=== PATIENT | female | born 1965 | race Caucasian/White ===

== ENCOUNTER 2017-09-08 19:06 | Emergency (ER) | payer MEDICARE, MEDICAID ==
[~2017-09-08] VITALS: Ht 160 cm; Wt 5.5 kg
[~2017-09-08 19:06] MED LIST: ASPI81TA46 PO; ATOR20TA66 PO; IBUP-1985 PO; METF500T4 PO; METH4TAB3 PO; METO25TA6 PO; POTA10TA36 PO
[2017-09-08] MEDS ORDERED: normal saline 1000ml 1,000 ML IV ONE (19:36)
[2017-09-08 19:37] LABS: BASOPHILS % (AUTO) 0.5 % (0-1); EOSINOPHILS # (AUTO) 0.5 X10'3 (0-0.9); EOSINOPHILS % (AUTO) 6.5 % (0-6); HEMATOCRIT 37.3 % (35.0-45.0); HEMOGLOBIN 12.4 g/dl (12.0-16.0); LYMPHOCYTES # (AUTO) 1.7 X10'3 (1.1-4.8); LYMPHOCYTES % (AUTO) 23.4 % (21-51); MEAN CORPUSCULAR HEMOGLOBIN 30.1 PG (27.0-31.0); MEAN CORPUSCULAR HGB CONC 33.3 % (33.0-36.5); MEAN CORPUSCULAR VOLUME 90.5 FL (78-98); MEAN PLATELET VOLUME 7.2 FL (7.4-10.4); MONOCYTES # (AUTO) 0.4 X10'3 (0-0.9); NEUTROPHILS # (AUTO) 4.6 X10'3 (1.8-7.7); NEUTROPHILS % (AUTO) 63.6 % (42-75); PLATELET COUNT 194 X10'3 (140-440); RED BLOOD COUNT 4.12 X10'6 (4.20-5.60); WHITE BLOOD COUNT 7.2 X10'3 (4.5-11.0)
[2017-09-08] MEDS ORDERED: methylPREDNISolone sod succ 125mg/2ml vial IV ONE (19:40)
[2017-09-08] MEDS ORDERED: ipratropium/albuterol 3ml nebule NEB ONE (19:40)
[2017-09-08 19:46] LABS: PARTIAL THROMBOPLASTIN TIME 25 SECONDS (22-32)
[2017-09-08] MEDS: morphine 2 MG/ML inj. syringe IV PRN ×2 (19:57→22:25)
[2017-09-08 20:15] LABS: ALANINE AMINOTRANSFERASE 28 U/L (12-78); ALBUMIN 3.4 G/DL (3.4-5.0); ALBUMIN/GLOBULIN RATIO 1.3 (1.1-1.5); ALKALINE PHOSPHATASE 154 IU/L (46-116); ANION GAP 7 (8-16); ASPARTATE AMINO TRANSFERASE 20 U/L (10-37); BILIRUBIN,TOTAL 0.2 MG/DL (0.1-1.0); BLOOD UREA NITROGEN 19 MG/DL (7-18); BUN/CREATININE RATIO 27.1 (6.6-38.0); CALCIUM 8.9 MG/DL (8.5-10.1); CHLORIDE 109 MMOL/L (99-107); ETHANOL < 0.010 GM/DL (0.0-0.010); GLUCOSE 101 MG/DL (70-104); LIPASE 122 U/L (73-393); MAGNESIUM 1.9 MG/DL (1.5-2.4); POTASSIUM 3.4 MMOL/L (3.5-5.1); SODIUM 145 MMOL/L (135-145); TOTAL CARBON DIOXIDE 29.5 MMOL/L (24-32); TOTAL PROTEIN 6.1 G/DL (6.4-8.2); eGFR 87 ML/MIN
[2017-09-08] MEDS ORDERED: dexamethasone sod phosphate 10mg/ml inj IV STA (21:31)
[2017-09-08] MEDS ORDERED: PRED20TA PO (21:33)
[2017-09-08] MEDS ORDERED: ALBU6.7H INH (21:33)
[2017-09-08] MEDS ORDERED: albuterol 2.5 MG/3 ML nebule NEB ONE (21:35)
[2017-09-08 22:23] LABS: URINE AMPHETAMINE SCREEN POSITIVE (Neg); URINE BARBITUATE SCREEN NEGATIVE (Neg); URINE BENZODIAZEPINES SCREEN NEGATIVE (Neg); URINE CANNABINOID SCREEN NEGATIVE (Neg); URINE COCAINE SCREEN NEGATIVE (Neg); URINE METHADONE SCREEN NEGATIVE (Neg); URINE OPIATE SCREEN POSITIVE (Neg); URINE PHENCYCLIDINE SCREEN NEGATIVE (Neg)
[2017-09-08 23:36] VITALS: BP 116/63
[2017-09-08 23:58] LABS: OCCULT BLOOD STOOL NEGATIVE (Neg)
== END 2017-09-08 23:38 | disposition home or self-care (01) ==
LOC: ER 19:07
DX: B34.9 Viral infection, unspecified (principal); E86.0 Dehydration; F15.10 Other stimulant abuse, uncomplicated; F17.200 Nicotine dependence, unspecified, uncomplicated; I11.0 Hypertensive heart disease with heart failure; I50.9 Heart failure, unspecified; J44.9 Chronic obstructive pulmonary disease, unspecified; E11.9 Type 2 diabetes mellitus without complications; Z90.49 Acquired absence of other specified parts of digestive tract; Z79.82 Long term (current) use of aspirin; Z79.84 Long term (current) use of oral hypoglycemic drugs; Z88.1 Allergy status to other antibiotic agents; Z79.899 Other long term (current) drug therapy
CPT/HCPCS: 36415; 71045; 80053; 80305; 80320; 82272; 83690; 83735; 83880; 84484; 85025; 85610; 85730; 86885; 86900; 86901; 87040; 87502; 87503; 93005; 94640; 94760; 96361; 96374; 96375; 96376; 99285; A4353; J1100; J2270; J2930; J7030

== ENCOUNTER 2018-08-01 16:24 | Emergency (ER) | payer MEDICARE, MEDICAID ==
[~2018-08-01] VITALS: Ht 160 cm; Wt 50.0 kg
[~2018-08-01 16:24] MED LIST changes: +ALBU6.7H INH; +METF-436 PO; -METF500T4 PO
[2018-08-01 16:57] VITALS: BP 110/70
== END 2018-08-01 17:52 | disposition left against medical advice (07) ==
LOC: ER 16:24
DX: N76.0 Acute vaginitis (principal); Z53.21 Procedure and treatment not carried out due to patient leaving prior to being seen by health care provider

== ENCOUNTER 2018-08-25 11:16 | Inpatient (IN) | payer MEDICARE, MEDICAID | END 2018-08-31 17:02 | disposition home or self-care (01) | LOC: ER 11:16 → ED HOLD 13:35 → SUR 3N 16:29 | DX: J96.01 Acute respiratory failure with hypoxia (principal); J18.1 Lobar pneumonia, unspecified organism; J44.1 Chronic obstructive pulmonary disease with (acute) exacerbation; N39.0 Urinary tract infection, site not specified; J44.0 Chronic obstructive pulmonary disease with (acute) lower respiratory infection; E11.9 Type 2 diabetes mellitus without complications ==

== ENCOUNTER 2018-11-04 13:45 | Emergency (ER) | payer MEDICARE, MEDICAID ==
[~2018-11-04] VITALS: Ht 160 cm; Wt 60.9 kg
[~2018-11-04 13:45] MED LIST changes: +ALBU18HF2 INH; -ALBU6.7H INH; +BENZ-16 PO; +BUDE10.2 INH; +CHOL100044 PO; +FERR325T32 PO; -IBUP-1985 PO; +LACT1CAP26 PO; +LISI2.5T2 PO; -METH4TAB3 PO; +MILK175C5 PO; +OXYB5TAB29 PO; +SERT25TA5 PO; +VARE0.5T PO
[2018-11-04 14:10] LABS: BASOPHILS % (AUTO) 0.6 % (0-1); EOSINOPHILS # (AUTO) 0.3 X10'3 (0-0.9); EOSINOPHILS % (AUTO) 5.9 % (0-6); HEMATOCRIT 37.1 % (35.0-45.0); HEMOGLOBIN 12.4 g/dl (12.0-16.0); LYMPHOCYTES # (AUTO) 1.4 X10'3 (1.1-4.8); LYMPHOCYTES % (AUTO) 23.3 % (21-51); MEAN CORPUSCULAR HEMOGLOBIN 29.7 PG (27.0-31.0); MEAN CORPUSCULAR HGB CONC 33.3 g/dL (33.0-36.5); MEAN PLATELET VOLUME 7.5 FL (7.4-10.4); MONOCYTES # (AUTO) 0.4 X10'3 (0-0.9); MONOCYTES % (AUTO) 6.7 % (2-12); NEUTROPHILS # (AUTO) 3.7 X10'3 (1.8-7.7); NEUTROPHILS % (AUTO) 63.5 % (42-75); PLATELET COUNT 146 X10'3 (140-440); RED BLOOD COUNT 4.17 X10'6 (4.20-5.60); RED CELL DISTRIBUTION WIDTH 13.7 % (11.5-14.5); WHITE BLOOD COUNT 5.9 X10'3 (4.5-11.0)
[2018-11-04] MEDS ORDERED: ketorolac trometh. 30mg/ml inj. IV ONE (14:10)
[2018-11-04] MEDS ORDERED: normal saline 1000ML IV soln IVB ONE ×3 (14:10→16:10)
[2018-11-04 14:19] LABS: ALANINE AMINOTRANSFERASE 21 U/L (12-78); ALBUMIN 2.9 G/DL (3.4-5.0); ALKALINE PHOSPHATASE 106 IU/L (46-116); ANION GAP 4 (8-16); ASPARTATE AMINO TRANSFERASE 17 U/L (10-37); BILIRUBIN,TOTAL 0.2 MG/DL (0.1-1.0); BLOOD UREA NITROGEN 26 MG/DL (7-18); BUN/CREATININE RATIO 55.3 (6.6-38.0); CALCIUM 8.4 MG/DL (8.5-10.1); CHLORIDE 111 MMOL/L (99-107); CREATININE 0.47 MG/DL (0.40-0.90); GLUCOSE 93 MG/DL (70-104); POTASSIUM 3.6 MMOL/L (3.5-5.1); SODIUM 144 MMOL/L (135-145); TOTAL CARBON DIOXIDE 28.9 MMOL/L (24-32); TOTAL PROTEIN 5.9 G/DL (6.4-8.2); eGFR > 90 ML/MIN
[2018-11-04 14:29] LABS: MAGNESIUM 1.5 MG/DL (1.5-2.4)
[2018-11-04] MEDS ORDERED: CYCL-1 PO (14:56)
[2018-11-04 15:54] LABS: CLARITY,URINE SLIGHTLY CLOUDY (Clear); COLOR,URINE YELLOW (Yellow); GLUCOSE, URINE NEGATIVE (Neg); KETONES,URINE NEGATIVE (Neg); LEUKOCYTE ESTERASE ,URINE NEGATIVE (Neg); NITRITES, URINE POSITIVE (Neg); OCCULT BLOOD,URINE NEGATIVE (Neg); PH,URINE 6.5 (4.8-8.0); PROTEIN,URINE NEGATIVE (Neg); UROBILINOGEN,URINE 0.2 E.U/dL (0.2-1.0)
[2018-11-04 15:57] LABS: UA COLLECTION TYPE CLN CATCH MIDSTREAM
[2018-11-04 16:03] LABS: BACTERIA,URINE 4+ /HPF (Neg); SQUAMOUS EPITHELIAL CELL,UR MANY /LPF (FEW)
[2018-11-04 16:04] LABS: WBC,URINE 0-4 /HPF (0-4)
[2018-11-04] MEDS ORDERED: CEPH500C5 PO (16:04)
[2018-11-04 16:05] LABS: RBC,URINE 0-2 /HPF (0-2)
[2018-11-04] MEDS ORDERED: cephalexin 250mg capsule PO ONE (16:05)
[2018-11-04] MEDS ORDERED: morphine 4 MG/ML inj SYRINge IV PRN (16:10)
[2018-11-04] MEDS ORDERED: ondansetron/PF 4mg/2ml inj IV ONE (16:10)
[2018-11-04] MEDS ORDERED: cephalexin 500mg capsule PO ONE (16:35)
[2018-11-04 16:54] VITALS: BP 125/69
== END 2018-11-04 16:56 | disposition home or self-care (01) ==
LOC: ER 13:46
DX: N39.0 Urinary tract infection, site not specified (principal); J44.9 Chronic obstructive pulmonary disease, unspecified; G43.909 Migraine, unspecified, not intractable, without status migrainosus; G35 Multiple sclerosis; I11.0 Hypertensive heart disease with heart failure; I50.9 Heart failure, unspecified; F15.90 Other stimulant use, unspecified, uncomplicated; F17.210 Nicotine dependence, cigarettes, uncomplicated; Z90.49 Acquired absence of other specified parts of digestive tract; Z98.890 Other specified postprocedural states; Z88.1 Allergy status to other antibiotic agents; Z79.82 Long term (current) use of aspirin; Z79.899 Other long term (current) drug therapy
CPT/HCPCS: 36415; 71045; 80053; 81001; 83735; 83880; 84145; 84484; 85025; 93005; 96374; 96375; 99284; J1885; J2270; J2405; J7030

== ENCOUNTER 2018-11-10 12:36 | Emergency (ER) | payer MEDICARE, MEDICAID ==
[~2018-11-10] VITALS: Ht 160 cm; Wt 52.3 kg
[~2018-11-10 12:36] MED LIST changes: -ATOR20TA66 PO; -BENZ-16 PO; +CEPH500C5 PO; -CHOL100044 PO; +CYCL-1 PO; -LACT1CAP26 PO; -MILK175C5 PO
[2018-11-10] MEDS ORDERED: CefTRIAXone 2gm/D5W 50ml 50 ML IV ONE (12:40)
[2018-11-10] MEDS ORDERED: normal saline 1000ML IV soln IVB ONE ×4 (12:40→16:25)
[2018-11-10] MEDS ORDERED: ketorolac tromethamine 15mg/ml inj. IV ONE (12:50)
--- NOTE | 2018-11-10 13:09 | NUR ---
LAB CALLED, HAD TO REJECT URINE SAMPLE DUE TO INSUFFICIANT AMOUNT SENT. PT'S RN AND PROVIDER NOTIFIED
[2018-11-10 13:32] LABS: BASOPHILS # (AUTO) 0.1 X10'3 (0-0.2); BASOPHILS % (AUTO) 1.5 % (0-1); EOSINOPHILS # (AUTO) 0.3 X10'3 (0-0.9); EOSINOPHILS % (AUTO) 4.8 % (0-6); HEMATOCRIT 39.5 % (35.0-45.0); HEMOGLOBIN 12.9 g/dl (12.0-16.0); LYMPHOCYTES # (AUTO) 2.1 X10'3 (1.1-4.8); LYMPHOCYTES % (AUTO) 34.9 % (21-51); MEAN CORPUSCULAR HEMOGLOBIN 29.3 PG (27.0-31.0); MEAN CORPUSCULAR HGB CONC 32.6 g/dL (33.0-36.5); MEAN CORPUSCULAR VOLUME 89.9 FL (78-98); MONOCYTES # (AUTO) 0.4 X10'3 (0-0.9); MONOCYTES % (AUTO) 7.6 % (2-12); NEUTROPHILS % (AUTO) 51.2 % (42-75); PLATELET COUNT 175 X10'3 (140-440); RED BLOOD COUNT 4.39 X10'6 (4.20-5.60); RED CELL DISTRIBUTION WIDTH 14.1 % (11.5-14.5); WHITE BLOOD COUNT 5.9 X10'3 (4.5-11.0)
--- NOTE | 2018-11-10 13:33 | NUR ---
MEDICATED PT WITH TORADOL PER ORDERS, 1 L NS BOLUS, AND IV ROCEPHEN PER ORDERS, VERIFIED WITH DR LLOYDFS NO NEED FOR BLOOD CULTURES.
[2018-11-10 13:57] LABS: ALANINE AMINOTRANSFERASE 57 U/L (12-78); ALBUMIN 3.3 G/DL (3.4-5.0); ALBUMIN/GLOBULIN RATIO 1.1 (1.1-1.5); ALKALINE PHOSPHATASE 122 IU/L (46-116); ANION GAP 6 (8-16); ASPARTATE AMINO TRANSFERASE 37 U/L (10-37); BILIRUBIN,TOTAL 0.2 MG/DL (0.1-1.0); BLOOD UREA NITROGEN 32 MG/DL (7-18); BUN/CREATININE RATIO 43.8 (6.6-38.0); CALCIUM 9.2 MG/DL (8.5-10.1); CHLORIDE 107 MMOL/L (99-107); CREATININE 0.73 MG/DL (0.40-0.90); GLUCOSE 156 MG/DL (70-104); POTASSIUM 3.1 MMOL/L (3.5-5.1); SODIUM 146 MMOL/L (135-145); TOTAL CARBON DIOXIDE 32.6 MMOL/L (24-32); TOTAL PROTEIN 6.2 G/DL (6.4-8.2); eGFR 83 ML/MIN
[2018-11-10] MEDS ORDERED: ondansetron/PF 4mg/2ml inj IV ONE (14:15)
[2018-11-10] MEDS: morphine 4 MG/ML inj SYRINge IV PRN ×3 (14:34→18:51)
--- NOTE | 2018-11-10 15:49 | NUR ---
Pt given warm blanket.
[2018-11-10] MEDS ORDERED: ketorolac trometh. 30mg/ml inj. IV ONE (16:25)
[2018-11-10] MEDS ORDERED: glycopyrrolate 0.2mg/ml inj IV ONE (16:25)
[2018-11-10] MEDS ORDERED: metoclopramide 5 mg/ml inj IV ONE (16:25)
[2018-11-10] MEDS ORDERED: diphenhydrAMINE 50 mg/ml inj IV ONE (16:25)
[2018-11-10 16:40] LABS: CLARITY,URINE CLEAR (Clear); COLOR,URINE YELLOW (Yellow); GLUCOSE, URINE NEGATIVE (Neg); KETONES,URINE NEGATIVE (Neg); LEUKOCYTE ESTERASE ,URINE NEGATIVE (Neg); NITRITES, URINE NEGATIVE (Neg); OCCULT BLOOD,URINE NEGATIVE (Neg); PROTEIN,URINE NEGATIVE (Neg); UROBILINOGEN,URINE 0.2 E.U/dL (0.2-1.0)
[2018-11-10 16:42] LABS: UA COLLECTION TYPE VOIDED
[2018-11-10 18:43] VITALS: BP 125/76
[2018-11-11] MEDS ORDERED: DICL50TA8 PO (02:35)
== END 2018-11-10 19:05 | disposition home or self-care (01) ==
LOC: ER 12:36
DX: R10.12 Left upper quadrant pain (principal); M54.9 Dorsalgia, unspecified; G43.909 Migraine, unspecified, not intractable, without status migrainosus; J44.9 Chronic obstructive pulmonary disease, unspecified; E11.9 Type 2 diabetes mellitus without complications; I11.0 Hypertensive heart disease with heart failure; I50.9 Heart failure, unspecified; F15.90 Other stimulant use, unspecified, uncomplicated; F17.210 Nicotine dependence, cigarettes, uncomplicated; Z88.1 Allergy status to other antibiotic agents; Z79.2 Long term (current) use of antibiotics; Z79.82 Long term (current) use of aspirin; Z79.899 Other long term (current) drug therapy; Z90.49 Acquired absence of other specified parts of digestive tract; Z98.890 Other specified postprocedural states
CPT/HCPCS: 36415; 74176; 80053; 81003; 85025; 96365; 96375; 96376; 99284; J0696; J1885; J2270; J2405; J7030; 70450

== ENCOUNTER 2018-11-11 02:23 | Emergency (ER) | payer MEDICARE, MEDICAID ==
[~2018-11-11] VITALS: Ht 160 cm; Wt 50.0 kg
[2018-11-11 02:31] VITALS: BP 148/79
[2018-11-11] MEDS ORDERED: ketorolac trometh inj. 60 MG/2 ML VIAL IM ONE (02:35)
[2018-11-11] MEDS ORDERED: DICL50TA8 PO (02:35)
== END 2018-11-11 03:22 | disposition home or self-care (01) ==
LOC: ER 02:24
DX: R10.9 Unspecified abdominal pain (principal); R11.2 Nausea with vomiting, unspecified; I11.0 Hypertensive heart disease with heart failure; I50.9 Heart failure, unspecified; G43.909 Migraine, unspecified, not intractable, without status migrainosus; J44.9 Chronic obstructive pulmonary disease, unspecified; E11.9 Type 2 diabetes mellitus without complications; F15.90 Other stimulant use, unspecified, uncomplicated; Z90.49 Acquired absence of other specified parts of digestive tract; Z79.82 Long term (current) use of aspirin; Z88.1 Allergy status to other antibiotic agents
CPT/HCPCS: 99284

== ENCOUNTER 2019-01-08 07:52 | Observation (INO) | payer MEDICARE, MEDICAID ==
[~2019-01-08] VITALS: Ht 160 cm; Wt 54.0 kg
[~2019-01-08 07:52] MED LIST changes: +ASPI81TA44 PO; -ASPI81TA46 PO; +DICL50TA8 PO
--- NOTE | 2019-01-08 08:07 | NUR ---
dr. brewster at bedside.
[2019-01-08 08:20] LABS: BASOPHILS # (AUTO) 0.1 X10'3 (0-0.2); BASOPHILS % (AUTO) 0.9 % (0-1); EOSINOPHILS # (AUTO) 0.3 X10'3 (0-0.9); EOSINOPHILS % (AUTO) 2.9 % (0-6); HEMATOCRIT 37.4 % (35.0-45.0); HEMOGLOBIN 12.6 g/dl (12.0-16.0); LYMPHOCYTES # (AUTO) 2.1 X10'3 (1.1-4.8); LYMPHOCYTES % (AUTO) 20.9 % (21-51); MEAN CORPUSCULAR HEMOGLOBIN 30.1 PG (27.0-31.0); MEAN CORPUSCULAR HGB CONC 33.6 g/dL (33.0-36.5); MEAN CORPUSCULAR VOLUME 89.6 FL (78-98); MEAN PLATELET VOLUME 7.4 FL (7.4-10.4); MONOCYTES # (AUTO) 0.6 X10'3 (0-0.9); MONOCYTES % (AUTO) 5.6 % (2-12); NEUTROPHILS % (AUTO) 69.7 % (42-75); PLATELET COUNT 169 X10'3 (140-440); RED BLOOD COUNT 4.17 X10'6 (4.20-5.60); RED CELL DISTRIBUTION WIDTH 14.4 % (11.5-14.5)
[2019-01-08] MEDS ORDERED: morphine 4 MG/ML inj SYRINge IV ONE (08:20)
[2019-01-08 08:40] LABS: PARTIAL THROMBOPLASTIN TIME 27 SECONDS (22-32)
[2019-01-08 08:42] LABS: ALANINE AMINOTRANSFERASE 25 U/L (12-78); ALBUMIN 3.2 G/DL (3.4-5.0); ALKALINE PHOSPHATASE 115 IU/L (46-116); ANION GAP 5 (8-16); ASPARTATE AMINO TRANSFERASE 18 U/L (10-37); BILIRUBIN,TOTAL 0.3 MG/DL (0.1-1.0); BLOOD UREA NITROGEN 30 MG/DL (7-18); BUN/CREATININE RATIO 48.4 (6.6-38.0); CALCIUM 8.7 MG/DL (8.5-10.1); CHLORIDE 108 MMOL/L (99-107); CREATININE 0.62 MG/DL (0.40-0.90); GLUCOSE 97 MG/DL (70-104); POTASSIUM 3.4 MMOL/L (3.5-5.1); SODIUM 142 MMOL/L (135-145); TOTAL CARBON DIOXIDE 29.2 MMOL/L (24-32); TOTAL PROTEIN 6.3 G/DL (6.4-8.2); eGFR > 90 ML/MIN
[2019-01-08] MEDS ORDERED: VITC500T PO (08:44)
[2019-01-08] MEDS ORDERED: IBUP100T53 PO (08:44)
[2019-01-08] MEDS ORDERED: LORA0.5T PO (08:44)
[2019-01-08] MEDS ORDERED: mag hydrox/Alum hydrox/simeth 30ml oral suspension PO ONE (09:30)
[2019-01-08] MEDS ORDERED: acetaminophen 325mg tablet PO PRN (10:55)
[2019-01-08] MEDS ORDERED: ondansetron/PF 4mg/2ml inj IV PRN (10:55)
[2019-01-08] MEDS ORDERED: magnesium hydroxide 30ml (MOM) UD suspension PO PRN (10:55)
[2019-01-08] MEDS ORDERED: mag hydrox/Alum hydrox/simeth 30ml oral suspension PO PRN (10:55)
[2019-01-08] MEDS: normal saline 1000ml 1,000 ML IV SCH ×2 (11:08→20:54)
--- NOTE | 2019-01-08 11:16 | NUR ---
PAGED DR. EDITH Chambers 3.4 REQUESTING K REPLACEMENT.
--- NOTE | 2019-01-08 13:13 | NUR ---
meds taken to the pharmacy.
[2019-01-08 13:15] VITALS: BP 114/60
[2019-01-08] MEDS ORDERED: albuterol 2.5 MG/3 ML nebule NEB PRN (14:05)
[2019-01-08] MEDS: pantoprazole 40mg Tablet.DR PO SCH (14:05)
[2019-01-08] MEDS ORDERED: nicotine 14mg patch - 24hr TD ONE (14:05)
[2019-01-08 15:00] VITALS: BP 110/71
[2019-01-08] MEDS ORDERED: LORazepam 0.5 MG tablet PO PRN (16:40)
[2019-01-08] MEDS ORDERED: ibuprofen 200mg tablet PO SCH (16:40)
--- NOTE | 2019-01-08 18:16 | NUR ---
pt report givent to Alessandra LAMBERT; all questions answered.
[2019-01-08 19:00] VITALS: BP 150/73
[2019-01-08] MEDS: albuterol 2.5 MG/3 ML nebule NEB SCH (20:07)
[2019-01-08] MEDS: budesonide 0.5mg/2ml UD nebule IH SCH (20:07)
[2019-01-08] MEDS: heparin, porcine 5000 units/ml vial SQ SCH (21:06)
[2019-01-08] MEDS: metoprolol tartrate 25mg tablet PO SCH (21:06)
[2019-01-08] MEDS: varenicline tartrate 0.5mg tablet PO SCH (21:07)
[2019-01-08] MEDS: oxybutynin 5mg tablet PO SCH (21:07)
[2019-01-08 23:00] VITALS: BP 118/54
[2019-01-09] MEDS: albuterol 2.5 MG/3 ML nebule NEB SCH ×2 (02:16→08:17)
[2019-01-09 03:00] VITALS: BP 127/74
[2019-01-09] MEDS: morphine 2 MG/ML inj. syringe IV PRN ×2 (05:43→11:00)
[2019-01-09 06:02] LABS: BASOPHILS % (AUTO) 0.5 % (0-1); EOSINOPHILS # (AUTO) 0.2 X10'3 (0-0.9); EOSINOPHILS % (AUTO) 2.8 % (0-6); HEMATOCRIT 35.5 % (35.0-45.0); HEMOGLOBIN 12.4 g/dl (12.0-16.0); LYMPHOCYTES # (AUTO) 1.8 X10'3 (1.1-4.8); LYMPHOCYTES % (AUTO) 22.8 % (21-51); MEAN CORPUSCULAR HEMOGLOBIN 30.9 PG (27.0-31.0); MEAN CORPUSCULAR HGB CONC 34.9 g/dL (33.0-36.5); MEAN CORPUSCULAR VOLUME 88.4 FL (78-98); MEAN PLATELET VOLUME 7.7 FL (7.4-10.4); MONOCYTES # (AUTO) 0.5 X10'3 (0-0.9); MONOCYTES % (AUTO) 5.9 % (2-12); NEUTROPHILS # (AUTO) 5.4 X10'3 (1.8-7.7); PLATELET COUNT 156 X10'3 (140-440); RED BLOOD COUNT 4.02 X10'6 (4.20-5.60); WHITE BLOOD COUNT 7.9 X10'3 (4.5-11.0)
[2019-01-09 06:15] LABS: ALBUMIN 2.9 G/DL (3.4-5.0); ANION GAP 6 (8-16); BLOOD UREA NITROGEN 18 MG/DL (7-18); BUN/CREATININE RATIO 36.7 (6.6-38.0); CALCIUM 8.5 MG/DL (8.5-10.1); CHLORIDE 106 MMOL/L (99-107); CREATININE 0.49 MG/DL (0.40-0.90); GLUCOSE 82 MG/DL (70-104); POTASSIUM 3.5 MMOL/L (3.5-5.1); SODIUM 140 MMOL/L (135-145); TOTAL CARBON DIOXIDE 28.1 MMOL/L (24-32); eGFR > 90 ML/MIN
--- NOTE | 2019-01-09 06:20 | NUR ---
Problems reprioritized. Patient report given, questions answered & plan of care reviewed with PETRA Aparicio.
--- NOTE | 2019-01-09 06:46 | NUR ---
Patient in room PCU 3020. I have received report from PETRA Aparicio and had the opportunity to ask questions and assume patient care.
[2019-01-09 07:00] VITALS: BP 134/73
[2019-01-09] MEDS: normal saline 1000ml 1,000 ML IV SCH (07:35)
[2019-01-09] MEDS: heparin, porcine 5000 units/ml vial SQ SCH ×2 (07:37→08:00)
[2019-01-09] MEDS: varenicline tartrate 0.5mg tablet PO SCH (07:38)
[2019-01-09] MEDS: metoprolol tartrate 25mg tablet PO SCH (07:38)
[2019-01-09] MEDS: pantoprazole 40mg Tablet.DR PO SCH (07:38)
--- NOTE | 2019-01-09 07:50 | NUR ---
Messaged pharmacy re inappropriate forms of oxybutinin & K-Cl.
[2019-01-09] MEDS ORDERED: ferrous sulfate 325mg tablet PO SCH (08:00)
[2019-01-09] MEDS ORDERED: nicotine 14mg patch - 24hr TD SCH (08:00)
[2019-01-09] MEDS ORDERED: ascorbic acid 500mg tablet PO SCH (08:00)
[2019-01-09] MEDS ORDERED: sertraline 25mg tablet PO SCH (08:00)
[2019-01-09] MEDS ORDERED: lisinopril 2.5mg tablet PO SCH (08:00)
[2019-01-09] MEDS: oxybutynin 5mg tablet PO SCH (08:00)
[2019-01-09] MEDS ORDERED: potassium chloride 10mEq ER tablet PO SCH (08:00)
[2019-01-09] MEDS: budesonide 0.5mg/2ml UD nebule IH SCH (08:17)
[2019-01-09 11:00] VITALS: BP 108/61
[2019-01-09] MEDS ORDERED: IBUP-1985 PO (11:21)
[2019-01-09] MEDS ORDERED: PANT40TA4 PO (11:21)
[2019-01-09] MEDS ORDERED: ASPI81TA52 PO (11:21)
[2019-01-09] MEDS ORDERED: CLE150C PO (11:21)
[2019-01-09] MEDS ORDERED: clindamycin 150mg capsule PO SCH (11:23)
--- NOTE | 2019-01-09 13:00 | NUR ---
Discharge information, including medications, diabetes education, smoking cessation, S&S worsening condition reviewed with pt. Pt had opportunity to ask questions. IV removed, cannula intact. Tele box removed & returned to telephone switchboard operator. ID band removed. F/U appt scheduled with [facility] for January 13, 2019 at 1325. New prescriptions called in to [facility] & tape given to pt per pt's request. All pt belongings, including home medications stored in pharmacy, cell phone & phone computer aide gathered up and sent with pt. Pt wheeled down to lob. Pt ambulated independently & without difficulty to private vehicle.
== END 2019-01-09 13:00 | disposition home or self-care (01) ==
LOC: ER 07:52 → PCU 3S 12:55
PROVIDERS: ADMIT Family Medicine; ATTEND Family Medicine
DX: R07.89 Other chest pain (principal); J44.9 Chronic obstructive pulmonary disease, unspecified; I11.0 Hypertensive heart disease with heart failure; I50.9 Heart failure, unspecified; E11.9 Type 2 diabetes mellitus without complications; K21.9 Gastro-esophageal reflux disease without esophagitis; L03.90 Cellulitis, unspecified; G35 Multiple sclerosis; G43.909 Migraine, unspecified, not intractable, without status migrainosus; F41.9 Anxiety disorder, unspecified; Z88.1 Allergy status to other antibiotic agents; Z79.82 Long term (current) use of aspirin; Z90.49 Acquired absence of other specified parts of digestive tract
CPT/HCPCS: 36415; 71045; 80048; 80053; 82948; 84484; 85025; 85610; 85730; 87070; 93005; 93306; 94640; 94760; 96372; 96374; 96375; 96376; 99284; G0378; J1644; J2270; J2405; J7030; J7626

== ENCOUNTER 2019-01-10 14:17 | Emergency (ER) | payer MEDICARE, MEDICAID ==
[~2019-01-10] VITALS: Ht 160 cm; Wt 56.8 kg
[~2019-01-10 14:17] MED LIST changes: -ASPI81TA44 PO; +ASPI81TA52 PO; -CEPH500C5 PO; +CLE150C PO; -CYCL-1 PO; -DICL50TA8 PO; +IBUP-1985 PO; +LORA0.5T PO; +PANT40TA4 PO; +VITC500T PO
--- NOTE | 2019-01-10 14:47 | NUR ---
PATIENT STATES THAT SHE SQUEEZED PUS OUT OF IT EARLIER TODAY: 6 CM AREA NEAR RIGHT ELBOW REDDENED WITH FOCAL AREA OF SMALL REDDENDED BUMP
[2019-01-10] MEDS ORDERED: CefTRIAXone 1000mg IM Kit (w/lidocaine diluent) IM ONE (14:50)
[2019-01-10 15:19] VITALS: BP 140/106
== END 2019-01-10 15:20 | disposition home or self-care (01) ==
LOC: ER 14:18
DX: L03.113 Cellulitis of right upper limb (principal); L02.413 Cutaneous abscess of right upper limb; G43.909 Migraine, unspecified, not intractable, without status migrainosus; G35 Multiple sclerosis; I11.0 Hypertensive heart disease with heart failure; I50.9 Heart failure, unspecified; J44.9 Chronic obstructive pulmonary disease, unspecified; E11.9 Type 2 diabetes mellitus without complications; F15.90 Other stimulant use, unspecified, uncomplicated; Z90.49 Acquired absence of other specified parts of digestive tract; Z98.890 Other specified postprocedural states; Z88.1 Allergy status to other antibiotic agents; Z79.82 Long term (current) use of aspirin; Z79.899 Other long term (current) drug therapy
CPT/HCPCS: 96372; 99283; J0696

== ENCOUNTER 2019-04-06 16:46 | Inpatient (IN) | payer MEDICARE, MEDICAID ==
[~2019-04-06] VITALS: Ht 160 cm; Wt 51.4 kg
[~2019-04-06 16:46] MED LIST changes: -ASPI81TA52 PO
[2019-04-06 17:11] LABS: BASOPHILS # (AUTO) 0.1 X10'3 (0-0.2); BASOPHILS % (AUTO) 0.6 % (0-1); EOSINOPHILS # (AUTO) 0.2 X10'3 (0-0.9); EOSINOPHILS % (AUTO) 2.5 % (0-6); HEMATOCRIT 41.3 % (35.0-45.0); HEMOGLOBIN 13.7 g/dl (12.0-16.0); LYMPHOCYTES # (AUTO) 2.7 X10'3 (1.1-4.8); LYMPHOCYTES % (AUTO) 27.8 % (21-51); MEAN CORPUSCULAR HEMOGLOBIN 30.4 PG (27.0-31.0); MEAN CORPUSCULAR HGB CONC 33.2 g/dL (33.0-36.5); MEAN CORPUSCULAR VOLUME 91.6 FL (78-98); MEAN PLATELET VOLUME 7.6 FL (7.4-10.4); MONOCYTES # (AUTO) 0.5 X10'3 (0-0.9); MONOCYTES % (AUTO) 5.3 % (2-12); NEUTROPHILS # (AUTO) 6.2 X10'3 (1.8-7.7); NEUTROPHILS % (AUTO) 63.8 % (42-75); PLATELET COUNT 166 X10'3 (140-440); RED BLOOD COUNT 4.51 X10'6 (4.20-5.60); RED CELL DISTRIBUTION WIDTH 13.3 % (11.5-14.5); WHITE BLOOD COUNT 9.7 X10'3 (4.5-11.0)
[2019-04-06 17:24] LABS: PARTIAL THROMBOPLASTIN TIME 27 SECONDS (22-32)
[2019-04-06 17:26] LABS: ALANINE AMINOTRANSFERASE 29 U/L (12-78); ALBUMIN 3.6 G/DL (3.4-5.0); ALBUMIN/GLOBULIN RATIO 1.1 (1.1-1.5); ALKALINE PHOSPHATASE 99 IU/L (46-116); ANION GAP 5 (8-16); ASPARTATE AMINO TRANSFERASE 20 U/L (10-37); BILIRUBIN,TOTAL 0.2 MG/DL (0.1-1.0); BLOOD UREA NITROGEN 24 MG/DL (7-18); BUN/CREATININE RATIO 33.8 (6.6-38.0); CALCIUM 8.7 MG/DL (8.5-10.1); CHLORIDE 108 MMOL/L (99-107); CREATININE 0.71 MG/DL (0.40-0.90); GLUCOSE 99 MG/DL (70-104); POTASSIUM 3.7 MMOL/L (3.5-5.1); SODIUM 147 MMOL/L (135-145); TOTAL CARBON DIOXIDE 33.6 MMOL/L (24-32); TOTAL PROTEIN 6.9 G/DL (6.4-8.2); eGFR 85 ML/MIN
[2019-04-06] MEDS ORDERED: normal saline 1000ML IV soln IVB ONE (17:45)
[2019-04-06] MEDS ORDERED: methylPREDNISolone sod succ 125mg/2ml vial IV ONE (17:45)
[2019-04-06] MEDS ORDERED: ipratropium/albuterol 3ml nebule NEB ONE (17:45)
[2019-04-06] MEDS ORDERED: CefTRIAXone 2gm/D5W 50ml 50 ML IV ONE (17:50)
[2019-04-06] MEDS ORDERED: azithromycin/NS 500mg/250ml 250 ML IV ONE (17:50)
--- NOTE | 2019-04-06 18:40 | NUR ---
Dr Townsend made aware patient SPO2 70's when getting up to bedside commode, O2 increased to 4L.
[2019-04-06] MEDS ORDERED: CYCL-1 PO (18:57)
[2019-04-06] MEDS ORDERED: ketorolac tromethamine 15mg/ml inj. IV ONE (19:20)
[2019-04-06] MEDS ORDERED: normal saline 1000ml 1,000 ML IV SCH (19:58)
[2019-04-06] MEDS ORDERED: magnesium hydroxide 30ml (MOM) UD suspension PO PRN (20:00)
[2019-04-06] MEDS ORDERED: ondansetron/PF 4mg/2ml inj IV PRN (20:00)
[2019-04-06] MEDS ORDERED: acetaminophen 325mg tablet PO PRN (20:00)
[2019-04-06] MEDS ORDERED: mag hydrox/Alum hydrox/simeth 30ml oral suspension PO PRN (20:00)
[2019-04-06] MEDS ORDERED: glucagon, human recombinant 1mg kit SUBCUT PRN (20:05)
[2019-04-06] MEDS ORDERED: insulin Lispro (HumaLOG) vial - multi-dose SQ SCH (20:05)
[2019-04-06] MEDS ORDERED: MESSAGE TO PHARMACY PO ONE (20:05)
[2019-04-06] MEDS ORDERED: dextrose ORAL solution 15 GM/59 ML bottle PO PRN ×2 (20:05)
[2019-04-06] MEDS ORDERED: dextrose 50%-water 50ml dispensing syringe IV PRN ×2 (20:05)
[2019-04-06] MEDS ORDERED: cyclobenzaprine 10mg tablet PO PRN (20:05)
[2019-04-06] MEDS: heparin, porcine 5000 units/ml vial SQ SCH (20:12)
[2019-04-06] MEDS ORDERED: ipratropium/albuterol 3ml nebule NEB PRN (20:15)
[2019-04-06 20:23] LABS: HEMOGLOBIN A1C 5.4 % (4.5-6.2)
[2019-04-06] MEDS: insulin glargine (Lantus) pen - multi-dose SQ SCH (21:00)
--- NOTE | 2019-04-06 21:57 | NUR ---
Received report from PETRA Shrestha. Awaiting patient arrival to the unit
[2019-04-06] MEDS: albuterol 2.5 MG/3 ML nebule NEB SCH (22:24)
[2019-04-06] MEDS: budesonide 0.5mg/2ml UD nebule IH SCH (22:24)
--- NOTE | 2019-04-06 22:45 | NUR ---
RT at bedside, patient c/o sob. 2L NC satting at 85%. Increased O2 to 4L, O2 sats increaased to 92%.
[2019-04-06] MEDS: LORazepam 0.5 MG tablet PO PRN (22:56)
[2019-04-06] MEDS ORDERED: nicotine 21mg patch - 24 hr TD ONE (23:05)
[2019-04-06] MEDS ORDERED: LORazepam 2 mg/ml vial IV ONE (23:05)
[2019-04-06] MEDS: methylPREDNISolone sod succ/PF 40mg inj. IV SCH (23:08)
[2019-04-06] MEDS: HYDROcodone/acetaminophen 5mg/325mg tablet PO PRN (23:24)
[2019-04-07 00:04] VITALS: BP 128/60
[2019-04-07] MEDS: albuterol 2.5 MG/3 ML nebule NEB SCH ×2 (03:26→09:10)
[2019-04-07 05:59] LABS: BASOPHILS % (AUTO) 0.1 % (0-1); EOSINOPHILS % (AUTO) 0.1 % (0-6); HEMATOCRIT 39.8 % (35.0-45.0); HEMOGLOBIN 13.1 g/dl (12.0-16.0); LYMPHOCYTES # (AUTO) 0.8 X10'3 (1.1-4.8); LYMPHOCYTES % (AUTO) 8.9 % (21-51); MEAN CORPUSCULAR HEMOGLOBIN 30.6 PG (27.0-31.0); MEAN CORPUSCULAR HGB CONC 33.1 g/dL (33.0-36.5); MEAN CORPUSCULAR VOLUME 92.5 FL (78-98); MONOCYTES # (AUTO) 0.1 X10'3 (0-0.9); MONOCYTES % (AUTO) 0.7 % (2-12); NEUTROPHILS # (AUTO) 8.5 X10'3 (1.8-7.7); NEUTROPHILS % (AUTO) 90.2 % (42-75); PLATELET COUNT 148 X10'3 (140-440); RED CELL DISTRIBUTION WIDTH 13.2 % (11.5-14.5); WHITE BLOOD COUNT 9.4 X10'3 (4.5-11.0)
[2019-04-07 06:15] LABS: ALANINE AMINOTRANSFERASE 23 U/L (12-78); ALBUMIN 3.3 G/DL (3.4-5.0); ALKALINE PHOSPHATASE 93 IU/L (46-116); ANION GAP 8 (8-16); ASPARTATE AMINO TRANSFERASE 15 U/L (10-37); BILIRUBIN,TOTAL 0.2 MG/DL (0.1-1.0); BLOOD UREA NITROGEN 19 MG/DL (7-18); BUN/CREATININE RATIO 34.5 (6.6-38.0); CALCIUM 8.4 MG/DL (8.5-10.1); CHLORIDE 108 MMOL/L (99-107); CREATININE 0.55 MG/DL (0.40-0.90); GLUCOSE 146 MG/DL (70-104); POTASSIUM 3.7 MMOL/L (3.5-5.1); SODIUM 144 MMOL/L (135-145); TOTAL CARBON DIOXIDE 28.5 MMOL/L (24-32); TOTAL PROTEIN 6.5 G/DL (6.4-8.2); eGFR > 90 ML/MIN
--- NOTE | 2019-04-07 06:49 | NUR ---
Problems reprioritized. Patient report given, questions answered & plan of care reviewed with PETRA De Leon.
[2019-04-07 07:00] VITALS: BP 161/92
[2019-04-07] MEDS: pantoprazole 40mg Tablet.DR PO SCH (07:27)
[2019-04-07] MEDS: methylPREDNISolone sod succ/PF 40mg inj. IV SCH ×2 (07:27→15:50)
[2019-04-07] MEDS: metoprolol tartrate 25mg tablet PO SCH ×2 (07:27→21:32)
[2019-04-07] MEDS: sertraline 25mg tablet PO SCH (07:27)
[2019-04-07] MEDS: heparin, porcine 5000 units/ml vial SQ SCH ×2 (07:28→21:33)
[2019-04-07] MEDS: lisinopril 2.5mg tablet PO SCH (07:28)
[2019-04-07] MEDS: HYDROcodone/acetaminophen 5mg/325mg tablet PO PRN ×4 (07:36→19:32)
[2019-04-07] MEDS ORDERED: non-formulary drug (Budesonide/Formoterol Fumarate (Symbicort 160-4.5 Mcg Inhaler) 2 PUFFS INH SCH (08:00)
[2019-04-07] MEDS ORDERED: CefTRIAXone/D5W-Rocephin 1gm 50 ML IV SCH (08:00)
[2019-04-07] MEDS ORDERED: azithromycin 250mg tablet PO SCH (08:00)
--- NOTE | 2019-04-07 08:27 | NUR ---
PT VERY SOB. RT TX AND 0.[address] CORTES. GOT ORDER TO GIVE 40 MG LASIX.
[2019-04-07] MEDS ORDERED: furosemide 40mg/4ml inj IV ONE (08:30)
[2019-04-07] MEDS: budesonide 0.5mg/2ml UD nebule IH SCH (09:10)
[2019-04-07 11:00] VITALS: BP 111/67
[2019-04-07 11:35] LABS: ABG BASE EXCESS 5.3 mmol/L (-2.0-3.0); ABG HCO3 32.4 mmol/L (22.0-26.0); ABG OXYGEN SATURATION 92.2 % (95-98); ABG PCO2 (T) 58.5 mmHg (35.0-45.0); ABG PH (T) 7.361 (7.350-7.450); ABG PO2 (T) 62.8 mmHg (83-108); FCOHb 0.8 % (0.5-1.5); FLOW 2 L/min; FMetHb 0.2 % (0.3-1.12); FO2Hb 91.3 % (94-100); RESPIRATORY RATE (OBSERVED) 24 b/min; TOTAL HEMOGLOBIN 13.8 G/dl (12.0-16.0)
[2019-04-07] MEDS ORDERED: CefTRIAXone/D5W-Rocephin 1gm 50 ML IV ONE (12:00)
[2019-04-07 13:05] VITALS: BP 115/72
[2019-04-07] MEDS: ipratropium/albuterol 3ml nebule NEB SCH ×3 (14:30→23:18)
--- NOTE | 2019-04-07 14:33 | NUR ---
Patient in room SAMM 352. I have received report from PETRA Gil and had the opportunity to ask questions. Awaiting pt's arrival to PCU room 3022.
[2019-04-07 14:45] LABS: ABG BASE EXCESS 5.1 mmol/L (-2.0-3.0); ABG HCO3 32.7 mmol/L (22.0-26.0); ABG OXYGEN SATURATION 97.6 % (95-98); ABG PCO2 (T) 61.8 mmHg (35.0-45.0); ABG PH (T) 7.341 (7.350-7.450); ALLEN'S TEST Positive; FCOHb 0.3 % (0.5-1.5); FMetHb 0.3 % (0.3-1.12); RESPIRATORY RATE 18 b/min; RESPIRATORY RATE (OBSERVED) 20 b/min; TIDAL VOLUME 970 mL; TOTAL HEMOGLOBIN 13.7 G/dl (12.0-16.0)
--- NOTE | 2019-04-07 15:00 | NUR ---
Problems reprioritized. Patient report given, questions answered & plan of care reviewed with SYLVESTER LAMBERT.
--- NOTE | 2019-04-07 15:10 | NUR ---
Pt arrived via bed to room 3022. Pt transferred in to bed without difficulty. Pt placed on mobile quality assurance monitor, vital signs obtained. Pt oriented to room, including TV and call light use. Will continue to closely monitor.
--- NOTE | 2019-04-07 15:46 | NUR ---
Dr. Jules telephoned re pt. Tox screen, repeat ABG at 1630 & no visitors ordered. Security notified of visitor policy. Will continue to closely monitor.
[2019-04-07] MEDS: metroNIDAZOLE-Flagyl 500mg/NS 100 ML IV SCH (15:49)
--- NOTE | 2019-04-07 16:11 | NUR ---
Pt requested Frederick, but pt asleep at this time.
[2019-04-07 16:40] LABS: ABG BASE EXCESS 3.4 mmol/L (-2.0-3.0); ABG HCO3 28.1 mmol/L (22.0-26.0); ABG OXYGEN SATURATION 88.7 % (95-98); ABG PCO2 (T) 42.8 mmHg (35.0-45.0); ABG PH (T) 7.435 (7.350-7.450); ABG PO2 (T) 47.6 mmHg (83-108); FCOHb 0.3 % (0.5-1.5); FMetHb 0.3 % (0.3-1.12); FO2Hb 88.2 % (94-100); MINUTE VOLUME 17 L/min; RESPIRATORY RATE 20 b/min; TIDAL VOLUME 535 mL; TOTAL HEMOGLOBIN 13.4 G/dl (12.0-16.0)
--- NOTE | 2019-04-07 16:44 | NUR ---
Paged Dr. Dhara suresh critical O2. PAGER ID: [phone] MESSAGE: Pt Cierra Fonseca in 3192 AB resulted. O2 @ 66.6. Thanks! Alessandra LAMBERT [phone] Addendum: 04/07/19 at 1726 by Zulema Negrete RN Dr. Jules telephoned back. Orders received to keep no visitation policy in place through 04/08/19 and to keep bipap on unless pt is eating. Will continue to monitor.
[2019-04-07 16:58] LABS: URINE AMPHETAMINE SCREEN POSITIVE (Neg); URINE BARBITUATE SCREEN NEGATIVE (Neg); URINE BENZODIAZEPINES SCREEN NEGATIVE (Neg); URINE CANNABINOID SCREEN NEGATIVE (Neg); URINE COCAINE SCREEN NEGATIVE (Neg); URINE METHADONE SCREEN NEGATIVE (Neg); URINE OPIATE SCREEN POSITIVE (Neg); URINE PHENCYCLIDINE SCREEN NEGATIVE (Neg)
--- NOTE | 2019-04-07 17:17 | NUR ---
Paged Dr. Jules re tox screen results. PAGER ID: [phone] MESSAGE: Pt Cierra Fonseca tox screen resulted, + opiates/amphetamines. Thanks! Alessandra LAMBERT [phone]
--- NOTE | 2019-04-07 17:55 | NUR ---
Orientee documentation: I have reviewed and agree with all interventions, assessments performed and documented by PETRA Valerio.
[2019-04-07 18:00] VITALS: BP 119/70
--- NOTE | 2019-04-07 18:44 | NUR ---
Problems reprioritized. Patient report given, questions answered & plan of care reviewed with PETRA Ravi.
[2019-04-07] MEDS: LORazepam 0.5 MG tablet PO PRN (19:32)
[2019-04-07] MEDS: insulin glargine (Lantus) pen - multi-dose SQ SCH (21:00)
[2019-04-07] MEDS: furosemide 20 MG/2 ML vial IV SCH (21:31)
[2019-04-07] MEDS: lactobacillus rhamnosus 10,000 MMU CELLS/CAPSULE PO SCH (21:31)
[2019-04-07 22:00] VITALS: BP 106/66
[2019-04-08] MEDS: metroNIDAZOLE-Flagyl 500mg/NS 100 ML IV SCH ×3 (00:52→16:25)
[2019-04-08] MEDS: methylPREDNISolone sod succ/PF 40mg inj. IV SCH ×2 (00:52→07:24)
[2019-04-08 03:00] VITALS: BP 117/69
[2019-04-08] MEDS: ipratropium/albuterol 3ml nebule NEB SCH ×6 (03:28→22:56)
[2019-04-08 05:31] LABS: BASOPHILS % (AUTO) 0.1 % (0-1); EOSINOPHILS % (AUTO) 0 % (0-6); HEMATOCRIT 38.8 % (35.0-45.0); HEMOGLOBIN 12.9 g/dl (12.0-16.0); LYMPHOCYTES # (AUTO) 0.9 X10'3 (1.1-4.8); LYMPHOCYTES % (AUTO) 6.8 % (21-51); MEAN CORPUSCULAR HEMOGLOBIN 30.4 PG (27.0-31.0); MEAN CORPUSCULAR HGB CONC 33.3 g/dL (33.0-36.5); MEAN CORPUSCULAR VOLUME 91.3 FL (78-98); MEAN PLATELET VOLUME 7.6 FL (7.4-10.4); MONOCYTES # (AUTO) 0.2 X10'3 (0-0.9); MONOCYTES % (AUTO) 1.2 % (2-12); NEUTROPHILS # (AUTO) 12.1 X10'3 (1.8-7.7); NEUTROPHILS % (AUTO) 91.9 % (42-75); PLATELET COUNT 173 X10'3 (140-440); RED BLOOD COUNT 4.24 X10'6 (4.20-5.60); RED CELL DISTRIBUTION WIDTH 13.5 % (11.5-14.5); WHITE BLOOD COUNT 13.2 X10'3 (4.5-11.0)
[2019-04-08 05:34] LABS: ALANINE AMINOTRANSFERASE 26 U/L (12-78); ALBUMIN 3.4 G/DL (3.4-5.0); ALBUMIN/GLOBULIN RATIO 1.1 (1.1-1.5); ALKALINE PHOSPHATASE 95 IU/L (46-116); ANION GAP 6 (8-16); ASPARTATE AMINO TRANSFERASE 14 U/L (10-37); BILIRUBIN,TOTAL 0.1 MG/DL (0.1-1.0); BLOOD UREA NITROGEN 32 MG/DL (7-18); BUN/CREATININE RATIO 57.1 (6.6-38.0); CALCIUM 9.6 MG/DL (8.5-10.1); CHLORIDE 106 MMOL/L (99-107); CREATININE 0.56 MG/DL (0.40-0.90); GLUCOSE 134 MG/DL (70-104); POTASSIUM 3.7 MMOL/L (3.5-5.1); SODIUM 144 MMOL/L (135-145); TOTAL CARBON DIOXIDE 32.4 MMOL/L (24-32); TOTAL PROTEIN 6.6 G/DL (6.4-8.2); eGFR > 90 ML/MIN
[2019-04-08 06:00] VITALS: BP 135/76
[2019-04-08] MEDS: pantoprazole 40mg Tablet.DR PO SCH (06:37)
[2019-04-08] MEDS: lactobacillus rhamnosus 10,000 MMU CELLS/CAPSULE PO SCH ×2 (07:24→19:44)
[2019-04-08] MEDS: heparin, porcine 5000 units/ml vial SQ SCH ×2 (07:24→19:43)
[2019-04-08] MEDS: furosemide 20 MG/2 ML vial IV SCH ×2 (07:24→19:41)
[2019-04-08] MEDS: sertraline 25mg tablet PO SCH (07:25)
[2019-04-08] MEDS: lisinopril 2.5mg tablet PO SCH (07:25)
[2019-04-08] MEDS: HYDROcodone/acetaminophen 5mg/325mg tablet PO PRN ×2 (07:26→16:27)
[2019-04-08] MEDS: LORazepam 0.5 MG tablet PO PRN ×2 (07:26→19:44)
[2019-04-08] MEDS: metoprolol tartrate 25mg tablet PO SCH ×2 (07:26→19:45)
[2019-04-08] MEDS: CefTRIAXone 2gm/D5W 50ml 50 ML IV SCH (08:39)
[2019-04-08 11:00] VITALS: BP 129/67
--- NOTE | 2019-04-08 14:20 | NUR ---
Sent page to Dr. Jules promotional table spacer PAGER ID: [phone] MESSAGE: [phone] Fonseca: The patient is requesting that her spouse be allowed to visit her room to help pay her bills. What do you think? Thanks, Olivia [phone]
[2019-04-08 15:00] VITALS: BP 101/51
--- NOTE | 2019-04-08 15:43 | NUR ---
PAGER ID: [phone] MESSAGE: [phone] Cierra Fonseca: Can we get order for nicotine patch 21mg, original order was dc'ed and pt is requesting for it. Thanks Natasha [phone]
[2019-04-08] MEDS: nicotine 21mg patch - 24 hr TD SCH (16:26)
--- NOTE | 2019-04-08 17:49 | NUR ---
Orientee documentation: I have reviewed and agree with all interventions, assessments performed and documented by PETRA Kaur. Orientee Medication Administration: For this medication-pass time frame, all medication were reviewed, dispensed, administered and documented per hospital policy by PETRA Kaur.
--- NOTE | 2019-04-08 18:15 | NUR ---
Patient in room PCU 3022. I have received report from PETRA Kaur and had the opportunity to ask questions and assume patient care.
--- NOTE | 2019-04-08 18:19 | NUR ---
Problems reprioritized. Patient report given, questions answered & plan of care reviewed with Arti LAMBERT.
[2019-04-08 19:00] VITALS: BP 138/78
[2019-04-08] MEDS: insulin glargine (Lantus) pen - multi-dose SQ SCH (21:00)
[2019-04-08 23:00] VITALS: BP 112/74
[2019-04-09] MEDS: metroNIDAZOLE-Flagyl 500mg/NS 100 ML IV SCH ×3 (00:09→16:56)
[2019-04-09] MEDS: ipratropium/albuterol 3ml nebule NEB SCH ×6 (02:51→22:31)
[2019-04-09 03:00] VITALS: BP 110/62
--- NOTE | 2019-04-09 04:40 | NUR ---
Trying to wean patient down on O2. Got her down to 3.5 L from 4, 3.5L to 2.5. Every time that I tried weaning the patient down, she would wake up and say she could not breath. Her O2 sats were low 90's where she should be, however, due to her anxiety and feeling of SOB she requested to have O2 increased again. We are sitting at 4 L NC once again. I have educated the patient on being CO2 retainer, she understands but when she feels she cannot breath she panics. Re-educated her multiple times. Has requested more ativan before scheduled time, will pass this info to dayshift nurse.
--- NOTE | 2019-04-09 06:08 | NUR ---
Problems reprioritized. Patient report given, questions answered & plan of care reviewed with PETRA Baker.
[2019-04-09 06:10] LABS: BASOPHILS % (AUTO) 0.2 % (0-1); EOSINOPHILS % (AUTO) 0.4 % (0-6); HEMATOCRIT 40.5 % (35.0-45.0); HEMOGLOBIN 13.4 g/dl (12.0-16.0); LYMPHOCYTES # (AUTO) 2.3 X10'3 (1.1-4.8); LYMPHOCYTES % (AUTO) 20.2 % (21-51); MEAN CORPUSCULAR HEMOGLOBIN 30.4 PG (27.0-31.0); MEAN CORPUSCULAR HGB CONC 33.1 g/dL (33.0-36.5); MEAN CORPUSCULAR VOLUME 91.7 FL (78-98); MONOCYTES # (AUTO) 0.7 X10'3 (0-0.9); MONOCYTES % (AUTO) 6.3 % (2-12); NEUTROPHILS # (AUTO) 8.4 X10'3 (1.8-7.7); NEUTROPHILS % (AUTO) 72.9 % (42-75); PLATELET COUNT 185 X10'3 (140-440); RED BLOOD COUNT 4.42 X10'6 (4.20-5.60); RED CELL DISTRIBUTION WIDTH 13.6 % (11.5-14.5); WHITE BLOOD COUNT 11.5 X10'3 (4.5-11.0)
--- NOTE | 2019-04-09 06:10 | NUR ---
Patient in room PCU 3022. I have received report from PETRA Chi and had the opportunity to ask questions and assume patient care. Will continue to monitor.
[2019-04-09 06:46] LABS: ALANINE AMINOTRANSFERASE 29 U/L (12-78); ALBUMIN 3.2 G/DL (3.4-5.0); ALKALINE PHOSPHATASE 91 IU/L (46-116); ANION GAP 6 (8-16); ASPARTATE AMINO TRANSFERASE 16 U/L (10-37); BILIRUBIN,TOTAL 0.1 MG/DL (0.1-1.0); BLOOD UREA NITROGEN 34 MG/DL (7-18); BUN/CREATININE RATIO 45.3 (6.6-38.0); CALCIUM 8.5 MG/DL (8.5-10.1); CHLORIDE 106 MMOL/L (99-107); CREATININE 0.75 MG/DL (0.40-0.90); GLUCOSE 128 MG/DL (70-104); SODIUM 147 MMOL/L (135-145); TOTAL CARBON DIOXIDE 35.1 MMOL/L (24-32); TOTAL PROTEIN 6.4 G/DL (6.4-8.2); eGFR 80 ML/MIN
[2019-04-09 07:00] VITALS: BP 122/93
[2019-04-09 07:06] LABS: POTASSIUM 2.8 MMOL/L (3.5-5.1)
--- NOTE | 2019-04-09 07:12 | NUR ---
Page sent to Dr. Jules: PAGER ID: [phone] MESSAGE: [phone] Fonseca: K is 2.8 today, do you want to order the replacement protocol? Thanks, Olivia [phone]
[2019-04-09] MEDS ORDERED: magnesium 2GM in 50ml NS 50 ML IV PRN (07:20)
[2019-04-09] MEDS ORDERED: potassium CL 10mEq/100ml bag 100 ML IV PRN (07:20)
[2019-04-09] MEDS ORDERED: magnesium 4gm in 100ml NS 100 ML IV PRN (07:20)
[2019-04-09] MEDS ORDERED: potassium Cl 20 mEq SR tablet PO PRN ×2 (07:20)
[2019-04-09] MEDS ORDERED: magnesium Cl slow-release 64mg tablet PO PRN (07:20)
[2019-04-09] MEDS: heparin, porcine 5000 units/ml vial SQ SCH ×2 (08:08→20:50)
[2019-04-09] MEDS: nicotine 21mg patch - 24 hr TD SCH (08:08)
[2019-04-09] MEDS: furosemide 20 MG/2 ML vial IV SCH ×2 (08:08→20:50)
[2019-04-09] MEDS: HYDROcodone/acetaminophen 5mg/325mg tablet PO PRN ×3 (08:09→20:50)
[2019-04-09] MEDS: CefTRIAXone 2gm/D5W 50ml 50 ML IV SCH (08:09)
[2019-04-09] MEDS: LORazepam 0.5 MG tablet PO PRN ×3 (08:09→20:50)
[2019-04-09] MEDS: predniSONE 20 mg tablet PO SCH (08:10)
[2019-04-09] MEDS: pantoprazole 40mg Tablet.DR PO SCH (08:10)
[2019-04-09] MEDS: sertraline 25mg tablet PO SCH (08:10)
[2019-04-09] MEDS: lactobacillus rhamnosus 10,000 MMU CELLS/CAPSULE PO SCH ×2 (08:10→20:50)
[2019-04-09] MEDS: metoprolol tartrate 25mg tablet PO SCH ×2 (08:10→20:51)
[2019-04-09] MEDS: lisinopril 2.5mg tablet PO SCH (08:10)
--- NOTE | 2019-04-09 09:51 | NUR ---
Problems reprioritized. Patient report given, questions answered & plan of care reviewed with PETRA Stern.
--- NOTE | 2019-04-09 10:00 | NUR ---
Patient in room PCU 3022. I have received report from PETRA Welch and had the opportunity to ask questions and assume patient care.
[2019-04-09 11:00] VITALS: BP 102/52
[2019-04-09] MEDS: Potassium Cl 40 MEQ in NS 500 ML IV SCH ×2 (13:43→16:00)
[2019-04-09 15:00] VITALS: BP 111/75
--- NOTE | 2019-04-09 15:51 | NUR ---
NOTIFIED PAGER ID: [phone] MESSAGE: [phone], Cierra Fonseca- pt is having what appears to be a panic attack, only order is for Ativan Q12, could we increase the frequency? Leena LAMBERT
[2019-04-09 18:00] VITALS: BP 122/68
--- NOTE | 2019-04-09 18:32 | NUR ---
Problems reprioritized. Patient report given, questions answered & plan of care reviewed with PETRA Ravi.
--- NOTE | 2019-04-09 18:51 | NUR ---
Problems reprioritized. Patient report given, questions answered & plan of care reviewed with PETRA Ravi.
[2019-04-09] MEDS: magnesium oxide 400mg tablet PO SCH (20:51)
[2019-04-09] MEDS: insulin glargine (Lantus) pen - multi-dose SQ SCH (21:00)
[2019-04-09 22:00] VITALS: BP 97/55
[2019-04-10] MEDS: metroNIDAZOLE-Flagyl 500mg/NS 100 ML IV SCH ×2 (00:42→07:55)
[2019-04-10 02:00] VITALS: BP 108/54
[2019-04-10] MEDS: ipratropium/albuterol 3ml nebule NEB SCH ×3 (02:35→11:49)
[2019-04-10] MEDS: HYDROcodone/acetaminophen 5mg/325mg tablet PO PRN ×2 (04:11→11:23)
[2019-04-10 05:15] LABS: BASOPHILS % (AUTO) 0.4 % (0-1); EOSINOPHILS # (AUTO) 0.3 X10'3 (0-0.9); EOSINOPHILS % (AUTO) 2.9 % (0-6); HEMOGLOBIN 14.1 g/dl (12.0-16.0); LYMPHOCYTES # (AUTO) 1.6 X10'3 (1.1-4.8); LYMPHOCYTES % (AUTO) 17.4 % (21-51); MEAN CORPUSCULAR HEMOGLOBIN 31.1 PG (27.0-31.0); MEAN CORPUSCULAR HGB CONC 33.6 g/dL (33.0-36.5); MEAN CORPUSCULAR VOLUME 92.8 FL (78-98); MEAN PLATELET VOLUME 7.6 FL (7.4-10.4); MONOCYTES # (AUTO) 0.7 X10'3 (0-0.9); MONOCYTES % (AUTO) 7.6 % (2-12); NEUTROPHILS # (AUTO) 6.8 X10'3 (1.8-7.7); NEUTROPHILS % (AUTO) 71.7 % (42-75); PLATELET COUNT 193 X10'3 (140-440); RED BLOOD COUNT 4.53 X10'6 (4.20-5.60); RED CELL DISTRIBUTION WIDTH 13.9 % (11.5-14.5); WHITE BLOOD COUNT 9.5 X10'3 (4.5-11.0)
[2019-04-10 06:00] VITALS: BP 120/68
[2019-04-10 06:20] LABS: ALBUMIN 3.1 G/DL (3.4-5.0); ANION GAP 5 (8-16); BLOOD UREA NITROGEN 29 MG/DL (7-18); BUN/CREATININE RATIO 42.6 (6.6-38.0); CALCIUM 8.7 MG/DL (8.5-10.1); CHLORIDE 105 MMOL/L (99-107); CREATININE 0.68 MG/DL (0.40-0.90); GLUCOSE 126 MG/DL (70-104); SODIUM 143 MMOL/L (135-145); TOTAL CARBON DIOXIDE 33.4 MMOL/L (24-32); eGFR 90 ML/MIN
--- NOTE | 2019-04-10 06:36 | NUR ---
Patient in room PCU 3022. I have received report from PETRA Ravi and had the opportunity to ask questions and assume patient care. Patient currently sleeping in bed, bed locked and low, call light in reach, no acute distress, will continue to monitor.
[2019-04-10] MEDS: magnesium oxide 400mg tablet PO SCH (07:51)
[2019-04-10] MEDS: pantoprazole 40mg Tablet.DR PO SCH (07:51)
[2019-04-10] MEDS: lactobacillus rhamnosus 10,000 MMU CELLS/CAPSULE PO SCH (07:51)
[2019-04-10] MEDS: sertraline 25mg tablet PO SCH (07:51)
[2019-04-10] MEDS: lisinopril 2.5mg tablet PO SCH (07:52)
[2019-04-10] MEDS: nicotine 21mg patch - 24 hr TD SCH (07:52)
[2019-04-10] MEDS: predniSONE 20 mg tablet PO SCH (07:53)
[2019-04-10] MEDS: metoprolol tartrate 25mg tablet PO SCH (07:53)
[2019-04-10] MEDS: furosemide 20 MG/2 ML vial IV SCH (07:55)
[2019-04-10] MEDS: CefTRIAXone 2gm/D5W 50ml 50 ML IV SCH (07:55)
[2019-04-10] MEDS: heparin, porcine 5000 units/ml vial SQ SCH (07:55)
[2019-04-10] MEDS: LORazepam 0.5 MG tablet PO PRN (08:26)
[2019-04-10 11:00] VITALS: BP 114/84
[2019-04-10] MEDS ORDERED: SERT50TA PO (12:07)
[2019-04-10] MEDS ORDERED: LEVO500T2 PO (12:07)
[2019-04-10] MEDS ORDERED: PRED20TA PO (12:07)
--- NOTE | 2019-04-10 14:00 | NUR ---
Received orders for patient discharge to home. Patient belongings gathered, patient educated on discharge instructions and new medications, prescriptions called to [facility] [address], IV removed, catheter tip intact, hemostasis achieved, telemetry removed, wrist band removed. Patient taken to lobby by to meet family member for roller picker. Nurse Aid reports patient was escorted to private vehicle with family member. Patient stable at time of discharge.
== END 2019-04-10 14:00 | disposition home or self-care (01) | DRG 193 ==
LOC: ER 16:46 → SUR 3N 22:07 → CMPBEDREQ 22:47 → PCU 3S 04-07 15:36
PROVIDERS: ADMIT Internal Medicine; ATTEND Family Medicine
PROC: 5A09357 Assistance with Respiratory Ventilation, Less than 24 Consecutive Hours, Continuous Positive Airway Pressure (ICD-10-PCS; principal; 2019-04-07)
PROC: 5A09357 Assistance with Respiratory Ventilation, Less than 24 Consecutive Hours, Continuous Positive Airway Pressure (ICD-10-PCS; 2019-04-08)
DX: J18.1 Lobar pneumonia, unspecified organism (principal); J96.01 Acute respiratory failure with hypoxia; J96.02 Acute respiratory failure with hypercapnia; J44.1 Chronic obstructive pulmonary disease with (acute) exacerbation; E87.0 Hyperosmolality and hypernatremia; J44.0 Chronic obstructive pulmonary disease with (acute) lower respiratory infection; I50.22 Chronic systolic (congestive) heart failure; E11.9 Type 2 diabetes mellitus without complications; G43.909 Migraine, unspecified, not intractable, without status migrainosus; E87.6 Hypokalemia; F41.0 Panic disorder [episodic paroxysmal anxiety]; I11.0 Hypertensive heart disease with heart failure; K29.70 Gastritis, unspecified, without bleeding; F15.90 Other stimulant use, unspecified, uncomplicated; N32.81 Overactive bladder; F17.200 Nicotine dependence, unspecified, uncomplicated; Z99.81 Dependence on supplemental oxygen; Z91.19 Patient's noncompliance with other medical treatment and regimen; Z88.8 Allergy status to other drugs, medicaments and biological substances; Z90.49 Acquired absence of other specified parts of digestive tract; Z98.891 History of uterine scar from previous surgery; Z82.49 Family history of ischemic heart disease and other diseases of the circulatory system; Z83.3 Family history of diabetes mellitus; Z82.5 Family history of asthma and other chronic lower respiratory diseases; Z71.51 Drug abuse counseling and surveillance of drug abuser
CPT/HCPCS: 36415; 36600; 71045; 80048; 80053; 80305; 82803; 82948; 83036; 84484; 85018; 85025; 85610; 85730; 87081; 93005; 94640; 94660; 94760; 96365; 96366; 96368; 96375; 97116; 97161; 97530; 99285; G0378; J0456; J0696; J1644; J1815; J1885; J1940; J2060; J2920; J2930; J3480; J3490; J7030; J7040; J7512; J7626

== ENCOUNTER 2019-07-21 02:45 | Emergency (ER) | payer MEDICARE, MEDICAID ==
[~2019-07-21] VITALS: Ht 162.6 cm; Wt 54.5 kg
[~2019-07-21 02:45] MED LIST changes: -CLE150C PO; +CYCL-1 PO; +PRED20TA PO; -SERT25TA5 PO
[2019-07-21] MEDS ORDERED: aspirin 81mg tab.chew PO ONE (03:10)
[2019-07-21 03:16] LABS: BASOPHILS # (AUTO) 0.1 X10'3 (0-0.2); BASOPHILS % (AUTO) 1.1 % (0-1); EOSINOPHILS # (AUTO) 0.1 X10'3 (0-0.9); HEMATOCRIT 38.2 % (35.0-45.0); HEMOGLOBIN 12.6 g/dl (12.0-16.0); LYMPHOCYTES # (AUTO) 2.6 X10'3 (1.1-4.8); LYMPHOCYTES % (AUTO) 44.2 % (21-51); MEAN CORPUSCULAR HEMOGLOBIN 29.7 PG (27.0-31.0); MEAN CORPUSCULAR VOLUME 89.9 FL (78-98); MONOCYTES # (AUTO) 0.5 X10'3 (0-0.9); MONOCYTES % (AUTO) 7.9 % (2-12); NEUTROPHILS # (AUTO) 2.6 X10'3 (1.8-7.7); NEUTROPHILS % (AUTO) 44.8 % (42-75); PLATELET COUNT 407 X10'3 (140-440); RED BLOOD COUNT 4.25 X10'6 (4.20-5.60); RED CELL DISTRIBUTION WIDTH 13.7 % (11.5-14.5); WHITE BLOOD COUNT 5.9 X10'3 (4.5-11.0)
[2019-07-21 03:28] LABS: ALANINE AMINOTRANSFERASE 28 U/L (12-78); ALBUMIN 3.5 G/DL (3.4-5.0); ALBUMIN/GLOBULIN RATIO 0.9 (1.1-1.5); ALKALINE PHOSPHATASE 141 IU/L (46-116); ANION GAP 3 (8-16); ASPARTATE AMINO TRANSFERASE 22 U/L (10-37); BILIRUBIN,TOTAL 0.2 MG/DL (0.1-1.0); BLOOD UREA NITROGEN 19 MG/DL (7-18); BUN/CREATININE RATIO 13.8 (6.6-38.0); CALCIUM 8.7 MG/DL (8.5-10.1); CHLORIDE 102 MMOL/L (99-107); CREATININE 1.38 MG/DL (0.40-0.90); GLUCOSE 64 MG/DL (70-104); POTASSIUM 4.3 MMOL/L (3.5-5.1); SODIUM 139 MMOL/L (135-145); TOTAL CARBON DIOXIDE 34.4 MMOL/L (24-32); TOTAL PROTEIN 7.2 G/DL (6.4-8.2); eGFR 40 ML/MIN
[2019-07-21] MEDS ORDERED: CHOL400T14 PO (03:35)
[2019-07-21] MEDS ORDERED: potassium Cl 20 mEq SR tablet PO PRN ×2 (04:15)
[2019-07-21] MEDS ORDERED: magnesium 4gm in 100ml NS 100 ML IV PRN (04:15)
[2019-07-21] MEDS ORDERED: magnesium 2GM in 50ml NS 50 ML IV PRN (04:15)
[2019-07-21] MEDS ORDERED: dextrose ORAL solution 15 GM/59 ML bottle PO PRN ×2 (04:15)
[2019-07-21] MEDS ORDERED: potassium CL 10mEq/100ml bag 100 ML IV PRN ×2 (04:15)
[2019-07-21] MEDS ORDERED: glucagon, human recombinant 1mg kit SUBCUT PRN (04:15)
[2019-07-21] MEDS ORDERED: insulin Lispro (HumaLOG) vial - multi-dose SQ SCH (04:15)
[2019-07-21] MEDS ORDERED: dextrose 50%-water 50ml dispensing syringe IV PRN ×2 (04:15)
[2019-07-21] MEDS ORDERED: magnesium Cl slow-release 64mg tablet PO PRN (04:15)
[2019-07-21] MEDS ORDERED: morphine 2 MG/ML inj. syringe IV PRN (04:15)
[2019-07-21] MEDS ORDERED: ondansetron/PF 4mg/2ml inj IV PRN (04:15)
[2019-07-21] MEDS ORDERED: MESSAGE TO PHARMACY PO ONE (04:15)
[2019-07-21] MEDS ORDERED: acetaminophen 325mg tablet PO PRN (04:15)
[2019-07-21 04:20] VITALS: BP 135/67
[2019-07-21 05:01] LABS: HEMOGLOBIN A1C 5.5 % (4.5-6.2)
[2019-07-21] MEDS ORDERED: K and/or MAG REPLACEMENT MC SCH (08:00)
[2019-07-21] MEDS ORDERED: heparin, porcine 5000 units/ml vial SQ SCH (08:00)
[2019-07-21] MEDS ORDERED: IBUP-1985 PO (15:50)
[2019-07-21] MEDS ORDERED: CHOL10002 PO (15:50)
[2019-07-21] MEDS ORDERED: PANT-47 PO (15:50)
[2019-07-21] MEDS ORDERED: insulin glargine (Lantus) pen - multi-dose SQ SCH (21:00)
[2019-07-22] MEDS ORDERED: ASPI-1265 PO (10:29)
== END 2019-07-21 04:56 | disposition left against medical advice (07) ==
LOC: ER 02:45
DX: R07.89 Other chest pain (principal); G43.909 Migraine, unspecified, not intractable, without status migrainosus; G35 Multiple sclerosis; I11.0 Hypertensive heart disease with heart failure; I50.9 Heart failure, unspecified; J44.9 Chronic obstructive pulmonary disease, unspecified; F15.90 Other stimulant use, unspecified, uncomplicated; Z90.49 Acquired absence of other specified parts of digestive tract; Z98.890 Other specified postprocedural states; Z88.1 Allergy status to other antibiotic agents; Z79.899 Other long term (current) drug therapy; Z99.81 Dependence on supplemental oxygen
CPT/HCPCS: 36415; 71045; 80053; 82948; 83036; 83735; 83880; 84484; 85025; 93005; 99284; J1815

== ENCOUNTER 2019-07-21 12:48 | Inpatient (IN) | payer MEDICARE, MEDICAID ==
[~2019-07-21] VITALS: Ht 162.6 cm; Wt 54.5 kg
[~2019-07-21 12:48] MED LIST changes: +CHOL400T14 PO
[2019-07-21 14:02] LABS: BASOPHILS # (AUTO) 0.1 X10'3 (0-0.2); EOSINOPHILS # (AUTO) 0.1 X10'3 (0-0.9); EOSINOPHILS % (AUTO) 2.1 % (0-6); HEMATOCRIT 40.2 % (35.0-45.0); HEMOGLOBIN 13.1 g/dl (12.0-16.0); LYMPHOCYTES # (AUTO) 2.4 X10'3 (1.1-4.8); LYMPHOCYTES % (AUTO) 35.3 % (21-51); MEAN CORPUSCULAR HEMOGLOBIN 29.5 PG (27.0-31.0); MEAN CORPUSCULAR HGB CONC 32.7 g/dL (33.0-36.5); MEAN PLATELET VOLUME 7.1 FL (7.4-10.4); MONOCYTES # (AUTO) 0.5 X10'3 (0-0.9); NEUTROPHILS # (AUTO) 3.7 X10'3 (1.8-7.7); NEUTROPHILS % (AUTO) 54.6 % (42-75); PLATELET COUNT 374 X10'3 (140-440); RED BLOOD COUNT 4.46 X10'6 (4.20-5.60); RED CELL DISTRIBUTION WIDTH 13.9 % (11.5-14.5); WHITE BLOOD COUNT 6.8 X10'3 (4.5-11.0)
[2019-07-21 14:10] LABS: ALANINE AMINOTRANSFERASE 30 U/L (12-78); ALBUMIN 3.9 G/DL (3.4-5.0); ALBUMIN/GLOBULIN RATIO 1.1 (1.1-1.5); ALKALINE PHOSPHATASE 148 IU/L (46-116); ANION GAP 2 (8-16); ASPARTATE AMINO TRANSFERASE 23 U/L (10-37); BILIRUBIN,TOTAL 0.2 MG/DL (0.1-1.0); BLOOD UREA NITROGEN 33 MG/DL (7-18); BUN/CREATININE RATIO 15.6 (6.6-38.0); CALCIUM 10.7 MG/DL (8.5-10.1); CHLORIDE 99 MMOL/L (99-107); CREATININE 2.12 MG/DL (0.40-0.90); GLUCOSE 87 MG/DL (70-104); POTASSIUM 4.7 MMOL/L (3.5-5.1); SODIUM 135 MMOL/L (135-145); TOTAL CARBON DIOXIDE 33.7 MMOL/L (24-32); TOTAL PROTEIN 7.5 G/DL (6.4-8.2); eGFR 24 ML/MIN
[2019-07-21] MEDS ORDERED: aspirin 81mg tab.chew PO ONE (14:30)
[2019-07-21] MEDS ORDERED: nitroGLYCERIN 0.4mg/hour patch TD ONE (14:30)
[2019-07-21] MEDS ORDERED: metoprolol tartrate 1mg/ml inj IV PRN (15:05)
[2019-07-21] MEDS ORDERED: potassium CL 10mEq/100ml bag 100 ML IV PRN ×2 (15:05)
[2019-07-21] MEDS ORDERED: aminophylline 250mg/10ml inj. IV PRN (15:05)
[2019-07-21] MEDS ORDERED: acetaminophen 650mg rectal suppository RC PRN (15:05)
[2019-07-21] MEDS ORDERED: magnesium 2GM in 50ml NS 50 ML IV PRN (15:05)
[2019-07-21] MEDS ORDERED: ondansetron/PF 4mg/2ml inj IV PRN (15:05)
[2019-07-21] MEDS ORDERED: acetaminophen 325mg tablet PO PRN ×2 (15:05)
[2019-07-21] MEDS ORDERED: diphenhydrAMINE 25mg capsule PO PRN (15:05)
[2019-07-21] MEDS ORDERED: bisacodyl 10mg suppository rectal RC PRN (15:05)
[2019-07-21] MEDS ORDERED: magnesium Cl slow-release 64mg tablet PO PRN (15:05)
[2019-07-21] MEDS ORDERED: regadenoson 0.4mg/5ml syringe IV PRN (15:05)
[2019-07-21] MEDS ORDERED: potassium Cl 20 mEq SR tablet PO PRN ×2 (15:05)
[2019-07-21] MEDS ORDERED: magnesium 4gm in 100ml NS 100 ML IV PRN (15:05)
[2019-07-21] MEDS ORDERED: nitroGLYCERIN 0.4mg SUBLingual tab SL PRN (15:05)
[2019-07-21] MEDS ORDERED: mag hydrox/Alum hydrox/simeth 30ml oral suspension PO PRN (15:05)
[2019-07-21] MEDS ORDERED: magnesium hydroxide 30ml (MOM) UD suspension PO PRN (15:05)
[2019-07-21] MEDS ORDERED: dextrose 50%-water 50ml dispensing syringe IV PRN ×2 (15:25)
[2019-07-21] MEDS ORDERED: dextrose ORAL solution 15 GM/59 ML bottle PO PRN ×2 (15:25)
[2019-07-21] MEDS ORDERED: insulin Lispro (HumaLOG) vial - multi-dose SQ SCH (15:25)
[2019-07-21] MEDS ORDERED: MESSAGE TO PHARMACY PO ONE (15:25)
[2019-07-21] MEDS ORDERED: glucagon, human recombinant 1mg kit SUBCUT PRN (15:25)
[2019-07-21] MEDS: atorvastatin 10mg tablet PO SCH (15:35)
[2019-07-21] MEDS: normal saline 1000ml 1,000 ML IV SCH (15:37)
[2019-07-21] MEDS ORDERED: CHOL10002 PO (15:50)
[2019-07-21] MEDS ORDERED: PANT-47 PO (15:50)
[2019-07-21] MEDS ORDERED: IBUP-1985 PO (15:50)
[2019-07-21 16:00] LABS: CHOL/HDL RATIO 4.1 (0.00-4.99); CHOLESTEROL 196 MG/DL (0-200); HDL CHOLESTEROL 48 MG/DL (35-60); LDL CHOLESTEROL 116 MG/DL (50-100); TRIGLYCERIDES 129 MG/DL (20-135)
[2019-07-21] MEDS ORDERED: LORazepam 0.5 MG tablet PO PRN (16:00)
[2019-07-21] MEDS ORDERED: non-formulary drug (Albuterol Sulfate (Ventolin Hfa) 2 PUFFS) INH PRN (16:00)
[2019-07-21 16:20] LABS: CLARITY,URINE CLOUDY (Clear); COLOR,URINE YELLOW (Yellow); GLUCOSE, URINE NEGATIVE (Neg); KETONES,URINE NEGATIVE (Neg); LEUKOCYTE ESTERASE ,URINE TRACE (Neg); NITRITES, URINE POSITIVE (Neg); OCCULT BLOOD,URINE NEGATIVE (Neg); PROTEIN,URINE NEGATIVE (Neg); UROBILINOGEN,URINE 0.2 E.U/dL (0.2-1.0)
[2019-07-21 16:23] LABS: UA COLLECTION TYPE NON-SPECIFIED
--- NOTE | 2019-07-21 16:27 | NUR ---
DR. PURCELL IN TO SEE PT FOR ADMIT.
[2019-07-21 16:29] LABS: BACTERIA,URINE 4+ /HPF (Neg); RBC,URINE NONE SEEN /HPF (0-2); SQUAMOUS EPITHELIAL CELL,UR MANY /LPF (FEW); WBC,URINE 30-50 /HPF (0-4)
[2019-07-21 16:30] LABS: MUCUS STRANDS FEW /LPF (Neg)
[2019-07-21] MEDS ORDERED: methylPREDNISolone sod succ 125mg/2ml vial IV ONE (16:30)
[2019-07-21] MEDS ORDERED: HYDROcodone/acetaminophen 5mg/325mg tablet PO PRN ×2 (16:30)
[2019-07-21] MEDS: azithromycin 250mg tablet PO SCH (18:28)
--- NOTE | 2019-07-21 18:34 | NUR ---
Nitro patch removed due to BP 97/53. BP up to 103/61 after patch removed
[2019-07-21] MEDS: CefTRIAXone/D5W-Rocephin 1gm 50 ML IV SCH (18:35)
[2019-07-21] MEDS: K and/or MAG REPLACEMENT MC SCH (20:00)
[2019-07-21 20:10] VITALS: BP 105/57
[2019-07-21] MEDS: ipratropium/albuterol 3ml nebule NEB SCH ×2 (20:22→23:00)
[2019-07-21] MEDS ORDERED: insulin glargine (Lantus) pen - multi-dose SQ SCH (21:00)
[2019-07-21] MEDS: metoprolol tartrate 25mg tablet PO SCH (22:51)
[2019-07-21] MEDS: heparin, porcine 5000 units/ml vial SQ SCH (22:53)
[2019-07-21 23:00] VITALS: BP 95/47
[2019-07-22] MEDS: methylPREDNISolone sod succ 125mg/2ml vial IV SCH ×2 (01:04→07:34)
[2019-07-22] MEDS: normal saline 1000ml 1,000 ML IV SCH (01:04)
[2019-07-22 02:33] LABS: BASOPHILS % (AUTO) 0.4 % (0-1); EOSINOPHILS % (AUTO) 0.1 % (0-6); HEMATOCRIT 38.3 % (35.0-45.0); HEMOGLOBIN 12.8 g/dl (12.0-16.0); LYMPHOCYTES # (AUTO) 0.7 X10'3 (1.1-4.8); LYMPHOCYTES % (AUTO) 17.1 % (21-51); MEAN CORPUSCULAR HGB CONC 33.4 g/dL (33.0-36.5); MEAN CORPUSCULAR VOLUME 89.9 FL (78-98); MEAN PLATELET VOLUME 7.4 FL (7.4-10.4); MONOCYTES # (AUTO) 0.1 X10'3 (0-0.9); MONOCYTES % (AUTO) 1.3 % (2-12); NEUTROPHILS # (AUTO) 3.2 X10'3 (1.8-7.7); NEUTROPHILS % (AUTO) 81.1 % (42-75); PLATELET COUNT 342 X10'3 (140-440); RED BLOOD COUNT 4.26 X10'6 (4.20-5.60); RED CELL DISTRIBUTION WIDTH 13.9 % (11.5-14.5)
[2019-07-22 02:42] LABS: ALANINE AMINOTRANSFERASE 30 U/L (12-78); ALBUMIN 3.6 G/DL (3.4-5.0); ALBUMIN/GLOBULIN RATIO 0.9 (1.1-1.5); ALKALINE PHOSPHATASE 149 IU/L (46-116); ANION GAP 4 (8-16); ASPARTATE AMINO TRANSFERASE 22 U/L (10-37); BILIRUBIN,TOTAL 0.2 MG/DL (0.1-1.0); BLOOD UREA NITROGEN 27 MG/DL (7-18); BUN/CREATININE RATIO 20.8 (6.6-38.0); CALCIUM 9.1 MG/DL (8.5-10.1); CHLORIDE 100 MMOL/L (99-107); GLUCOSE 215 MG/DL (70-104); POTASSIUM 5.2 MMOL/L (3.5-5.1); SODIUM 136 MMOL/L (135-145); TOTAL CARBON DIOXIDE 31.9 MMOL/L (24-32); TOTAL PROTEIN 7.5 G/DL (6.4-8.2); eGFR 43 ML/MIN
[2019-07-22 02:47] LABS: MAGNESIUM 1.9 MG/DL (1.5-2.4); PHOSPHORUS 3.5 MG/DL (2.3-4.5)
[2019-07-22] MEDS: ipratropium/albuterol 3ml nebule NEB SCH ×3 (02:55→10:39)
[2019-07-22 03:00] VITALS: BP 115/99
[2019-07-22 06:00] VITALS: BP 94/47
--- NOTE | 2019-07-22 06:38 | NUR ---
Patient in room PCU 3022. I have received report from Jeannie LAMBERT and had the opportunity to ask questions and assume patient care.
[2019-07-22] MEDS: atorvastatin 10mg tablet PO SCH (07:33)
[2019-07-22] MEDS: azithromycin 250mg tablet PO SCH (07:33)
[2019-07-22] MEDS: heparin, porcine 5000 units/ml vial SQ SCH (07:33)
[2019-07-22 07:37] VITALS: BP_SYST 87
[2019-07-22] MEDS: metoprolol tartrate 25mg tablet PO SCH (07:37)
[2019-07-22] MEDS: CefTRIAXone/D5W-Rocephin 1gm 50 ML IV SCH (07:40)
[2019-07-22] MEDS ORDERED: pantoprazole 40mg Tablet.DR PO SCH (08:00)
[2019-07-22] MEDS ORDERED: ferrous sulfate 325mg tablet PO SCH (08:00)
[2019-07-22] MEDS ORDERED: non-formulary drug (Budesonide/Formoterol Fumarate (Symbicort 160-4.5 Mcg Inhaler) 2 PUFFS INH SCH (08:00)
[2019-07-22] MEDS ORDERED: ascorbic acid 500mg tablet PO SCH (08:00)
[2019-07-22] MEDS ORDERED: vitamin D (cholecalciferol) 1,000 unit tablet PO SCH (08:00)
[2019-07-22] MEDS ORDERED: lisinopril 2.5mg tablet PO SCH (08:00)
[2019-07-22] MEDS ORDERED: OXYBUTYNIN CHLORIDE 5 MG PO SCH (08:00)
[2019-07-22] MEDS: K and/or MAG REPLACEMENT MC SCH (08:00)
[2019-07-22] MEDS ORDERED: aspirin 81mg tab.chew PO SCH (08:30)
--- NOTE | 2019-07-22 10:00 | NUR ---
Patient stated left phone front desk supervisor in ER. I called down to ER, and there is no phone front desk supervisor in lost and found or room patient was staying in. I informed patient ans she stated she thinks she may have taken it home and will check when she arrives home after discharge.
[2019-07-22] MEDS ORDERED: ASPI-1265 PO (10:29)
--- NOTE | 2019-07-22 11:45 | NUR ---
Patient stable for discharge per MD orders. All discharge instructions reviewed with patient and all questions answered. Prescriptions called into patients preferred pharmacy. PIV and quality assurance tester discontinued. Belongings collected and sent with patient. Patient left in private vehicle with friend. Patient wheeled down to lobby by PCT aide.
== END 2019-07-22 12:21 | disposition home or self-care (01) | DRG 191 ==
LOC: ER 12:49 → ED HOLD 15:04 → OBSVTOIN 16:38 → PCU 3S 20:14
PROVIDERS: ADMIT Family Medicine; ATTEND Internal Medicine
DX: J44.1 Chronic obstructive pulmonary disease with (acute) exacerbation (principal); N17.9 Acute kidney failure, unspecified; I24.9 Acute ischemic heart disease, unspecified; G35 Multiple sclerosis; E11.9 Type 2 diabetes mellitus without complications; I11.0 Hypertensive heart disease with heart failure; I50.9 Heart failure, unspecified; F15.10 Other stimulant abuse, uncomplicated; F17.210 Nicotine dependence, cigarettes, uncomplicated; Z60.2 Problems related to living alone; F41.9 Anxiety disorder, unspecified; K21.9 Gastro-esophageal reflux disease without esophagitis; G43.909 Migraine, unspecified, not intractable, without status migrainosus; Z82.49 Family history of ischemic heart disease and other diseases of the circulatory system; Z82.5 Family history of asthma and other chronic lower respiratory diseases; Z83.3 Family history of diabetes mellitus; Z91.19 Patient's noncompliance with other medical treatment and regimen; Z99.81 Dependence on supplemental oxygen; Z88.1 Allergy status to other antibiotic agents; Z79.899 Other long term (current) drug therapy; Z90.49 Acquired absence of other specified parts of digestive tract; Z71.6 Tobacco abuse counseling; Z71.51 Drug abuse counseling and surveillance of drug abuser
CPT/HCPCS: 36415; 71045; 80053; 80061; 81001; 82948; 83036; 83735; 83880; 84100; 84443; 84484; 85025; 87081; 93005; 93306; 94640; 94760; 99285; G0378; J0696; J1644; J1815; J2930; J7030

== ENCOUNTER 2019-10-02 12:14 | Emergency (ER) | payer MEDICARE, MEDICAID ==
[~2019-10-02] VITALS: Ht 160 cm; Wt 50.0 kg
[~2019-10-02 12:14] MED LIST changes: +ASPI-1265 PO; -CYCL-1 PO; -IBUP-1985 PO; +PANT-47 PO; -PANT40TA4 PO; -PRED20TA PO; -VARE0.5T PO
[2019-10-02 12:57] LABS: BASOPHILS % (AUTO) 0.8 % (0-1); EOSINOPHILS # (AUTO) 0.2 X10'3 (0-0.9); EOSINOPHILS % (AUTO) 3.7 % (0-6); HEMATOCRIT 39.5 % (35.0-45.0); HEMOGLOBIN 13.1 g/dl (12.0-16.0); LYMPHOCYTES # (AUTO) 1.4 X10'3 (1.1-4.8); LYMPHOCYTES % (AUTO) 30.9 % (21-51); MEAN CORPUSCULAR HEMOGLOBIN 30.1 PG (27.0-31.0); MEAN CORPUSCULAR HGB CONC 33.2 g/dL (33.0-36.5); MEAN CORPUSCULAR VOLUME 90.5 FL (78-98); MEAN PLATELET VOLUME 6.8 FL (7.4-10.4); MONOCYTES # (AUTO) 0.6 X10'3 (0-0.9); MONOCYTES % (AUTO) 12.5 % (2-12); NEUTROPHILS # (AUTO) 2.4 X10'3 (1.8-7.7); NEUTROPHILS % (AUTO) 52.1 % (42-75); PLATELET COUNT 151 X10'3 (140-440); RED BLOOD COUNT 4.37 X10'6 (4.20-5.60); RED CELL DISTRIBUTION WIDTH 15.3 % (11.5-14.5); WHITE BLOOD COUNT 4.5 X10'3 (4.5-11.0)
[2019-10-02 13:07] LABS: ALANINE AMINOTRANSFERASE 24 U/L (12-78); ALBUMIN 3.4 G/DL (3.4-5.0); ALKALINE PHOSPHATASE 105 IU/L (46-116); ANION GAP 4 (8-16); ASPARTATE AMINO TRANSFERASE 20 U/L (10-37); BILIRUBIN,TOTAL 0.1 MG/DL (0.1-1.0); BLOOD UREA NITROGEN 17 MG/DL (7-18); BUN/CREATININE RATIO 22.1 (6.6-38.0); CALCIUM 8.6 MG/DL (8.5-10.1); CHLORIDE 107 MMOL/L (99-107); CREATININE 0.77 MG/DL (0.40-0.90); GLUCOSE 90 MG/DL (70-104); POTASSIUM 3.5 MMOL/L (3.5-5.1); SODIUM 146 MMOL/L (135-145); TOTAL CARBON DIOXIDE 34.6 MMOL/L (24-32); TOTAL PROTEIN 6.8 G/DL (6.4-8.2); eGFR 78 ML/MIN
[2019-10-02] MEDS ORDERED: dexamethasone sod phosphate 10mg/ml inj IV STA (13:12)
[2019-10-02] MEDS ORDERED: magnesium 2GM in 50ml NS 50 ML IV ONE (13:15)
[2019-10-02] MEDS ORDERED: CefTRIAXone/D5W-Rocephin 1gm 50 ML IV SCH (13:15)
[2019-10-02] MEDS ORDERED: albuterol 2.5 MG/3 ML nebule CONTNEB PRN (13:15)
[2019-10-02] MEDS ORDERED: CefTRIAXone/D5W-Rocephin 1gm 50 ML IV ONE (13:45)
[2019-10-02] MEDS ORDERED: AZIT250T83 PO (13:59)
[2019-10-02] MEDS ORDERED: PRED20TA PO (13:59)
[2019-10-02] MEDS ORDERED: ketorolac trometh. 30mg/ml inj. IV ONE (14:05)
[2019-10-02 14:29] VITALS: BP 129/75
[2019-10-05] MEDS ORDERED: ASPI-1265 PO (13:43)
[2019-10-05] MEDS ORDERED: SERT25TA5 PO (13:43)
[2019-10-05] MEDS ORDERED: AZIT250T13 PO (13:43)
[2019-10-05] MEDS ORDERED: PRED20TA PO (13:43)
[2019-10-05] MEDS ORDERED: CYCL-1 PO (13:50)
[2019-10-07] MEDS ORDERED: AMOX1TAB15 PO (10:30)
[2019-10-07] MEDS ORDERED: LEVA1.2544 IH (10:30)
[2019-10-07] MEDS ORDERED: PRED10TA23 PO (10:31)
== END 2019-10-02 14:32 | disposition home or self-care (01) ==
LOC: ER 12:14
DX: J44.1 Chronic obstructive pulmonary disease with (acute) exacerbation (principal); G43.909 Migraine, unspecified, not intractable, without status migrainosus; I11.0 Hypertensive heart disease with heart failure; I50.9 Heart failure, unspecified; E11.9 Type 2 diabetes mellitus without complications; F41.9 Anxiety disorder, unspecified; F15.90 Other stimulant use, unspecified, uncomplicated; Z90.49 Acquired absence of other specified parts of digestive tract; Z98.890 Other specified postprocedural states; Z88.1 Allergy status to other antibiotic agents; Z79.82 Long term (current) use of aspirin; Z79.84 Long term (current) use of oral hypoglycemic drugs; Z79.899 Other long term (current) drug therapy
CPT/HCPCS: 36415; 71045; 80053; 83605; 84484; 85025; 87040; 93005; 94640; 96365; 96375; 99285; J0696; J1100; J1885; 94760

== ENCOUNTER 2019-12-23 22:40 | Observation (INO) | payer MEDICARE, MEDICAID ==
[~2019-12-23] VITALS: Ht 160 cm; Wt 54.5 kg
[~2019-12-23 22:40] MED LIST changes: +AMOX1TAB15 PO; +AZIT250T13 PO; +CYCL-1 PO; +FLUC200T PO; +LEVA1.2544 IH; +ONDA4TAB6 PO; +SERT25TA5 PO
[2019-12-23 23:29] LABS: BASOPHILS % (AUTO) 0.4 % (0-1); EOSINOPHILS # (AUTO) 0.1 X10'3 (0-0.9); EOSINOPHILS % (AUTO) 1.6 % (0-6); HEMATOCRIT 38.5 % (35.0-45.0); HEMOGLOBIN 12.6 g/dl (12.0-16.0); LYMPHOCYTES # (AUTO) 2.6 X10'3 (1.1-4.8); LYMPHOCYTES % (AUTO) 33.6 % (21-51); MEAN CORPUSCULAR HEMOGLOBIN 30.5 PG (27.0-31.0); MEAN CORPUSCULAR HGB CONC 32.8 g/dL (33.0-36.5); MEAN CORPUSCULAR VOLUME 93.1 FL (78-98); MEAN PLATELET VOLUME 7.2 FL (7.4-10.4); MONOCYTES # (AUTO) 0.5 X10'3 (0-0.9); MONOCYTES % (AUTO) 6.8 % (2-12); NEUTROPHILS # (AUTO) 4.5 X10'3 (1.8-7.7); NEUTROPHILS % (AUTO) 57.6 % (42-75); PLATELET COUNT 217 X10'3 (140-440); RED BLOOD COUNT 4.14 X10'6 (4.20-5.60); RED CELL DISTRIBUTION WIDTH 13.3 % (11.5-14.5); WHITE BLOOD COUNT 7.8 X10'3 (4.5-11.0)
[2019-12-23 23:36] LABS: ALANINE AMINOTRANSFERASE 18 U/L (12-78); ALBUMIN 3.7 G/DL (3.4-5.0); ALBUMIN/GLOBULIN RATIO 1.2 (1.1-1.5); ALKALINE PHOSPHATASE 81 IU/L (46-116); ANION GAP 6 (8-16); ASPARTATE AMINO TRANSFERASE 30 U/L (10-37); BILIRUBIN,TOTAL 0.4 MG/DL (0.1-1.0); BLOOD UREA NITROGEN 32 MG/DL (7-18); BUN/CREATININE RATIO 36.4 (6.6-38.0); CALCIUM 9.1 MG/DL (8.5-10.1); CHLORIDE 105 MMOL/L (99-107); CREATININE 0.88 MG/DL (0.40-0.90); GLUCOSE 96 MG/DL (70-104); POTASSIUM 3.9 MMOL/L (3.5-5.1); SODIUM 144 MMOL/L (135-145); TOTAL PROTEIN 6.8 G/DL (6.4-8.2); eGFR 66 ML/MIN
[2019-12-23 23:44] LABS: MAGNESIUM 1.6 MG/DL (1.5-2.4)
[2019-12-24] MEDS ORDERED: FERR325T7 PO (01:06)
[2019-12-24] MEDS ORDERED: nitroGLYCERIN 0.4mg SUBLingual tab SL PRN ×2 (01:15→01:30)
[2019-12-24] MEDS ORDERED: morphine 2 MG/ML inj. syringe IV PRN (01:30)
[2019-12-24] MEDS ORDERED: regadenoson 0.4mg/5ml syringe IV ONE (01:30)
[2019-12-24] MEDS ORDERED: aminophylline 250mg/10ml inj. IV PRN (01:30)
[2019-12-24] MEDS ORDERED: metoprolol tartrate 1mg/ml inj IV PRN (01:30)
[2019-12-24] MEDS ORDERED: ondansetron/PF 4mg/2ml inj IV PRN (01:30)
--- NOTE | 2019-12-24 01:32 | NUR ---
dr. ascencio at bedside for admission. pt requested to provide a urine sample. Pt up to kalie with minimal assist. Reports she is in severe cp. Dr. Ascencio aware and will order pain meds.
[2019-12-24 01:38] LABS: ETHANOL < 0.010 GM/DL (0.0-0.010)
[2019-12-24] MEDS: normal saline 1000ml 1,000 ML IV SCH ×2 (01:38→10:46)
[2019-12-24] MEDS ORDERED: albuterol 2.5 MG/3 ML nebule NEB PRN (01:40)
--- NOTE | 2019-12-24 01:43 | NUR ---
pt given morphine 2 mg iv and zofran for pain of 8 out of 10 to chest.
[2019-12-24 01:59] LABS: URINE AMPHETAMINE SCREEN POSITIVE (Neg); URINE BARBITUATE SCREEN NEGATIVE (Neg); URINE BENZODIAZEPINES SCREEN NEGATIVE (Neg); URINE CANNABINOID SCREEN NEGATIVE (Neg); URINE COCAINE SCREEN NEGATIVE (Neg); URINE METHADONE SCREEN NEGATIVE (Neg); URINE OPIATE SCREEN NEGATIVE (Neg); URINE PHENCYCLIDINE SCREEN NEGATIVE (Neg)
--- NOTE | 2019-12-24 02:30 | NUR ---
Patient in room PCU 3021. I have received report from Cap RN and had the opportunity to ask questions and assume patient care.
[2019-12-24 02:40] VITALS: BP 103/64
--- NOTE | 2019-12-24 02:40 | NUR ---
Pt arrived on unit in stable condition, complains of 8 out of 10 chest pain, saying it has gotten worse since ER, received STAT EKG. ER MD states no stemi, no changes, sinus rhythm. Pt also complaining of feeling she has low BS, gave her a snack and juice, checked her BS and it was 115. Pt was falling asleep as I left room
--- NOTE | 2019-12-24 04:29 | NUR ---
Paged RT Pt Fonseca room 3021 is a new pt with RT orders.
[2019-12-24] MEDS: albuterol 2.5 MG/3 ML nebule NEB SCH ×3 (04:52→14:14)
[2019-12-24 06:00] VITALS: BP 99/57
--- NOTE | 2019-12-24 06:10 | NUR ---
Patient in room PCU 3021. I have received report from Timmy LAMBERT and had the opportunity to ask questions and assume patient care.
--- NOTE | 2019-12-24 06:25 | NUR ---
Patient in room PCU 3021. I have received report from PETRA Linn and had the opportunity to ask questions and assume patient care.
--- NOTE | 2019-12-24 06:42 | NUR ---
Problems reprioritized. Patient report given, questions answered & plan of care reviewed with Julio LAMBERT.
[2019-12-24] MEDS ORDERED: budesonide 0.5mg/2ml UD nebule IH SCH (08:00)
[2019-12-24] MEDS ORDERED: aspirin 81mg tab.chew PO SCH (08:00)
[2019-12-24] MEDS ORDERED: heparin, porcine 5000 units/ml vial SQ SCH (08:00)
[2019-12-24] MEDS ORDERED: metoprolol tartrate 25mg tablet PO SCH (08:00)
[2019-12-24] MEDS ORDERED: pantoprazole 40mg Tablet.DR PO SCH (08:00)
[2019-12-24] MEDS ORDERED: lisinopril 2.5mg tablet PO SCH (08:00)
[2019-12-24] MEDS ORDERED: non-formulary drug (Budesonide/Formoterol Fumarate (Symbicort 160-4.5 Mcg Inhaler) 2 PUFFS INH SCH (08:00)
[2019-12-24] MEDS ORDERED: sertraline 25mg tablet PO SCH (08:00)
--- NOTE | 2019-12-24 09:40 | NUR ---
Pt taken down to [facility] for seth scan
--- NOTE | 2019-12-24 09:59 | NUR ---
PATIENT IMAGED PER TESTING POLICY, BROUGHT TO STRESS LAB AND UPON ASKING PT TO TRANSFER TO THE RECLINER SHE REFUSED, STATING SHE HAD A HEADACHES AND WANTED TO BE TAKEN TO HER ROOM. EXPLAINED RISKS AND BENEFITS OF HER DECISIONS TO NO AVAIL. OFFERED PT PRN MEDICATION, ENVIRONMENTAL MODIFICATIONS AND EXPLAINED THE TEST WAS ALMOST ALREADY COMPLETE. SHE CONTINUES TO ROCK BACK AND FORTH IN HER WHEELCHAIR WITH HER HEAD CRADLED IN HER HANDS. FURTHERMORE I ASKED IF THERE WAS ANYTHING I COULD DO FOR HER TO CONTINUE TEST TO WHICH SHE STATED I'VE HAD THIS TEST. I DON'T NEED ANOTHER ONE TAKE ME TO MY ROOM. PT WHEELED TO HER ROOM PER REQUEST. WE WILL ATTEMPT TO REASSESS AND COMPLETE TEST IN NEAR FUTURE.
--- NOTE | 2019-12-24 10:18 | NUR ---
PAGER ID: [phone] MESSAGE: Re: Cierra Fonseca. [id number]. Pt. refused 2nd half of Lexiscan c/o headache. Can we order a nicotine patch, Tylenol, then try again in a few hours? -PETRA Melissa. [facility]. #[phone]
--- NOTE | 2019-12-24 10:21 | NUR ---
Spoke to Dr. Leach on telephone, ordered 650 acetaminophen prn for mild pain and nicotine patch 21mg (pt. reportedly smokes one pack per day).
[2019-12-24] MEDS ORDERED: nicotine 21mg patch - 24 hr TD ONE (10:25)
[2019-12-24] MEDS ORDERED: acetaminophen 325mg tablet PO PRN (10:25)
[2019-12-24 12:02] VITALS: BP 91/40
--- NOTE | 2019-12-24 14:38 | NUR ---
Awaiting MD orders. PAGER ID: [phone] MESSAGE: Re: Cierra Fonseca. 3021. Discharge orders are lacking medications. Do you want her to continue home medications? -PETRA Melissa. [facility]. #[phone]
[2019-12-24 15:00] VITALS: BP 131/67
--- NOTE | 2019-12-24 16:30 | NUR ---
Orientee documentation: I have reviewed and agree with all interventions, assessments performed and documented by Belén LAMBERT.
--- NOTE | 2019-12-24 16:35 | NUR ---
Stable for discharge per MD orders. Called [facility] to schedule a follow up appointment; Emperatriz, the brothel keeper, notified RN that will schedule an appointment with the patient following the holiday weekend on FridayDecember 27. All discharge instructions reviewed with patient and all questions answered. Home medications were continued. Belongings were collected and sent with patient. classroom monitor discontinued. Patient wheeled down in wheelchair with oxygen to lobby. Patient assisted to truck, driven by patient's brother. O2 switched to patient's home oxygen tank. Wristbands were cut off. Private vehicle was driven out of the parking lot. Addendum: 12/24/19 at 1731 by Belén Garcia RN PIV discontinued.
== END 2019-12-24 16:35 | disposition home or self-care (01) ==
LOC: ER 22:41 → ED HOLD 12-24 01:26 → UNDOADMOB 12-24 01:38 → ED HOLD 12-24 02:40 → PCU 3S 12-24 02:40 → UNDODISOB 12-24 16:35
PROVIDERS: ADMIT Internal Medicine; ATTEND Family Medicine
DX: I24.9 Acute ischemic heart disease, unspecified (principal); E11.65 Type 2 diabetes mellitus with hyperglycemia; I11.0 Hypertensive heart disease with heart failure; I50.9 Heart failure, unspecified; E78.00 Pure hypercholesterolemia, unspecified; J44.9 Chronic obstructive pulmonary disease, unspecified; I42.9 Cardiomyopathy, unspecified; F41.9 Anxiety disorder, unspecified; G35 Multiple sclerosis; G43.909 Migraine, unspecified, not intractable, without status migrainosus; F17.200 Nicotine dependence, unspecified, uncomplicated; Z79.51 Long term (current) use of inhaled steroids; Z79.84 Long term (current) use of oral hypoglycemic drugs; Z79.899 Other long term (current) drug therapy; Z88.1 Allergy status to other antibiotic agents; Z91.048 Other nonmedicinal substance allergy status
CPT/HCPCS: 36415; 71045; 78451; 80053; 80305; 80320; 82948; 83735; 83880; 84484; 85025; 87081; 93005; 93306; 94640; 94760; 96361; 96372; 96374; 96375; 99285; A9500; G0378; J1644; J2270; J2405; J7030; J7626

== ENCOUNTER 2020-06-09 20:29 | Emergency (ER) | payer BC, MEDICAID ==
[~2020-06-09] VITALS: Ht 160 cm; Wt 52.3 kg
[~2020-06-09 20:29] MED LIST changes: -AMOX1TAB15 PO; -AZIT250T13 PO; -FERR325T32 PO; +FERR325T7 PO; -FLUC200T PO; -LORA0.5T PO; +predniSONE 20 mg tablet PO ONE
[2020-06-09 21:05] LABS: BASOPHILS % (AUTO) 0.5 % (0-1); EOSINOPHILS # (AUTO) 0.3 X10'3 (0-0.9); EOSINOPHILS % (AUTO) 4.1 % (0-6); HEMATOCRIT 39.5 % (35.0-45.0); HEMOGLOBIN 13.1 g/dl (12.0-16.0); LYMPHOCYTES # (AUTO) 2.7 X10'3 (1.1-4.8); LYMPHOCYTES % (AUTO) 32.9 % (21-51); MEAN CORPUSCULAR HEMOGLOBIN 31.2 PG (27.0-31.0); MEAN CORPUSCULAR HGB CONC 33.3 g/dL (33.0-36.5); MEAN CORPUSCULAR VOLUME 93.8 FL (78-98); MEAN PLATELET VOLUME 7.2 FL (7.4-10.4); MONOCYTES # (AUTO) 0.6 X10'3 (0-0.9); MONOCYTES % (AUTO) 6.8 % (2-12); NEUTROPHILS # (AUTO) 4.6 X10'3 (1.8-7.7); NEUTROPHILS % (AUTO) 55.7 % (42-75); PLATELET COUNT 169 X10'3 (140-440); RED BLOOD COUNT 4.21 X10'6 (4.20-5.60); RED CELL DISTRIBUTION WIDTH 13.6 % (11.5-14.5); WHITE BLOOD COUNT 8.3 X10'3 (4.5-11.0)
[2020-06-09 21:16] LABS: ALANINE AMINOTRANSFERASE 25 U/L (12-78); ALBUMIN 3.4 G/DL (3.4-5.0); ALKALINE PHOSPHATASE 125 IU/L (46-116); ANION GAP 3 (8-16); ASPARTATE AMINO TRANSFERASE 20 U/L (10-37); BILIRUBIN,TOTAL 0.2 MG/DL (0.1-1.0); BLOOD UREA NITROGEN 17 MG/DL (7-18); BUN/CREATININE RATIO 29.8 (6.6-38.0); CALCIUM 8.3 MG/DL (8.5-10.1); CHLORIDE 109 MMOL/L (99-107); CREATININE 0.57 MG/DL (0.40-0.90); GLUCOSE 100 MG/DL (70-104); POTASSIUM 3.4 MMOL/L (3.5-5.1); SODIUM 146 MMOL/L (135-145); TOTAL CARBON DIOXIDE 33.8 MMOL/L (24-32); TOTAL PROTEIN 6.8 G/DL (6.4-8.2); eGFR > 90 ML/MIN
--- NOTE | 2020-06-09 22:14 | NUR ---
o2 brought down to 2l/m nc, and pt tolerating well at 97%
[2020-06-09] MEDS ORDERED: ipratropium/albuterol 3ml nebule NEB ONE (22:30)
[2020-06-09] MEDS ORDERED: ibuprofen tablet 400 MG TABLET PO ONE (22:30)
[2020-06-09] MEDS ORDERED: acetaminophen 325mg tablet PO ONE (22:30)
[2020-06-09] MEDS ORDERED: prednisone 10mg tablet PO SCH (22:30)
[2020-06-09 23:00] LABS: D-DIMER 0.51 MG/L FEU (0-0.50)
[2020-06-09] MEDS ORDERED: predniSONE 20 mg tablet PO ONE (23:00)
[2020-06-09] MEDS ORDERED: ALBU8HFA PO (23:52)
[2020-06-09] MEDS ORDERED: PRED20TA PO (23:52)
[2020-06-10 00:39] VITALS: BP 139/73
== END 2020-06-10 00:57 | disposition home or self-care (01) ==
LOC: ER 20:30
DX: J44.1 Chronic obstructive pulmonary disease with (acute) exacerbation (principal); R06.02 Shortness of breath; R05 Cough; R07.89 Other chest pain; G43.909 Migraine, unspecified, not intractable, without status migrainosus; I11.0 Hypertensive heart disease with heart failure; I50.9 Heart failure, unspecified; E11.9 Type 2 diabetes mellitus without complications; F41.9 Anxiety disorder, unspecified; F15.90 Other stimulant use, unspecified, uncomplicated; Z90.49 Acquired absence of other specified parts of digestive tract; Z98.890 Other specified postprocedural states; Z88.1 Allergy status to other antibiotic agents; Z79.82 Long term (current) use of aspirin; Z79.899 Other long term (current) drug therapy
CPT/HCPCS: 36415; 71045; 80053; 83880; 84484; 85025; 85379; 93005; 94640; 99285; J7512; 94760

== ENCOUNTER 2020-07-14 14:50 | Inpatient (IN) | payer BC, MEDICAID ==
[~2020-07-14] VITALS: Ht 160 cm; Wt 56.8 kg
[~2020-07-14 14:50] MED LIST changes: -predniSONE 20 mg tablet PO ONE
[2020-07-14] MEDS ORDERED: levoFLOXACIN-Levaquin 750MG/D5 150 ML IV ONE (16:25)
[2020-07-14 16:31] LABS: BASOPHILS # (AUTO) 0.1 X10'3 (0-0.2); BASOPHILS % (AUTO) 0.4 % (0-1); EOSINOPHILS # (AUTO) 0.1 X10'3 (0-0.9); EOSINOPHILS % (AUTO) 0.7 % (0-6); HEMATOCRIT 42.5 % (35.0-45.0); HEMOGLOBIN 13.9 g/dl (12.0-16.0); LYMPHOCYTES % (AUTO) 6.5 % (21-51); MEAN CORPUSCULAR HEMOGLOBIN 30.9 PG (27.0-31.0); MEAN CORPUSCULAR HGB CONC 32.8 g/dL (33.0-36.5); MEAN CORPUSCULAR VOLUME 94.3 FL (78-98); MEAN PLATELET VOLUME 7.1 FL (7.4-10.4); MONOCYTES # (AUTO) 0.6 X10'3 (0-0.9); MONOCYTES % (AUTO) 3.9 % (2-12); NEUTROPHILS # (AUTO) 14.1 X10'3 (1.8-7.7); NEUTROPHILS % (AUTO) 88.5 % (42-75); PLATELET COUNT 194 X10'3 (140-440); RED CELL DISTRIBUTION WIDTH 14.1 % (11.5-14.5); WHITE BLOOD COUNT 15.9 X10'3 (4.5-11.0)
[2020-07-14 16:48] LABS: ALANINE AMINOTRANSFERASE 22 U/L (12-78); ALBUMIN 3.5 G/DL (3.4-5.0); ALBUMIN/GLOBULIN RATIO 0.9 (1.1-1.5); ALKALINE PHOSPHATASE 132 IU/L (46-116); ANION GAP 5 (8-16); ASPARTATE AMINO TRANSFERASE 18 U/L (10-37); BILIRUBIN,TOTAL 0.5 MG/DL (0.1-1.0); BLOOD UREA NITROGEN 16 MG/DL (7-18); BUN/CREATININE RATIO 29.1 (6.6-38.0); CALCIUM 9.3 MG/DL (8.5-10.1); CHLORIDE 102 MMOL/L (99-107); CREATININE 0.55 MG/DL (0.40-0.90); GLUCOSE 112 MG/DL (70-104); POTASSIUM 3.6 MMOL/L (3.5-5.1); SODIUM 143 MMOL/L (135-145); TOTAL CARBON DIOXIDE 36.2 MMOL/L (24-32); TOTAL PROTEIN 7.5 G/DL (6.4-8.2); eGFR > 90 ML/MIN
[2020-07-14] MEDS ORDERED: diphenhydrAMINE 50 mg/ml inj IV ONE (17:20)
[2020-07-14] MEDS ORDERED: morphine 4 MG/ML inj SYRINge IV ONE (17:20)
[2020-07-14] MEDS ORDERED: CefTRIAXone/D5W-Rocephin 1gm 50 ML IV ONE (18:10)
[2020-07-14] MEDS ORDERED: azithromycin/NS 500mg/250ml 250 ML IV ONE (18:10)
[2020-07-14 18:12] LABS: CLARITY,URINE CLOUDY (Clear); COLOR,URINE YELLOW (Yellow); GLUCOSE, URINE NEGATIVE (Neg); KETONES,URINE NEGATIVE (Neg); LEUKOCYTE ESTERASE ,URINE NEGATIVE (Neg); NITRITES, URINE POSITIVE (Neg); OCCULT BLOOD,URINE TRACE-INTACT (Neg); PROTEIN,URINE NEGATIVE (Neg); UROBILINOGEN,URINE 0.2 E.U/dL (0.2-1.0)
[2020-07-14 18:13] LABS: UA COLLECTION TYPE NON-SPECIFIED
[2020-07-14 18:16] LABS: RBC,URINE 0-2 /HPF (0-2)
[2020-07-14 18:17] LABS: BACTERIA,URINE 4+ /HPF (Neg); MUCUS STRANDS FEW /LPF (Neg); SQUAMOUS EPITHELIAL CELL,UR MODERATE /LPF (FEW)
[2020-07-14] MEDS ORDERED: mag hydrox/Alum hydrox/simeth 30ml oral suspension PO PRN (19:50)
[2020-07-14] MEDS ORDERED: magnesium hydroxide 30ml (MOM) UD suspension PO PRN (19:50)
[2020-07-14] MEDS ORDERED: normal saline 1000ml 1,000 ML IV SCH (19:50)
[2020-07-14] MEDS ORDERED: ondansetron/PF 4mg/2ml inj IV PRN (19:50)
[2020-07-14] MEDS ORDERED: acetaminophen 325mg tablet PO PRN (19:50)
[2020-07-14] MEDS ORDERED: potassium Cl 20 mEq SR tablet PO PRN ×2 (19:50)
[2020-07-14] MEDS ORDERED: potassium CL 10mEq/100ml bag 100 ML IV PRN ×2 (19:50)
[2020-07-14] MEDS ORDERED: albuterol 2.5 MG/3 ML nebule NEB PRN (19:55)
[2020-07-14] MEDS ORDERED: dextrose 50%-water 50ml dispensing syringe IV PRN ×2 (20:00)
[2020-07-14] MEDS ORDERED: dextrose ORAL solution 15 GM/59 ML bottle PO PRN ×2 (20:00)
[2020-07-14] MEDS ORDERED: glucagon, human recombinant 1mg kit SUBCUT PRN (20:00)
[2020-07-14] MEDS ORDERED: MESSAGE TO PHARMACY PO ONE (20:00)
[2020-07-14] MEDS ORDERED: insulin Lispro (HumaLOG) vial - multi-dose SQ SCH (20:00)
[2020-07-14] MEDS ORDERED: guaiFENesin/codeine phos 10ml UD oral syrup PO PRN (20:00)
[2020-07-14] MEDS: K and/or MAG REPLACEMENT MC SCH (20:15)
[2020-07-14] MEDS: metoprolol tartrate 25mg tablet PO SCH (20:18)
[2020-07-14] MEDS: heparin, porcine 5000 units/ml vial SQ SCH (20:18)
--- NOTE | 2020-07-15 02:21 | NUR ---
pt remains asleep.
[2020-07-15] MEDS: albuterol 2.5 MG/3 ML nebule NEB SCH ×4 (03:28→20:35)
--- NOTE | 2020-07-15 03:32 | NUR ---
RT here to do her neb, she informed me that she turned her oxygen down to 2 l nc.
--- NOTE | 2020-07-15 04:45 | NUR ---
She had her call light on and SOB. Increased oxygen to 4 l nc.
[2020-07-15] MEDS: HYDROcodone/acetaminophen 5mg/325mg tablet PO PRN ×3 (04:51→17:23)
--- NOTE | 2020-07-15 05:07 | NUR ---
gave her a yogurt cup and a warmed blanket around her shoulders.
--- NOTE | 2020-07-15 05:33 | NUR ---
Patient in room SAMM 344. I have received report from PETRA Jarquin and had the opportunity to ask questions and assume patient care.
--- NOTE | 2020-07-15 05:58 | NUR ---
Patient arrived to unit with purse containing phone, and a bag of clothes. Milka LAMBERT transported her via gurney.
--- NOTE | 2020-07-15 06:00 | NUR ---
Patient in room SAMM 344. I have received report from PETRA Griffith and had the opportunity to ask questions and assume patient care.
[2020-07-15 06:01] VITALS: BP_SYST 155; BP_DIAS 135; BP_DIAS 35
[2020-07-15 06:06] VITALS: BP 123/65
--- NOTE | 2020-07-15 06:18 | NUR ---
Problems reprioritized. Patient report given, questions answered & plan of care reviewed with PETRA Dawson.
[2020-07-15 06:53] LABS: ALANINE AMINOTRANSFERASE 20 U/L (12-78); ALBUMIN/GLOBULIN RATIO 0.8 (1.1-1.5); ALKALINE PHOSPHATASE 112 IU/L (46-116); ANION GAP 0 (8-16); ASPARTATE AMINO TRANSFERASE 15 U/L (10-37); BILIRUBIN,TOTAL 0.6 MG/DL (0.1-1.0); BLOOD UREA NITROGEN 22 MG/DL (7-18); BUN/CREATININE RATIO 36.1 (6.6-38.0); CALCIUM 9.3 MG/DL (8.5-10.1); CHLORIDE 103 MMOL/L (99-107); CREATININE 0.61 MG/DL (0.40-0.90); GLUCOSE 112 MG/DL (70-104); SODIUM 142 MMOL/L (135-145); TOTAL CARBON DIOXIDE 38.9 MMOL/L (24-32); TOTAL PROTEIN 6.7 G/DL (6.4-8.2); eGFR > 90 ML/MIN
[2020-07-15 06:55] LABS: BASOPHILS % (AUTO) 0.1 % (0-1); EOSINOPHILS # (AUTO) 0.1 X10'3 (0-0.9); EOSINOPHILS % (AUTO) 0.8 % (0-6); HEMATOCRIT 38.2 % (35.0-45.0); HEMOGLOBIN 12.4 g/dl (12.0-16.0); LYMPHOCYTES # (AUTO) 1.6 X10'3 (1.1-4.8); LYMPHOCYTES % (AUTO) 10.9 % (21-51); MEAN CORPUSCULAR HEMOGLOBIN 30.6 PG (27.0-31.0); MEAN CORPUSCULAR HGB CONC 32.4 g/dL (33.0-36.5); MEAN CORPUSCULAR VOLUME 94.6 FL (78-98); MEAN PLATELET VOLUME 7.7 FL (7.4-10.4); MONOCYTES # (AUTO) 0.8 X10'3 (0-0.9); MONOCYTES % (AUTO) 5.3 % (2-12); NEUTROPHILS # (AUTO) 11.9 X10'3 (1.8-7.7); NEUTROPHILS % (AUTO) 82.9 % (42-75); PLATELET COUNT 185 X10'3 (140-440); RED BLOOD COUNT 4.03 X10'6 (4.20-5.60); RED CELL DISTRIBUTION WIDTH 14.5 % (11.5-14.5); WHITE BLOOD COUNT 14.3 X10'3 (4.5-11.0)
[2020-07-15] MEDS: CefTRIAXone/D5W-Rocephin 1gm 50 ML IV SCH (07:55)
[2020-07-15] MEDS: pantoprazole 40mg Tablet.DR PO SCH (07:56)
[2020-07-15] MEDS: aspirin 81mg tab.chew PO SCH (07:56)
[2020-07-15] MEDS: sertraline 25mg tablet PO SCH (07:57)
[2020-07-15] MEDS: metoprolol tartrate 25mg tablet PO SCH ×2 (07:57→20:29)
[2020-07-15] MEDS: azithromycin 250mg tablet PO SCH (07:57)
[2020-07-15] MEDS: oxybutynin 5mg tablet PO SCH ×3 (07:57→20:25)
[2020-07-15] MEDS: heparin, porcine 5000 units/ml vial SQ SCH ×2 (07:58→20:00)
[2020-07-15 08:00] VITALS: BP 108/60
[2020-07-15] MEDS ORDERED: sertraline 50mg tablet PO SCH (08:00)
[2020-07-15] MEDS: K and/or MAG REPLACEMENT MC SCH ×2 (08:00→20:00)
[2020-07-15] MEDS ORDERED: metoprolol tartrate 50mg tablet PO SCH (08:00)
[2020-07-15] MEDS: budesonide 0.5mg/2ml UD nebule IH SCH ×2 (08:13→20:35)
[2020-07-15] MEDS: nicotine 21mg patch - 24 hr TD SCH (09:44)
[2020-07-15] MEDS: furosemide 20 MG/2 ML vial IV SCH (09:44)
[2020-07-15 12:00] VITALS: BP 90/53
[2020-07-15 18:00] VITALS: BP 98/65
--- NOTE | 2020-07-15 18:46 | NUR ---
Problems reprioritized. Patient report given, questions answered & plan of care reviewed with PETRA Griffith.
[2020-07-15] MEDS ORDERED: enoxaparin 40mg/0.4ml syringe SUBCUT SCH (20:00)
[2020-07-15] MEDS: lactobacillus rhamnosus 10,000 MMU CELLS/CAPSULE PO SCH (20:24)
[2020-07-15] MEDS ORDERED: LORazepam 0.5 MG tablet PO PRN (20:45)
[2020-07-16] VITALS: BP 96/55
[2020-07-16] MEDS: albuterol 2.5 MG/3 ML nebule NEB SCH ×2 (02:21→08:02)
--- NOTE | 2020-07-16 06:18 | NUR ---
Problems reprioritized. Patient report given, questions answered & plan of care reviewed with PETRA Patrick.
[2020-07-16 06:32] LABS: BASOPHILS % (AUTO) 0.2 % (0-1); EOSINOPHILS # (AUTO) 0.2 X10'3 (0-0.9); EOSINOPHILS % (AUTO) 2.4 % (0-6); HEMATOCRIT 34.6 % (35.0-45.0); HEMOGLOBIN 11.4 g/dl (12.0-16.0); LYMPHOCYTES # (AUTO) 1.1 X10'3 (1.1-4.8); LYMPHOCYTES % (AUTO) 15.7 % (21-51); MEAN CORPUSCULAR HEMOGLOBIN 31.7 PG (27.0-31.0); MEAN CORPUSCULAR HGB CONC 33.1 g/dL (33.0-36.5); MEAN CORPUSCULAR VOLUME 95.7 FL (78-98); MEAN PLATELET VOLUME 7.6 FL (7.4-10.4); MONOCYTES # (AUTO) 0.4 X10'3 (0-0.9); NEUTROPHILS # (AUTO) 5.5 X10'3 (1.8-7.7); NEUTROPHILS % (AUTO) 75.7 % (42-75); PLATELET COUNT 168 X10'3 (140-440); RED BLOOD COUNT 3.62 X10'6 (4.20-5.60); RED CELL DISTRIBUTION WIDTH 14.4 % (11.5-14.5); WHITE BLOOD COUNT 7.3 X10'3 (4.5-11.0)
[2020-07-16 06:56] LABS: ALANINE AMINOTRANSFERASE 20 U/L (12-78); ALBUMIN 2.6 G/DL (3.4-5.0); ALBUMIN/GLOBULIN RATIO 0.8 (1.1-1.5); ALKALINE PHOSPHATASE 94 IU/L (46-116); ANION GAP 1 (8-16); ASPARTATE AMINO TRANSFERASE 13 U/L (10-37); BILIRUBIN,TOTAL 0.2 MG/DL (0.1-1.0); BLOOD UREA NITROGEN 20 MG/DL (7-18); BUN/CREATININE RATIO 34.5 (6.6-38.0); CALCIUM 8.9 MG/DL (8.5-10.1); CHLORIDE 104 MMOL/L (99-107); CREATININE 0.58 MG/DL (0.40-0.90); GLUCOSE 138 MG/DL (70-104); POTASSIUM 3.6 MMOL/L (3.5-5.1); SODIUM 143 MMOL/L (135-145); TOTAL CARBON DIOXIDE 37.8 MMOL/L (24-32); eGFR > 90 ML/MIN
[2020-07-16 07:00] VITALS: BP 139/64
--- NOTE | 2020-07-16 07:35 | NUR ---
Patient in room SAMM 344. I have received report from GALLO LAMBERT and had the opportunity to ask questions and assume patient care.
[2020-07-16] MEDS: K and/or MAG REPLACEMENT MC SCH (08:00)
[2020-07-16] MEDS: budesonide 0.5mg/2ml UD nebule IH SCH (08:02)
[2020-07-16] MEDS: pantoprazole 40mg Tablet.DR PO SCH (08:15)
[2020-07-16] MEDS: lactobacillus rhamnosus 10,000 MMU CELLS/CAPSULE PO SCH (08:15)
[2020-07-16] MEDS: sertraline 25mg tablet PO SCH (08:15)
[2020-07-16] MEDS: metoprolol tartrate 25mg tablet PO SCH (08:15)
[2020-07-16] MEDS: azithromycin 250mg tablet PO SCH (08:16)
[2020-07-16] MEDS: furosemide 20 MG/2 ML vial IV SCH (08:16)
[2020-07-16] MEDS: nicotine 21mg patch - 24 hr TD SCH (08:16)
[2020-07-16] MEDS: aspirin 81mg tab.chew PO SCH (08:16)
[2020-07-16] MEDS: CefTRIAXone/D5W-Rocephin 1gm 50 ML IV SCH (08:16)
[2020-07-16] MEDS: oxybutynin 5mg tablet PO SCH ×2 (08:16→13:00)
[2020-07-16] MEDS: heparin, porcine 5000 units/ml vial SQ SCH (08:17)
[2020-07-16 11:00] VITALS: BP 116/63
[2020-07-16] MEDS ORDERED: AMOX-580 PO (12:51)
[2020-07-16] MEDS ORDERED: FURO-150 PO (12:51)
[2020-07-16] MEDS ORDERED: PRED10TA23 PO (12:51)
[2020-07-16] MEDS ORDERED: HYDR-4383 PO (12:51)
[2020-07-16] MEDS ORDERED: GUAI600T45 PO (12:51)
== END 2020-07-16 16:07 | disposition home or self-care (01) | DRG 190 ==
LOC: ER 14:51 → ED HOLD 19:47 → SUR 3N 07-15 05:31
PROVIDERS: ADMIT Internal Medicine; ATTEND Internal Medicine
DX: J44.1 Chronic obstructive pulmonary disease with (acute) exacerbation (principal); J18.9 Pneumonia, unspecified organism; E87.2 Acidosis; R64 Cachexia; J44.0 Chronic obstructive pulmonary disease with (acute) lower respiratory infection; E11.9 Type 2 diabetes mellitus without complications; F17.200 Nicotine dependence, unspecified, uncomplicated; G35 Multiple sclerosis; I11.0 Hypertensive heart disease with heart failure; I27.81 Cor pulmonale (chronic); I50.9 Heart failure, unspecified; F32.9 Major depressive disorder, single episode, unspecified; F41.9 Anxiety disorder, unspecified; G43.909 Migraine, unspecified, not intractable, without status migrainosus; S80.812A Abrasion, left lower leg, initial encounter; X58.XXXA Exposure to other specified factors, initial encounter; Z20.828 Contact with and (suspected) exposure to other viral communicable diseases; Z79.899 Other long term (current) drug therapy; Z82.49 Family history of ischemic heart disease and other diseases of the circulatory system; Z82.5 Family history of asthma and other chronic lower respiratory diseases; Z83.3 Family history of diabetes mellitus; Z79.84 Long term (current) use of oral hypoglycemic drugs; Z88.8 Allergy status to other drugs, medicaments and biological substances; Z90.49 Acquired absence of other specified parts of digestive tract; Z98.891 History of uterine scar from previous surgery; Z71.6 Tobacco abuse counseling; Z68.22 Body mass index [BMI] 22.0-22.9, adult; Y93.89 Activity, other specified; Y92.89 Other specified places as the place of occurrence of the external cause; Y99.8 Other external cause status
CPT/HCPCS: 36415; 71045; 80053; 81001; 82948; 83036; 83605; 83880; 84145; 84484; 85025; 87040; 87077; 87088; 87186; 87635; 93005; 94640; 94760; 96365; 99285; C9803; G0378; J0456; J0696; J1200; J1644; J1815; J1940; J1956; J2270; J7030; J7626

== ENCOUNTER 2020-09-23 11:05 | Emergency (ER) | payer BC, MEDICAID ==
[~2020-09-23] VITALS: Ht 160 cm; Wt 68.2 kg
[~2020-09-23 11:05] MED LIST changes: +FURO-150 PO; +GUAI600T45 PO; +HYDR-4383 PO; -LEVA1.2544 IH; -ONDA4TAB6 PO; +SERT-432 PO; -SERT25TA5 PO; -VITC500T PO
[2020-09-23] MEDS ORDERED: nitroGLYCERIN 0.4mg SUBLingual tab SL PRN (12:05)
[2020-09-23] MEDS ORDERED: normal saline 1000ML IV soln IVB ONE (12:05)
[2020-09-23] MEDS ORDERED: albuterol 2.5 MG/3 ML nebule NEB ONE (12:05)
[2020-09-23 12:55] LABS: BASOPHILS % (AUTO) 0.5 % (0-1); EOSINOPHILS # (AUTO) 0.3 X10'3 (0-0.9); EOSINOPHILS % (AUTO) 2.8 % (0-6); HEMATOCRIT 40.8 % (35.0-45.0); HEMOGLOBIN 13.1 g/dl (12.0-16.0); LYMPHOCYTES # (AUTO) 1.4 X10'3 (1.1-4.8); LYMPHOCYTES % (AUTO) 15.4 % (21-51); MEAN CORPUSCULAR HEMOGLOBIN 30.6 PG (27.0-31.0); MEAN CORPUSCULAR HGB CONC 32.2 g/dL (33.0-36.5); MEAN CORPUSCULAR VOLUME 94.8 FL (78-98); MONOCYTES # (AUTO) 0.6 X10'3 (0-0.9); MONOCYTES % (AUTO) 6.7 % (2-12); NEUTROPHILS # (AUTO) 6.9 X10'3 (1.8-7.7); NEUTROPHILS % (AUTO) 74.6 % (42-75); PLATELET COUNT 179 X10'3 (140-440); RED CELL DISTRIBUTION WIDTH 13.6 % (11.5-14.5); WHITE BLOOD COUNT 9.2 X10'3 (4.5-11.0)
[2020-09-23 13:02] LABS: D-DIMER 0.58 MG/L FEU (0-0.50)
[2020-09-23 13:12] LABS: ALANINE AMINOTRANSFERASE 27 U/L (12-78); ALBUMIN 3.1 G/DL (3.4-5.0); ALBUMIN/GLOBULIN RATIO 0.9 (1.1-1.5); ALKALINE PHOSPHATASE 103 IU/L (46-116); ANION GAP 1 (8-16); ASPARTATE AMINO TRANSFERASE 21 U/L (10-37); BILIRUBIN,TOTAL 0.3 MG/DL (0.1-1.0); BLOOD UREA NITROGEN 16 MG/DL (7-18); CALCIUM 8.9 MG/DL (8.5-10.1); CHLORIDE 104 MMOL/L (99-107); GLUCOSE 108 MG/DL (70-104); MAGNESIUM 1.7 MG/DL (1.5-2.4); POTASSIUM 3.8 MMOL/L (3.5-5.1); SODIUM 146 MMOL/L (135-145); TOTAL PROTEIN 6.7 G/DL (6.4-8.2); eGFR > 90 ML/MIN
[2020-09-23 13:13] LABS: URINE AMPHETAMINE SCREEN POSITIVE (Neg); URINE BARBITUATE SCREEN NEGATIVE (Neg); URINE BENZODIAZEPINES SCREEN NEGATIVE (Neg); URINE CANNABINOID SCREEN NEGATIVE (Neg); URINE COCAINE SCREEN NEGATIVE (Neg); URINE METHADONE SCREEN NEGATIVE (Neg); URINE OPIATE SCREEN NEGATIVE (Neg); URINE PHENCYCLIDINE SCREEN NEGATIVE (Neg)
[2020-09-23 13:14] LABS: TOTAL CARBON DIOXIDE 41.4 MMOL/L (24-32)
[2020-09-23] MEDS ORDERED: ipratropium/albuterol 3ml nebule NEB ONE (13:50)
[2020-09-23] MEDS ORDERED: ibuprofen tablet 400 MG TABLET PO ONE (14:55)
[2020-09-23] MEDS ORDERED: acetaminophen 325mg tablet PO ONE (14:55)
[2020-09-23] MEDS ORDERED: AZIT500T9 PO (15:20)
[2020-09-23] MEDS ORDERED: PRED20TA PO (15:20)
[2020-09-23] MEDS ORDERED: ALBU8HFA PO (15:29)
[2020-09-23 15:38] VITALS: BP 127/86
== END 2020-09-23 15:40 | disposition home or self-care (01) ==
LOC: ER 11:05
DX: J44.1 Chronic obstructive pulmonary disease with (acute) exacerbation (principal); Z20.822 Contact with and (suspected) exposure to COVID-19; I10 Essential (primary) hypertension; E78.5 Hyperlipidemia, unspecified; E11.9 Type 2 diabetes mellitus without complications; I25.10 Atherosclerotic heart disease of native coronary artery without angina pectoris; G43.909 Migraine, unspecified, not intractable, without status migrainosus; J44.9 Chronic obstructive pulmonary disease, unspecified; G35 Multiple sclerosis; Z86.16 Personal history of COVID-19; Z87.01 Personal history of pneumonia (recurrent); Z88.1 Allergy status to other antibiotic agents; Z91.048 Other nonmedicinal substance allergy status; Z79.82 Long term (current) use of aspirin; Z79.2 Long term (current) use of antibiotics; Z79.899 Other long term (current) drug therapy; Z53.29 Procedure and treatment not carried out because of patient's decision for other reasons
CPT/HCPCS: 36415; 71045; 80053; 80305; 83735; 83880; 84484; 85025; 85379; 85610; 87635; 93005; 94640; 96360; 99285; C9803; J7030; 94760

== ENCOUNTER 2020-10-15 16:36 | Emergency (ER) | payer BC, MEDICAID ==
[~2020-10-15] VITALS: Ht 165.1 cm; Wt 60.0 kg
[~2020-10-15 16:36] MED LIST changes: +ALBU2.5V7 NEB; +AMOX-580 PO; -FURO-150 PO; +FURO20TA4 PO; -GUAI600T45 PO; +HYDR-3965 PO; -HYDR-4383 PO; +IPRA3AMP9 IH; +PRED20TA PO; +VARE1TAB21 PO
[2020-10-15] MEDS ORDERED: albuterol 2.5 MG/3 ML nebule NEB ONE (17:30)
[2020-10-15 18:19] LABS: BASOPHILS % (AUTO) 0.2 % (0-1); EOSINOPHILS % (AUTO) 0.4 % (0-6); HEMATOCRIT 40.1 % (35.0-45.0); HEMOGLOBIN 12.9 g/dl (12.0-16.0); LYMPHOCYTES # (AUTO) 0.7 X10'3 (1.1-4.8); LYMPHOCYTES % (AUTO) 7.5 % (21-51); MEAN CORPUSCULAR HEMOGLOBIN 30.2 PG (27.0-31.0); MEAN CORPUSCULAR HGB CONC 32.2 g/dL (33.0-36.5); MEAN CORPUSCULAR VOLUME 93.8 FL (78-98); MEAN PLATELET VOLUME 7.7 FL (7.4-10.4); MONOCYTES # (AUTO) 0.1 X10'3 (0-0.9); MONOCYTES % (AUTO) 1.1 % (2-12); NEUTROPHILS # (AUTO) 8.6 X10'3 (1.8-7.7); NEUTROPHILS % (AUTO) 90.8 % (42-75); PLATELET COUNT 151 X10'3 (140-440); RED BLOOD COUNT 4.27 X10'6 (4.20-5.60); RED CELL DISTRIBUTION WIDTH 13.4 % (11.5-14.5); WHITE BLOOD COUNT 9.4 X10'3 (4.5-11.0)
[2020-10-15 18:41] LABS: ALANINE AMINOTRANSFERASE 67 U/L (12-78); ALBUMIN 3.4 G/DL (3.4-5.0); ALKALINE PHOSPHATASE 102 IU/L (46-116); ANION GAP 4 (8-16); ASPARTATE AMINO TRANSFERASE 40 U/L (10-37); BILIRUBIN,TOTAL 0.4 MG/DL (0.1-1.0); CHLORIDE 103 MMOL/L (99-107); CREATININE 0.47 MG/DL (0.40-0.90); GLUCOSE 132 MG/DL (70-104); POTASSIUM 3.5 MMOL/L (3.5-5.1); SODIUM 146 MMOL/L (135-145); TOTAL CARBON DIOXIDE 39.4 MMOL/L (24-32); TOTAL PROTEIN 6.7 G/DL (6.4-8.2); eGFR > 90 ML/MIN
[2020-10-15 18:53] LABS: BLOOD UREA NITROGEN 29 MG/DL (7-18); BUN/CREATININE RATIO 61.7 (6.6-38.0)
[2020-10-15 20:11] VITALS: BP 131/77
== END 2020-10-15 20:16 | disposition home or self-care (01) ==
LOC: ER 16:36
DX: J18.9 Pneumonia, unspecified organism (principal); J96.11 Chronic respiratory failure with hypoxia; G43.909 Migraine, unspecified, not intractable, without status migrainosus; I11.0 Hypertensive heart disease with heart failure; I50.9 Heart failure, unspecified; J44.9 Chronic obstructive pulmonary disease, unspecified; E11.9 Type 2 diabetes mellitus without complications; F41.9 Anxiety disorder, unspecified; F17.200 Nicotine dependence, unspecified, uncomplicated; Z99.81 Dependence on supplemental oxygen; Z90.49 Acquired absence of other specified parts of digestive tract; Z98.890 Other specified postprocedural states; Z88.1 Allergy status to other antibiotic agents; Z88.8 Allergy status to other drugs, medicaments and biological substances; Z79.82 Long term (current) use of aspirin; Z79.84 Long term (current) use of oral hypoglycemic drugs; Z79.899 Other long term (current) drug therapy
CPT/HCPCS: 36415; 71045; 80053; 83880; 85025; 93005; 94640; 94760; 99285

== ENCOUNTER 2020-10-20 02:01 | Emergency (ER) | payer BC, MEDICAID ==
[~2020-10-20] VITALS: Ht 152.4 cm; Wt 53.0 kg
[~2020-10-20 02:01] MED LIST changes: +LOP25T PO; -METO25TA6 PO
[2020-10-20] MEDS ORDERED: albuterol 2.5 MG/3 ML nebule CONTNEB PRN (02:25)
--- NOTE | 2020-10-20 02:35 | NUR ---
She was so hungry, all she could talk about. I got her a sandwiche with extra mustard, 2 orange juices and a jello.
[2020-10-20 03:43] VITALS: BP 133/58
--- NOTE | 2020-10-20 03:43 | NUR ---
SHE WAS DIFFICULT TO AROUSE AND ACTING CONFUSED. ACCU CHECK WNLS. SHE IS JUST TIRED. SHE IS OK NOW. SHE SAID A TAXI HOME WILL WORK.
--- NOTE | 2020-10-20 03:53 | NUR ---
ENMANUEL ESQUEDA: [phone] AND HE IS ON HIS WAY TO GET HER WITH OXYGEN.
[2020-11-04] MEDS ORDERED: MONT10TA32 PO (13:00)
[2020-11-04] MEDS ORDERED: PRED20TA PO (13:00)
== END 2020-10-20 04:10 | disposition home or self-care (01) ==
LOC: ER 02:02
DX: J44.9 Chronic obstructive pulmonary disease, unspecified (principal); G43.909 Migraine, unspecified, not intractable, without status migrainosus; I11.0 Hypertensive heart disease with heart failure; I50.9 Heart failure, unspecified; E11.9 Type 2 diabetes mellitus without complications; F41.9 Anxiety disorder, unspecified; F17.200 Nicotine dependence, unspecified, uncomplicated; Z90.49 Acquired absence of other specified parts of digestive tract; Z98.890 Other specified postprocedural states; Z88.1 Allergy status to other antibiotic agents; Z88.8 Allergy status to other drugs, medicaments and biological substances; Z79.82 Long term (current) use of aspirin; Z79.899 Other long term (current) drug therapy
CPT/HCPCS: 82948; 94640; 94760; 99284; 99285; A7015

== ENCOUNTER 2021-01-18 02:33 | Emergency (ER) | payer BC, MEDICAID ==
[~2021-01-18] VITALS: Ht 160 cm; Wt 50.0 kg
[~2021-01-18 02:33] MED LIST changes: -AMOX-580 PO; -FURO20TA4 PO; -IPRA3AMP9 IH; +MONT10TA32 PO
[2021-01-18] MEDS ORDERED: dexamethasone sod phosphate 10mg/ml inj IV STA (02:44)
[2021-01-18] MEDS ORDERED: albuterol 2.5 MG/3 ML nebule CONTNEB PRN (02:45)
[2021-01-18 02:57] LABS: BASOPHILS % (AUTO) 0.7 % (0-1); EOSINOPHILS # (AUTO) 0.3 X10'3 (0-0.9); EOSINOPHILS % (AUTO) 4.4 % (0-6); HEMATOCRIT 38.9 % (35.0-45.0); HEMOGLOBIN 12.9 g/dl (12.0-16.0); LYMPHOCYTES % (AUTO) 29.1 % (21-51); MEAN CORPUSCULAR HEMOGLOBIN 29.9 PG (27.0-31.0); MEAN CORPUSCULAR HGB CONC 33.1 g/dL (33.0-36.5); MEAN CORPUSCULAR VOLUME 90.3 FL (78-98); MEAN PLATELET VOLUME 7.6 FL (7.4-10.4); MONOCYTES # (AUTO) 0.5 X10'3 (0-0.9); MONOCYTES % (AUTO) 7.1 % (2-12); NEUTROPHILS # (AUTO) 4.1 X10'3 (1.8-7.7); NEUTROPHILS % (AUTO) 58.7 % (42-75); PLATELET COUNT 161 X10'3 (140-440); RED BLOOD COUNT 4.31 X10'6 (4.20-5.60)
[2021-01-18 03:08] LABS: ALANINE AMINOTRANSFERASE 25 U/L (12-78); ALBUMIN 3.4 G/DL (3.4-5.0); ALBUMIN/GLOBULIN RATIO 1.1 (1.1-1.5); ALKALINE PHOSPHATASE 101 IU/L (46-116); ANION GAP 4 (8-16); ASPARTATE AMINO TRANSFERASE 16 U/L (10-37); BILIRUBIN,TOTAL 0.2 MG/DL (0.1-1.0); BLOOD UREA NITROGEN 27 MG/DL (7-18); BUN/CREATININE RATIO 42.2 (6.6-38.0); CHLORIDE 107 MMOL/L (99-107); CREATININE 0.64 MG/DL (0.40-0.90); GLUCOSE 159 MG/DL (70-104); POTASSIUM 3.4 MMOL/L (3.5-5.1); SODIUM 147 MMOL/L (135-145); TOTAL CARBON DIOXIDE 36.4 MMOL/L (24-32); TOTAL PROTEIN 6.5 G/DL (6.4-8.2); eGFR > 90 ML/MIN
[2021-01-18 03:18] LABS: TROPONIN I < 0.04 NG/ML (0.0-0.05)
[2021-01-18] MEDS ORDERED: LORazepam 2 mg/ml vial IV ONE (03:50)
[2021-01-18] MEDS ORDERED: PRED20TA PO (04:13)
[2021-01-18] MEDS ORDERED: ALBU8HFA PO (04:13)
[2021-01-18 04:30] VITALS: BP 112/70
--- NOTE | 2021-01-18 07:10 | NUR ---
PATIENT AROUSABLE VIA TACTILE STIMULI. SPO2 95% ON HOME O2 4L NC. PATIENT VERY DROWSY, OPENS EYES BRIEFLY BUT FALLS ASLEEP INSTANTLY. CN AWARE.
--- NOTE | 2021-01-18 10:50 | NUR ---
patient up to bedside commode, states taxi ride home ok.
== END 2021-01-18 10:54 | disposition home or self-care (01) ==
LOC: ER 02:34
DX: J44.1 Chronic obstructive pulmonary disease with (acute) exacerbation (principal); R06.02 Shortness of breath; G43.909 Migraine, unspecified, not intractable, without status migrainosus; I11.0 Hypertensive heart disease with heart failure; I50.9 Heart failure, unspecified; E11.9 Type 2 diabetes mellitus without complications; F41.9 Anxiety disorder, unspecified; Z72.0 Tobacco use; Z87.01 Personal history of pneumonia (recurrent); Z90.49 Acquired absence of other specified parts of digestive tract; Z98.890 Other specified postprocedural states; Z88.1 Allergy status to other antibiotic agents; Z88.8 Allergy status to other drugs, medicaments and biological substances; Z79.82 Long term (current) use of aspirin; Z79.899 Other long term (current) drug therapy
CPT/HCPCS: 36415; 71045; 80053; 82948; 83880; 84484; 85025; 93005; 94640; 94644; 96374; 96375; 99285; J1100; J2060; 94760; A7015

== ENCOUNTER 2021-01-25 02:40 | Emergency (ER) | payer BC, MEDICAID ==
[~2021-01-25] VITALS: Ht 160 cm; Wt 52.3 kg
[~2021-01-25 02:40] MED LIST changes: +ALBU8HFA PO
[2021-01-25] MEDS ORDERED: ipratropium/albuterol 3ml nebule NEB STA (03:25)
[2021-01-25] MEDS ORDERED: ipratropium/albuterol 3ml nebule ONE (03:27)
[2021-01-25] MEDS ORDERED: dexamethasone sod phosphate 10mg/ml inj IV STA (03:49)
[2021-01-25 03:51] LABS: BASOPHILS # (AUTO) 0.1 X10'3 (0-0.2); BASOPHILS % (AUTO) 0.5 % (0-1); EOSINOPHILS # (AUTO) 0.4 X10'3 (0-0.9); EOSINOPHILS % (AUTO) 4.3 % (0-6); HEMATOCRIT 41.8 % (35.0-45.0); HEMOGLOBIN 13.6 g/dl (12.0-16.0); LYMPHOCYTES % (AUTO) 20.2 % (21-51); MEAN CORPUSCULAR HEMOGLOBIN 29.8 PG (27.0-31.0); MEAN CORPUSCULAR HGB CONC 32.6 g/dL (33.0-36.5); MEAN CORPUSCULAR VOLUME 91.2 FL (78-98); MEAN PLATELET VOLUME 7.3 FL (7.4-10.4); MONOCYTES # (AUTO) 0.6 X10'3 (0-0.9); MONOCYTES % (AUTO) 5.7 % (2-12); NEUTROPHILS % (AUTO) 69.3 % (42-75); PLATELET COUNT 208 X10'3 (140-440); RED BLOOD COUNT 4.58 X10'6 (4.20-5.60); RED CELL DISTRIBUTION WIDTH 13.7 % (11.5-14.5); WHITE BLOOD COUNT 10.1 X10'3 (4.5-11.0)
[2021-01-25 04:01] LABS: ALANINE AMINOTRANSFERASE 28 U/L (12-78); ALBUMIN 3.7 G/DL (3.4-5.0); ALKALINE PHOSPHATASE 113 IU/L (46-116); ANION GAP 6 (8-16); ASPARTATE AMINO TRANSFERASE 17 U/L (10-37); BILIRUBIN,TOTAL 0.3 MG/DL (0.1-1.0); BLOOD UREA NITROGEN 28 MG/DL (7-18); BUN/CREATININE RATIO 41.2 (6.6-38.0); CALCIUM 8.6 MG/DL (8.5-10.1); CHLORIDE 106 MMOL/L (99-107); CREATININE 0.68 MG/DL (0.40-0.90); GLUCOSE 135 MG/DL (70-104); POTASSIUM 3.2 MMOL/L (3.5-5.1); SODIUM 148 MMOL/L (135-145); TOTAL CARBON DIOXIDE 36.3 MMOL/L (24-32); TOTAL PROTEIN 7.3 G/DL (6.4-8.2); eGFR 89 ML/MIN
[2021-01-25] MEDS ORDERED: AZIT250T2 PO (04:08)
[2021-01-25] MEDS ORDERED: PRED20TA PO (04:08)
[2021-01-25] MEDS ORDERED: ALBU18HF2 INH (04:08)
[2021-01-25] MEDS ORDERED: CefTRIAXone 2gm/D5W 50ml BAG 50 ML IV ONE (04:10)
[2021-01-25] MEDS ORDERED: albuterol 2.5 MG/3 ML nebule CONTNEB PRN (04:10)
[2021-01-25 04:22] LABS: C-REACTIVE PROTEIN 0.05 MG/DL (0.0-0.5); FERRITIN 48 NG/ML (8-252); LACTATE DEHYDROGENASE 208 U/L (81-234); TROPONIN I < 0.04 NG/ML (0.0-0.05)
[2021-01-25] MEDS ORDERED: potassium Cl 20 mEq SR tablet PO STA (05:04)
[2021-01-25 06:45] VITALS: BP 160/96
== END 2021-01-25 06:48 | disposition home or self-care (01) ==
LOC: ER 02:41
DX: J44.1 Chronic obstructive pulmonary disease with (acute) exacerbation (principal); Z20.822 Contact with and (suspected) exposure to COVID-19; J40 Bronchitis, not specified as acute or chronic; E87.6 Hypokalemia; G43.909 Migraine, unspecified, not intractable, without status migrainosus; I11.0 Hypertensive heart disease with heart failure; I50.9 Heart failure, unspecified; E11.9 Type 2 diabetes mellitus without complications; F41.9 Anxiety disorder, unspecified; Z87.01 Personal history of pneumonia (recurrent); Z90.49 Acquired absence of other specified parts of digestive tract; Z98.890 Other specified postprocedural states; Z88.1 Allergy status to other antibiotic agents; Z88.8 Allergy status to other drugs, medicaments and biological substances; Z79.82 Long term (current) use of aspirin; Z79.2 Long term (current) use of antibiotics; Z79.899 Other long term (current) drug therapy
CPT/HCPCS: 36415; 71045; 80053; 82728; 82948; 83605; 83615; 83880; 84145; 84484; 85025; 85384; 86140; 87040; 87502; 87503; 87635; 93005; 94640; 94644; 96374; 96375; 99285; C9803; J0696; J1100; 94760; A7015

== ENCOUNTER 2021-02-16 09:40 | Emergency (ER) | payer BC, MEDICAID ==
[~2021-02-16] VITALS: Ht 160 cm; Wt 54.5 kg
[2021-02-16] MEDS ORDERED: methylPREDNISolone sod succ 125mg/2ml vial IV ONE (10:05)
[2021-02-16] MEDS ORDERED: diphenhydrAMINE 50 mg/ml inj IV ONE (10:05)
[2021-02-16 10:57] LABS: BASOPHILS % (AUTO) 0.3 % (0-1); EOSINOPHILS # (AUTO) 0.3 X10'3 (0-0.9); HEMATOCRIT 43.3 % (35.0-45.0); HEMOGLOBIN 14.2 g/dl (12.0-16.0); LYMPHOCYTES # (AUTO) 2.7 X10'3 (1.1-4.8); MEAN CORPUSCULAR HEMOGLOBIN 29.7 PG (27.0-31.0); MEAN CORPUSCULAR HGB CONC 32.9 g/dL (33.0-36.5); MEAN CORPUSCULAR VOLUME 90.3 FL (78-98); MEAN PLATELET VOLUME 7.7 FL (7.4-10.4); MONOCYTES # (AUTO) 0.6 X10'3 (0-0.9); MONOCYTES % (AUTO) 6.8 % (2-12); NEUTROPHILS # (AUTO) 4.8 X10'3 (1.8-7.7); NEUTROPHILS % (AUTO) 57.9 % (42-75); PLATELET COUNT 186 X10'3 (140-440); RED BLOOD COUNT 4.79 X10'6 (4.20-5.60); RED CELL DISTRIBUTION WIDTH 13.6 % (11.5-14.5); WHITE BLOOD COUNT 8.4 X10'3 (4.5-11.0)
[2021-02-16 11:01] LABS: D-DIMER 0.77 MG/L FEU (0-0.50); PARTIAL THROMBOPLASTIN TIME 26 SECONDS (22-32)
[2021-02-16 11:09] LABS: URINE AMPHETAMINE SCREEN POSITIVE (Neg); URINE BARBITUATE SCREEN NEGATIVE (Neg); URINE BENZODIAZEPINES SCREEN NEGATIVE (Neg); URINE CANNABINOID SCREEN NEGATIVE (Neg); URINE COCAINE SCREEN NEGATIVE (Neg); URINE METHADONE SCREEN NEGATIVE (Neg); URINE OPIATE SCREEN NEGATIVE (Neg); URINE PHENCYCLIDINE SCREEN NEGATIVE (Neg)
[2021-02-16 11:10] LABS: ALANINE AMINOTRANSFERASE 28 U/L (12-78); ALBUMIN 3.5 G/DL (3.4-5.0); ALBUMIN/GLOBULIN RATIO 0.9 (1.1-1.5); ALKALINE PHOSPHATASE 114 IU/L (46-116); ANION GAP 1 (8-16); ASPARTATE AMINO TRANSFERASE 21 U/L (10-37); BILIRUBIN,TOTAL 0.4 MG/DL (0.1-1.0); BLOOD UREA NITROGEN 21 MG/DL (7-18); CALCIUM 9.2 MG/DL (8.5-10.1); CHLORIDE 103 MMOL/L (99-107); GLUCOSE 111 MG/DL (70-104); POTASSIUM 3.6 MMOL/L (3.5-5.1); SODIUM 146 MMOL/L (135-145); TOTAL PROTEIN 7.2 G/DL (6.4-8.2); eGFR 86 ML/MIN
[2021-02-16 11:14] LABS: TOTAL CARBON DIOXIDE 42.5 MMOL/L (24-32)
[2021-02-16] MEDS ORDERED: PRED10TA23 PO (11:56)
[2021-02-16] MEDS ORDERED: ALB0.5UD IH (11:59)
[2021-02-16 12:18] VITALS: BP 145/65
--- NOTE | 2021-02-16 12:29 | NUR ---
patient received dc instructions and rx and acknowledged understanding. patient states that breathing is much better. patient vs wnlMell germaine has no further complaints. pt dc home with bf.
--- NOTE | 2021-02-16 12:41 | NUR ---
patient left blue bag of belongings behind called numbers available no answer left message.
--- NOTE | 2021-02-16 12:50 | NUR ---
patient and family picked up bag at this time.
[2021-02-17] MEDS ORDERED: IBUP-1985 PO (20:40)
[2021-02-20] MEDS ORDERED: AZI25OT PO (10:23)
[2021-02-20] MEDS ORDERED: NICO-631 TD (10:23)
[2021-02-20] MEDS ORDERED: PRED10TA23 PO (10:23)
[2021-02-20] MEDS ORDERED: CEFD300C3 PO (10:23)
[2021-02-20] MEDS ORDERED: BENZ-16 PO (10:23)
[2021-02-20] MEDS ORDERED: HYDR-3965 PO (10:23)
== END 2021-02-16 12:30 | disposition home or self-care (01) ==
LOC: ER 09:41
DX: J44.1 Chronic obstructive pulmonary disease with (acute) exacerbation (principal); E87.2 Acidosis; F15.10 Other stimulant abuse, uncomplicated; G43.909 Migraine, unspecified, not intractable, without status migrainosus; I11.0 Hypertensive heart disease with heart failure; I50.9 Heart failure, unspecified; J44.9 Chronic obstructive pulmonary disease, unspecified; E11.9 Type 2 diabetes mellitus without complications; G35 Multiple sclerosis; Z87.01 Personal history of pneumonia (recurrent); Z90.49 Acquired absence of other specified parts of digestive tract; Z98.891 History of uterine scar from previous surgery; Z98.890 Other specified postprocedural states; Z79.82 Long term (current) use of aspirin; Z79.899 Other long term (current) drug therapy; Z88.1 Allergy status to other antibiotic agents; Z88.8 Allergy status to other drugs, medicaments and biological substances; Z91.048 Other nonmedicinal substance allergy status; Z99.81 Dependence on supplemental oxygen; Z87.891 Personal history of nicotine dependence
CPT/HCPCS: 36415; 71045; 80053; 80305; 83880; 84484; 85025; 85379; 85610; 85730; 93005; 96374; 96375; 99285; J1200; J2930

== ENCOUNTER 2021-02-28 06:34 | Emergency (ER) | payer BC, MEDICAID ==
[~2021-02-28] VITALS: Ht 160 cm; Wt 54.5 kg
[~2021-02-28 06:34] MED LIST changes: -ALBU2.5V7 NEB; -ALBU8HFA PO; -ASPI-1265 PO; +AZI25OT PO; +BENZ-16 PO; +CEFD300C3 PO; +LISI2.5T14 PO; -LISI2.5T2 PO; -MONT10TA32 PO; +NICO-631 TD; -PANT-47 PO; +PRED10TA23 PO; -PRED20TA PO; -VARE1TAB21 PO
[2021-02-28 07:16] LABS: BASOPHILS % (AUTO) 0.4 % (0-1); EOSINOPHILS # (AUTO) 0.3 X10'3 (0-0.9); HEMATOCRIT 37.9 % (35.0-45.0); HEMOGLOBIN 12.1 g/dl (12.0-16.0); LYMPHOCYTES # (AUTO) 2.8 X10'3 (1.1-4.8); MEAN CORPUSCULAR HEMOGLOBIN 29.9 PG (27.0-31.0); MEAN CORPUSCULAR VOLUME 93.3 FL (78-98); MEAN PLATELET VOLUME 6.8 FL (7.4-10.4); MONOCYTES # (AUTO) 0.8 X10'3 (0-0.9); MONOCYTES % (AUTO) 8.5 % (2-12); NEUTROPHILS % (AUTO) 60.1 % (42-75); PLATELET COUNT 211 X10'3 (140-440); RED BLOOD COUNT 4.06 X10'6 (4.20-5.60); RED CELL DISTRIBUTION WIDTH 14.4 % (11.5-14.5)
[2021-02-28 07:33] LABS: ALANINE AMINOTRANSFERASE 38 U/L (12-78); ALBUMIN 2.9 G/DL (3.4-5.0); ALKALINE PHOSPHATASE 126 IU/L (46-116); ANION GAP 3 (8-16); ASPARTATE AMINO TRANSFERASE 16 U/L (10-37); BILIRUBIN,TOTAL 0.2 MG/DL (0.1-1.0); BLOOD UREA NITROGEN 20 MG/DL (7-18); BUN/CREATININE RATIO 29.9 (6.6-38.0); CHLORIDE 108 MMOL/L (99-107); CREATININE 0.67 MG/DL (0.40-0.90); GLUCOSE 136 MG/DL (70-104); POTASSIUM 3.1 MMOL/L (3.5-5.1); SODIUM 147 MMOL/L (135-145); TOTAL CARBON DIOXIDE 35.7 MMOL/L (24-32); TOTAL PROTEIN 5.9 G/DL (6.4-8.2); eGFR > 90 ML/MIN
[2021-02-28] MEDS ORDERED: ipratropium/albuterol 3ml nebule NEB ONE (08:20)
[2021-02-28] MEDS ORDERED: ketorolac trometh. 30mg/ml inj. IV ONE (08:20)
[2021-02-28] MEDS ORDERED: normal saline 1000ML IV soln IVB ONE (08:20)
[2021-02-28] MEDS ORDERED: POTASSIUM BICARB 20meq eff tab 20 MEQ TABLET.EFF PO ONE (08:20)
[2021-02-28] MEDS ORDERED: methylPREDNISolone sod succ 125mg/2ml vial IV ONE (08:20)
[2021-02-28 08:30] VITALS: BP 127/101
[2021-02-28 08:34] LABS: PLATELET ESTIMATE NORMAL; TOTAL CELLS COUNTED 100
[2021-02-28 08:37] LABS: STOMATOCYTES 1+
== END 2021-02-28 10:52 | disposition home or self-care (01) ==
LOC: ER 06:35
DX: R07.81 Pleurodynia (principal); J44.9 Chronic obstructive pulmonary disease, unspecified; F15.10 Other stimulant abuse, uncomplicated; E87.6 Hypokalemia; G43.909 Migraine, unspecified, not intractable, without status migrainosus; G35 Multiple sclerosis; I11.0 Hypertensive heart disease with heart failure; I50.9 Heart failure, unspecified; E11.9 Type 2 diabetes mellitus without complications; F17.200 Nicotine dependence, unspecified, uncomplicated; Z88.1 Allergy status to other antibiotic agents; Z88.8 Allergy status to other drugs, medicaments and biological substances; Z79.899 Other long term (current) drug therapy; Z79.84 Long term (current) use of oral hypoglycemic drugs
CPT/HCPCS: 36415; 71045; 80053; 83880; 84484; 85007; 85025; 93005; 94640; 96374; 96375; 99285; J1885; J2930; J7030; 94760

== ENCOUNTER 2021-04-13 19:19 | Inpatient (IN) | payer BC, MEDICAID ==
[~2021-04-13] VITALS: Ht 160 cm; Wt 54.5 kg
[~2021-04-13 19:19] MED LIST changes: -CEFD300C3 PO; -PRED10TA23 PO
[2021-04-13] MEDS ORDERED: dexamethasone sod phosphate 10mg/ml inj IV STA (19:36)
[2021-04-13 20:05] LABS: BASOPHILS % (AUTO) 0.4 % (0-1); EOSINOPHILS # (AUTO) 0.1 X10'3 (0-0.9); EOSINOPHILS % (AUTO) 2.1 % (0-6); HEMATOCRIT 41.3 % (35.0-45.0); HEMOGLOBIN 13.2 g/dl (12.0-16.0); LYMPHOCYTES # (AUTO) 1.8 X10'3 (1.1-4.8); MEAN CORPUSCULAR HEMOGLOBIN 29.9 PG (27.0-31.0); MEAN CORPUSCULAR VOLUME 93.5 FL (78-98); MEAN PLATELET VOLUME 7.8 FL (7.4-10.4); MONOCYTES # (AUTO) 0.4 X10'3 (0-0.9); MONOCYTES % (AUTO) 5.8 % (2-12); NEUTROPHILS # (AUTO) 4.3 X10'3 (1.8-7.7); NEUTROPHILS % (AUTO) 64.7 % (42-75); PLATELET COUNT 154 X10'3 (140-440); RED BLOOD COUNT 4.42 X10'6 (4.20-5.60); RED CELL DISTRIBUTION WIDTH 14.7 % (11.5-14.5); WHITE BLOOD COUNT 6.7 X10'3 (4.5-11.0)
--- NOTE | 2021-04-13 20:54 | NUR ---
pt wear home oxygen at 3.5L
[2021-04-13] MEDS ORDERED: ipratropium/albuterol 3ml nebule NEB ONE (21:10)
[2021-04-13 21:31] LABS: ALANINE AMINOTRANSFERASE 25 U/L (12-78); ALBUMIN 3.5 G/DL (3.4-5.0); ALBUMIN/GLOBULIN RATIO 1.1 (1.1-1.5); ALKALINE PHOSPHATASE 112 IU/L (46-116); ANION GAP 1 (8-16); ASPARTATE AMINO TRANSFERASE 15 U/L (10-37); BILIRUBIN,TOTAL 0.3 MG/DL (0.1-1.0); BLOOD UREA NITROGEN 17 MG/DL (7-18); BUN/CREATININE RATIO 32.7 (6.6-38.0); CHLORIDE 104 MMOL/L (99-107); CREATININE 0.52 MG/DL (0.40-0.90); GLUCOSE 115 MG/DL (70-104); POTASSIUM 3.6 MMOL/L (3.5-5.1); SODIUM 148 MMOL/L (135-145); TOTAL PROTEIN 6.8 G/DL (6.4-8.2); eGFR > 90 ML/MIN
[2021-04-13] MEDS ORDERED: magnesium 2GM in 50ml NS 50 ML IV ONE (21:55)
[2021-04-13] MEDS ORDERED: methylPREDNISolone sod succ 125mg/2ml vial IV ONE (21:55)
[2021-04-13] MEDS ORDERED: ondansetron/PF 4mg/2ml inj IV ONE (22:15)
[2021-04-13] MEDS ORDERED: morphine 4 MG/ML inj SYRINge IV ONE (22:15)
[2021-04-13] MEDS ORDERED: AZIT-63 PO (22:20)
[2021-04-13] MEDS ORDERED: PRED20TA PO (22:20)
--- NOTE | 2021-04-13 22:39 | NUR ---
pt states feels like bg is low. checked bg and it is 129.
[2021-04-13 23:14] LABS: ABG BASE EXCESS 12.9 mmol/L (-2.0-2.0); ABG HCO3 47.8 mmol/L (22.0-26.0); ABG OXYGEN SATURATION 89.2 % (94-97); ABG PCO2 (T) 138.5 mmHg (32.0-45.0); ABG PO2 (T) 63.9 mmHg (75.0-100.0); ALLEN'S TEST POSITIVE; FLOW 5 L/min; FMetHb 0.1 % (0.0-1.5); FO2Hb 83.8 % (94-97); TOTAL HEMOGLOBIN 14.4 G/dl (12.0-16.0)
[2021-04-13] MEDS ORDERED: iohexol 350MG/ML 100ml bottle IV ONE (23:15)
[2021-04-14 00:41] LABS: ABG BASE EXCESS 14.2 mmol/L (-2.0-2.0); ABG HCO3 49.5 mmol/L (22.0-26.0); ABG OXYGEN SATURATION 88.8 % (94-97); ABG PCO2 (T) 143.1 mmHg (32.0-45.0); ABG PO2 (T) 62.8 mmHg (75.0-100.0); ALLEN'S TEST POSITIVE; FCOHb 5.8 % (0.0-3.9); FMetHb 0.1 % (0.0-1.5); FO2Hb 83.6 % (94-97); TOTAL HEMOGLOBIN 14.4 G/dl (12.0-16.0)
[2021-04-14] MEDS ORDERED: ASPI-1265 PO (01:45)
[2021-04-14] MEDS ORDERED: BENZ-49 PO (01:45)
[2021-04-14] MEDS ORDERED: [UNRECOGNIZED DRUG - CODE] PO (01:45)
[2021-04-14] MEDS ORDERED: IBUP-1985 PO (01:45)
[2021-04-14] MEDS ORDERED: CHOL100046 PO (01:45)
[2021-04-14] MEDS ORDERED: OMEP40CA21 PO (01:45)
[2021-04-14] MEDS ORDERED: VARE1TAB21 PO (01:45)
[2021-04-14] MEDS ORDERED: ALBU18HF2 INH (01:46)
[2021-04-14 02:22] LABS: ABG BASE EXCESS 9.5 mmol/L (-2.0-2.0); ABG HCO3 41.5 mmol/L (22.0-26.0); ABG OXYGEN SATURATION 89.7 % (94-97); ABG PCO2 (T) 102.6 mmHg (32.0-45.0); ALLEN'S TEST POSITIVE; FMetHb 0.1 % (0.0-1.5); FO2Hb 85.1 % (94-97); PATIENT TEMPERATURE 36.8; RESPIRATORY RATE 22 b/min; TOTAL HEMOGLOBIN 13.9 G/dl (12.0-16.0)
[2021-04-14] MEDS ORDERED: magnesium 4gm in 100ml NS 100 ML IV PRN (03:10)
[2021-04-14] MEDS ORDERED: potassium Cl 20 mEq SR tablet PO PRN ×2 (03:10)
[2021-04-14] MEDS ORDERED: ipratropium/albuterol 3ml nebule NEB PRN ×2 (03:10)
[2021-04-14] MEDS ORDERED: potassium Cl 40MEQ/1/2NS 520ml 520 ML IV PRN ×2 (03:10)
[2021-04-14] MEDS ORDERED: acetaminophen 325mg tablet PO PRN ×2 (03:10→09:40)
[2021-04-14] MEDS ORDERED: magnesium 2GM in 50ml NS 50 ML IV PRN (03:10)
[2021-04-14] MEDS ORDERED: magnesium Cl slow-release 64mg tablet PO PRN (03:10)
[2021-04-14] MEDS ORDERED: ondansetron/PF 4mg/2ml inj IV PRN (03:10)
[2021-04-14] MEDS: normal saline 1000ml 1,000 ML IV SCH (03:55)
[2021-04-14] MEDS ORDERED: PSEU-237 PO (04:24)
[2021-04-14] MEDS ORDERED: MULT-215 PO (04:32)
[2021-04-14] MEDS ORDERED: dextrose ORAL solution 15 GM/59 ML bottle PO PRN ×2 (05:20)
[2021-04-14] MEDS ORDERED: MESSAGE TO PHARMACY PO ONE (05:20)
[2021-04-14] MEDS ORDERED: insulin Lispro (HumaLOG) vial - multi-dose SQ SCH (05:20)
[2021-04-14] MEDS ORDERED: glucagon, human recombinant 1mg kit SUBCUT PRN (05:20)
[2021-04-14] MEDS ORDERED: dextrose 50%-water 50ml dispensing syringe IV PRN ×2 (05:20)
--- NOTE | 2021-04-14 06:45 | NUR ---
pt remains on bed asleep on bipap.we will monitor.
[2021-04-14] MEDS: ipratropium/albuterol 3ml nebule NEB SCH ×5 (07:22→22:50)
--- NOTE | 2021-04-14 07:40 | NUR ---
rt at bedside, fio2 dropped to 35%. sating 95%.
[2021-04-14] MEDS: heparin, porcine 5000 units/ml vial SQ SCH ×2 (08:00→20:30)
[2021-04-14] MEDS: methylPREDNISolone sod succ/PF 40mg inj. IV SCH ×2 (08:00→20:29)
[2021-04-14] MEDS: K and/or MAG REPLACEMENT MC SCH ×2 (08:00→20:00)
--- NOTE | 2021-04-14 08:05 | NUR ---
josh 88-90%, paged RT.
--- NOTE | 2021-04-14 08:12 | NUR ---
increased fio2 to 45%.
--- NOTE | 2021-04-14 09:28 | NUR ---
spoke to Dr. Llamas, patient desats when anxious 77%-high 80's.Ordered xanax 0.25mg po BID prn, also reported to MD that patient reports headache, MD recommends tylenol.
[2021-04-14] MEDS: ALPRAZolam 0.25mg tablet PO PRN ×2 (09:50→23:18)
--- NOTE | 2021-04-14 09:51 | NUR ---
patient refused to be in a gown.
--- NOTE | 2021-04-14 12:13 | NUR ---
patient asleep,tolerating bipap sating 93%. We will monitor.
--- NOTE | 2021-04-14 15:22 | NUR ---
patient placed in a nc 9L sating 95%,assisted with lunch ate about 80%.,given tylenol 650 for headache.Given warm blanket. call light within reach.
--- NOTE | 2021-04-14 16:16 | NUR ---
pt off bipap.tolerating well with 6L nc.we will monitor.
[2021-04-14] MEDS: oxybutynin 5mg tablet PO SCH (20:29)
[2021-04-14] MEDS: metoprolol tartrate 25mg tablet PO SCH (20:30)
[2021-04-14] MEDS: insulin glargine (Lantus) pen - multi-dose SQ SCH (21:00)
[2021-04-15] MEDS: ipratropium/albuterol 3ml nebule NEB SCH ×6 (02:46→23:28)
[2021-04-15] MEDS ORDERED: ALPRAZolam 0.25mg tablet PO ONE (06:00)
--- NOTE | 2021-04-15 06:03 | NUR ---
Patient in respiratory distress. O2 at 74%. Pt visibly distressed. Respiratory paged for SVN, O2 increased to 5 L. One time order for xanax adminstered to patient. During SVN, pt O2% increased to 91%.
[2021-04-15 07:09] LABS: BASOPHILS % (AUTO) 0.2 % (0-1); EOSINOPHILS % (AUTO) 0 % (0-6); HEMATOCRIT 40.8 % (35.0-45.0); HEMOGLOBIN 13.1 g/dl (12.0-16.0); LYMPHOCYTES # (AUTO) 1.1 X10'3 (1.1-4.8); LYMPHOCYTES % (AUTO) 11.4 % (21-51); MEAN CORPUSCULAR HEMOGLOBIN 30.3 PG (27.0-31.0); MEAN CORPUSCULAR HGB CONC 32.2 g/dL (33.0-36.5); MONOCYTES # (AUTO) 0.4 X10'3 (0-0.9); MONOCYTES % (AUTO) 4.4 % (2-12); NEUTROPHILS # (AUTO) 8.2 X10'3 (1.8-7.7); PLATELET COUNT 146 X10'3 (140-440); RED BLOOD COUNT 4.34 X10'6 (4.20-5.60); RED CELL DISTRIBUTION WIDTH 14.7 % (11.5-14.5); WHITE BLOOD COUNT 9.7 X10'3 (4.5-11.0)
[2021-04-15 07:25] LABS: ALBUMIN 3.4 G/DL (3.4-5.0); ANION GAP 4 (8-16); BLOOD UREA NITROGEN 24 MG/DL (7-18); CALCIUM 9.2 MG/DL (8.5-10.1); CHLORIDE 105 MMOL/L (99-107); GLUCOSE 112 MG/DL (70-104); MAGNESIUM 2.2 MG/DL (1.5-2.4); POTASSIUM 4.1 MMOL/L (3.5-5.1); SODIUM 147 MMOL/L (135-145); TOTAL CARBON DIOXIDE 38.2 MMOL/L (24-32); eGFR > 90 ML/MIN
[2021-04-15] MEDS: K and/or MAG REPLACEMENT MC SCH ×2 (08:00→20:00)
[2021-04-15] MEDS: oxybutynin 5mg tablet PO SCH ×2 (08:00→20:00)
[2021-04-15] MEDS: methylPREDNISolone sod succ/PF 40mg inj. IV SCH ×2 (08:00→21:51)
[2021-04-15] MEDS: metoprolol tartrate 25mg tablet PO SCH ×2 (09:23→20:00)
[2021-04-15] MEDS: pantoprazole 40mg Tablet.DR PO SCH (09:23)
[2021-04-15] MEDS: aspirin 81mg tab.chew PO SCH (09:23)
[2021-04-15] MEDS: lisinopril 2.5mg tablet PO SCH (09:27)
[2021-04-15] MEDS: heparin, porcine 5000 units/ml vial SQ SCH ×2 (09:29→20:00)
--- NOTE | 2021-04-15 09:41 | NUR ---
Patient in room ED 6. I have received report from Lala LAMBERT and had the opportunity to ask questions and assume patient care.
[2021-04-15 10:25] LABS: ABG BASE EXCESS 6.9 mmol/L (-2.0-2.0); ABG HCO3 32.1 mmol/L (22.0-26.0); ABG OXYGEN SATURATION 90.3 % (94-97); ABG PCO2 (T) 48.3 mmHg (32.0-45.0); ABG PO2 (T) 60.7 mmHg (75.0-100.0); ALLEN'S TEST POSITIVE; FCOHb 1.3 % (0.0-3.9); FLOW 4 L/min; FMetHb 0.2 % (0.0-1.5); FO2Hb 88.9 % (94-97)
[2021-04-15] MEDS: sertraline 25mg tablet PO SCH (13:21)
[2021-04-15] MEDS: HYDROcodone/acetaminophen 10/325mg tab PO PRN ×2 (13:22→21:55)
[2021-04-15 15:00] VITALS: BP 106/53
--- NOTE | 2021-04-15 16:34 | NUR ---
Phone found in bed with patient
[2021-04-15] MEDS ORDERED: COVID-19 VACCINE,AD26(JANSSEN/J&J)adenovirus/PF 0.5 ML SYRINGE IMVAC ONE (16:45)
--- NOTE | 2021-04-15 18:28 | NUR ---
Problems reprioritized. Patient report given, questions answered & plan of care reviewed with Jeannie LAMBERT
[2021-04-15 19:00] VITALS: BP 149/62
[2021-04-15] MEDS: insulin glargine (Lantus) pen - multi-dose SQ SCH (21:00)
[2021-04-15] MEDS: ALPRAZolam 0.25mg tablet PO PRN (21:55)
[2021-04-15 23:00] VITALS: BP 121/47
[2021-04-16] MEDS: ipratropium/albuterol 3ml nebule NEB SCH ×3 (02:44→10:53)
[2021-04-16 03:00] VITALS: BP 125/56
[2021-04-16 06:10] LABS: BASOPHILS % (AUTO) 0.1 % (0-1); EOSINOPHILS % (AUTO) 0 % (0-6); HEMOGLOBIN 12.5 g/dl (12.0-16.0); LYMPHOCYTES # (AUTO) 0.9 X10'3 (1.1-4.8); LYMPHOCYTES % (AUTO) 8.9 % (21-51); MEAN CORPUSCULAR HEMOGLOBIN 30.1 PG (27.0-31.0); MEAN CORPUSCULAR VOLUME 93.9 FL (78-98); MEAN PLATELET VOLUME 8.5 FL (7.4-10.4); MONOCYTES # (AUTO) 0.2 X10'3 (0-0.9); MONOCYTES % (AUTO) 2.4 % (2-12); NEUTROPHILS # (AUTO) 8.6 X10'3 (1.8-7.7); NEUTROPHILS % (AUTO) 88.6 % (42-75); PLATELET COUNT 159 X10'3 (140-440); RED BLOOD COUNT 4.16 X10'6 (4.20-5.60); RED CELL DISTRIBUTION WIDTH 14.3 % (11.5-14.5); WHITE BLOOD COUNT 9.7 X10'3 (4.5-11.0)
[2021-04-16 06:48] LABS: ALBUMIN 3.4 G/DL (3.4-5.0); ANION GAP 8 (8-16); BLOOD UREA NITROGEN 21 MG/DL (7-18); BUN/CREATININE RATIO 38.9 (6.6-38.0); CALCIUM 8.8 MG/DL (8.5-10.1); CHLORIDE 104 MMOL/L (99-107); CREATININE 0.54 MG/DL (0.40-0.90); GLUCOSE 160 MG/DL (70-104); MAGNESIUM 1.9 MG/DL (1.5-2.4); POTASSIUM 3.7 MMOL/L (3.5-5.1); SODIUM 147 MMOL/L (135-145); TOTAL CARBON DIOXIDE 35.1 MMOL/L (24-32); eGFR > 90 ML/MIN
[2021-04-16 07:00] VITALS: BP 118/60
[2021-04-16] MEDS: K and/or MAG REPLACEMENT MC SCH (08:00)
[2021-04-16] MEDS: methylPREDNISolone sod succ/PF 40mg inj. IV SCH (09:37)
[2021-04-16] MEDS: normal saline 1000ml 1,000 ML IV SCH (09:37)
[2021-04-16] MEDS: sertraline 25mg tablet PO SCH (09:38)
[2021-04-16] MEDS: pantoprazole 40mg Tablet.DR PO SCH (09:38)
[2021-04-16] MEDS: aspirin 81mg tab.chew PO SCH (09:38)
[2021-04-16] MEDS: oxybutynin 5mg tablet PO SCH (09:39)
[2021-04-16] MEDS: ALPRAZolam 0.25mg tablet PO PRN (09:39)
[2021-04-16] MEDS: lisinopril 2.5mg tablet PO SCH (09:39)
[2021-04-16] MEDS: heparin, porcine 5000 units/ml vial SQ SCH (09:40)
[2021-04-16] MEDS: HYDROcodone/acetaminophen 10/325mg tab PO PRN (09:40)
[2021-04-16] MEDS: metoprolol tartrate 25mg tablet PO SCH (09:42)
[2021-04-16] MEDS ORDERED: ALBU18HF2 INH ×2 (10:58)
[2021-04-16] MEDS ORDERED: PRED20TA PO ×2 (10:58)
[2021-04-16 11:00] VITALS: BP 113/74
--- NOTE | 2021-04-16 13:49 | NUR ---
Patient dc to home. PIV removed with cannula intact. DC and warning s/s were reviewed with patient and she verbalized understanding. Education on cpap to prevent rehospitalization reviewed. RX to [facility]. Patient alert oriented and appropriate at time of DC.
[2021-04-27] MEDS ORDERED: ALBU8HFA IH (12:51)
[2021-05-01] MEDS ORDERED: ATR0.5NEB NEB (10:21)
[2021-05-01] MEDS ORDERED: SULF1TAB49 PO (10:21)
[2021-05-01] MEDS ORDERED: ALBU2.5V13 NEB (10:21)
[2021-05-01] MEDS ORDERED: ALBU8.5H17 INH (10:21)
== END 2021-04-16 13:35 | disposition home or self-care (01) | DRG 189 ==
LOC: ER 19:20 → UNDOADMIN 04-14 03:10 → ED HOLD 04-14 03:10 → PCU 3S 04-15 10:05 → ED HOLD 04-15 10:05
PROVIDERS: ADMIT Internal Medicine; ATTEND Internal Medicine
PROC: B32T1ZZ Computerized Tomography (CT Scan) of Left Pulmonary Artery using Low Osmolar Contrast (ICD-10-PCS; 2021-04-13)
PROC: B3201ZZ Computerized Tomography (CT Scan) of Thoracic Aorta using Low Osmolar Contrast (ICD-10-PCS; 2021-04-13)
PROC: B32S1ZZ Computerized Tomography (CT Scan) of Right Pulmonary Artery using Low Osmolar Contrast (ICD-10-PCS; 2021-04-13)
PROC: 5A09357 Assistance with Respiratory Ventilation, Less than 24 Consecutive Hours, Continuous Positive Airway Pressure (ICD-10-PCS; principal; 2021-04-14)
PROC: 5A09357 Assistance with Respiratory Ventilation, Less than 24 Consecutive Hours, Continuous Positive Airway Pressure (ICD-10-PCS; 2021-04-15)
DX: J96.22 Acute and chronic respiratory failure with hypercapnia (principal); G93.41 Metabolic encephalopathy; E87.2 Acidosis; J44.1 Chronic obstructive pulmonary disease with (acute) exacerbation; I50.32 Chronic diastolic (congestive) heart failure; E87.1 Hypo-osmolality and hyponatremia; J96.21 Acute and chronic respiratory failure with hypoxia; E11.9 Type 2 diabetes mellitus without complications; F41.9 Anxiety disorder, unspecified; F15.10 Other stimulant abuse, uncomplicated; F17.210 Nicotine dependence, cigarettes, uncomplicated; G43.909 Migraine, unspecified, not intractable, without status migrainosus; G35 Multiple sclerosis; I11.0 Hypertensive heart disease with heart failure; R32 Unspecified urinary incontinence; Z20.822 Contact with and (suspected) exposure to COVID-19; Z79.51 Long term (current) use of inhaled steroids; Z79.84 Long term (current) use of oral hypoglycemic drugs; Z88.8 Allergy status to other drugs, medicaments and biological substances; Z90.49 Acquired absence of other specified parts of digestive tract; Z98.891 History of uterine scar from previous surgery; Z99.81 Dependence on supplemental oxygen; Z87.01 Personal history of pneumonia (recurrent); Z79.82 Long term (current) use of aspirin; Z71.6 Tobacco abuse counseling
CPT/HCPCS: 0031A; 36415; 36600; 71045; 71275; 80048; 80053; 82803; 82948; 83735; 83880; 84145; 84484; 85018; 85025; 87081; 87635; 91303; 93005; 94640; 94660; 94760; 99291; 99292; C9803; G0378; J1100; J1644; J1815; J2270; J2405; J2920; J2930; J3475; J7030; Q9967

== ENCOUNTER 2021-04-17 07:38 | Emergency (ER) | payer BC, MEDICAID ==
[~2021-04-17] VITALS: Ht 160 cm; Wt 54.5 kg
[~2021-04-17 07:38] MED LIST changes: +ASPI-1265 PO; -AZI25OT PO; -BENZ-16 PO; +BENZ-49 PO; +CHOL100046 PO; -CHOL400T14 PO; -CYCL-1 PO; -HYDR-3965 PO; +IBUP-1985 PO; +MULT-215 PO; -NICO-631 TD; +OMEP40CA21 PO; -POTA10TA36 PO; +POTA10TA37 PO; +PRED20TA PO; +PSEU-237 PO
[2021-04-17 09:22] VITALS: BP 127/74
[2021-04-27] MEDS ORDERED: ALBU8HFA IH (12:51)
[2021-05-01] MEDS ORDERED: ALBU8.5H17 INH (10:21)
[2021-05-01] MEDS ORDERED: SULF1TAB49 PO (10:21)
[2021-05-01] MEDS ORDERED: ALBU2.5V13 NEB (10:21)
[2021-05-01] MEDS ORDERED: ATR0.5NEB NEB (10:21)
== END 2021-04-17 09:49 | disposition home or self-care (01) ==
LOC: ER 07:38
DX: J44.9 Chronic obstructive pulmonary disease, unspecified (principal); G43.909 Migraine, unspecified, not intractable, without status migrainosus; I11.0 Hypertensive heart disease with heart failure; I50.9 Heart failure, unspecified; E11.9 Type 2 diabetes mellitus without complications; F17.200 Nicotine dependence, unspecified, uncomplicated; F15.90 Other stimulant use, unspecified, uncomplicated; G35 Multiple sclerosis; Z87.01 Personal history of pneumonia (recurrent); Z88.1 Allergy status to other antibiotic agents; Z91.048 Other nonmedicinal substance allergy status; Z79.82 Long term (current) use of aspirin; Z79.899 Other long term (current) drug therapy; Z90.49 Acquired absence of other specified parts of digestive tract; Z98.891 History of uterine scar from previous surgery; Z79.2 Long term (current) use of antibiotics
CPT/HCPCS: 99284

== ENCOUNTER 2021-06-05 05:34 | Emergency (ER) | payer BC, MEDICAID ==
[~2021-06-05] VITALS: Ht 160 cm; Wt 52.3 kg
[~2021-06-05 05:34] MED LIST changes: -ALBU18HF2 INH; +ALBU2.5V13 NEB; +ALBU8.5H17 INH; +ATR0.5NEB NEB; -BENZ-49 PO; -PRED20TA PO
[2021-06-05 06:46] LABS: BASOPHILS % (AUTO) 0.6 % (0-1); EOSINOPHILS # (AUTO) 0.2 X10'3 (0-0.9); EOSINOPHILS % (AUTO) 3.8 % (0-6); HEMATOCRIT 38.5 % (35.0-45.0); HEMOGLOBIN 12.8 g/dl (12.0-16.0); LYMPHOCYTES # (AUTO) 1.4 X10'3 (1.1-4.8); LYMPHOCYTES % (AUTO) 24.2 % (21-51); MEAN CORPUSCULAR HEMOGLOBIN 31.2 PG (27.0-31.0); MEAN CORPUSCULAR HGB CONC 33.2 g/dL (33.0-36.5); MEAN CORPUSCULAR VOLUME 93.9 FL (78-98); MEAN PLATELET VOLUME 7.7 FL (7.4-10.4); MONOCYTES # (AUTO) 0.5 X10'3 (0-0.9); MONOCYTES % (AUTO) 8.6 % (2-12); NEUTROPHILS # (AUTO) 3.5 X10'3 (1.8-7.7); NEUTROPHILS % (AUTO) 62.8 % (42-75); PLATELET COUNT 164 X10'3 (140-440); RED BLOOD COUNT 4.11 X10'6 (4.20-5.60); RED CELL DISTRIBUTION WIDTH 13.6 % (11.5-14.5); WHITE BLOOD COUNT 5.6 X10'3 (4.5-11.0)
[2021-06-05 07:05] LABS: ALANINE AMINOTRANSFERASE 23 U/L (12-78); ALBUMIN/GLOBULIN RATIO 0.9 (1.1-1.5); ALKALINE PHOSPHATASE 106 IU/L (46-116); ANION GAP 0 (8-16); ASPARTATE AMINO TRANSFERASE 18 U/L (10-37); BILIRUBIN,TOTAL 0.3 MG/DL (0.1-1.0); BLOOD UREA NITROGEN 21 MG/DL (7-18); BUN/CREATININE RATIO 33.9 (6.6-38.0); CALCIUM 8.9 MG/DL (8.5-10.1); CHLORIDE 106 MMOL/L (99-107); CREATININE 0.62 MG/DL (0.40-0.90); GLUCOSE 105 MG/DL (70-104); SODIUM 144 MMOL/L (135-145); TOTAL CARBON DIOXIDE 37.8 MMOL/L (24-32); TOTAL PROTEIN 6.5 G/DL (6.4-8.2); eGFR > 90 ML/MIN
[2021-06-05] MEDS ORDERED: methylPREDNISolone sod succ 125mg/2ml vial IV ONE (08:00)
[2021-06-05] MEDS ORDERED: normal saline 1000ML IV soln IVB ONE ×2 (08:00→10:55)
[2021-06-05] MEDS ORDERED: albuterol 2.5 MG/3 ML nebule NEB ONE ×2 (08:00→13:25)
[2021-06-05 08:23] LABS: ETHANOL < 0.010 GM/DL (0.0-0.010)
[2021-06-05] MEDS ORDERED: ketorolac tromethamine 15mg/ml inj. IV ONE (10:55)
[2021-06-05] MEDS ORDERED: iohexol 350MG/ML 100ml bottle IV ONE (11:11)
[2021-06-05 11:13] LABS: URINE AMPHETAMINE SCREEN POSITIVE (Neg); URINE BARBITUATE SCREEN NEGATIVE (Neg); URINE BENZODIAZEPINES SCREEN NEGATIVE (Neg); URINE CANNABINOID SCREEN NEGATIVE (Neg); URINE COCAINE SCREEN NEGATIVE (Neg); URINE METHADONE SCREEN NEGATIVE (Neg); URINE OPIATE SCREEN NEGATIVE (Neg); URINE PHENCYCLIDINE SCREEN NEGATIVE (Neg)
[2021-06-05] MEDS ORDERED: azithromycin 250mg tablet PO ONE (12:30)
[2021-06-05] MEDS ORDERED: CefTRIAXone/D5W-Rocephin 1gm 50 ML IV ONE (12:30)
[2021-06-05] MEDS ORDERED: PRED20TA PO (13:24)
[2021-06-05] MEDS ORDERED: AZIT250T2 PO (13:24)
[2021-06-05] MEDS ORDERED: ALBU6.7H9 INH (13:24)
--- NOTE | 2021-06-05 14:39 | NUR ---
CALL TO [facility] FOR PORTABLE OXYGEN TANK FOR TRANSPORTATION HOME. LLUVIA STATES HER ELECTRIC PORTABLE O2 TANK AT HOME IS NOT CHARGED. Addendum: 06/05/21 at 1440 by FAY LUIS CRONIN TO CALL BACK WITH ETA OF WHEN PORTABLE O2 CAN BE DELIVERED.
--- NOTE | 2021-06-05 15:05 | NUR ---
PER [facility] THEY WILL SEND REP TO BEDSIDE.
[2021-06-05 15:33] VITALS: BP 124/75
--- NOTE | 2021-06-05 15:36 | NUR ---
BF RICH AT BEDSIDE TO INSOLE FILLER PATIENT WITH PORTABLE O2 AT BEDSIDE.
== END 2021-06-05 15:36 | disposition home or self-care (01) ==
LOC: ER 05:34
DX: F15.10 Other stimulant abuse, uncomplicated (principal); Z20.822 Contact with and (suspected) exposure to COVID-19; R06.00 Dyspnea, unspecified; J18.1 Lobar pneumonia, unspecified organism; J43.9 Emphysema, unspecified; I11.0 Hypertensive heart disease with heart failure; I50.9 Heart failure, unspecified; G43.909 Migraine, unspecified, not intractable, without status migrainosus; G35 Multiple sclerosis; E11.9 Type 2 diabetes mellitus without complications; Z87.01 Personal history of pneumonia (recurrent); Z86.19 Personal history of other infectious and parasitic diseases; Z90.49 Acquired absence of other specified parts of digestive tract; Z98.891 History of uterine scar from previous surgery; Z88.1 Allergy status to other antibiotic agents; Z91.048 Other nonmedicinal substance allergy status; Z79.899 Other long term (current) drug therapy; Z79.82 Long term (current) use of aspirin
CPT/HCPCS: 36415; 71045; 71275; 80053; 80305; 80320; 83880; 84484; 85025; 93005; 94640; 96365; 96375; 99285; J0696; J1885; J2930; J7030; Q9967; U0003; U0005; 94760

== ENCOUNTER 2021-07-07 12:11 | Emergency (ER) | payer BC, MEDICAID ==
[~2021-07-07] VITALS: Ht 160 cm; Wt 52.3 kg
[~2021-07-07 12:11] MED LIST changes: +ALBU6.7H9 INH; +AMOX1TAB15 PO; -METF-436 PO; +NICO-687 TD; +PRED20TA PO
[2021-07-07] MEDS ORDERED: ipratropium/albuterol 3ml nebule NEB ONE (12:25)
[2021-07-07 13:00] LABS: BASOPHILS % (AUTO) 0.2 % (0-1); EOSINOPHILS # (AUTO) 0.2 X10'3 (0-0.9); EOSINOPHILS % (AUTO) 1.8 % (0-6); HEMATOCRIT 38.8 % (35.0-45.0); HEMOGLOBIN 12.6 g/dl (12.0-16.0); LYMPHOCYTES # (AUTO) 1.7 X10'3 (1.1-4.8); LYMPHOCYTES % (AUTO) 19.6 % (21-51); MEAN CORPUSCULAR HEMOGLOBIN 30.9 PG (27.0-31.0); MEAN CORPUSCULAR HGB CONC 32.6 g/dL (33.0-36.5); MEAN CORPUSCULAR VOLUME 94.9 FL (78-98); MEAN PLATELET VOLUME 7.9 FL (7.4-10.4); MONOCYTES # (AUTO) 0.7 X10'3 (0-0.9); MONOCYTES % (AUTO) 8.2 % (2-12); NEUTROPHILS % (AUTO) 70.2 % (42-75); PLATELET COUNT 145 X10'3 (140-440); RED BLOOD COUNT 4.09 X10'6 (4.20-5.60); RED CELL DISTRIBUTION WIDTH 13.7 % (11.5-14.5); WHITE BLOOD COUNT 8.6 X10'3 (4.5-11.0)
[2021-07-07 13:21] LABS: ALANINE AMINOTRANSFERASE 60 U/L (12-78); ALBUMIN 3.1 G/DL (3.4-5.0); ALKALINE PHOSPHATASE 115 IU/L (46-116); ANION GAP -2 (8-16); ASPARTATE AMINO TRANSFERASE 15 U/L (10-37); BILIRUBIN,TOTAL 0.4 MG/DL (0.1-1.0); BLOOD UREA NITROGEN 29 MG/DL (7-18); BUN/CREATININE RATIO 43.9 (6.6-38.0); CALCIUM 8.8 MG/DL (8.5-10.1); CHLORIDE 105 MMOL/L (99-107); CREATININE 0.66 MG/DL (0.40-0.90); GLUCOSE 155 MG/DL (70-104); SODIUM 144 MMOL/L (135-145); TOTAL PROTEIN 6.1 G/DL (6.4-8.2); eGFR > 90 ML/MIN
[2021-07-07 13:25] LABS: POTASSIUM 2.9 MMOL/L (3.5-5.1); TOTAL CARBON DIOXIDE 40.8 MMOL/L (24-32)
[2021-07-07] MEDS ORDERED: potassium Cl 20 mEq SR tablet PO STA (13:33)
[2021-07-07] MEDS ORDERED: ondansetron 4mg rapidly disintigrating tab PO ONE (13:35)
[2021-07-07] MEDS ORDERED: ALPRAZolam 0.25mg tablet PO ONE (13:40)
--- NOTE | 2021-07-07 13:45 | NUR ---
SWALLOW EVAL Pt. passed bedside swallow eval.
[2021-07-07 15:33] VITALS: BP 123/62
[2021-07-09] MEDS ORDERED: METF-1203 PO (12:43)
[2021-07-09] MEDS ORDERED: ATR0.5NEB NEB (13:01)
[2021-07-09] MEDS ORDERED: ALBU8HFA PO (13:01)
[2021-07-09] MEDS ORDERED: NICO-687 TOP (13:01)
[2021-07-09] MEDS ORDERED: ALBU2.5V13 NEB (13:02)
== END 2021-07-07 16:47 | disposition home or self-care (01) ==
LOC: ER 12:12
DX: R06.02 Shortness of breath (principal); F41.9 Anxiety disorder, unspecified; E87.6 Hypokalemia; G43.909 Migraine, unspecified, not intractable, without status migrainosus; I11.0 Hypertensive heart disease with heart failure; J44.9 Chronic obstructive pulmonary disease, unspecified; E11.9 Type 2 diabetes mellitus without complications; Z88.1 Allergy status to other antibiotic agents; Z88.8 Allergy status to other drugs, medicaments and biological substances
CPT/HCPCS: 36415; 71045; 80053; 85025; 93005; 94640; 94760; 99285

== ENCOUNTER 2021-07-22 20:21 | Emergency (ER) | payer BC, MEDICAID ==
[~2021-07-22] VITALS: Ht 160 cm; Wt 47.7 kg
[~2021-07-22 20:21] MED LIST changes: -ALBU6.7H9 INH; -ALBU8.5H17 INH; +ALBU8HFA PO; +AMOX-580 PO; -AMOX1TAB15 PO; +HYDR-3965 PO; +METF-1203 PO; -NICO-687 TD; +NICO-687 TOP; -POTA10TA37 PO; -PRED20TA PO
[2021-07-22] MEDS ORDERED: normal saline 1000ML IV soln IVB ONE ×2 (20:35→22:05)
[2021-07-22] MEDS ORDERED: morphine 4 MG/ML inj SYRINge IV PRN (20:35)
[2021-07-22] MEDS ORDERED: ondansetron/PF 4mg/2ml inj IV ONE (20:35)
[2021-07-22 20:49] LABS: BASOPHILS # (AUTO) 0.1 X10'3 (0-0.2); BASOPHILS % (AUTO) 0.5 % (0-1); EOSINOPHILS % (AUTO) 0.1 % (0-6); HEMATOCRIT 40.9 % (35.0-45.0); HEMOGLOBIN 13.1 g/dl (12.0-16.0); LYMPHOCYTES # (AUTO) 1.2 X10'3 (1.1-4.8); LYMPHOCYTES % (AUTO) 5.7 % (21-51); MEAN CORPUSCULAR HEMOGLOBIN 30.2 PG (27.0-31.0); MEAN CORPUSCULAR HGB CONC 32.1 g/dL (33.0-36.5); MEAN CORPUSCULAR VOLUME 94.1 FL (78-98); MEAN PLATELET VOLUME 7.5 FL (7.4-10.4); MONOCYTES # (AUTO) 0.7 X10'3 (0-0.9); MONOCYTES % (AUTO) 3.2 % (2-12); NEUTROPHILS # (AUTO) 18.6 X10'3 (1.8-7.7); NEUTROPHILS % (AUTO) 90.5 % (42-75); PLATELET COUNT 240 X10'3 (140-440); RED BLOOD COUNT 4.35 X10'6 (4.20-5.60); RED CELL DISTRIBUTION WIDTH 13.9 % (11.5-14.5); WHITE BLOOD COUNT 20.6 X10'3 (4.5-11.0)
[2021-07-22 20:59] LABS: ALANINE AMINOTRANSFERASE 47 U/L (12-78); ALBUMIN 3.1 G/DL (3.4-5.0); ALBUMIN/GLOBULIN RATIO 0.8 (1.1-1.5); ALKALINE PHOSPHATASE 121 IU/L (46-116); ANION GAP 2 (8-16); ASPARTATE AMINO TRANSFERASE 16 U/L (10-37); BILIRUBIN,TOTAL 0.2 MG/DL (0.1-1.0); BLOOD UREA NITROGEN 31 MG/DL (7-18); BUN/CREATININE RATIO 48.4 (6.6-38.0); CALCIUM 8.9 MG/DL (8.5-10.1); CHLORIDE 105 MMOL/L (99-107); CREATININE 0.64 MG/DL (0.40-0.90); GLUCOSE 162 MG/DL (70-104); LIPASE 60 U/L (73-393); POTASSIUM 4.1 MMOL/L (3.5-5.1); SODIUM 144 MMOL/L (135-145); TOTAL CARBON DIOXIDE 37.5 MMOL/L (24-32); TOTAL PROTEIN 6.9 G/DL (6.4-8.2); eGFR > 90 ML/MIN
[2021-07-22 22:18] LABS: CLARITY,URINE SLIGHTLY CLOUDY (Clear); COLOR,URINE YELLOW (Yellow); GLUCOSE, URINE NEGATIVE (Neg); KETONES,URINE TRACE mg/dl (Neg); LEUKOCYTE ESTERASE ,URINE NEGATIVE (Neg); NITRITES, URINE NEGATIVE (Neg); OCCULT BLOOD,URINE NEGATIVE (Neg); PROTEIN,URINE NEGATIVE (Neg); UROBILINOGEN,URINE 0.2 E.U/dL (0.2-1.0)
[2021-07-22 22:20] LABS: UA COLLECTION TYPE URINAL
[2021-07-22] MEDS ORDERED: ONDA4TAB6 PO (22:26)
[2021-07-22 22:30] LABS: BACTERIA,URINE FEW /HPF (Neg); MUCUS STRANDS MANY /LPF (Neg); RBC,URINE 0-2 /HPF (0-2); SQUAMOUS EPITHELIAL CELL,UR MODERATE /LPF (FEW)
[2021-07-22 23:08] VITALS: BP 116/69
== END 2021-07-22 23:10 | disposition home or self-care (01) ==
LOC: ER 20:21
DX: R11.2 Nausea with vomiting, unspecified (principal); R19.7 Diarrhea, unspecified; R53.1 Weakness; R10.9 Unspecified abdominal pain; G43.909 Migraine, unspecified, not intractable, without status migrainosus; I11.0 Hypertensive heart disease with heart failure; I50.9 Heart failure, unspecified; J44.9 Chronic obstructive pulmonary disease, unspecified; E11.9 Type 2 diabetes mellitus without complications; G35 Multiple sclerosis; Z87.01 Personal history of pneumonia (recurrent); Z90.49 Acquired absence of other specified parts of digestive tract; Z98.891 History of uterine scar from previous surgery; F15.90 Other stimulant use, unspecified, uncomplicated
CPT/HCPCS: 36415; 71045; 74176; 80053; 81001; 83690; 85025; 87088; 96361; 96374; 96375; 99285; J2270; J2405; J7030

== ENCOUNTER 2021-07-23 07:17 | Inpatient (IN) | payer BC, MEDICAID ==
[2021-07-23] VITALS (7 sets, daily range): BP systolic 120–139; BP diastolic 61–75
[~2021-07-23] VITALS: Ht 160 cm; Wt 50.0 kg
[~2021-07-23 07:17] MED LIST changes: +ONDA4TAB6 PO
[2021-07-23] MEDS ORDERED: normal saline 1000ml 1,000 ML IV ONE (07:30)
[2021-07-23] MEDS ORDERED: ondansetron/PF 4mg/2ml inj IV ONE (07:30)
[2021-07-23] MEDS ORDERED: metoclopramide 5 mg/ml inj IV ONE (08:35)
[2021-07-23] MEDS ORDERED: diphenhydrAMINE 50 mg/ml inj IV ONE (08:35)
[2021-07-23 08:52] LABS: BASOPHILS # (AUTO) 0.1 X10'3 (0-0.2); BASOPHILS % (AUTO) 0.3 % (0-1); EOSINOPHILS # (AUTO) 0.1 X10'3 (0-0.9); EOSINOPHILS % (AUTO) 0.8 % (0-6); HEMATOCRIT 33.5 % (35.0-45.0); HEMOGLOBIN 10.7 g/dl (12.0-16.0); LYMPHOCYTES # (AUTO) 2.1 X10'3 (1.1-4.8); LYMPHOCYTES % (AUTO) 12.7 % (21-51); MEAN CORPUSCULAR HEMOGLOBIN 30.4 PG (27.0-31.0); MEAN CORPUSCULAR HGB CONC 31.9 g/dL (33.0-36.5); MEAN CORPUSCULAR VOLUME 95.4 FL (78-98); MONOCYTES # (AUTO) 1.1 X10'3 (0-0.9); MONOCYTES % (AUTO) 6.4 % (2-12); NEUTROPHILS # (AUTO) 13.4 X10'3 (1.8-7.7); NEUTROPHILS % (AUTO) 79.8 % (42-75); PLATELET COUNT 188 X10'3 (140-440); RED BLOOD COUNT 3.51 X10'6 (4.20-5.60); RED CELL DISTRIBUTION WIDTH 14.1 % (11.5-14.5); WHITE BLOOD COUNT 16.8 X10'3 (4.5-11.0)
[2021-07-23 09:02] LABS: ALBUMIN 2.7 G/DL (3.4-5.0); ANION GAP 3 (8-16); BILIRUBIN,TOTAL 0.2 MG/DL (0.1-1.0); BLOOD UREA NITROGEN 29 MG/DL (7-18); BUN/CREATININE RATIO 43.9 (6.6-38.0); CALCIUM 8.6 MG/DL (8.5-10.1); CHLORIDE 106 MMOL/L (99-107); CREATININE 0.66 MG/DL (0.40-0.90); GLUCOSE 127 MG/DL (70-104); SODIUM 148 MMOL/L (135-145); TOTAL CARBON DIOXIDE 39.3 MMOL/L (24-32); TOTAL PROTEIN 5.9 G/DL (6.4-8.2); eGFR > 90 ML/MIN
[2021-07-23 09:03] LABS: ALANINE AMINOTRANSFERASE 46 U/L (12-78); ALBUMIN/GLOBULIN RATIO 0.8 (1.1-1.5); ALKALINE PHOSPHATASE 96 IU/L (46-116); ASPARTATE AMINO TRANSFERASE 24 U/L (10-37)
[2021-07-23 09:05] LABS: LIPASE 69 U/L (73-393)
[2021-07-23 09:07] LABS: POTASSIUM 3.6 MMOL/L (3.5-5.1)
[2021-07-23] MEDS ORDERED: pantoprazole IV 40 MG in normal saline 100ml IV soln 100 ML IV SCH ×2 (09:44→10:35)
[2021-07-23] MEDS ORDERED: fentaNYL/PF 50MCG/1 ML 2ML syringe ONE (11:11)
[2021-07-23] MEDS ORDERED: LIDOcaine Viscous 15ml cup ONE (11:12)
[2021-07-23] MEDS ORDERED: MIDAZolam 1 MG/ML 5ML VIAL ONE ×2 (11:12)
--- NOTE | 2021-07-23 11:25 | NUR ---
PT TO ENDO VIA RADHA WITH RN
--- NOTE | 2021-07-23 12:16 | NUR ---
RT ATTEMPTED TO DRAW ABG @1130 THEN CAME BACK AGAIN @1215 BOTH TIMES PATIENT NOT IN ROOM
--- NOTE | 2021-07-23 12:45 | NUR ---
PT RETURNED FROM GI LAB, TO REMAIN ON LICENSING MANAGER FOR 60 MINUTES.
[2021-07-23] MEDS: pantoprazole IV 40 MG in normal saline 100ml IV soln 100 ML IV SCH ×2 (12:55→13:10)
--- NOTE | 2021-07-23 13:00 | NUR ---
RT PAGED FOR ABG PER DR MERAZ
[2021-07-23 13:17] LABS: ABG BASE EXCESS 6.5 mmol/L (-2.0-2.0); ABG HCO3 38.1 mmol/L (22.0-26.0); ABG OXYGEN SATURATION 92.1 % (94-97); ABG PCO2 (T) 103.5 mmHg (32.0-45.0); ABG PO2 (T) 74.9 mmHg (75.0-100.0); ALLEN'S TEST POSITIVE; FCOHb 0.4 % (0.0-3.9); FLOW 3 L/min; FMetHb 0.3 % (0.0-1.5); FO2Hb 91.5 % (94-97); TOTAL HEMOGLOBIN 12.2 G/dl (12.0-16.0)
--- NOTE | 2021-07-23 14:07 | NUR ---
RT PAGED FOR REPEAT ABG
[2021-07-23 14:29] LABS: ABG BASE EXCESS 5.6 mmol/L (-2.0-2.0); ABG HCO3 35.3 mmol/L (22.0-26.0); ABG OXYGEN SATURATION 88.3 % (94-97); ABG PCO2 (T) 83.7 mmHg (32.0-45.0); ABG PO2 (T) 59.5 mmHg (75.0-100.0); ALLEN'S TEST POSITIVE; FCOHb 0.4 % (0.0-3.9); FMetHb 0.2 % (0.0-1.5); FO2Hb 87.8 % (94-97); RESPIRATORY RATE 8 b/min; TIDAL VOLUME 906 mL; TOTAL HEMOGLOBIN 11.7 G/dl (12.0-16.0)
[2021-07-23] MEDS ORDERED: HYDROcodone/acetaminophen 5mg/325mg tablet PO PRN ×2 (14:35→17:30)
[2021-07-23] MEDS ORDERED: morphine 2 MG/ML inj. syringe IV PRN ×2 (14:35)
[2021-07-23] MEDS ORDERED: dextrose ORAL solution 15 GM/59 ML bottle PO PRN ×2 (14:35)
[2021-07-23] MEDS ORDERED: metoclopramide 5 mg/ml inj IV PRN (14:35)
[2021-07-23] MEDS ORDERED: ondansetron/PF 4mg/2ml inj IV PRN (14:35)
[2021-07-23] MEDS ORDERED: glucagon, human recombinant 1mg kit SUBCUT PRN (14:35)
[2021-07-23] MEDS ORDERED: dextrose 50%-water 50ml dispensing syringe IV PRN ×2 (14:35)
[2021-07-23] MEDS ORDERED: insulin Lispro (HumaLOG) vial - multi-dose SQ SCH (14:35)
[2021-07-23] MEDS ORDERED: magnesium hydroxide 30ml (MOM) UD suspension PO PRN (14:35)
[2021-07-23] MEDS ORDERED: mag hydrox/Alum hydrox/simeth 30ml oral suspension PO PRN (14:35)
[2021-07-23] MEDS ORDERED: MESSAGE TO PHARMACY PO ONE (14:35)
[2021-07-23] MEDS ORDERED: acetaminophen 325mg tablet PO PRN ×2 (14:35)
[2021-07-23] MEDS ORDERED: albuterol 2.5 MG/3 ML nebule NEB PRN (17:30)
[2021-07-23] MEDS ORDERED: pseudoephedrine 30mg tablet PO PRN (17:30)
[2021-07-23] MEDS ORDERED: ibuprofen 200mg tablet PO PRN (18:00)
[2021-07-23] MEDS ORDERED: budesonide 0.5mg/2ml UD nebule IH SCH (20:00)
[2021-07-23] MEDS ORDERED: docusate sod 100mg capsule PO SCH (20:00)
[2021-07-23] MEDS ORDERED: non-formulary drug (Ondansetron Hcl (Zofran) 1 TAB) PO SCH (20:00)
[2021-07-23] MEDS ORDERED: metoprolol tartrate 25mg tablet PO SCH (20:00)
[2021-07-23] MEDS ORDERED: methylPREDNISolone sod succ 125mg/2ml vial IV SCH (20:00)
[2021-07-23] MEDS ORDERED: ipratropium 0.5 MG/2.5ML nebule NEB SCH ×2 (20:00→21:00)
[2021-07-23] MEDS ORDERED: insulin glargine (Lantus) pen - multi-dose SQ SCH (21:00)
--- NOTE | 2021-07-23 21:00 | NUR ---
pt left ama dr woods notifed ama paperwork signed
[2021-07-24] MEDS ORDERED: sertraline 25mg tablet PO SCH (08:00)
[2021-07-24] MEDS ORDERED: pantoprazole 40 MG vial IV SCH (08:00)
[2021-07-24] MEDS ORDERED: oxybutynin 5mg tablet PO SCH (08:00)
[2021-07-24] MEDS ORDERED: ferrous sulfate 325mg tablet PO SCH (08:00)
[2021-07-24] MEDS ORDERED: metFORMIN 500mg tablet PO SCH (08:00)
[2021-07-24] MEDS ORDERED: multivitamins, therapeutics tablet PO SCH (08:00)
[2021-07-24] MEDS ORDERED: enoxaparin 40mg/0.4ml syringe SUBCUT SCH (08:00)
[2021-07-24] MEDS ORDERED: lisinopril 2.5mg tablet PO SCH (08:00)
[2021-07-24] MEDS ORDERED: aspirin 81mg tab.chew PO SCH (08:00)
== END 2021-07-23 21:01 | disposition left against medical advice (07) | DRG 190 ==
LOC: ER 07:17 → ED HOLD 14:42
PROVIDERS: ADMIT Internal Medicine; ATTEND Internal Medicine
PROC: 0DJ08ZZ Inspection of Upper Intestinal Tract, Via Natural or Artificial Opening Endoscopic (ICD-10-PCS; principal; 2021-07-23)
PROC: 5A09357 Assistance with Respiratory Ventilation, Less than 24 Consecutive Hours, Continuous Positive Airway Pressure (ICD-10-PCS; 2021-07-23)
DX: J44.1 Chronic obstructive pulmonary disease with (acute) exacerbation (principal); J96.21 Acute and chronic respiratory failure with hypoxia; J96.22 Acute and chronic respiratory failure with hypercapnia; E87.2 Acidosis; D64.9 Anemia, unspecified; I11.0 Hypertensive heart disease with heart failure; F15.90 Other stimulant use, unspecified, uncomplicated; F32.A Depression, unspecified; F41.9 Anxiety disorder, unspecified; Z53.29 Procedure and treatment not carried out because of patient's decision for other reasons; G43.909 Migraine, unspecified, not intractable, without status migrainosus; I50.9 Heart failure, unspecified; K44.9 Diaphragmatic hernia without obstruction or gangrene; Z83.3 Family history of diabetes mellitus; Z87.891 Personal history of nicotine dependence; Z90.49 Acquired absence of other specified parts of digestive tract; Z88.8 Allergy status to other drugs, medicaments and biological substances; Z87.01 Personal history of pneumonia (recurrent); Z98.891 History of uterine scar from previous surgery; Z82.49 Family history of ischemic heart disease and other diseases of the circulatory system
CPT/HCPCS: 36415; 36600; 43235; 80053; 82803; 82948; 83690; 83880; 84484; 85018; 85025; 93005; 94640; 94660; 94760; 96361; 96365; 96375; 99152; 99285; A4620; C9113; G0378; J1200; J1815; J2250; J2405; J2765; J2930; J3010; J3490; J7030; J7040

== ENCOUNTER 2021-08-02 16:02 | Inpatient (IN) | payer BC, MEDICAID ==
[~2021-08-02] VITALS: Ht 160 cm; Wt 51.0 kg
[2021-08-02 17:34] LABS: BASOPHILS % (AUTO) 0.5 % (0-1); EOSINOPHILS # (AUTO) 0.1 X10'3 (0-0.9); EOSINOPHILS % (AUTO) 1.8 % (0-6); HEMATOCRIT 32.9 % (35.0-45.0); HEMOGLOBIN 10.9 g/dl (12.0-16.0); LYMPHOCYTES # (AUTO) 1.5 X10'3 (1.1-4.8); LYMPHOCYTES % (AUTO) 21.4 % (21-51); MEAN CORPUSCULAR HEMOGLOBIN 30.8 PG (27.0-31.0); MEAN CORPUSCULAR HGB CONC 33.1 g/dL (33.0-36.5); MEAN CORPUSCULAR VOLUME 93.1 FL (78-98); MEAN PLATELET VOLUME 7.2 FL (7.4-10.4); MONOCYTES # (AUTO) 0.5 X10'3 (0-0.9); MONOCYTES % (AUTO) 7.2 % (2-12); NEUTROPHILS # (AUTO) 4.8 X10'3 (1.8-7.7); NEUTROPHILS % (AUTO) 69.1 % (42-75); PLATELET COUNT 185 X10'3 (140-440); RED BLOOD COUNT 3.53 X10'6 (4.20-5.60); RED CELL DISTRIBUTION WIDTH 14.7 % (11.5-14.5); WHITE BLOOD COUNT 6.9 X10'3 (4.5-11.0)
[2021-08-02 17:52] LABS: APTT 22 SECONDS (22-32)
[2021-08-02] MEDS ORDERED: azithromycin/NS 500mg/250ml 250 ML IV ONE (17:55)
[2021-08-02] MEDS ORDERED: CefTRIAXone/D5W-Rocephin 1gm 50 ML IV ONE (17:55)
[2021-08-02 17:57] LABS: ALANINE AMINOTRANSFERASE 26 U/L (12-78); ALBUMIN 2.8 G/DL (3.4-5.0); ALBUMIN/GLOBULIN RATIO 0.8 (1.1-1.5); ALKALINE PHOSPHATASE 102 IU/L (46-116); ANION GAP 1 (8-16); ASPARTATE AMINO TRANSFERASE 16 U/L (10-37); BILIRUBIN,TOTAL 0.4 MG/DL (0.1-1.0); BLOOD UREA NITROGEN 27 MG/DL (7-18); BUN/CREATININE RATIO 52.9 (6.6-38.0); CALCIUM 8.9 MG/DL (8.5-10.1); CHLORIDE 107 MMOL/L (99-107); CREATININE 0.51 MG/DL (0.40-0.90); GLUCOSE 115 MG/DL (70-104); POTASSIUM 3.7 MMOL/L (3.5-5.1); SODIUM 145 MMOL/L (135-145); TOTAL CARBON DIOXIDE 37.1 MMOL/L (24-32); TOTAL PROTEIN 6.1 G/DL (6.4-8.2); eGFR > 90 ML/MIN
[2021-08-02 18:05] LABS: MAGNESIUM 1.8 MG/DL (1.5-2.4)
[2021-08-02] MEDS ORDERED: iohexol 350MG/ML 100ml bottle IV ONE (18:08)
[2021-08-02] MEDS ORDERED: morphine 4 MG/ML inj SYRINge IV ONE (18:40)
[2021-08-02] MEDS ORDERED: ketorolac tromethamine 15mg/ml inj. IV ONE (18:40)
[2021-08-02] MEDS ORDERED: ondansetron/PF 4mg/2ml inj IV ONE (18:40)
[2021-08-02] MEDS ORDERED: APIX5TAB3 PO (19:06)
[2021-08-02] MEDS ORDERED: AMOX-422 PO (19:06)
[2021-08-02] MEDS ORDERED: apixaban 5mg tablet PO ONE (19:10)
[2021-08-02 19:30] LABS: CLARITY,URINE SLIGHTLY CLOUDY (Clear); COLOR,URINE YELLOW (Yellow); GLUCOSE, URINE NEGATIVE (Neg); KETONES,URINE NEGATIVE (Neg); LEUKOCYTE ESTERASE ,URINE NEGATIVE (Neg); NITRITES, URINE NEGATIVE (Neg); OCCULT BLOOD,URINE NEGATIVE (Neg); PROTEIN,URINE NEGATIVE (Neg); UROBILINOGEN,URINE 0.2 E.U/dL (0.2-1.0)
[2021-08-02 19:32] LABS: UA COLLECTION TYPE CLN CATCH MIDSTREAM
[2021-08-02 19:46] LABS: BACTERIA,URINE NONE SEEN /HPF (Neg); MUCUS STRANDS FEW /LPF (Neg); RBC,URINE 0-2 /HPF (0-2); SQUAMOUS EPITHELIAL CELL,UR MODERATE /LPF (FEW); WBC,URINE 0-4 /HPF (0-4)
[2021-08-02 19:48] LABS: URINE AMPHETAMINE SCREEN POSITIVE (Neg); URINE BARBITUATE SCREEN NEGATIVE (Neg); URINE BENZODIAZEPINES SCREEN POSITIVE (Neg); URINE CANNABINOID SCREEN NEGATIVE (Neg); URINE COCAINE SCREEN NEGATIVE (Neg); URINE METHADONE SCREEN NEGATIVE (Neg); URINE OPIATE SCREEN NEGATIVE (Neg); URINE PHENCYCLIDINE SCREEN NEGATIVE (Neg)
[2021-08-02] MEDS ORDERED: normal saline 1000ml 1,000 ML IV ONE (20:20)
[2021-08-02] MEDS ORDERED: LORazepam 2 mg/ml vial IV ONE (20:20)
[2021-08-02] MEDS ORDERED: temazepam 15mg capsule PO PRN (21:00)
[2021-08-02] MEDS ORDERED: mag hydrox/Alum hydrox/simeth 30ml oral suspension PO PRN (23:05)
[2021-08-02] MEDS ORDERED: acetaminophen 650mg rectal suppository RC PRN (23:05)
[2021-08-02] MEDS ORDERED: diphenhydrAMINE 25mg capsule PO PRN (23:05)
[2021-08-02] MEDS ORDERED: ondansetron/PF 4mg/2ml inj IV PRN (23:05)
[2021-08-02] MEDS ORDERED: diphenhydrAMINE 50 mg/ml inj IV PRN (23:05)
[2021-08-02] MEDS ORDERED: magnesium hydroxide 30ml (MOM) UD suspension PO PRN (23:05)
[2021-08-02] MEDS ORDERED: ondansetron 4mg rapidly disintigrating tab PO PRN (23:05)
[2021-08-02] MEDS ORDERED: morphine 2 MG/ML inj. syringe IV PRN (23:05)
[2021-08-02] MEDS ORDERED: acetaminophen 325mg tablet PO PRN ×2 (23:05)
[2021-08-02] MEDS ORDERED: bisacodyl 10mg suppository rectal RC PRN (23:05)
[2021-08-02] MEDS ORDERED: ipratropium/albuterol 3ml nebule NEB PRN (23:05)
[2021-08-02] MEDS ORDERED: dextrose ORAL solution 15 GM/59 ML bottle PO PRN ×2 (23:15)
[2021-08-02] MEDS ORDERED: glucagon, human recombinant 1mg kit SUBCUT PRN (23:15)
[2021-08-02] MEDS ORDERED: dextrose 50%-water 50ml dispensing syringe IV PRN ×2 (23:15)
[2021-08-02] MEDS ORDERED: MESSAGE TO PHARMACY PO ONE (23:15)
[2021-08-02] MEDS ORDERED: insulin Lispro (HumaLOG) vial - multi-dose SQ SCH (23:15)
[2021-08-02 23:56] LABS: APTT 24 SECONDS (22-32)
[2021-08-03 00:07] LABS: MAGNESIUM 1.9 MG/DL (1.5-2.4); PHOSPHORUS 4.3 MG/DL (2.3-4.5)
[2021-08-03] MEDS ORDERED: NICO-631 TOP (00:11)
[2021-08-03] MEDS: normal saline 1000ml 1,000 ML IV SCH ×3 (00:41→19:05)
[2021-08-03] MEDS ORDERED: LORazepam 2 mg/ml vial IV ONE (02:25)
[2021-08-03] MEDS ORDERED: normal saline 1000ml 1,000 ML IV ONE (02:25)
--- NOTE | 2021-08-03 03:06 | NUR ---
SPOKE W/ DR WINSTON RE: PT HR 140, ORDERS COMPLETED FOR ATIVAN AND 500ML BOLUS OF NS, NO CHANGE IN HR. DR WINSTON ORDERED FOR F/C TO BE PLACED TO MONITOR URINE OUTPUT. PATIENT HAS BEEN UP TO BEDSIDE COMMODE MULTIPLE TIMES AND HAS PUT OUT A TOTAL OF 1000ML OF URINE. PATIENT REFUSED F/C AT THIS TIME
[2021-08-03] MEDS ORDERED: diazepam inj 5 MG/ML inj. IV ONE ×2 (03:10→05:15)
[2021-08-03 06:27] LABS: ALANINE AMINOTRANSFERASE 21 U/L (12-78); ALBUMIN 2.5 G/DL (3.4-5.0); ALBUMIN/GLOBULIN RATIO 0.8 (1.1-1.5); ALKALINE PHOSPHATASE 98 IU/L (46-116); ANION GAP 1 (8-16); ASPARTATE AMINO TRANSFERASE 11 U/L (10-37); BILIRUBIN,TOTAL 0.4 MG/DL (0.1-1.0); BLOOD UREA NITROGEN 11 MG/DL (7-18); BUN/CREATININE RATIO 28.2 (6.6-38.0); CALCIUM 7.9 MG/DL (8.5-10.1); CHLORIDE 110 MMOL/L (99-107); CREATININE 0.39 MG/DL (0.40-0.90); GLUCOSE 89 MG/DL (70-104); SODIUM 146 MMOL/L (135-145); TOTAL CARBON DIOXIDE 35.2 MMOL/L (24-32); TOTAL PROTEIN 5.6 G/DL (6.4-8.2); eGFR > 90 ML/MIN
[2021-08-03 06:29] LABS: CREATINE KINASE 40 U/L (26-192); LIPASE < 50 U/L (73-393)
[2021-08-03] MEDS: CefTRIAXone/D5W-Rocephin 1gm 50 ML IV SCH (08:50)
[2021-08-03] MEDS: azithromycin/NS 500mg/250ml 250 ML IV SCH (08:51)
[2021-08-03] MEDS: lisinopril 2.5mg tablet PO SCH (08:52)
[2021-08-03] MEDS: metoprolol tartrate 25mg tablet PO SCH ×2 (08:52→21:23)
[2021-08-03] MEDS: oxybutynin 5mg tablet PO SCH (08:52)
[2021-08-03] MEDS: sertraline 25mg tablet PO SCH (08:52)
[2021-08-03] MEDS: pantoprazole 40mg Tablet.DR PO SCH (08:53)
[2021-08-03] MEDS: docusate sod 100mg capsule PO SCH ×2 (08:53→21:21)
[2021-08-03] MEDS: apixaban 5mg tablet PO SCH ×2 (08:53→21:22)
[2021-08-03] MEDS: ferrous sulfate 325mg tablet PO SCH (08:53)
[2021-08-03] MEDS: nicotine 14mg patch - 24hr TD SCH (08:54)
[2021-08-03 09:20] VITALS: BP 134/67
[2021-08-03 11:00] VITALS: BP 123/60
[2021-08-03 11:23] LABS: BASOPHILS % (AUTO) 0.4 % (0-1); EOSINOPHILS # (AUTO) 0.1 X10'3 (0-0.9); EOSINOPHILS % (AUTO) 1.9 % (0-6); HEMATOCRIT 31.2 % (35.0-45.0); HEMOGLOBIN 10.2 g/dl (12.0-16.0); LYMPHOCYTES # (AUTO) 1.1 X10'3 (1.1-4.8); LYMPHOCYTES % (AUTO) 18.2 % (21-51); MEAN CORPUSCULAR HEMOGLOBIN 31.4 PG (27.0-31.0); MEAN CORPUSCULAR HGB CONC 32.8 g/dL (33.0-36.5); MEAN CORPUSCULAR VOLUME 95.6 FL (78-98); MEAN PLATELET VOLUME 7.2 FL (7.4-10.4); MONOCYTES # (AUTO) 0.4 X10'3 (0-0.9); MONOCYTES % (AUTO) 6.2 % (2-12); NEUTROPHILS # (AUTO) 4.6 X10'3 (1.8-7.7); NEUTROPHILS % (AUTO) 73.3 % (42-75); PLATELET COUNT 170 X10'3 (140-440); RED BLOOD COUNT 3.26 X10'6 (4.20-5.60); RED CELL DISTRIBUTION WIDTH 15.3 % (11.5-14.5); WHITE BLOOD COUNT 6.3 X10'3 (4.5-11.0)
[2021-08-03] MEDS: budesonide 0.5mg/2ml UD nebule IH SCH ×2 (13:38→20:21)
[2021-08-03] MEDS: ipratropium/albuterol 3ml nebule NEB SCH ×3 (13:38→20:21)
[2021-08-03 18:00] VITALS: BP 134/64
--- NOTE | 2021-08-03 19:14 | NUR ---
Problems reprioritized. Patient report given, questions answered & plan of care reviewed with VISHNU LAMBERT..
[2021-08-03 22:00] VITALS: BP 150/71
[2021-08-03] MEDS: HYDROcodone/acetaminophen 5mg/325mg tablet PO PRN (22:25)
[2021-08-04] MEDS: ipratropium/albuterol 3ml nebule NEB SCH ×2 (02:46→07:54)
[2021-08-04] MEDS: normal saline 1000ml 1,000 ML IV SCH (03:50)
--- NOTE | 2021-08-04 06:26 | NUR ---
Problems reprioritized. Patient report given, questions answered & plan of care reviewed with Tracy.
--- NOTE | 2021-08-04 06:30 | NUR ---
Patient in room PCU 3020. I have received report from Ellie LAMBERT and had the opportunity to ask questions and assume patient care. Patient is resting comfortably in bed this morning. All needs currently met.
[2021-08-04 06:58] LABS: BASOPHILS % (AUTO) 0.3 % (0-1); EOSINOPHILS # (AUTO) 0.1 X10'3 (0-0.9); EOSINOPHILS % (AUTO) 2.8 % (0-6); HEMATOCRIT 34.6 % (35.0-45.0); HEMOGLOBIN 11.1 g/dl (12.0-16.0); LYMPHOCYTES # (AUTO) 1.1 X10'3 (1.1-4.8); LYMPHOCYTES % (AUTO) 22.3 % (21-51); MEAN CORPUSCULAR HEMOGLOBIN 30.8 PG (27.0-31.0); MEAN CORPUSCULAR VOLUME 96.2 FL (78-98); MEAN PLATELET VOLUME 7.6 FL (7.4-10.4); MONOCYTES # (AUTO) 0.5 X10'3 (0-0.9); MONOCYTES % (AUTO) 10.3 % (2-12); NEUTROPHILS # (AUTO) 3.3 X10'3 (1.8-7.7); NEUTROPHILS % (AUTO) 64.3 % (42-75); PLATELET COUNT 182 X10'3 (140-440); RED BLOOD COUNT 3.59 X10'6 (4.20-5.60); RED CELL DISTRIBUTION WIDTH 14.8 % (11.5-14.5); WHITE BLOOD COUNT 5.1 X10'3 (4.5-11.0)
[2021-08-04 07:00] VITALS: BP 141/81
[2021-08-04 07:30] LABS: ALANINE AMINOTRANSFERASE 24 U/L (12-78); ALBUMIN 2.5 G/DL (3.4-5.0); ALBUMIN/GLOBULIN RATIO 0.8 (1.1-1.5); ALKALINE PHOSPHATASE 104 IU/L (46-116); ANION GAP 5 (8-16); ASPARTATE AMINO TRANSFERASE 18 U/L (10-37); BILIRUBIN,TOTAL 0.4 MG/DL (0.1-1.0); BLOOD UREA NITROGEN 15 MG/DL (7-18); BUN/CREATININE RATIO 35.7 (6.6-38.0); CALCIUM 8.5 MG/DL (8.5-10.1); CHLORIDE 104 MMOL/L (99-107); CREATININE 0.42 MG/DL (0.40-0.90); GLUCOSE 82 MG/DL (70-104); POTASSIUM 3.6 MMOL/L (3.5-5.1); SODIUM 145 MMOL/L (135-145); TOTAL CARBON DIOXIDE 36.2 MMOL/L (24-32); TOTAL PROTEIN 5.7 G/DL (6.4-8.2); eGFR > 90 ML/MIN
[2021-08-04] MEDS: azithromycin/NS 500mg/250ml 250 ML IV SCH (07:34)
[2021-08-04] MEDS: nicotine 14mg patch - 24hr TD SCH (07:34)
[2021-08-04 07:35] VITALS: BP_SYST 141
[2021-08-04] MEDS: lisinopril 2.5mg tablet PO SCH (07:35)
[2021-08-04] MEDS: metoprolol tartrate 25mg tablet PO SCH (07:35)
[2021-08-04] MEDS: apixaban 5mg tablet PO SCH (07:35)
[2021-08-04] MEDS: oxybutynin 5mg tablet PO SCH (07:35)
[2021-08-04] MEDS: ferrous sulfate 325mg tablet PO SCH (07:36)
[2021-08-04] MEDS: pantoprazole 40mg Tablet.DR PO SCH (07:36)
[2021-08-04] MEDS: docusate sod 100mg capsule PO SCH (07:36)
[2021-08-04] MEDS: sertraline 25mg tablet PO SCH (07:36)
[2021-08-04] MEDS: HYDROcodone/acetaminophen 5mg/325mg tablet PO PRN (07:52)
[2021-08-04] MEDS: budesonide 0.5mg/2ml UD nebule IH SCH (07:54)
[2021-08-04] MEDS: CefTRIAXone/D5W-Rocephin 1gm 50 ML IV SCH (08:00)
[2021-08-04] MEDS ORDERED: APIX5TAB3 PO (09:37)
--- NOTE | 2021-08-04 12:00 | NUR ---
Patient is stable per MD. Patient was educated and was able to ask questions about new prescriptions and diagnosis. PIV was removed and patient was discontinued from Tele monitoring. [facility], [facility] to take her home.
[2021-08-09] MEDS ORDERED: apixaban 5mg tablet PO SCH (20:00)
== END 2021-08-04 14:13 | disposition home health service (06) | DRG 175 ==
LOC: ER 16:03 → ED HOLD 23:11 → PCU 3S 08-03 07:29
PROVIDERS: ADMIT Family Medicine; ATTEND Internal Medicine
PROC: B32T1ZZ Computerized Tomography (CT Scan) of Left Pulmonary Artery using Low Osmolar Contrast (ICD-10-PCS; principal; 2021-08-02)
PROC: B3201ZZ Computerized Tomography (CT Scan) of Thoracic Aorta using Low Osmolar Contrast (ICD-10-PCS; 2021-08-02)
PROC: B32S1ZZ Computerized Tomography (CT Scan) of Right Pulmonary Artery using Low Osmolar Contrast (ICD-10-PCS; 2021-08-02)
DX: I26.99 Other pulmonary embolism without acute cor pulmonale (principal); J18.9 Pneumonia, unspecified organism; J96.21 Acute and chronic respiratory failure with hypoxia; E04.1 Nontoxic single thyroid nodule; E11.9 Type 2 diabetes mellitus without complications; F15.129 Other stimulant abuse with intoxication, unspecified; G35 Multiple sclerosis; G43.909 Migraine, unspecified, not intractable, without status migrainosus; J43.9 Emphysema, unspecified; F41.9 Anxiety disorder, unspecified; I11.0 Hypertensive heart disease with heart failure; I50.9 Heart failure, unspecified; Z79.01 Long term (current) use of anticoagulants; Z79.84 Long term (current) use of oral hypoglycemic drugs; Z79.899 Other long term (current) drug therapy; Z87.891 Personal history of nicotine dependence; Z88.8 Allergy status to other drugs, medicaments and biological substances; Z90.49 Acquired absence of other specified parts of digestive tract; Z98.891 History of uterine scar from previous surgery; Z82.49 Family history of ischemic heart disease and other diseases of the circulatory system; Z83.3 Family history of diabetes mellitus; Z79.82 Long term (current) use of aspirin
CPT/HCPCS: 36415; 71045; 71275; 80053; 80305; 81001; 82550; 82948; 83036; 83690; 83735; 83880; 84100; 84484; 85025; 85610; 85730; 93005; 93306; 93971; 94640; 94760; 96367; 96374; 96375; 99285; G0378; J0456; J0696; J1815; J1885; J2060; J2270; J2405; J3360; J7030; Q9967

== ENCOUNTER 2021-08-23 10:53 | Emergency (ER) | payer BC, MEDICAID ==
[~2021-08-23] VITALS: Ht 160 cm; Wt 52.3 kg
[~2021-08-23 10:53] MED LIST changes: -AMOX-580 PO; +APIX5TAB3 PO; -HYDR-3965 PO; -IBUP-1985 PO; +NICO-631 TOP; -NICO-687 TOP; -ONDA4TAB6 PO
[2021-08-23] MEDS ORDERED: acetaminophen 325mg tablet PO STA (11:15)
[2021-08-23] MEDS ORDERED: normal saline 1000ML IV soln IV ONE (11:15)
[2021-08-23] MEDS ORDERED: azithromycin/NS 500mg/250ml 250 ML IV ONE (11:30)
[2021-08-23] MEDS ORDERED: CefTRIAXone 2gm/D5W 50ml BAG 50 ML IV ONE (11:30)
[2021-08-23 11:44] LABS: BASOPHILS % (AUTO) 0.5 % (0-1); EOSINOPHILS % (AUTO) 1.1 % (0-6); HEMATOCRIT 38.7 % (35.0-45.0); HEMOGLOBIN 12.5 g/dl (12.0-16.0); LYMPHOCYTES # (AUTO) 1.1 X10'3 (1.1-4.8); MEAN CORPUSCULAR HEMOGLOBIN 30.3 PG (27.0-31.0); MEAN CORPUSCULAR HGB CONC 32.3 g/dL (33.0-36.5); MEAN CORPUSCULAR VOLUME 93.7 FL (78-98); MONOCYTES # (AUTO) 0.3 X10'3 (0-0.9); NEUTROPHILS # (AUTO) 2.1 X10'3 (1.8-7.7); NEUTROPHILS % (AUTO) 59.4 % (42-75); PLATELET COUNT 111 X10'3 (140-440); RED BLOOD COUNT 4.13 X10'6 (4.20-5.60); RED CELL DISTRIBUTION WIDTH 14.2 % (11.5-14.5); WHITE BLOOD COUNT 3.5 X10'3 (4.5-11.0)
[2021-08-23 11:52] LABS: D-DIMER 0.38 MG/L FEU (0-0.50)
[2021-08-23 11:58] LABS: CHLORIDE 102 MMOL/L (99-107); GLUCOSE 151 MG/DL (70-104); POTASSIUM 3.5 MMOL/L (3.5-5.1); SODIUM 142 MMOL/L (135-145); TOTAL CARBON DIOXIDE 37.9 MMOL/L (24-32)
[2021-08-23 11:59] LABS: ALANINE AMINOTRANSFERASE 19 U/L (12-78); ALBUMIN/GLOBULIN RATIO 0.8 (1.1-1.5); ALKALINE PHOSPHATASE 110 IU/L (46-116); ANION GAP 2 (8-16); ASPARTATE AMINO TRANSFERASE 26 U/L (10-37); BILIRUBIN,TOTAL 0.1 MG/DL (0.1-1.0); BLOOD UREA NITROGEN 24 MG/DL (7-18); BUN/CREATININE RATIO 40.7 (6.6-38.0); CALCIUM 8.3 MG/DL (8.5-10.1); CREATININE 0.59 MG/DL (0.40-0.90); TOTAL PROTEIN 6.8 G/DL (6.4-8.2); eGFR > 90 ML/MIN
[2021-08-23] MEDS ORDERED: traMADol 50MG tablet PO ONE (12:30)
[2021-08-23] MEDS ORDERED: PRED20TA PO (12:50)
[2021-08-23] MEDS ORDERED: ALBUTEROL INHALER 1 PUFF/90 MCG INHALER IH STA (13:23)
[2021-08-23 14:28] VITALS: BP 114/60
== END 2021-08-23 14:31 | disposition home or self-care (01) ==
LOC: ER 10:54
DX: U07.1 COVID-19 (principal); J44.1 Chronic obstructive pulmonary disease with (acute) exacerbation; G43.909 Migraine, unspecified, not intractable, without status migrainosus; I11.0 Hypertensive heart disease with heart failure; I50.9 Heart failure, unspecified; J44.9 Chronic obstructive pulmonary disease, unspecified; E11.9 Type 2 diabetes mellitus without complications; Z90.49 Acquired absence of other specified parts of digestive tract; F15.90 Other stimulant use, unspecified, uncomplicated; Z88.1 Allergy status to other antibiotic agents; Z79.82 Long term (current) use of aspirin; Z79.84 Long term (current) use of oral hypoglycemic drugs; Z79.899 Other long term (current) drug therapy
CPT/HCPCS: 36415; 71045; 80053; 83605; 83880; 84145; 84484; 85025; 85379; 87040; 87635; 93005; 99285; C9803; J7030

== ENCOUNTER 2021-08-24 12:07 | Emergency (ER) | payer BC, MEDICAID ==
[~2021-08-24] VITALS: Ht 160 cm; Wt 68.0 kg
[~2021-08-24 12:07] MED LIST changes: +PRED20TA PO
[2021-08-24 12:16] VITALS: BP 122/80
[2021-08-24] MEDS ORDERED: SOTROVIMAB 500mg injection 500 MG in normal saline 100ml IV soln 100 ML IV ONE (13:40)
== END 2021-08-24 15:42 | disposition home or self-care (01) ==
LOC: ER 14:29
DX: U07.1 COVID-19 (principal); R50.9 Fever, unspecified; G43.909 Migraine, unspecified, not intractable, without status migrainosus; I11.0 Hypertensive heart disease with heart failure; I50.9 Heart failure, unspecified; J44.9 Chronic obstructive pulmonary disease, unspecified; E11.9 Type 2 diabetes mellitus without complications; F41.9 Anxiety disorder, unspecified; F15.90 Other stimulant use, unspecified, uncomplicated; Z87.01 Personal history of pneumonia (recurrent); Z90.49 Acquired absence of other specified parts of digestive tract; Z98.890 Other specified postprocedural states; Z88.1 Allergy status to other antibiotic agents; Z88.8 Allergy status to other drugs, medicaments and biological substances; Z79.82 Long term (current) use of aspirin; Z79.899 Other long term (current) drug therapy
CPT/HCPCS: 99284; J3490; M0247; Q0247

== ENCOUNTER 2021-08-31 20:13 | Inpatient (IN) | payer BC, MEDICAID ==
[~2021-08-31] VITALS: Ht 160 cm; Wt 52.3 kg
[~2021-08-31 20:13] MED LIST changes: -PRED20TA PO
[2021-08-31] MEDS ORDERED: temazepam 15mg capsule PO PRN (21:00)
[2021-08-31 22:21] LABS: BASOPHILS % (AUTO) 0.2 % (0-1); EOSINOPHILS % (AUTO) 0.1 % (0-6); HEMATOCRIT 39.4 % (35.0-45.0); HEMOGLOBIN 12.8 g/dl (12.0-16.0); LYMPHOCYTES # (AUTO) 1.1 X10'3 (1.1-4.8); LYMPHOCYTES % (AUTO) 17.3 % (21-51); MEAN CORPUSCULAR HEMOGLOBIN 30.3 PG (27.0-31.0); MEAN CORPUSCULAR HGB CONC 32.5 g/dL (33.0-36.5); MEAN CORPUSCULAR VOLUME 93.1 FL (78-98); MONOCYTES # (AUTO) 0.3 X10'3 (0-0.9); MONOCYTES % (AUTO) 4.2 % (2-12); NEUTROPHILS # (AUTO) 5.1 X10'3 (1.8-7.7); NEUTROPHILS % (AUTO) 78.2 % (42-75); PLATELET COUNT 203 X10'3 (140-440); RED BLOOD COUNT 4.23 X10'6 (4.20-5.60); WHITE BLOOD COUNT 6.5 X10'3 (4.5-11.0)
[2021-08-31 22:26] LABS: D-DIMER 0.51 MG/L FEU (0-0.50)
[2021-08-31 22:30] LABS: ALANINE AMINOTRANSFERASE 26 U/L (12-78); ALBUMIN 3.4 G/DL (3.4-5.0); ALBUMIN/GLOBULIN RATIO 0.9 (1.1-1.5); ALKALINE PHOSPHATASE 113 IU/L (46-116); ANION GAP 3 (8-16); ASPARTATE AMINO TRANSFERASE 17 U/L (10-37); BILIRUBIN,TOTAL 0.2 MG/DL (0.1-1.0); BLOOD UREA NITROGEN 24 MG/DL (7-18); BUN/CREATININE RATIO 38.7 (6.6-38.0); CALCIUM 9.5 MG/DL (8.5-10.1); CHLORIDE 104 MMOL/L (99-107); CREATININE 0.62 MG/DL (0.40-0.90); GLUCOSE 162 MG/DL (70-104); POTASSIUM 3.9 MMOL/L (3.5-5.1); SODIUM 144 MMOL/L (135-145); TOTAL CARBON DIOXIDE 36.6 MMOL/L (24-32); TOTAL PROTEIN 7.1 G/DL (6.4-8.2); eGFR > 90 ML/MIN
[2021-08-31] MEDS ORDERED: heparin 25,000 UNIT/250ml bag 250 ML IV SCH (23:00)
[2021-08-31] MEDS ORDERED: morphine 4 MG/ML inj SYRINge IV ONE (23:00)
[2021-08-31] MEDS ORDERED: heparin 10,000 units/1 ML INJ IV ONE (23:00)
[2021-08-31] MEDS ORDERED: iohexol 350MG/ML 100ml bottle IV ONE (23:06)
[2021-08-31 23:15] LABS: APTT 23 SECONDS (22-32)
[2021-08-31] MEDS ORDERED: magnesium 2GM in 50ml NS 50 ML IV PRN (23:30)
[2021-08-31] MEDS ORDERED: potassium CL 10mEq/100ml bag 100 ML IV PRN (23:30)
[2021-08-31] MEDS ORDERED: ondansetron/PF 4mg/2ml inj IV PRN (23:30)
[2021-08-31] MEDS ORDERED: apixaban 5mg tablet PO SCH (23:30)
[2021-08-31] MEDS ORDERED: insulin Lispro (HumaLOG) vial - multi-dose SQ SCH (23:30)
[2021-08-31] MEDS ORDERED: morphine 2 MG/ML inj. syringe IV PRN (23:30)
[2021-08-31] MEDS ORDERED: magnesium 4gm in 100ml NS 100 ML IV PRN (23:30)
[2021-08-31] MEDS ORDERED: MESSAGE TO PHARMACY PO ONE (23:30)
[2021-08-31] MEDS ORDERED: dextrose ORAL solution 15 GM/59 ML bottle PO PRN ×2 (23:30)
[2021-08-31] MEDS ORDERED: acetaminophen 325mg tablet PO PRN ×2 (23:30)
[2021-08-31] MEDS ORDERED: glucagon, human recombinant 1mg kit SUBCUT PRN (23:30)
[2021-08-31] MEDS ORDERED: dextrose 50%-water 50ml dispensing syringe IV PRN ×2 (23:30)
[2021-08-31] MEDS ORDERED: magnesium Cl slow-release 64mg tablet PO PRN (23:30)
[2021-08-31] MEDS ORDERED: potassium Cl 20 mEq SR tablet PO PRN ×2 (23:30)
[2021-09-01] MEDS ORDERED: ALPR0.255 PO (00:16)
[2021-09-01] MEDS ORDERED: APIX5TAB3 PO (00:17)
[2021-09-01] MEDS: apixaban 5mg tablet PO SCH ×2 (00:29→09:55)
[2021-09-01] MEDS: vancomycin/NS 1 GM ADD-VANTAGE 250 ML IV SCH ×2 (01:00→13:39)
[2021-09-01 02:56] LABS: CLARITY,URINE CLEAR (Clear); COLOR,URINE YELLOW (Yellow); GLUCOSE, URINE NEGATIVE (Neg); KETONES,URINE NEGATIVE (Neg); LEUKOCYTE ESTERASE ,URINE NEGATIVE (Neg); NITRITES, URINE NEGATIVE (Neg); OCCULT BLOOD,URINE NEGATIVE (Neg); PH,URINE 7.5 (4.8-8.0); PROTEIN,URINE NEGATIVE (Neg); UROBILINOGEN,URINE 0.2 E.U/dL (0.2-1.0)
[2021-09-01 02:57] LABS: UA COLLECTION TYPE VOIDED
[2021-09-01 03:01] LABS: URINE AMPHETAMINE SCREEN POSITIVE (Neg); URINE BARBITUATE SCREEN NEGATIVE (Neg); URINE BENZODIAZEPINES SCREEN POSITIVE (Neg); URINE CANNABINOID SCREEN NEGATIVE (Neg); URINE COCAINE SCREEN NEGATIVE (Neg); URINE METHADONE SCREEN NEGATIVE (Neg); URINE OPIATE SCREEN POSITIVE (Neg); URINE PHENCYCLIDINE SCREEN NEGATIVE (Neg)
[2021-09-01] MEDS: ALBUTEROL INHALER 1 PUFF/90 MCG INHALER IH SCH ×2 (03:08→08:53)
--- NOTE | 2021-09-01 05:00 | NUR ---
Received report from Jamila LAMBERT from ED. Patient came to floor via gurney. Patient able to scoot into bed. Bed placed in locked and low position. Call light placed within reach.
[2021-09-01] MEDS: HYDROcodone/acetaminophen 5mg/325mg tablet PO PRN ×2 (05:12→13:35)
[2021-09-01 05:19] VITALS: BP 134/70
--- NOTE | 2021-09-01 06:44 | NUR ---
Problems reprioritized. Patient report given, questions answered & plan of care reviewed with Madi LAMBERT.
[2021-09-01] MEDS ORDERED: dexamethasone 6 MG in D5W 100ml IV soln IV SCH (08:00)
[2021-09-01] MEDS ORDERED: dexamethasone 4mg/ml inj IV SCH (08:00)
[2021-09-01] MEDS ORDERED: K and/or MAG REPLACEMENT MC SCH (08:00)
[2021-09-01] MEDS ORDERED: CefTRIAXone 2gm/D5W 50ml BAG 50 ML IV SCH (08:00)
[2021-09-01 09:08] LABS: BASOPHILS % (AUTO) 0.6 % (0-1); EOSINOPHILS # (AUTO) 0.1 X10'3 (0-0.9); EOSINOPHILS % (AUTO) 2.1 % (0-6); HEMATOCRIT 34.7 % (35.0-45.0); HEMOGLOBIN 11.3 g/dl (12.0-16.0); LYMPHOCYTES # (AUTO) 1.6 X10'3 (1.1-4.8); LYMPHOCYTES % (AUTO) 22.8 % (21-51); MEAN CORPUSCULAR HEMOGLOBIN 30.3 PG (27.0-31.0); MEAN CORPUSCULAR HGB CONC 32.5 g/dL (33.0-36.5); MEAN CORPUSCULAR VOLUME 93.1 FL (78-98); MEAN PLATELET VOLUME 8.2 FL (7.4-10.4); MONOCYTES # (AUTO) 0.5 X10'3 (0-0.9); MONOCYTES % (AUTO) 7.4 % (2-12); NEUTROPHILS # (AUTO) 4.7 X10'3 (1.8-7.7); NEUTROPHILS % (AUTO) 67.1 % (42-75); PLATELET COUNT 198 X10'3 (140-440); RED BLOOD COUNT 3.72 X10'6 (4.20-5.60); RED CELL DISTRIBUTION WIDTH 13.7 % (11.5-14.5); WHITE BLOOD COUNT 6.9 X10'3 (4.5-11.0)
[2021-09-01 09:21] LABS: ALANINE AMINOTRANSFERASE 21 U/L (12-78); ALBUMIN 2.9 G/DL (3.4-5.0); ALBUMIN/GLOBULIN RATIO 0.9 (1.1-1.5); ALKALINE PHOSPHATASE 95 IU/L (46-116); ANION GAP 4 (8-16); ASPARTATE AMINO TRANSFERASE 16 U/L (10-37); BILIRUBIN,TOTAL 0.2 MG/DL (0.1-1.0); BLOOD UREA NITROGEN 19 MG/DL (7-18); BUN/CREATININE RATIO 39.6 (6.6-38.0); CALCIUM 8.5 MG/DL (8.5-10.1); CHLORIDE 106 MMOL/L (99-107); CREATININE 0.48 MG/DL (0.40-0.90); GLUCOSE 115 MG/DL (70-104); POTASSIUM 3.9 MMOL/L (3.5-5.1); SODIUM 148 MMOL/L (135-145); TOTAL CARBON DIOXIDE 37.8 MMOL/L (24-32); eGFR > 90 ML/MIN
[2021-09-01] MEDS ORDERED: ALPRAZolam 0.25mg tablet PO PRN (10:50)
[2021-09-01] MEDS ORDERED: non-formulary drug (albuterol inhaler (Pro-Air Inhaler) 2 PUFFS) PO PRN (10:50)
[2021-09-01] MEDS ORDERED: DEC4T PO (11:50)
[2021-09-01] MEDS ORDERED: ipratropium 0.5 MG/2.5ML nebule NEB SCH (15:00)
[2021-09-01] MEDS ORDERED: albuterol 60 PUFF/8GM Inhaler IH SCH (15:00)
[2021-09-01] MEDS ORDERED: apixaban 5mg tablet PO SCH (20:00)
[2021-09-01] MEDS ORDERED: Budesonide/Formoterol Fumarate (Symbicort 160-4.5 Mcg Inhaler) 2 PUFFS IH SCH (20:00)
[2021-09-01] MEDS ORDERED: metoprolol tartrate 25mg tablet PO SCH (20:00)
[2021-09-01] MEDS ORDERED: insulin glargine (Lantus) pen - multi-dose SQ SCH (21:00)
[2021-09-02] MEDS ORDERED: ferrous sulfate 325mg tablet PO SCH (08:00)
[2021-09-02] MEDS ORDERED: pantoprazole 40mg Tablet.DR PO SCH (08:00)
[2021-09-02] MEDS ORDERED: multivitamins, therapeutics tablet PO SCH (08:00)
[2021-09-02] MEDS ORDERED: aspirin 81mg tab.chew PO SCH (08:00)
[2021-09-02] MEDS ORDERED: lisinopril 2.5mg tablet PO SCH (08:00)
[2021-09-02] MEDS ORDERED: sertraline 25mg tablet PO SCH (08:00)
[2021-09-02] MEDS ORDERED: oxybutynin 5mg tablet PO SCH (08:00)
[2021-09-02] MEDS ORDERED: VANCOMYCIN LEVEL IV ONE (12:30)
[2021-09-07] MEDS ORDERED: apixaban 5mg tablet PO SCH (20:00)
== END 2021-09-01 17:04 | disposition home health service (06) | DRG 190 ==
LOC: ER 20:13 → ED HOLD 23:33 → ORTHO 4S 09-01 05:08
PROVIDERS: ADMIT Internal Medicine; ATTEND Family Medicine
PROC: B32T1ZZ Computerized Tomography (CT Scan) of Left Pulmonary Artery using Low Osmolar Contrast (ICD-10-PCS; principal; 2021-08-31)
PROC: B3201ZZ Computerized Tomography (CT Scan) of Thoracic Aorta using Low Osmolar Contrast (ICD-10-PCS; 2021-08-31)
PROC: B32S1ZZ Computerized Tomography (CT Scan) of Right Pulmonary Artery using Low Osmolar Contrast (ICD-10-PCS; 2021-08-31)
DX: J44.1 Chronic obstructive pulmonary disease with (acute) exacerbation (principal); U07.1 COVID-19; F15.90 Other stimulant use, unspecified, uncomplicated; E11.9 Type 2 diabetes mellitus without complications; F41.9 Anxiety disorder, unspecified; G43.909 Migraine, unspecified, not intractable, without status migrainosus; R00.0 Tachycardia, unspecified; R91.1 Solitary pulmonary nodule; I11.0 Hypertensive heart disease with heart failure; I50.9 Heart failure, unspecified; Z86.711 Personal history of pulmonary embolism; Z99.81 Dependence on supplemental oxygen; Z88.8 Allergy status to other drugs, medicaments and biological substances; Z90.49 Acquired absence of other specified parts of digestive tract; Z98.891 History of uterine scar from previous surgery; Z83.3 Family history of diabetes mellitus; Z82.49 Family history of ischemic heart disease and other diseases of the circulatory system; G35 Multiple sclerosis
CPT/HCPCS: 36415; 71045; 71275; 80053; 80305; 81003; 83605; 83880; 85025; 85379; 85730; 87040; 87081; 93005; 93971; 94640; 94760; 99285; G0378; J0696; J1100; J1815; J2270; J2405; J3370; J7060; Q9967

== ENCOUNTER 2021-10-18 22:52 | Emergency (ER) | payer BC, MEDICAID ==
[~2021-10-18] VITALS: Ht 160 cm; Wt 52.3 kg
[~2021-10-18 22:52] MED LIST changes: +ALPR0.255 PO; -METF-1203 PO; -NICO-631 TOP; -PSEU-237 PO
[2021-10-18] MEDS ORDERED: magnesium oxide 400mg tablet PO ONE (23:20)
[2021-10-18] MEDS ORDERED: LORazepam 1 MG tablet PO ONE (23:35)
[2021-10-18] MEDS ORDERED: ipratropium/albuterol 3ml nebule NEB ONE (23:50)
[2021-10-19 00:10] LABS: BASOPHILS % (AUTO) 0.6 % (0-1); EOSINOPHILS # (AUTO) 0.2 X10'3 (0-0.9); EOSINOPHILS % (AUTO) 3.7 % (0-6); HEMATOCRIT 38.3 % (35.0-45.0); HEMOGLOBIN 12.4 g/dl (12.0-16.0); LYMPHOCYTES # (AUTO) 0.9 X10'3 (1.1-4.8); LYMPHOCYTES % (AUTO) 17.1 % (21-51); MEAN CORPUSCULAR HEMOGLOBIN 29.6 PG (27.0-31.0); MEAN CORPUSCULAR HGB CONC 32.4 g/dL (33.0-36.5); MEAN CORPUSCULAR VOLUME 91.2 FL (78-98); MEAN PLATELET VOLUME 8.1 FL (7.4-10.4); MONOCYTES # (AUTO) 0.4 X10'3 (0-0.9); MONOCYTES % (AUTO) 8.1 % (2-12); NEUTROPHILS # (AUTO) 3.7 X10'3 (1.8-7.7); NEUTROPHILS % (AUTO) 70.5 % (42-75); PLATELET COUNT 141 X10'3 (140-440); RED CELL DISTRIBUTION WIDTH 13.4 % (11.5-14.5); WHITE BLOOD COUNT 5.3 X10'3 (4.5-11.0)
[2021-10-19 00:22] LABS: ALANINE AMINOTRANSFERASE 20 U/L (12-78); ALBUMIN 3.2 G/DL (3.4-5.0); ALKALINE PHOSPHATASE 102 IU/L (46-116); ANION GAP 6 (8-16); ASPARTATE AMINO TRANSFERASE 20 U/L (10-37); BILIRUBIN,TOTAL 0.2 MG/DL (0.1-1.0); BLOOD UREA NITROGEN 12 MG/DL (7-18); BUN/CREATININE RATIO 22.2 (6.6-38.0); CALCIUM 8.7 MG/DL (8.5-10.1); CHLORIDE 106 MMOL/L (99-107); CREATININE 0.54 MG/DL (0.40-0.90); ETHANOL < 0.010 GM/DL (0.0-0.010); GLUCOSE 107 MG/DL (70-104); LIPASE 60 U/L (73-393); MAGNESIUM 1.8 MG/DL (1.5-2.4); POTASSIUM 3.2 MMOL/L (3.5-5.1); SODIUM 150 MMOL/L (135-145); TOTAL PROTEIN 6.4 G/DL (6.4-8.2); eGFR > 90 ML/MIN
[2021-10-19] MEDS ORDERED: potassium CL 10mEq/100ml bag 100 ML IV ONE (01:35)
[2021-10-19] MEDS ORDERED: magnesium oxide 400mg tablet PO ONE (01:35)
[2021-10-19] MEDS ORDERED: acetaminophen 325mg tablet PO ONE (02:00)
[2021-10-19 03:09] VITALS: BP 164/78
[2021-10-19] MEDS ORDERED: albuterol 2.5 MG/3 ML nebule NEB ONE (03:15)
[2021-10-19] MEDS ORDERED: dexamethasone 4mg tablet PO ONE (03:15)
[2021-10-19] MEDS ORDERED: PRED20TA PO (03:25)
--- NOTE | 2021-10-19 04:12 | NUR ---
PT CONTACTED TO PRODUCT COMMUNICATIONS MANAGER HER PRESCRIPTION FOR PREDNISONE, SENDING HER TO GET IT
== END 2021-10-19 03:31 | disposition home or self-care (01) ==
LOC: ER 22:52
DX: R07.89 Other chest pain (principal); F41.9 Anxiety disorder, unspecified; J44.9 Chronic obstructive pulmonary disease, unspecified; E87.6 Hypokalemia; E87.0 Hyperosmolality and hypernatremia; R00.2 Palpitations; G43.909 Migraine, unspecified, not intractable, without status migrainosus; I11.0 Hypertensive heart disease with heart failure; I50.9 Heart failure, unspecified; E11.9 Type 2 diabetes mellitus without complications; F17.200 Nicotine dependence, unspecified, uncomplicated; F15.90 Other stimulant use, unspecified, uncomplicated; Z87.01 Personal history of pneumonia (recurrent); Z90.49 Acquired absence of other specified parts of digestive tract; Z98.890 Other specified postprocedural states; Z88.1 Allergy status to other antibiotic agents; Z88.8 Allergy status to other drugs, medicaments and biological substances; Z79.82 Long term (current) use of aspirin; Z79.899 Other long term (current) drug therapy
CPT/HCPCS: 36415; 71045; 80053; 80320; 83690; 83735; 83880; 84484; 85025; 93005; 94640; 96365; 99285; J3480; 94760

== ENCOUNTER 2021-10-21 08:49 | Emergency (ER) | payer BC, MEDICAID ==
[~2021-10-21] VITALS: Ht 160 cm; Wt 52.3 kg
[~2021-10-21 08:49] MED LIST changes: +PRED20TA PO
[2021-10-21] MEDS ORDERED: aspirin 81mg tab.chew PO ONE (09:00)
[2021-10-21] MEDS ORDERED: LORazepam 2 mg/ml vial IV ONE (09:00)
[2021-10-21] MEDS ORDERED: acetaminophen 325mg tablet PO ONE (09:00)
[2021-10-21] MEDS ORDERED: iohexol 350MG/ML 100ml bottle IV ONE (09:23)
[2021-10-21 09:35] LABS: BASOPHILS % (AUTO) 0.5 % (0-1); EOSINOPHILS # (AUTO) 0.1 X10'3 (0-0.9); EOSINOPHILS % (AUTO) 0.9 % (0-6); HEMATOCRIT 37.5 % (35.0-45.0); HEMOGLOBIN 12.2 g/dl (12.0-16.0); LYMPHOCYTES # (AUTO) 1.2 X10'3 (1.1-4.8); LYMPHOCYTES % (AUTO) 14.8 % (21-51); MEAN CORPUSCULAR HEMOGLOBIN 29.7 PG (27.0-31.0); MEAN CORPUSCULAR HGB CONC 32.6 g/dL (33.0-36.5); MEAN CORPUSCULAR VOLUME 91.1 FL (78-98); MEAN PLATELET VOLUME 7.7 FL (7.4-10.4); MONOCYTES # (AUTO) 0.6 X10'3 (0-0.9); MONOCYTES % (AUTO) 7.7 % (2-12); NEUTROPHILS # (AUTO) 6.3 X10'3 (1.8-7.7); NEUTROPHILS % (AUTO) 76.1 % (42-75); PLATELET COUNT 166 X10'3 (140-440); RED BLOOD COUNT 4.12 X10'6 (4.20-5.60); RED CELL DISTRIBUTION WIDTH 13.6 % (11.5-14.5); WHITE BLOOD COUNT 8.2 X10'3 (4.5-11.0)
--- NOTE | 2021-10-21 09:35 | NUR ---
PT to CT.
[2021-10-21 09:43] LABS: ALANINE AMINOTRANSFERASE 19 U/L (12-78); ALBUMIN 3.3 G/DL (3.4-5.0); ALKALINE PHOSPHATASE 103 IU/L (46-116); ANION GAP 4 (8-16); ASPARTATE AMINO TRANSFERASE 18 U/L (10-37); BILIRUBIN,TOTAL 0.2 MG/DL (0.1-1.0); BLOOD UREA NITROGEN 28 MG/DL (7-18); CALCIUM 8.5 MG/DL (8.5-10.1); CHLORIDE 107 MMOL/L (99-107); GLUCOSE 113 MG/DL (70-104); POTASSIUM 3.3 MMOL/L (3.5-5.1); SODIUM 148 MMOL/L (135-145); TOTAL CARBON DIOXIDE 37.1 MMOL/L (24-32); TOTAL PROTEIN 6.5 G/DL (6.4-8.2)
--- NOTE | 2021-10-21 09:45 | NUR ---
Pt back from CT
[2021-10-21 09:50] LABS: BUN/CREATININE RATIO 62.2 (6.6-38.0); CREATININE 0.45 MG/DL (0.40-0.90); MAGNESIUM 1.8 MG/DL (1.5-2.4); eGFR > 90 ML/MIN
--- NOTE | 2021-10-21 10:21 | NUR ---
Vascular at bedside.
[2021-10-21] MEDS ORDERED: albuterol 2.5 MG/3 ML nebule CONTNEB PRN (11:40)
--- NOTE | 2021-10-21 11:45 | NUR ---
RT paged for 1 hr neb
[2021-10-21 13:00] VITALS: BP 141/76
--- NOTE | 2021-10-21 13:00 | NUR ---
Neb complete. Pt sleeping, no apparent distress or needs at this time.
--- NOTE | 2021-10-21 13:16 | NUR ---
Pt difficult to arouse, Alprazolam seen in purse. Pt finally awakened enough to call for a ride.
== END 2021-10-21 14:08 | disposition home or self-care (01) ==
LOC: ER 08:50
DX: J44.1 Chronic obstructive pulmonary disease with (acute) exacerbation (principal); F41.9 Anxiety disorder, unspecified; R06.02 Shortness of breath; R07.89 Other chest pain; R05.9 Cough, unspecified; G43.909 Migraine, unspecified, not intractable, without status migrainosus; I11.0 Hypertensive heart disease with heart failure; I50.9 Heart failure, unspecified; J44.9 Chronic obstructive pulmonary disease, unspecified; E11.9 Type 2 diabetes mellitus without complications; F15.90 Other stimulant use, unspecified, uncomplicated; Z87.01 Personal history of pneumonia (recurrent); Z90.49 Acquired absence of other specified parts of digestive tract; Z98.890 Other specified postprocedural states; Z88.1 Allergy status to other antibiotic agents; Z88.8 Allergy status to other drugs, medicaments and biological substances; Z79.82 Long term (current) use of aspirin; Z79.899 Other long term (current) drug therapy
CPT/HCPCS: 36415; 71045; 71275; 80053; 83735; 83880; 84484; 85025; 85610; 93005; 93971; 94640; 94644; 96374; 99285; J2060; Q9967; 94760; A7015

== ENCOUNTER 2021-10-22 05:04 | Emergency (ER) | payer BC, MEDICAID ==
[~2021-10-22] VITALS: Ht 160 cm; Wt 52.3 kg
[2021-10-22] MEDS ORDERED: cloNIDine 0.1 mg tablet PO ONE ×2 (05:25→05:35)
[2021-10-22] MEDS ORDERED: diphenhydrAMINE 50 mg/ml inj IM ONE (05:25)
[2021-10-22] MEDS ORDERED: haloperidol lactate 5mg/ml inj IM ONE (05:25)
[2021-10-22 06:41] VITALS: BP 134/77
== END 2021-10-22 07:38 | disposition home or self-care (01) ==
LOC: ER 05:04
DX: G43.909 Migraine, unspecified, not intractable, without status migrainosus (principal); R11.2 Nausea with vomiting, unspecified; I11.0 Hypertensive heart disease with heart failure; I50.9 Heart failure, unspecified; E11.9 Type 2 diabetes mellitus without complications; F41.9 Anxiety disorder, unspecified; F15.90 Other stimulant use, unspecified, uncomplicated; Z87.01 Personal history of pneumonia (recurrent); Z90.49 Acquired absence of other specified parts of digestive tract; Z98.890 Other specified postprocedural states; Z88.1 Allergy status to other antibiotic agents; Z88.8 Allergy status to other drugs, medicaments and biological substances; Z79.82 Long term (current) use of aspirin; Z79.899 Other long term (current) drug therapy
CPT/HCPCS: 96372; 99284; J1200; J1630

== ENCOUNTER 2021-10-29 04:14 | Inpatient (IN) | payer BC, MEDICAID ==
[~2021-10-29] VITALS: Ht 160 cm; Wt 52.3 kg
[2021-10-29 05:03] LABS: BASOPHILS # (AUTO) 0.1 X10'3 (0-0.2); BASOPHILS % (AUTO) 0.5 % (0-1); EOSINOPHILS # (AUTO) 0.1 X10'3 (0-0.9); EOSINOPHILS % (AUTO) 0.4 % (0-6); HEMATOCRIT 39.3 % (35.0-45.0); HEMOGLOBIN 12.5 g/dl (12.0-16.0); LYMPHOCYTES # (AUTO) 1.5 X10'3 (1.1-4.8); LYMPHOCYTES % (AUTO) 11.7 % (21-51); MEAN CORPUSCULAR HEMOGLOBIN 28.5 PG (27.0-31.0); MEAN CORPUSCULAR HGB CONC 31.8 g/dL (33.0-36.5); MEAN CORPUSCULAR VOLUME 89.8 FL (78-98); MEAN PLATELET VOLUME 7.7 FL (7.4-10.4); MONOCYTES # (AUTO) 1.1 X10'3 (0-0.9); MONOCYTES % (AUTO) 8.2 % (2-12); NEUTROPHILS # (AUTO) 10.4 X10'3 (1.8-7.7); NEUTROPHILS % (AUTO) 79.2 % (42-75); PLATELET COUNT 221 X10'3 (140-440); RED BLOOD COUNT 4.38 X10'6 (4.20-5.60); RED CELL DISTRIBUTION WIDTH 13.1 % (11.5-14.5); WHITE BLOOD COUNT 13.2 X10'3 (4.5-11.0)
[2021-10-29] MEDS ORDERED: morphine 4 MG/ML inj SYRINge IV ONE (05:05)
[2021-10-29] MEDS ORDERED: ondansetron/PF 4mg/2ml inj IV ONE (05:05)
[2021-10-29 05:12] LABS: ALANINE AMINOTRANSFERASE 22 U/L (12-78); ALBUMIN/GLOBULIN RATIO 0.8 (1.1-1.5); ALKALINE PHOSPHATASE 123 IU/L (46-116); ANION GAP 6 (8-16); BILIRUBIN,TOTAL 0.2 MG/DL (0.1-1.0); BLOOD UREA NITROGEN 25 MG/DL (7-18); BUN/CREATININE RATIO 45.5 (6.6-38.0); CALCIUM 8.8 MG/DL (8.5-10.1); CHLORIDE 104 MMOL/L (99-107); CREATININE 0.55 MG/DL (0.40-0.90); GLUCOSE 140 MG/DL (70-104); SODIUM 146 MMOL/L (135-145); TOTAL CARBON DIOXIDE 36.2 MMOL/L (24-32); TOTAL PROTEIN 6.7 G/DL (6.4-8.2); eGFR > 90 ML/MIN
[2021-10-29 05:15] LABS: ASPARTATE AMINO TRANSFERASE 18 U/L (10-37); POTASSIUM 3.2 MMOL/L (3.5-5.1)
--- NOTE | 2021-10-29 06:30 | NUR ---
FIRST CONTACT WITH PT, FOUND SUPINE IN BED. HR 130-140S, DR. HOLT INFORMED, REPEAT EKG DONE, NO FURTHER INTERVENTIONS NEEDED AT THIS TIME. PT DENIES PAIN AFTER MORPHINE ADMIN. PT UPDATED ON POC. AWAITING CT. NO DISTRESS.
[2021-10-29] MEDS ORDERED: iohexol 350MG/ML 100ml bottle IV ONE (06:54)
[2021-10-29 06:56] LABS: CLARITY,URINE SLIGHTLY CLOUDY (Clear); COLOR,URINE YELLOW (Yellow); GLUCOSE, URINE NEGATIVE (Neg); KETONES,URINE NEGATIVE (Neg); LEUKOCYTE ESTERASE ,URINE SMALL (Neg); NITRITES, URINE NEGATIVE (Neg); OCCULT BLOOD,URINE SMALL (Neg); PROTEIN,URINE TRACE mg/dl (Neg); UROBILINOGEN,URINE 0.2 E.U/dL (0.2-1.0)
[2021-10-29 07:11] LABS: UA COLLECTION TYPE NON-SPECIFIED
[2021-10-29 07:13] LABS: BACTERIA,URINE 4+ /HPF (Neg); RBC,URINE 0-2 /HPF (0-2); SQUAMOUS EPITHELIAL CELL,UR MODERATE /LPF (FEW); WBC,URINE TNTC /HPF (0-4)
--- NOTE | 2021-10-29 07:32 | NUR ---
PT RETURNED FROM CT WITHOUT INCIDENT. PT REPORTS HEADACHE AND ANXIETY, STATES HER HR IS ALWAYS INCREASED D/T ANXIETY.
[2021-10-29] MEDS ORDERED: cefTRIAXone 1g/NS 100ml IVPB 100 ML IV ONE ×2 (08:10)
[2021-10-29] MEDS ORDERED: ipratropium/albuterol 3ml nebule NEB ONE (08:10)
[2021-10-29] MEDS ORDERED: bisacodyl 5mg tablet.DR PO ONE (08:30)
--- NOTE | 2021-10-29 08:33 | NUR ---
ABX STARTED, INFORMED PT THAT SHE IS GOING TO BE ADMITTED. REQUESTING ICE WATER. CONTINUES TO REPORT HEADACHE, FLANK PAIN AND ANXIETY.
[2021-10-29 08:42] LABS: URINE AMPHETAMINE SCREEN POSITIVE (Neg); URINE BARBITUATE SCREEN NEGATIVE (Neg); URINE BENZODIAZEPINES SCREEN NEGATIVE (Neg); URINE CANNABINOID SCREEN NEGATIVE (Neg); URINE COCAINE SCREEN NEGATIVE (Neg); URINE METHADONE SCREEN NEGATIVE (Neg); URINE OPIATE SCREEN POSITIVE (Neg); URINE PHENCYCLIDINE SCREEN NEGATIVE (Neg)
[2021-10-29] MEDS ORDERED: LEVALBUTEROL HCL 1.25 MG/3 ML VIAL.NEB INH ONE (08:45)
[2021-10-29] MEDS ORDERED: magnesium Cl slow-release 64mg tablet PO PRN (09:30)
[2021-10-29] MEDS ORDERED: magnesium 4gm in 100ml NS 100 ML IV PRN (09:30)
[2021-10-29] MEDS ORDERED: acetaminophen 325mg tablet PO PRN (09:30)
[2021-10-29] MEDS ORDERED: potassium CL 10mEq/100ml bag 100 ML IV PRN (09:30)
[2021-10-29] MEDS ORDERED: ondansetron/PF 4mg/2ml inj IV PRN (09:30)
[2021-10-29] MEDS ORDERED: potassium Cl 20 mEq SR tablet PO PRN ×2 (09:30)
[2021-10-29] MEDS ORDERED: magnesium 2GM in 50ml NS 50 ML IV PRN (09:30)
[2021-10-29] MEDS ORDERED: magnesium hydroxide 30ml (MOM) UD suspension PO PRN (09:30)
[2021-10-29] MEDS ORDERED: bisacodyl 10mg suppository rectal RC PRN (09:30)
[2021-10-29] MEDS ORDERED: FLUT1BLS16 IH (10:18)
[2021-10-29 10:42] LABS: MAGNESIUM 1.8 MG/DL (1.5-2.4); POTASSIUM 3.6 MMOL/L (3.5-5.1)
[2021-10-29 12:49] VITALS: BP 130/66
--- NOTE | 2021-10-29 14:57 | NUR ---
O2 Sat at rest on room air:_90__% If below 89%: Recovery O2 Sat at rest on _95__LPM:___%:___% via Nasal Canula (mask/nasal cannula, etc..) No further documentation is necessary. If O2 Sat did not drop below 89% on room air,ambulate patient on room air. O2 Sat while ambulating on room air:___% Recovery O2 Sat while ambulating on ___LPM:___% No further documentation is necessary. If patient does not drop below 89% while ambulating, he/she does not qualify for home O2.
[2021-10-29 15:00] VITALS: BP 111/55
[2021-10-29] MEDS: cefTRIAXone 1g/NS 100ml IVPB 100 ML IV SCH (17:00)
[2021-10-29 18:00] VITALS: BP 100/52
[2021-10-29] MEDS ORDERED: morphine 4 MG/ML inj SYRINge IV PRN (19:25)
[2021-10-29] MEDS: ipratropium/albuterol 3ml nebule NEB SCH ×2 (19:41→23:09)
[2021-10-29] MEDS: heparin, porcine 5000 units/ml vial SQ SCH (20:00)
[2021-10-29] MEDS: docusate sod 100mg capsule PO SCH (20:00)
[2021-10-29] MEDS: K and/or MAG REPLACEMENT MC SCH (20:00)
[2021-10-29 22:00] VITALS: BP 113/57
[2021-10-29] MEDS: morphine 2 MG/ML inj. syringe IV PRN (23:38)
[2021-10-30 02:00] VITALS: BP 154/85
[2021-10-30] MEDS: ipratropium/albuterol 3ml nebule NEB SCH ×7 (02:06→23:00)
[2021-10-30] MEDS ORDERED: LORazepam 2 mg/ml vial IV PRN (03:25)
[2021-10-30 06:00] VITALS: BP 141/71
[2021-10-30] MEDS: K and/or MAG REPLACEMENT MC SCH ×2 (08:00→19:09)
[2021-10-30 08:17] LABS: BASOPHILS % (AUTO) 0.2 % (0-1); EOSINOPHILS # (AUTO) 0.1 X10'3 (0-0.9); EOSINOPHILS % (AUTO) 0.4 % (0-6); HEMOGLOBIN 12.6 g/dl (12.0-16.0); LYMPHOCYTES % (AUTO) 8.5 % (21-51); MEAN CORPUSCULAR HEMOGLOBIN 28.9 PG (27.0-31.0); MEAN CORPUSCULAR HGB CONC 31.4 g/dL (33.0-36.5); MEAN CORPUSCULAR VOLUME 91.9 FL (78-98); MEAN PLATELET VOLUME 7.3 FL (7.4-10.4); MONOCYTES # (AUTO) 0.5 X10'3 (0-0.9); NEUTROPHILS # (AUTO) 10.2 X10'3 (1.8-7.7); NEUTROPHILS % (AUTO) 86.9 % (42-75); PLATELET COUNT 224 X10'3 (140-440); RED BLOOD COUNT 4.35 X10'6 (4.20-5.60); RED CELL DISTRIBUTION WIDTH 13.8 % (11.5-14.5); WHITE BLOOD COUNT 11.8 X10'3 (4.5-11.0)
[2021-10-30 08:34] LABS: ALBUMIN 3.1 G/DL (3.4-5.0); ANION GAP 5 (8-16); BLOOD UREA NITROGEN 19 MG/DL (7-18); BUN/CREATININE RATIO 51.4 (6.6-38.0); CALCIUM 8.8 MG/DL (8.5-10.1); CHLORIDE 99 MMOL/L (99-107); CREATININE 0.37 MG/DL (0.40-0.90); GLUCOSE 127 MG/DL (70-104); POTASSIUM 4.1 MMOL/L (3.5-5.1); SODIUM 146 MMOL/L (135-145); eGFR > 90 ML/MIN
[2021-10-30] MEDS: docusate sod 100mg capsule PO SCH ×2 (08:48→19:32)
[2021-10-30] MEDS: cefTRIAXone 1g/NS 100ml IVPB 100 ML IV SCH (08:48)
[2021-10-30] MEDS: heparin, porcine 5000 units/ml vial SQ SCH (08:48)
[2021-10-30 08:51] LABS: TOTAL CARBON DIOXIDE 41.9 MMOL/L (24-32)
[2021-10-30 11:00] VITALS: BP 145/75
--- NOTE | 2021-10-30 13:30 | NUR ---
DM Consult: Pt w/ hx DM, A1c pending per EMR. Will monitor appropriateness for DM education pending A1c result. Addendum: 10/30/21 at [address] Amended: Links added. Addendum: 10/30/21 at [address] I have reviewed assessment by inclusion internship
[2021-10-30 15:00] VITALS: BP 136/68
[2021-10-30] MEDS ORDERED: ALPRAZolam 0.25mg tablet PO PRN (15:25)
--- NOTE | 2021-10-30 15:35 | NUR ---
PAGER ID: [phone] MESSAGE: Dr. Coleman [phone] Cierra Fonseca HR is 134. before that was 127
[2021-10-30] MEDS ORDERED: albuterol 2.5 MG/3 ML nebule NEB PRN (15:45)
[2021-10-30] MEDS ORDERED: albuterol 2.5 MG/3 ML nebule NEB SCH (16:00)
[2021-10-30] MEDS: aspirin 81mg tab.chew PO SCH (16:02)
[2021-10-30] MEDS: lisinopril 2.5mg tablet PO SCH (16:07)
[2021-10-30 18:00] VITALS: BP 137/74
[2021-10-30 19:25] LABS: HEMOGLOBIN A1C 5.5 % (4.5-6.2)
[2021-10-30] MEDS: apixaban 5mg tablet PO SCH (19:31)
[2021-10-30] MEDS: metoprolol tartrate 25mg tablet PO SCH (19:32)
[2021-10-30] MEDS: budesonide 0.5mg/2ml UD nebule IH SCH (20:00)
[2021-10-30 22:00] VITALS: BP 115/54
[2021-10-31 02:00] VITALS: BP 104/60
[2021-10-31] MEDS: ipratropium/albuterol 3ml nebule NEB SCH ×6 (02:53→23:28)
[2021-10-31 06:00] VITALS: BP 110/73
--- NOTE | 2021-10-31 07:08 | NUR ---
Noted A1c 5.5 well controlled and appropriate. DM ed not indicated at this time. Addendum: 10/31/21 at [address] Amended: Links added.
[2021-10-31] MEDS: budesonide 0.5mg/2ml UD nebule IH SCH ×2 (07:09→19:24)
[2021-10-31 07:31] LABS: BASOPHILS % (AUTO) 0.3 % (0-1); EOSINOPHILS % (AUTO) 0.3 % (0-6); HEMATOCRIT 39.3 % (35.0-45.0); HEMOGLOBIN 12.5 g/dl (12.0-16.0); LYMPHOCYTES # (AUTO) 0.9 X10'3 (1.1-4.8); LYMPHOCYTES % (AUTO) 9.6 % (21-51); MEAN CORPUSCULAR HEMOGLOBIN 28.9 PG (27.0-31.0); MEAN CORPUSCULAR HGB CONC 31.7 g/dL (33.0-36.5); MEAN CORPUSCULAR VOLUME 91.2 FL (78-98); MEAN PLATELET VOLUME 7.6 FL (7.4-10.4); MONOCYTES # (AUTO) 0.5 X10'3 (0-0.9); MONOCYTES % (AUTO) 5.7 % (2-12); NEUTROPHILS # (AUTO) 8.1 X10'3 (1.8-7.7); NEUTROPHILS % (AUTO) 84.1 % (42-75); PLATELET COUNT 188 X10'3 (140-440); RED BLOOD COUNT 4.31 X10'6 (4.20-5.60); RED CELL DISTRIBUTION WIDTH 13.1 % (11.5-14.5); WHITE BLOOD COUNT 9.6 X10'3 (4.5-11.0)
[2021-10-31] MEDS: cholecalciferol (vitamin D3) 1,000 unit (25mcg) tablet PO SCH (07:45)
[2021-10-31] MEDS: metoprolol tartrate 25mg tablet PO SCH ×2 (07:46→20:18)
[2021-10-31] MEDS: lisinopril 2.5mg tablet PO SCH (07:46)
[2021-10-31] MEDS: apixaban 5mg tablet PO SCH ×2 (07:46→20:26)
[2021-10-31] MEDS: aspirin 81mg tab.chew PO SCH (07:47)
[2021-10-31] MEDS: docusate sod 100mg capsule PO SCH ×2 (07:47→20:18)
[2021-10-31] MEDS: multivitamins, therapeutics tablet PO SCH (07:47)
[2021-10-31] MEDS: oxybutynin 5mg tablet PO SCH (07:47)
[2021-10-31] MEDS: ferrous sulfate 325mg tablet PO SCH (07:47)
[2021-10-31] MEDS: pantoprazole 40mg Tablet.DR PO SCH (07:47)
[2021-10-31] MEDS: cefTRIAXone 1g/NS 100ml IVPB 100 ML IV SCH (07:48)
[2021-10-31] MEDS: K and/or MAG REPLACEMENT MC SCH ×2 (08:00→20:00)
[2021-10-31 08:03] LABS: ALBUMIN 2.7 G/DL (3.4-5.0); ANION GAP 4 (8-16); BLOOD UREA NITROGEN 27 MG/DL (7-18); BUN/CREATININE RATIO 69.2 (6.6-38.0); CALCIUM 8.7 MG/DL (8.5-10.1); CHLORIDE 99 MMOL/L (99-107); CREATININE 0.39 MG/DL (0.40-0.90); GLUCOSE 154 MG/DL (70-104); MAGNESIUM 1.9 MG/DL (1.5-2.4); POTASSIUM 3.4 MMOL/L (3.5-5.1); SODIUM 146 MMOL/L (135-145); eGFR > 90 ML/MIN
[2021-10-31 08:32] LABS: TOTAL CARBON DIOXIDE 42.6 MMOL/L (24-32)
[2021-10-31 10:32] LABS: ABG BASE EXCESS 15.1 mmol/L (-2.0-2.0); ABG HCO3 44.2 mmol/L (22.0-26.0); ABG OXYGEN SATURATION 95.6 % (94-97); ABG PO2 (T) 80.3 mmHg (75.0-100.0); ALLEN'S TEST POSITIVE; FCOHb 0.8 % (0.0-3.9); FLOW 4 L/min; FMetHb 0.4 % (0.0-1.5); FO2Hb 94.5 % (94-97); PATIENT TEMPERATURE 37.2; TOTAL HEMOGLOBIN 12.9 G/dl (12.0-16.0)
[2021-10-31 11:00] VITALS: BP 120/69
[2021-10-31 14:23] LABS: ABG BASE EXCESS 19.7 mmol/L (-2.0-2.0); ABG HCO3 46.7 mmol/L (22.0-26.0); ABG OXYGEN SATURATION 92.2 % (94-97); ABG PCO2 (T) 62.1 mmHg (32.0-45.0); ABG PO2 (T) 57.9 mmHg (75.0-100.0); ALLEN'S TEST POSITIVE; FCOHb 1.1 % (0.0-3.9); FMetHb 0.1 % (0.0-1.5); FO2Hb 91.1 % (94-97); PATIENT TEMPERATURE 36.6; RESPIRATORY RATE 10 b/min; TIDAL VOLUME 432 mL; TOTAL HEMOGLOBIN 13.2 G/dl (12.0-16.0)
[2021-10-31 15:00] VITALS: BP 128/77
[2021-10-31 18:00] VITALS: BP 125/69
[2021-10-31] MEDS: methylPREDNISolone sod succ 125mg/2ml vial IV SCH (20:27)
[2021-10-31] MEDS: morphine 2 MG/ML inj. syringe IV PRN (20:42)
[2021-10-31 22:00] VITALS: BP 133/74
[2021-11-01] MEDS: morphine 2 MG/ML inj. syringe IV PRN ×3 (01:22→09:22)
[2021-11-01 02:00] VITALS: BP 115/58
[2021-11-01] MEDS: ipratropium/albuterol 3ml nebule NEB SCH ×2 (02:36→07:11)
[2021-11-01 03:00] VITALS: BP 115/58
[2021-11-01 06:00] VITALS: BP 132/72
[2021-11-01] MEDS: budesonide 0.5mg/2ml UD nebule IH SCH (07:11)
[2021-11-01 07:14] LABS: BASOPHILS % (AUTO) 0.3 % (0-1); EOSINOPHILS % (AUTO) 0.1 % (0-6); HEMATOCRIT 39.3 % (35.0-45.0); HEMOGLOBIN 12.9 g/dl (12.0-16.0); LYMPHOCYTES # (AUTO) 0.9 X10'3 (1.1-4.8); LYMPHOCYTES % (AUTO) 11.5 % (21-51); MEAN CORPUSCULAR HEMOGLOBIN 29.5 PG (27.0-31.0); MEAN CORPUSCULAR HGB CONC 32.9 g/dL (33.0-36.5); MEAN CORPUSCULAR VOLUME 89.5 FL (78-98); MEAN PLATELET VOLUME 7.4 FL (7.4-10.4); MONOCYTES # (AUTO) 0.3 X10'3 (0-0.9); MONOCYTES % (AUTO) 4.4 % (2-12); NEUTROPHILS # (AUTO) 6.5 X10'3 (1.8-7.7); NEUTROPHILS % (AUTO) 83.7 % (42-75); PLATELET COUNT 205 X10'3 (140-440); RED BLOOD COUNT 4.39 X10'6 (4.20-5.60); RED CELL DISTRIBUTION WIDTH 12.9 % (11.5-14.5); WHITE BLOOD COUNT 7.8 X10'3 (4.5-11.0)
[2021-11-01 07:57] LABS: ALBUMIN 2.8 G/DL (3.4-5.0); ANION GAP 4 (8-16); BLOOD UREA NITROGEN 23 MG/DL (7-18); BUN/CREATININE RATIO 41.8 (6.6-38.0); CALCIUM 8.6 MG/DL (8.5-10.1); CHLORIDE 100 MMOL/L (99-107); CREATININE 0.55 MG/DL (0.40-0.90); GLUCOSE 244 MG/DL (70-104); MAGNESIUM 1.9 MG/DL (1.5-2.4); POTASSIUM 3.5 MMOL/L (3.5-5.1); SODIUM 141 MMOL/L (135-145); TOTAL CARBON DIOXIDE 37.5 MMOL/L (24-32); eGFR > 90 ML/MIN
[2021-11-01] MEDS: K and/or MAG REPLACEMENT MC SCH (08:00)
[2021-11-01] MEDS: lisinopril 2.5mg tablet PO SCH (09:20)
[2021-11-01 09:21] VITALS: BP_SYST 132
[2021-11-01] MEDS: metoprolol tartrate 25mg tablet PO SCH (09:21)
[2021-11-01] MEDS: cholecalciferol (vitamin D3) 1,000 unit (25mcg) tablet PO SCH (09:21)
[2021-11-01] MEDS: multivitamins, therapeutics tablet PO SCH (09:23)
[2021-11-01] MEDS: methylPREDNISolone sod succ 125mg/2ml vial IV SCH (09:23)
[2021-11-01] MEDS: apixaban 5mg tablet PO SCH (09:23)
[2021-11-01] MEDS: aspirin 81mg tab.chew PO SCH (09:24)
[2021-11-01] MEDS: pantoprazole 40mg Tablet.DR PO SCH (09:24)
[2021-11-01] MEDS: ferrous sulfate 325mg tablet PO SCH (09:24)
[2021-11-01] MEDS: docusate sod 100mg capsule PO SCH (09:24)
[2021-11-01] MEDS: oxybutynin 5mg tablet PO SCH (09:24)
[2021-11-01] MEDS: cefTRIAXone 1g/NS 100ml IVPB 100 ML IV SCH (09:25)
[2021-11-01] MEDS ORDERED: CEFD300C3 PO (10:15)
[2021-11-01] MEDS ORDERED: PRED10TA23 PO (10:16)
[2021-11-01] MEDS ORDERED: LOP25T PO (10:22)
--- NOTE | 2021-11-01 12:10 | NUR ---
Pt stable for d/c before I had the time to print d/c ppwk and remove PIV; the pt removed PIV, bandage applied - no bleeding. She also was wheeled out by in w/c provided by home. They did not wait for d/c ppwk to be reviewed with them and I had to run after them and find them backing out of the parking lot for patient to sign the d/c ppwk. She did NOT want me to go over anything. Reminded her of the 2 new RX that she needs to last picker. She verbalized understanding. Pt d/c was late out the door as she was waiting for her to come and when he came they did not want to wait for review of d/c ppwk. Pt did not give me a time that ride was coming.
== END 2021-11-01 12:05 | disposition home health service (06) | DRG 871 ==
LOC: ER 04:15 → ED HOLD 09:42 → PCU 3S 12:40
PROVIDERS: ADMIT Internal Medicine; ATTEND Internal Medicine
PROC: B32T1ZZ Computerized Tomography (CT Scan) of Left Pulmonary Artery using Low Osmolar Contrast (ICD-10-PCS; 2021-10-29)
PROC: B3201ZZ Computerized Tomography (CT Scan) of Thoracic Aorta using Low Osmolar Contrast (ICD-10-PCS; 2021-10-29)
PROC: B32S1ZZ Computerized Tomography (CT Scan) of Right Pulmonary Artery using Low Osmolar Contrast (ICD-10-PCS; 2021-10-29)
PROC: 5A09357 Assistance with Respiratory Ventilation, Less than 24 Consecutive Hours, Continuous Positive Airway Pressure (ICD-10-PCS; principal; 2021-10-31)
DX: A41.9 Sepsis, unspecified organism (principal); J96.22 Acute and chronic respiratory failure with hypercapnia; N39.0 Urinary tract infection, site not specified; E44.0 Moderate protein-calorie malnutrition; I47.1 Supraventricular tachycardia; J44.1 Chronic obstructive pulmonary disease with (acute) exacerbation; Z20.822 Contact with and (suspected) exposure to COVID-19; E05.90 Thyrotoxicosis, unspecified without thyrotoxic crisis or storm; E11.9 Type 2 diabetes mellitus without complications; F15.10 Other stimulant abuse, uncomplicated; F41.9 Anxiety disorder, unspecified; G35 Multiple sclerosis; G89.29 Other chronic pain; I11.0 Hypertensive heart disease with heart failure; I50.9 Heart failure, unspecified; G43.909 Migraine, unspecified, not intractable, without status migrainosus; K21.9 Gastro-esophageal reflux disease without esophagitis; R32 Unspecified urinary incontinence; Z79.01 Long term (current) use of anticoagulants; Z82.49 Family history of ischemic heart disease and other diseases of the circulatory system; Z82.5 Family history of asthma and other chronic lower respiratory diseases; Z83.3 Family history of diabetes mellitus; Z87.442 Personal history of urinary calculi; Z87.891 Personal history of nicotine dependence; Z68.20 Body mass index [BMI] 20.0-20.9, adult; Z88.8 Allergy status to other drugs, medicaments and biological substances; Z90.49 Acquired absence of other specified parts of digestive tract; Z98.891 History of uterine scar from previous surgery; Z99.81 Dependence on supplemental oxygen; Z79.899 Other long term (current) drug therapy; Z71.51 Drug abuse counseling and surveillance of drug abuser
CPT/HCPCS: 36415; 36600; 71045; 71275; 74176; 80048; 80053; 80305; 81001; 82803; 82948; 83036; 83735; 84132; 84443; 85018; 85025; 87081; 87635; 93005; 94640; 94660; 94760; 96374; 96375; 97161; 97530; 99285; C9803; G0378; J0696; J1644; J2060; J2270; J2405; J2930; J7614; Q9967

== ENCOUNTER 2021-11-04 04:22 | Emergency (ER) | payer BC, MEDICAID ==
[~2021-11-04] VITALS: Ht 160 cm; Wt 71.8 kg
[~2021-11-04 04:22] MED LIST changes: -ATR0.5NEB NEB; -BUDE10.2 INH; +CEFD300C3 PO; +FLUT1BLS16 IH; +PRED10TA23 PO; -PRED20TA PO; -SERT-432 PO
[2021-11-04] MEDS ORDERED: albuterol 2.5 MG/3 ML nebule NEB ONE (06:15)
[2021-11-04 06:37] LABS: BASOPHILS # (AUTO) 0.1 X10'3 (0-0.2); BASOPHILS % (AUTO) 0.7 % (0-1); EOSINOPHILS # (AUTO) 0.3 X10'3 (0-0.9); EOSINOPHILS % (AUTO) 3.9 % (0-6); HEMATOCRIT 37.8 % (35.0-45.0); HEMOGLOBIN 12.2 g/dl (12.0-16.0); LYMPHOCYTES # (AUTO) 1.8 X10'3 (1.1-4.8); LYMPHOCYTES % (AUTO) 21.3 % (21-51); MEAN CORPUSCULAR HEMOGLOBIN 29.4 PG (27.0-31.0); MEAN CORPUSCULAR HGB CONC 32.4 g/dL (33.0-36.5); MEAN CORPUSCULAR VOLUME 90.7 FL (78-98); MONOCYTES # (AUTO) 0.6 X10'3 (0-0.9); MONOCYTES % (AUTO) 7.2 % (2-12); NEUTROPHILS # (AUTO) 5.6 X10'3 (1.8-7.7); NEUTROPHILS % (AUTO) 66.9 % (42-75); PLATELET COUNT 215 X10'3 (140-440); RED BLOOD COUNT 4.17 X10'6 (4.20-5.60); RED CELL DISTRIBUTION WIDTH 13.5 % (11.5-14.5); WHITE BLOOD COUNT 8.3 X10'3 (4.5-11.0)
[2021-11-04 06:45] VITALS: BP 140/72
[2021-11-04 06:56] LABS: ALANINE AMINOTRANSFERASE 28 U/L (12-78); ALBUMIN 2.9 G/DL (3.4-5.0); ALBUMIN/GLOBULIN RATIO 0.8 (1.1-1.5); ALKALINE PHOSPHATASE 105 IU/L (46-116); ANION GAP 8 (8-16); BILIRUBIN,TOTAL 0.3 MG/DL (0.1-1.0); BLOOD UREA NITROGEN 26 MG/DL (7-18); BUN/CREATININE RATIO 43.3 (6.6-38.0); CALCIUM 8.8 MG/DL (8.5-10.1); CHLORIDE 103 MMOL/L (99-107); GLUCOSE 130 MG/DL (70-104); SODIUM 145 MMOL/L (135-145); TOTAL CARBON DIOXIDE 34.2 MMOL/L (24-32); TOTAL PROTEIN 6.7 G/DL (6.4-8.2); eGFR > 90 ML/MIN
[2021-11-04 07:00] LABS: ASPARTATE AMINO TRANSFERASE 26 U/L (10-37); POTASSIUM 3.2 MMOL/L (3.5-5.1)
--- NOTE | 2021-11-04 07:46 | NUR ---
Svn ordered over an hour ago, RT not paged. Pt seen resting comfortably, waiting of flu swab results. Medication not available to pull from [employer], but med also not needed at this time. Will recheck when Flu results come back
[2021-11-04] MEDS ORDERED: PRED10TA23 PO (08:07)
[2021-11-04] MEDS ORDERED: LOP12.5T PO (08:07)
[2021-11-04] MEDS ORDERED: CEFD300C3 PO (08:07)
--- NOTE | 2021-11-04 08:35 | NUR ---
Pt given and understands d/c instructions. IV d/c'd, catheter was intact. Escorted out of the department via her own wheelchair by a family member.
== END 2021-11-04 08:36 | disposition home or self-care (01) ==
LOC: ER 04:22
DX: R21 Rash and other nonspecific skin eruption (principal); J44.1 Chronic obstructive pulmonary disease with (acute) exacerbation; F15.90 Other stimulant use, unspecified, uncomplicated; G43.909 Migraine, unspecified, not intractable, without status migrainosus; G35 Multiple sclerosis; I11.0 Hypertensive heart disease with heart failure; I50.9 Heart failure, unspecified; J44.9 Chronic obstructive pulmonary disease, unspecified; E11.9 Type 2 diabetes mellitus without complications; Z87.01 Personal history of pneumonia (recurrent); Z86.19 Personal history of other infectious and parasitic diseases; Z90.49 Acquired absence of other specified parts of digestive tract; Z98.891 History of uterine scar from previous surgery; Z88.1 Allergy status to other antibiotic agents; Z91.048 Other nonmedicinal substance allergy status; Z79.82 Long term (current) use of aspirin; Z79.899 Other long term (current) drug therapy
CPT/HCPCS: 36415; 71045; 80053; 84484; 85025; 87502; 87503; 93005; 99285

== ENCOUNTER 2021-11-22 02:59 | Emergency (ER) | payer BC, MEDICAID ==
[~2021-11-22] VITALS: Ht 160 cm; Wt 52.3 kg
[~2021-11-22 02:59] MED LIST changes: +LOP12.5T PO
[2021-11-22 04:06] LABS: BASOPHILS # (AUTO) 0.1 X10'3 (0-0.2); BASOPHILS % (AUTO) 0.5 % (0-1); EOSINOPHILS # (AUTO) 0.1 X10'3 (0-0.9); EOSINOPHILS % (AUTO) 0.4 % (0-6); HEMATOCRIT 39.5 % (35.0-45.0); HEMOGLOBIN 12.8 g/dl (12.0-16.0); LYMPHOCYTES # (AUTO) 0.5 X10'3 (1.1-4.8); LYMPHOCYTES % (AUTO) 2.8 % (21-51); MEAN CORPUSCULAR HEMOGLOBIN 28.8 PG (27.0-31.0); MEAN CORPUSCULAR HGB CONC 32.3 g/dL (33.0-36.5); MEAN CORPUSCULAR VOLUME 89.1 FL (78-98); MEAN PLATELET VOLUME 7.8 FL (7.4-10.4); MONOCYTES # (AUTO) 0.5 X10'3 (0-0.9); MONOCYTES % (AUTO) 2.9 % (2-12); NEUTROPHILS # (AUTO) 16.9 X10'3 (1.8-7.7); NEUTROPHILS % (AUTO) 93.4 % (42-75); PLATELET COUNT 141 X10'3 (140-440); RED BLOOD COUNT 4.44 X10'6 (4.20-5.60); RED CELL DISTRIBUTION WIDTH 13.9 % (11.5-14.5); WHITE BLOOD COUNT 18.1 X10'3 (4.5-11.0)
[2021-11-22 04:15] LABS: ALANINE AMINOTRANSFERASE 23 U/L (12-78); ALBUMIN 3.2 G/DL (3.4-5.0); ALBUMIN/GLOBULIN RATIO 0.9 (1.1-1.5); ALKALINE PHOSPHATASE 127 IU/L (46-116); ANION GAP 7 (8-16); ASPARTATE AMINO TRANSFERASE 17 U/L (10-37); BILIRUBIN,TOTAL 0.6 MG/DL (0.1-1.0); BLOOD UREA NITROGEN 14 MG/DL (7-18); BUN/CREATININE RATIO 18.4 (6.6-38.0); CALCIUM 8.7 MG/DL (8.5-10.1); CHLORIDE 101 MMOL/L (99-107); CREATININE 0.76 MG/DL (0.40-0.90); GLUCOSE 202 MG/DL (70-104); POTASSIUM 3.3 MMOL/L (3.5-5.1); SODIUM 141 MMOL/L (135-145); TOTAL CARBON DIOXIDE 32.6 MMOL/L (24-32); TOTAL PROTEIN 6.9 G/DL (6.4-8.2); eGFR 78 ML/MIN
[2021-11-22 06:41] LABS: D-DIMER 0.42 MG/L FEU (0-0.50)
[2021-11-22] MEDS ORDERED: azithromycin/NS 500mg/250ml 250 ML IV ONE (07:20)
[2021-11-22] MEDS ORDERED: ketorolac tromethamine 15mg/ml inj. IV ONE (07:20)
[2021-11-22] MEDS ORDERED: cefTRIAXone 1g/NS 100ml IVPB 100 ML IV ONE (07:20)
[2021-11-22] MEDS ORDERED: AZIT-83 PO (07:23)
[2021-11-22] MEDS ORDERED: CEFD300C3 PO (07:23)
[2021-11-22 10:36] VITALS: BP 111/73
== END 2021-11-22 10:39 | disposition home or self-care (01) ==
LOC: ER 03:00
DX: J96.11 Chronic respiratory failure with hypoxia (principal); Z20.822 Contact with and (suspected) exposure to COVID-19; M54.50 Low back pain, unspecified; J18.9 Pneumonia, unspecified organism; F15.90 Other stimulant use, unspecified, uncomplicated; R19.7 Diarrhea, unspecified; G43.909 Migraine, unspecified, not intractable, without status migrainosus; I11.0 Hypertensive heart disease with heart failure; I50.9 Heart failure, unspecified; J44.9 Chronic obstructive pulmonary disease, unspecified; E11.9 Type 2 diabetes mellitus without complications; F41.9 Anxiety disorder, unspecified; F17.200 Nicotine dependence, unspecified, uncomplicated; Z72.89 Other problems related to lifestyle; Z87.01 Personal history of pneumonia (recurrent); Z90.49 Acquired absence of other specified parts of digestive tract; Z98.890 Other specified postprocedural states; Z88.1 Allergy status to other antibiotic agents; Z88.8 Allergy status to other drugs, medicaments and biological substances; Z79.82 Long term (current) use of aspirin; Z79.2 Long term (current) use of antibiotics; Z79.899 Other long term (current) drug therapy
CPT/HCPCS: 36415; 71045; 80053; 83605; 83880; 84145; 84484; 85025; 85379; 87040; 87635; 93005; 96365; 96368; 96375; 99285; C9803; J0456; J0696; J1885

== ENCOUNTER 2021-11-27 21:18 | Emergency (ER) | payer BC, MEDICAID ==
[~2021-11-27] VITALS: Ht 160 cm; Wt 52.3 kg
[~2021-11-27 21:18] MED LIST changes: +AZIT-83 PO
[2021-11-27 22:15] LABS: BASOPHILS % (AUTO) 0.3 % (0-1); EOSINOPHILS # (AUTO) 0.3 X10'3 (0-0.9); EOSINOPHILS % (AUTO) 4.2 % (0-6); HEMATOCRIT 35.5 % (35.0-45.0); HEMOGLOBIN 11.3 g/dl (12.0-16.0); LYMPHOCYTES # (AUTO) 1.6 X10'3 (1.1-4.8); LYMPHOCYTES % (AUTO) 23.2 % (21-51); MEAN CORPUSCULAR VOLUME 90.7 FL (78-98); MEAN PLATELET VOLUME 7.4 FL (7.4-10.4); MONOCYTES # (AUTO) 0.6 X10'3 (0-0.9); NEUTROPHILS # (AUTO) 4.5 X10'3 (1.8-7.7); NEUTROPHILS % (AUTO) 64.3 % (42-75); PLATELET COUNT 232 X10'3 (140-440); RED BLOOD COUNT 3.91 X10'6 (4.20-5.60); RED CELL DISTRIBUTION WIDTH 13.9 % (11.5-14.5)
[2021-11-27 22:33] LABS: ALANINE AMINOTRANSFERASE 14 U/L (12-78); ALBUMIN 2.7 G/DL (3.4-5.0); ALBUMIN/GLOBULIN RATIO 0.8 (1.1-1.5); ALKALINE PHOSPHATASE 128 IU/L (46-116); ANION GAP 5 (8-16); ASPARTATE AMINO TRANSFERASE 16 U/L (10-37); BILIRUBIN,TOTAL 0.1 MG/DL (0.1-1.0); BLOOD UREA NITROGEN 24 MG/DL (7-18); BUN/CREATININE RATIO 36.9 (6.6-38.0); CALCIUM 8.8 MG/DL (8.5-10.1); CHLORIDE 107 MMOL/L (99-107); CREATININE 0.65 MG/DL (0.40-0.90); GLUCOSE 151 MG/DL (70-104); POTASSIUM 3.6 MMOL/L (3.5-5.1); SODIUM 146 MMOL/L (135-145); TOTAL CARBON DIOXIDE 33.9 MMOL/L (24-32); TOTAL PROTEIN 6.3 G/DL (6.4-8.2); eGFR > 90 ML/MIN
[2021-11-27 22:42] LABS: LIPASE 75 U/L (73-393)
[2021-11-27] MEDS ORDERED: cefTRIAXone 1g/NS 100ml IVPB 100 ML IV ONE (23:15)
[2021-11-27] MEDS ORDERED: normal saline 1000ml 1,000 ML IV ONE (23:15)
[2021-11-27] MEDS ORDERED: morphine 4 MG/ML inj SYRINge IV ONE (23:15)
[2021-11-28 01:50] LABS: CLARITY,URINE SLIGHTLY CLOUDY (Clear); COLOR,URINE YELLOW (Yellow); GLUCOSE, URINE NEGATIVE (Neg); KETONES,URINE NEGATIVE (Neg); LEUKOCYTE ESTERASE ,URINE NEGATIVE (Neg); NITRITES, URINE NEGATIVE (Neg); OCCULT BLOOD,URINE NEGATIVE (Neg); PROTEIN,URINE NEGATIVE (Neg); UROBILINOGEN,URINE 0.2 E.U/dL (0.2-1.0)
[2021-11-28 01:51] LABS: UA COLLECTION TYPE URINAL
[2021-11-28 02:01] LABS: BACTERIA,URINE FEW /HPF (Neg); MUCUS STRANDS FEW /LPF (Neg); RBC,URINE 0-2 /HPF (0-2); SQUAMOUS EPITHELIAL CELL,UR MODERATE /LPF (FEW)
[2021-11-28 02:02] LABS: TRANSITIONAL EPI CELLS,URINE FEW /HPF
[2021-11-28] MEDS ORDERED: albuterol 2.5 MG/3 ML nebule NEB ONE (03:20)
[2021-11-28] MEDS ORDERED: morphine 4 MG/ML inj SYRINge IV ONE (05:00)
[2021-11-28] MEDS ORDERED: AZIT500T9 PO (05:58)
[2021-11-28] MEDS ORDERED: AMOX-117 PO (05:58)
[2021-11-28] MEDS ORDERED: amox tr/potassium clavulanate 875/125mg TAB PO ONE (06:00)
[2021-11-28] MEDS ORDERED: azithromycin 250mg tablet PO ONE (06:00)
[2021-11-28] MEDS ORDERED: HYDROcodone/acetaminophen 5mg/325mg tablet PO ONE (07:05)
[2021-11-28 07:21] VITALS: BP 172/88
[2021-11-29] MEDS ORDERED: ALBU90AE INH (11:04)
[2021-11-29] MEDS ORDERED: IBUP-1985 PO (12:00)
[2021-11-29] MEDS ORDERED: POTA10CA44 PO (12:07)
[2021-11-29] MEDS ORDERED: ALBU2.5V12 NEB (12:07)
[2021-11-29] MEDS ORDERED: LOP25T PO (12:07)
== END 2021-11-28 07:23 | disposition home or self-care (01) ==
LOC: ER 21:18
DX: J18.9 Pneumonia, unspecified organism (principal); N39.0 Urinary tract infection, site not specified; J44.9 Chronic obstructive pulmonary disease, unspecified; M54.89 Other dorsalgia; R07.89 Other chest pain; R06.02 Shortness of breath; G43.909 Migraine, unspecified, not intractable, without status migrainosus; I11.0 Hypertensive heart disease with heart failure; I50.9 Heart failure, unspecified; E11.9 Type 2 diabetes mellitus without complications; F41.9 Anxiety disorder, unspecified; F15.90 Other stimulant use, unspecified, uncomplicated; Z87.01 Personal history of pneumonia (recurrent); Z90.49 Acquired absence of other specified parts of digestive tract; Z98.890 Other specified postprocedural states; Z88.1 Allergy status to other antibiotic agents; Z88.8 Allergy status to other drugs, medicaments and biological substances; Z79.82 Long term (current) use of aspirin; Z79.2 Long term (current) use of antibiotics; Z79.899 Other long term (current) drug therapy
CPT/HCPCS: 36415; 71045; 74176; 80053; 81001; 83690; 83880; 84484; 85025; 87088; 93005; 94640; 96365; 96375; 96376; 99285; J0696; J2270; J7030; 94760

== ENCOUNTER 2021-11-28 19:20 | Inpatient (IN) | payer BC, MEDICAID ==
[~2021-11-28] VITALS: Ht 160 cm; Wt 52.2 kg
[~2021-11-28 19:20] MED LIST changes: +AMOX-117 PO; +AZIT500T9 PO
[2021-11-28 20:07] LABS: BASOPHILS % (AUTO) 0.4 % (0-1); EOSINOPHILS # (AUTO) 0.3 X10'3 (0-0.9); EOSINOPHILS % (AUTO) 3.9 % (0-6); HEMATOCRIT 35.4 % (35.0-45.0); HEMOGLOBIN 11.1 g/dl (12.0-16.0); LYMPHOCYTES # (AUTO) 1.1 X10'3 (1.1-4.8); LYMPHOCYTES % (AUTO) 17.3 % (21-51); MEAN CORPUSCULAR HGB CONC 31.4 g/dL (33.0-36.5); MEAN PLATELET VOLUME 7.1 FL (7.4-10.4); MONOCYTES # (AUTO) 0.5 X10'3 (0-0.9); MONOCYTES % (AUTO) 7.2 % (2-12); NEUTROPHILS # (AUTO) 4.6 X10'3 (1.8-7.7); NEUTROPHILS % (AUTO) 71.2 % (42-75); PLATELET COUNT 229 X10'3 (140-440); RED BLOOD COUNT 3.98 X10'6 (4.20-5.60); RED CELL DISTRIBUTION WIDTH 13.6 % (11.5-14.5); WHITE BLOOD COUNT 6.5 X10'3 (4.5-11.0)
[2021-11-28 20:21] LABS: ALANINE AMINOTRANSFERASE 19 U/L (12-78); ALBUMIN 2.7 G/DL (3.4-5.0); ALBUMIN/GLOBULIN RATIO 0.8 (1.1-1.5); ALKALINE PHOSPHATASE 136 IU/L (46-116); ANION GAP 3 (8-16); ASPARTATE AMINO TRANSFERASE 16 U/L (10-37); BILIRUBIN,TOTAL 0.1 MG/DL (0.1-1.0); BLOOD UREA NITROGEN 14 MG/DL (7-18); BUN/CREATININE RATIO 22.6 (6.6-38.0); CALCIUM 8.5 MG/DL (8.5-10.1); CHLORIDE 106 MMOL/L (99-107); CREATININE 0.62 MG/DL (0.40-0.90); GLUCOSE 122 MG/DL (70-104); POTASSIUM 3.5 MMOL/L (3.5-5.1); SODIUM 145 MMOL/L (135-145); TOTAL CARBON DIOXIDE 36.2 MMOL/L (24-32); TOTAL PROTEIN 6.2 G/DL (6.4-8.2); eGFR > 90 ML/MIN
[2021-11-28 20:55] LABS: CLARITY,URINE CLEAR (Clear); COLOR,URINE YELLOW (Yellow); GLUCOSE, URINE 100 mg/dl (Neg); KETONES,URINE NEGATIVE (Neg); LEUKOCYTE ESTERASE ,URINE TRACE (Neg); NITRITES, URINE NEGATIVE (Neg); OCCULT BLOOD,URINE NEGATIVE (Neg); PROTEIN,URINE NEGATIVE (Neg); UROBILINOGEN,URINE 0.2 E.U/dL (0.2-1.0)
[2021-11-28 21:13] LABS: UA COLLECTION TYPE NON-SPECIFIED
[2021-11-28 21:16] LABS: BACTERIA,URINE 1+ /HPF (Neg); MUCUS STRANDS FEW /LPF (Neg); RBC,URINE 0-2 /HPF (0-2); SQUAMOUS EPITHELIAL CELL,UR MODERATE /LPF (FEW); TRANSITIONAL EPI CELLS,URINE FEW /HPF
[2021-11-28] MEDS ORDERED: CefTRIAXone 2gm/NS 100ml IVPB 100 ML IV ONE (21:25)
[2021-11-28] MEDS ORDERED: methylPREDNISolone sod succ 125mg/2ml vial IV ONE (21:25)
[2021-11-28] MEDS ORDERED: normal saline 1000ML IV soln IV ONE (21:25)
[2021-11-28] MEDS ORDERED: albuterol 2.5 MG/3 ML nebule CONTNEB PRN (21:25)
[2021-11-28 21:43] LABS: MAGNESIUM 1.6 MG/DL (1.5-2.4)
[2021-11-28 21:43] LABS: APTT 25 SECONDS (22-32)
[2021-11-28] MEDS ORDERED: morphine 4 MG/ML inj SYRINge IV ONE (22:05)
[2021-11-28] MEDS ORDERED: morphine 2 MG/ML inj. syringe IV PRN (23:00)
[2021-11-28] MEDS ORDERED: HYDROcodone/acetaminophen 5mg/325mg tablet PO PRN (23:00)
[2021-11-28] MEDS ORDERED: acetaminophen 325mg tablet PO PRN ×2 (23:00)
[2021-11-28] MEDS ORDERED: mag hydrox/Alum hydrox/simeth 30ml oral suspension PO PRN (23:00)
[2021-11-28] MEDS ORDERED: magnesium hydroxide 30ml (MOM) UD suspension PO PRN (23:00)
[2021-11-28] MEDS ORDERED: ipratropium/albuterol 3ml nebule NEB PRN (23:00)
[2021-11-28] MEDS: furosemide 20 MG/2 ML vial IV SCH (23:56)
[2021-11-29] VITALS (7 sets, daily range): BP systolic 108–155; BP diastolic 60–103
[2021-11-29] MEDS: methylPREDNISolone sod succ 125mg/2ml vial IV SCH ×4 (00:01→23:29)
[2021-11-29] MEDS: HYDROcodone/acetaminophen 10/325mg tab PO PRN ×4 (01:23→20:41)
[2021-11-29 06:34] LABS: BASOPHILS % (AUTO) 0.1 % (0-1); EOSINOPHILS % (AUTO) 0 % (0-6); HEMATOCRIT 36.3 % (35.0-45.0); HEMOGLOBIN 11.6 g/dl (12.0-16.0); LYMPHOCYTES # (AUTO) 0.3 X10'3 (1.1-4.8); MEAN CORPUSCULAR HEMOGLOBIN 28.8 PG (27.0-31.0); MEAN CORPUSCULAR HGB CONC 32.1 g/dL (33.0-36.5); MEAN CORPUSCULAR VOLUME 89.9 FL (78-98); MEAN PLATELET VOLUME 7.6 FL (7.4-10.4); MONOCYTES % (AUTO) 0.6 % (2-12); NEUTROPHILS % (AUTO) 93.3 % (42-75); PLATELET COUNT 233 X10'3 (140-440); RED BLOOD COUNT 4.04 X10'6 (4.20-5.60); RED CELL DISTRIBUTION WIDTH 13.9 % (11.5-14.5); WHITE BLOOD COUNT 5.4 X10'3 (4.5-11.0)
[2021-11-29 07:08] LABS: ALBUMIN 2.7 G/DL (3.4-5.0); ANION GAP 5 (8-16); BLOOD UREA NITROGEN 17 MG/DL (7-18); BUN/CREATININE RATIO 22.4 (6.6-38.0); CHLORIDE 103 MMOL/L (99-107); CREATININE 0.76 MG/DL (0.40-0.90); GLUCOSE 210 MG/DL (70-104); POTASSIUM 4.1 MMOL/L (3.5-5.1); SODIUM 145 MMOL/L (135-145); TOTAL CARBON DIOXIDE 37.2 MMOL/L (24-32); eGFR 78 ML/MIN
[2021-11-29] MEDS: docusate sod 100mg capsule PO SCH ×2 (07:29→20:00)
[2021-11-29] MEDS: azithromycin 250mg tablet PO SCH (07:29)
[2021-11-29] MEDS: furosemide 20 MG/2 ML vial IV SCH (07:40)
[2021-11-29] MEDS ORDERED: enoxaparin 40mg/0.4ml syringe SUBCUT SCH (08:00)
[2021-11-29] MEDS ORDERED: potassium Cl 20 mEq SR tablet PO PRN ×2 (09:00)
[2021-11-29] MEDS ORDERED: potassium CL 10mEq/100ml bag 100 ML IV PRN (09:00)
[2021-11-29] MEDS ORDERED: magnesium Cl slow-release 64mg tablet PO PRN (09:00)
[2021-11-29] MEDS ORDERED: magnesium 4gm in 100ml NS 100 ML IV PRN (09:00)
[2021-11-29] MEDS: morphine 2 MG/ML inj. syringe IV PRN ×3 (09:42→21:59)
[2021-11-29] MEDS ORDERED: ALBU90AE INH (11:04)
[2021-11-29] MEDS ORDERED: IBUP-1985 PO (12:00)
[2021-11-29] MEDS ORDERED: LOP25T PO (12:07)
[2021-11-29] MEDS ORDERED: ALBU2.5V12 NEB (12:07)
[2021-11-29] MEDS ORDERED: POTA10CA44 PO (12:07)
[2021-11-29] MEDS: ipratropium/albuterol 3ml nebule NEB SCH ×3 (14:51→23:32)
[2021-11-29] MEDS: ALPRAZolam 0.25mg tablet PO PRN (17:36)
--- NOTE | 2021-11-29 18:26 | NUR ---
[place] documentation: I have reviewed and agree with all interventions, assessments performed and documented by BETH Chávez II.
[2021-11-29] MEDS: K and/or MAG REPLACEMENT MC SCH (20:00)
[2021-11-29] MEDS: budesonide 0.5mg/2ml UD nebule IH SCH (20:21)
[2021-11-29] MEDS: metoprolol tartrate 25mg tablet PO SCH (20:39)
[2021-11-29] MEDS: cefTRIAXone 1g/NS 100ml IVPB 100 ML IV SCH (20:43)
[2021-11-30 02:21] VITALS: BP 127/71
[2021-11-30] MEDS: morphine 2 MG/ML inj. syringe IV PRN ×4 (02:25→21:12)
[2021-11-30] MEDS: ipratropium/albuterol 3ml nebule NEB SCH ×6 (04:02→23:11)
[2021-11-30 06:00] VITALS: BP 116/61
[2021-11-30 06:11] LABS: BASOPHILS % (AUTO) 0.1 % (0-1); EOSINOPHILS % (AUTO) 0 % (0-6); HEMATOCRIT 35.3 % (35.0-45.0); HEMOGLOBIN 11.3 g/dl (12.0-16.0); LYMPHOCYTES # (AUTO) 0.7 X10'3 (1.1-4.8); LYMPHOCYTES % (AUTO) 4.2 % (21-51); MEAN CORPUSCULAR HEMOGLOBIN 28.3 PG (27.0-31.0); MEAN CORPUSCULAR VOLUME 88.7 FL (78-98); MEAN PLATELET VOLUME 7.4 FL (7.4-10.4); MONOCYTES # (AUTO) 0.1 X10'3 (0-0.9); MONOCYTES % (AUTO) 0.9 % (2-12); NEUTROPHILS % (AUTO) 94.8 % (42-75); PLATELET COUNT 262 X10'3 (140-440); RED BLOOD COUNT 3.98 X10'6 (4.20-5.60); RED CELL DISTRIBUTION WIDTH 13.7 % (11.5-14.5); WHITE BLOOD COUNT 15.8 X10'3 (4.5-11.0)
--- NOTE | 2021-11-30 06:25 | NUR ---
Change of shift report given to PETRA Nino Pt stable. No acute complaints
[2021-11-30 06:27] LABS: ALBUMIN 2.8 G/DL (3.4-5.0); ANION GAP 0 (8-16); BLOOD UREA NITROGEN 22 MG/DL (7-18); BUN/CREATININE RATIO 32.4 (6.6-38.0); CALCIUM 8.9 MG/DL (8.5-10.1); CHLORIDE 100 MMOL/L (99-107); CREATININE 0.68 MG/DL (0.40-0.90); GLUCOSE 201 MG/DL (70-104); MAGNESIUM 1.9 MG/DL (1.5-2.4); PHOSPHORUS 2.3 MG/DL (2.3-4.5); POTASSIUM 3.6 MMOL/L (3.5-5.1); SODIUM 139 MMOL/L (135-145); TOTAL CARBON DIOXIDE 39.4 MMOL/L (24-32); eGFR 89 ML/MIN
[2021-11-30] MEDS: budesonide 0.5mg/2ml UD nebule IH SCH ×2 (07:00→19:21)
[2021-11-30] MEDS: K and/or MAG REPLACEMENT MC SCH ×2 (07:51→20:00)
[2021-11-30] MEDS: methylPREDNISolone sod succ 125mg/2ml vial IV SCH ×3 (07:51→23:49)
[2021-11-30] MEDS: furosemide 20 MG/2 ML vial IV SCH (07:51)
[2021-11-30] MEDS: ferrous sulfate 325mg tablet PO SCH (08:17)
[2021-11-30] MEDS: azithromycin 250mg tablet PO SCH (08:17)
[2021-11-30] MEDS: pantoprazole 40mg Tablet.DR PO SCH (08:17)
[2021-11-30] MEDS: oxybutynin 5mg tablet PO SCH (08:17)
[2021-11-30] MEDS: metoprolol tartrate 25mg tablet PO SCH ×2 (08:18→21:26)
[2021-11-30] MEDS: docusate sod 100mg capsule PO SCH ×2 (08:19→21:27)
[2021-11-30] MEDS: aspirin 81mg tab.chew PO SCH (08:19)
[2021-11-30] MEDS: apixaban 5mg tablet PO SCH ×2 (08:19→21:27)
[2021-11-30] MEDS: lisinopril 2.5mg tablet PO SCH (08:20)
[2021-11-30] MEDS: HYDROcodone/acetaminophen 10/325mg tab PO PRN ×3 (10:50→23:49)
[2021-11-30 11:00] VITALS: BP 124/63
[2021-11-30] MEDS ORDERED: iohexol 350MG/ML 100ml bottle IV ONE (11:29)
[2021-11-30 15:00] VITALS: BP 106/62
[2021-11-30 18:00] VITALS: BP 130/62
--- NOTE | 2021-11-30 18:22 | NUR ---
Gave end of the shift report to Marybeth Flores and Shelia Almonten. Answered all their questions.
--- NOTE | 2021-11-30 18:49 | NUR ---
Patient in room PCU 3022. I have received report from dixie and had the opportunity to ask questions and assume patient care.
[2021-11-30] MEDS: ALPRAZolam 0.25mg tablet PO PRN (21:25)
[2021-11-30] MEDS: cefTRIAXone 1g/NS 100ml IVPB 100 ML IV SCH (21:25)
[2021-11-30] MEDS: ondansetron/PF 4mg/2ml inj IV PRN (21:37)
[2021-11-30 22:00] VITALS: BP 136/64
[2021-12-01 02:00] VITALS: BP 119/62
[2021-12-01] MEDS: morphine 2 MG/ML inj. syringe IV PRN ×4 (03:15→20:40)
[2021-12-01] MEDS: ipratropium/albuterol 3ml nebule NEB SCH ×6 (03:15→23:29)
[2021-12-01 06:00] VITALS: BP 138/85
--- NOTE | 2021-12-01 06:54 | NUR ---
Problems reprioritized. Patient report given, questions answered & plan of care reviewed with sampson.
[2021-12-01 07:08] LABS: BASOPHILS % (AUTO) 0.1 % (0-1); EOSINOPHILS % (AUTO) 0 % (0-6); HEMATOCRIT 35.6 % (35.0-45.0); HEMOGLOBIN 11.5 g/dl (12.0-16.0); LYMPHOCYTES % (AUTO) 6.2 % (21-51); MEAN CORPUSCULAR HEMOGLOBIN 28.9 PG (27.0-31.0); MEAN CORPUSCULAR HGB CONC 32.3 g/dL (33.0-36.5); MEAN CORPUSCULAR VOLUME 89.3 FL (78-98); MEAN PLATELET VOLUME 7.2 FL (7.4-10.4); MONOCYTES # (AUTO) 0.2 X10'3 (0-0.9); MONOCYTES % (AUTO) 1.4 % (2-12); NEUTROPHILS # (AUTO) 14.4 X10'3 (1.8-7.7); NEUTROPHILS % (AUTO) 92.3 % (42-75); PLATELET COUNT 278 X10'3 (140-440); RED BLOOD COUNT 3.98 X10'6 (4.20-5.60); RED CELL DISTRIBUTION WIDTH 13.7 % (11.5-14.5); WHITE BLOOD COUNT 15.6 X10'3 (4.5-11.0)
[2021-12-01] MEDS: budesonide 0.5mg/2ml UD nebule IH SCH ×2 (07:13→19:57)
[2021-12-01 07:24] LABS: ALBUMIN 2.8 G/DL (3.4-5.0); ANION GAP 1 (8-16); BLOOD UREA NITROGEN 30 MG/DL (7-18); BUN/CREATININE RATIO 42.3 (6.6-38.0); CALCIUM 8.8 MG/DL (8.5-10.1); CHLORIDE 100 MMOL/L (99-107); CREATININE 0.71 MG/DL (0.40-0.90); GLUCOSE 153 MG/DL (70-104); MAGNESIUM 2.2 MG/DL (1.5-2.4); PHOSPHORUS 2.9 MG/DL (2.3-4.5); POTASSIUM 4.3 MMOL/L (3.5-5.1); SODIUM 142 MMOL/L (135-145); eGFR 85 ML/MIN
[2021-12-01 07:27] LABS: TOTAL CARBON DIOXIDE 41.3 MMOL/L (24-32)
--- NOTE | 2021-12-01 07:33 | NUR ---
Message: Room 22A Cierra Fonseca Critical Lab Co2 was 41.3 Please advise. Joey ext [phone] Thank you. Custom Responses: promotional table spacer Transaction number: [id number]
[2021-12-01] MEDS: methylPREDNISolone sod succ 125mg/2ml vial IV SCH ×3 (07:58→23:46)
[2021-12-01] MEDS: furosemide 20 MG/2 ML vial IV SCH (07:59)
[2021-12-01] MEDS: K and/or MAG REPLACEMENT MC SCH ×2 (08:00→20:00)
[2021-12-01] MEDS: docusate sod 100mg capsule PO SCH ×2 (08:00→20:34)
[2021-12-01] MEDS: pantoprazole 40mg Tablet.DR PO SCH (08:01)
[2021-12-01] MEDS: aspirin 81mg tab.chew PO SCH (08:01)
[2021-12-01] MEDS: lisinopril 2.5mg tablet PO SCH (08:01)
[2021-12-01] MEDS: ferrous sulfate 325mg tablet PO SCH (08:01)
[2021-12-01] MEDS: azithromycin 250mg tablet PO SCH (08:02)
[2021-12-01] MEDS: oxybutynin 5mg tablet PO SCH (08:02)
[2021-12-01] MEDS: metoprolol tartrate 25mg tablet PO SCH ×2 (08:02→20:33)
[2021-12-01] MEDS: apixaban 5mg tablet PO SCH ×2 (08:02→20:34)
[2021-12-01 11:00] VITALS: BP 114/48
[2021-12-01] MEDS: ALPRAZolam 0.25mg tablet PO PRN ×2 (11:20→20:46)
[2021-12-01 14:20] LABS: ABG OXYGEN SATURATION 85.5 % (94-97); ABG PCO2 (T) 78.8 mmHg (32.0-45.0); ALLEN'S TEST POSITIVE; FCOHb 0.1 % (0.0-3.9); FLOW 3 L/min; FMetHb 0.2 % (0.0-1.5); FO2Hb 85.2 % (94-97); PATIENT TEMPERATURE 36.8; TOTAL HEMOGLOBIN 12.8 G/dl (12.0-16.0)
[2021-12-01 15:00] VITALS: BP 116/55
--- NOTE | 2021-12-01 15:32 | NUR ---
CALVIN Young RN ext [phone] RE: Cierra Fonseca. ABG results: pH 7.39 pCO2 79.5 pO2 50.7 HCO3 47. RT increased the oxygen to 4 lpm/nc from 3 lpm/nc Addendum: 12/01/21 at 1534 by Hannah Diop RN Paged Dr. Cuellar regarding above ABG results
[2021-12-01] MEDS: HYDROcodone/acetaminophen 10/325mg tab PO PRN ×3 (17:22→23:53)
--- NOTE | 2021-12-01 17:26 | NUR ---
HEALTH CARE / MEDICAL JOB TITLES documentation: I have reviewed and agree with all interventions, assessments performed and documented by BETH Barrera.
[2021-12-01 18:00] VITALS: BP 135/62
--- NOTE | 2021-12-01 18:23 | NUR ---
Patient in room PCU 3022. I have received report from Yudith LAMBERT and had the opportunity to ask questions and assume patient care.
--- NOTE | 2021-12-01 18:36 | NUR ---
Problems reprioritized. Patient report given, questions answered & plan of care reviewed with vin Alan Rn.
[2021-12-01] MEDS: cefTRIAXone 1g/NS 100ml IVPB 100 ML IV SCH (20:41)
[2021-12-01] MEDS: ondansetron/PF 4mg/2ml inj IV PRN (20:44)
[2021-12-01 22:00] VITALS: BP 127/85
[2021-12-02] MEDS: morphine 2 MG/ML inj. syringe IV PRN ×2 (01:57→08:30)
[2021-12-02 02:00] VITALS: BP 137/74
[2021-12-02] MEDS: ipratropium/albuterol 3ml nebule NEB SCH ×4 (03:59→15:00)
--- NOTE | 2021-12-02 06:23 | NUR ---
Patient in room PCU 3022. I have received report from Jen LAMBERT and had the opportunity to ask questions and assume patient care.
[2021-12-02] MEDS: lisinopril 2.5mg tablet PO SCH (07:07)
[2021-12-02] MEDS: aspirin 81mg tab.chew PO SCH (07:07)
[2021-12-02] MEDS: azithromycin 250mg tablet PO SCH (07:08)
[2021-12-02] MEDS: oxybutynin 5mg tablet PO SCH (07:08)
[2021-12-02] MEDS: pantoprazole 40mg Tablet.DR PO SCH (07:08)
[2021-12-02] MEDS: ferrous sulfate 325mg tablet PO SCH (07:08)
[2021-12-02] MEDS: budesonide 0.5mg/2ml UD nebule IH SCH (07:09)
[2021-12-02] MEDS: apixaban 5mg tablet PO SCH (07:12)
[2021-12-02] MEDS: metoprolol tartrate 25mg tablet PO SCH (07:12)
[2021-12-02] MEDS: docusate sod 100mg capsule PO SCH (07:20)
[2021-12-02 07:24] LABS: BASOPHILS % (AUTO) 0.1 % (0-1); EOSINOPHILS % (AUTO) 0 % (0-6); HEMATOCRIT 35.8 % (35.0-45.0); HEMOGLOBIN 11.5 g/dl (12.0-16.0); LYMPHOCYTES # (AUTO) 0.9 X10'3 (1.1-4.8); LYMPHOCYTES % (AUTO) 6.1 % (21-51); MEAN CORPUSCULAR HEMOGLOBIN 28.7 PG (27.0-31.0); MEAN CORPUSCULAR HGB CONC 32.2 g/dL (33.0-36.5); MEAN PLATELET VOLUME 7.3 FL (7.4-10.4); MONOCYTES # (AUTO) 0.2 X10'3 (0-0.9); MONOCYTES % (AUTO) 1.6 % (2-12); NEUTROPHILS % (AUTO) 92.2 % (42-75); PLATELET COUNT 291 X10'3 (140-440); RED BLOOD COUNT 4.02 X10'6 (4.20-5.60); RED CELL DISTRIBUTION WIDTH 13.6 % (11.5-14.5); WHITE BLOOD COUNT 14.1 X10'3 (4.5-11.0)
[2021-12-02] MEDS: ALPRAZolam 0.25mg tablet PO PRN (07:25)
[2021-12-02 07:28] LABS: ALBUMIN 2.7 G/DL (3.4-5.0); ANION GAP 4 (8-16); BLOOD UREA NITROGEN 35 MG/DL (7-18); BUN/CREATININE RATIO 47.3 (6.6-38.0); CHLORIDE 99 MMOL/L (99-107); CREATININE 0.74 MG/DL (0.40-0.90); GLUCOSE 141 MG/DL (70-104); PHOSPHORUS 3.2 MG/DL (2.3-4.5); POTASSIUM 4.1 MMOL/L (3.5-5.1); SODIUM 142 MMOL/L (135-145); TOTAL CARBON DIOXIDE 39.3 MMOL/L (24-32); eGFR 81 ML/MIN
[2021-12-02] MEDS: K and/or MAG REPLACEMENT MC SCH (08:00)
[2021-12-02] MEDS: methylPREDNISolone sod succ 125mg/2ml vial IV SCH ×2 (08:22→15:54)
[2021-12-02] MEDS: furosemide 20 MG/2 ML vial IV SCH (08:22)
--- NOTE | 2021-12-02 10:29 | NUR ---
Initial: Pt admitted w/ acute on chronic respiratory failure secondary to COPD exacerbation per EMR. Currently on Heart Healthy diet initially w/ 100% PO intake though no down to ~50% last few meals. On 4L NC per documentation. Recommend liberalizing to Regular diet given no significant cardiac hx in EMR. LBM 12/01 receiving routine bowel care. Will continue to monitor. Recs: 1. Liberalize to Regular diet 2. Monitor need for ONS if PO declines 3. Bowel care per rx 4. Scaled wts this admit Addendum: 12/02/21 at [address] Amended: Links added.
[2021-12-02] MEDS: HYDROcodone/acetaminophen 10/325mg tab PO PRN ×2 (12:02→15:55)
[2021-12-02 15:00] VITALS: BP 123/67
--- NOTE | 2021-12-02 18:25 | NUR ---
Went in room to check on pt and she was gone. Was told by an aid the pt had left AMA with a family member.
--- NOTE | 2021-12-02 18:35 | NUR ---
Problems reprioritized. Patient report given, questions answered & plan of care reviewed with Jney Flores.
== END 2021-12-02 19:00 | disposition left against medical advice (07) | DRG 193 ==
LOC: ER 19:21 → ED HOLD 23:02 → PCU 3S 11-29 00:45
PROVIDERS: ADMIT Internal Medicine; ATTEND Family Medicine
PROC: 5A09357 Assistance with Respiratory Ventilation, Less than 24 Consecutive Hours, Continuous Positive Airway Pressure (ICD-10-PCS; principal; 2021-11-30)
PROC: B32T1ZZ Computerized Tomography (CT Scan) of Left Pulmonary Artery using Low Osmolar Contrast (ICD-10-PCS; 2021-11-30)
PROC: B3201ZZ Computerized Tomography (CT Scan) of Thoracic Aorta using Low Osmolar Contrast (ICD-10-PCS; 2021-11-30)
PROC: B32S1ZZ Computerized Tomography (CT Scan) of Right Pulmonary Artery using Low Osmolar Contrast (ICD-10-PCS; 2021-11-30)
PROC: B4201ZZ Computerized Tomography (CT Scan) of Abdominal Aorta using Low Osmolar Contrast (ICD-10-PCS; 2021-11-30)
PROC: B4241ZZ Computerized Tomography (CT Scan) of Superior Mesenteric Artery using Low Osmolar Contrast (ICD-10-PCS; 2021-11-30)
PROC: B4281ZZ Computerized Tomography (CT Scan) of Bilateral Renal Arteries using Low Osmolar Contrast (ICD-10-PCS; 2021-11-30)
PROC: B42C1ZZ Computerized Tomography (CT Scan) of Pelvic Arteries using Low Osmolar Contrast (ICD-10-PCS; 2021-11-30)
PROC: B42H1ZZ Computerized Tomography (CT Scan) of Bilateral Lower Extremity Arteries using Low Osmolar Contrast (ICD-10-PCS; 2021-11-30)
PROC: B4211ZZ Computerized Tomography (CT Scan) of Celiac Artery using Low Osmolar Contrast (ICD-10-PCS; 2021-11-30)
PROC: 5A09357 Assistance with Respiratory Ventilation, Less than 24 Consecutive Hours, Continuous Positive Airway Pressure (ICD-10-PCS; 2021-12-01)
DX: J18.9 Pneumonia, unspecified organism (principal); J96.21 Acute and chronic respiratory failure with hypoxia; E87.2 Acidosis; N39.0 Urinary tract infection, site not specified; J44.0 Chronic obstructive pulmonary disease with (acute) lower respiratory infection; J44.1 Chronic obstructive pulmonary disease with (acute) exacerbation; E11.9 Type 2 diabetes mellitus without complications; Z20.822 Contact with and (suspected) exposure to COVID-19; F41.9 Anxiety disorder, unspecified; G35 Multiple sclerosis; I11.0 Hypertensive heart disease with heart failure; F15.90 Other stimulant use, unspecified, uncomplicated; K21.9 Gastro-esophageal reflux disease without esophagitis; F32.A Depression, unspecified; G43.909 Migraine, unspecified, not intractable, without status migrainosus; I48.0 Paroxysmal atrial fibrillation; I50.9 Heart failure, unspecified; Z53.29 Procedure and treatment not carried out because of patient's decision for other reasons; Z79.01 Long term (current) use of anticoagulants; Z83.3 Family history of diabetes mellitus; Z87.891 Personal history of nicotine dependence; Z90.49 Acquired absence of other specified parts of digestive tract; Z88.8 Allergy status to other drugs, medicaments and biological substances; Z98.891 History of uterine scar from previous surgery; Z82.49 Family history of ischemic heart disease and other diseases of the circulatory system
CPT/HCPCS: 36415; 36600; 71045; 71275; 74177; 80048; 80053; 81001; 82803; 83605; 83735; 83880; 84100; 84145; 84484; 85018; 85025; 85610; 85730; 87040; 87081; 87088; 87635; 93005; 94640; 94760; 96365; 96375; 97110; 97161; 99285; A7015; G0378; J0696; J1650; J1940; J2270; J2405; J2930; J7030; Q9967

== ENCOUNTER 2022-01-01 04:27 | Inpatient (IN) | payer BC, MEDICAID ==
[~2022-01-01] VITALS: Ht 160 cm; Wt 59.6 kg
[~2022-01-01 04:27] MED LIST changes: +ALBU2.5V12 NEB; -ALBU2.5V13 NEB; -ALBU8HFA PO; -AMOX-117 PO; -AZIT-83 PO; -AZIT500T9 PO; -CEFD300C3 PO; +IBUP-1985 PO; -LOP12.5T PO; -MULT-215 PO; +POTA10CA44 PO; -PRED10TA23 PO
[2022-01-01 05:03] LABS: D-DIMER 0.48 MG/L FEU (0-0.50)
[2022-01-01 05:06] LABS: ALANINE AMINOTRANSFERASE 22 U/L (12-78); ALBUMIN 3.3 G/DL (3.4-5.0); ALKALINE PHOSPHATASE 114 IU/L (46-116); ANION GAP 1 (8-16); ASPARTATE AMINO TRANSFERASE 19 U/L (10-37); BILIRUBIN,TOTAL 0.3 MG/DL (0.1-1.0); BLOOD UREA NITROGEN 18 MG/DL (7-18); BUN/CREATININE RATIO 37.5 (6.6-38.0); CHLORIDE 105 MMOL/L (99-107); CREATININE 0.48 MG/DL (0.40-0.90); GLUCOSE 96 MG/DL (70-104); POTASSIUM 3.4 MMOL/L (3.5-5.1); SODIUM 144 MMOL/L (135-145); TOTAL CARBON DIOXIDE 37.9 MMOL/L (24-32); TOTAL PROTEIN 6.6 G/DL (6.4-8.2); eGFR > 90 ML/MIN
[2022-01-01 05:25] LABS: EOSINOPHILS # (AUTO) 0.2 X10'3 (0-0.9); PLATELET COUNT 138 X10'3 (140-440); RED CELL DISTRIBUTION WIDTH 15.1 % (11.5-14.5)
[2022-01-01 05:27] LABS: BASOPHILS % (AUTO) 0.5 % (0-1); EOSINOPHILS % (AUTO) 4.1 % (0-6); HEMATOCRIT 37.6 % (35.0-45.0); HEMOGLOBIN 12.1 g/dl (12.0-16.0); LYMPHOCYTES # (AUTO) 1.7 X10'3 (1.1-4.8); LYMPHOCYTES % (AUTO) 39.7 % (21-51); MEAN CORPUSCULAR HGB CONC 32.4 g/dL (33.0-36.5); MEAN CORPUSCULAR VOLUME 89.5 FL (78-98); MONOCYTES # (AUTO) 0.4 X10'3 (0-0.9); MONOCYTES % (AUTO) 9.8 % (2-12); NEUTROPHILS # (AUTO) 1.9 X10'3 (1.8-7.7); NEUTROPHILS % (AUTO) 45.9 % (42-75); WHITE BLOOD COUNT 4.2 X10'3 (4.5-11.0)
--- NOTE | 2022-01-01 05:30 | NUR ---
Patient was assisted up and to the chair by her bed after she requested to get up to relieve the "toe cramps" she was having. Prior to this patient had incontinent urine episode and linens were changed while patient was sitting on chair. While assisting patient back in bed she exhibited an increased work of breath and overall dyspnea. Peairs notified and orders completed.
[2022-01-01] MEDS ORDERED: magnesium 2GM in 50ml NS 50 ML IV ONE (05:35)
[2022-01-01] MEDS ORDERED: albuterol 2.5 MG/3 ML nebule NEB ONE ×2 (05:35→06:45)
[2022-01-01] MEDS ORDERED: dexamethasone sod phosphate 10mg/ml inj IV STA (05:35)
[2022-01-01] MEDS ORDERED: cefTRIAXone 1g/NS 100ml IVPB 100 ML IV ONE (05:40)
[2022-01-01] MEDS ORDERED: levoFLOXACIN-Levaquin 750MG/D5 150 ML IV SCH (08:50)
[2022-01-01] MEDS ORDERED: magnesium hydroxide 30ml (MOM) UD suspension PO PRN (08:50)
[2022-01-01] MEDS ORDERED: ondansetron/PF 4mg/2ml inj IV PRN (08:50)
[2022-01-01] MEDS ORDERED: acetaminophen 325mg tablet PO PRN ×2 (08:50)
[2022-01-01] MEDS ORDERED: mag hydrox/Alum hydrox/simeth 30ml oral suspension PO PRN (08:50)
[2022-01-01] MEDS: methylPREDNISolone sod succ 125mg/2ml vial IV SCH ×2 (09:48→20:50)
[2022-01-01] MEDS: furosemide 20 MG/2 ML vial IV SCH (09:49)
[2022-01-01 09:53] LABS: MAGNESIUM 2.5 MG/DL (1.5-2.4); PHOSPHORUS 3.6 MG/DL (2.3-4.5)
[2022-01-01 09:56] LABS: HEMOGLOBIN A1C 5.8 % (4.5-6.2)
[2022-01-01] MEDS ORDERED: ipratropium/albuterol 3ml nebule NEB PRN (10:25)
[2022-01-01] MEDS: morphine 2 MG/ML inj. syringe IV PRN (11:51)
[2022-01-01] MEDS ORDERED: FURO20TA4 PO (12:50)
[2022-01-01] MEDS ORDERED: POTA-188 PO (12:50)
[2022-01-01] MEDS ORDERED: BUDE10.2 PO (12:50)
--- NOTE | 2022-01-01 14:58 | NUR ---
sinus tachy 105-120.repeat EKG done.Dr. Carson esquivel.
[2022-01-01] MEDS: ipratropium/albuterol 3ml nebule NEB SCH ×2 (15:31→21:00)
--- NOTE | 2022-01-01 16:33 | NUR ---
hr 122.PAGED DR. ZARAGOZA.PT DENIES CHEST DISCOMFORT.
[2022-01-01] MEDS ORDERED: ibuprofen 200mg tablet PO PRN (16:45)
[2022-01-01] MEDS ORDERED: albuterol 2.5 MG/3 ML nebule NEB PRN (17:30)
[2022-01-01 19:28] VITALS: BP 105/55
[2022-01-01] MEDS: metoprolol tartrate 25mg tablet PO SCH (20:00)
[2022-01-01] MEDS: docusate sod 100mg capsule PO SCH (20:00)
[2022-01-01] MEDS: albuterol 2.5 MG/3 ML nebule NEB SCH (20:07)
[2022-01-01] MEDS: budesonide 0.5mg/2ml UD nebule IH SCH (20:07)
[2022-01-01] MEDS: HYDROcodone/acetaminophen 10/325mg tab PO PRN (20:09)
[2022-01-01] MEDS: apixaban 5mg tablet PO SCH (20:50)
[2022-01-01] MEDS: ALPRAZolam 0.25mg tablet PO PRN (20:51)
[2022-01-01 22:00] VITALS: BP 101/59
[2022-01-02] MEDS: ipratropium/albuterol 3ml nebule NEB SCH ×4 (03:06→20:08)
[2022-01-02] MEDS: albuterol 2.5 MG/3 ML nebule NEB SCH ×4 (03:07→20:00)
[2022-01-02] MEDS: HYDROcodone/acetaminophen 5mg/325mg tablet PO PRN ×3 (03:58→17:15)
[2022-01-02 06:00] VITALS: BP 130/71
[2022-01-02 06:30] LABS: BASOPHILS % (AUTO) 0.1 % (0-1); EOSINOPHILS % (AUTO) 0 % (0-6); HEMATOCRIT 38.4 % (35.0-45.0); HEMOGLOBIN 12.4 g/dl (12.0-16.0); LYMPHOCYTES # (AUTO) 0.7 X10'3 (1.1-4.8); LYMPHOCYTES % (AUTO) 6.7 % (21-51); MEAN CORPUSCULAR HEMOGLOBIN 29.5 PG (27.0-31.0); MEAN CORPUSCULAR HGB CONC 32.3 g/dL (33.0-36.5); MEAN CORPUSCULAR VOLUME 91.4 FL (78-98); MEAN PLATELET VOLUME 7.7 FL (7.4-10.4); MONOCYTES # (AUTO) 0.2 X10'3 (0-0.9); MONOCYTES % (AUTO) 2.3 % (2-12); NEUTROPHILS # (AUTO) 9.3 X10'3 (1.8-7.7); NEUTROPHILS % (AUTO) 90.9 % (42-75); PLATELET COUNT 166 X10'3 (140-440); RED CELL DISTRIBUTION WIDTH 14.9 % (11.5-14.5); WHITE BLOOD COUNT 10.3 X10'3 (4.5-11.0)
--- NOTE | 2022-01-02 06:39 | NUR ---
Patient in room ORTHO 4006. I have received report from PETRA Lutz and had the opportunity to ask questions and assume patient care.
[2022-01-02 06:41] LABS: ALBUMIN 3.4 G/DL (3.4-5.0); ANION GAP 2 (8-16); BLOOD UREA NITROGEN 31 MG/DL (7-18); BUN/CREATININE RATIO 39.2 (6.6-38.0); CALCIUM 9.3 MG/DL (8.5-10.1); CHLORIDE 100 MMOL/L (99-107); CREATININE 0.79 MG/DL (0.40-0.90); GLUCOSE 176 MG/DL (70-104); POTASSIUM 4.5 MMOL/L (3.5-5.1); SODIUM 142 MMOL/L (135-145); TOTAL CARBON DIOXIDE 39.7 MMOL/L (24-32); eGFR 75 ML/MIN
--- NOTE | 2022-01-02 07:25 | NUR ---
Diabetes consult: Noted pt w/ hx of DM A1c 5.8 well controlled and appropriate per ADA guidelines. DM ed not indicated at this time. Addendum: 01/02/22 at [address] Amended: Links added.
[2022-01-02] MEDS: furosemide 20 MG/2 ML vial IV SCH (07:39)
[2022-01-02] MEDS: potassium chloride 10mEq ER tablet PO SCH ×2 (07:39)
[2022-01-02] MEDS: methylPREDNISolone sod succ 125mg/2ml vial IV SCH ×2 (07:39→19:42)
[2022-01-02] MEDS: lisinopril 2.5mg tablet PO SCH (07:41)
[2022-01-02] MEDS: metoprolol tartrate 25mg tablet PO SCH ×2 (07:41→19:42)
[2022-01-02] MEDS: ferrous sulfate 325mg tablet PO SCH (07:42)
[2022-01-02] MEDS: apixaban 5mg tablet PO SCH ×2 (07:42→19:42)
[2022-01-02] MEDS: PANTOPRAZOLE 40 MG PO SCH (07:42)
[2022-01-02] MEDS: aspirin 81mg tab.chew PO SCH (07:43)
[2022-01-02] MEDS: morphine 2 MG/ML inj. syringe IV PRN ×2 (07:43→19:58)
[2022-01-02] MEDS: docusate sod 100mg capsule PO SCH ×2 (07:44→19:42)
[2022-01-02] MEDS: budesonide 0.5mg/2ml UD nebule IH SCH ×2 (08:45→20:08)
[2022-01-02 10:00] VITALS: BP 134/82
[2022-01-02] MEDS: amox tr/potassium clavulanate 875/125mg TAB PO SCH (17:14)
[2022-01-02 18:00] VITALS: BP 118/73
--- NOTE | 2022-01-02 18:30 | NUR ---
Patient in room ORTHO 4006. I have received report from Eva LAMBERT and had the opportunity to ask questions and assume patient care. Addendum: 01/02/22 at 1904 by Cinthia Durbin RN Amended: Links added.
--- NOTE | 2022-01-02 18:48 | NUR ---
Problems reprioritized. Patient report given, questions answered & plan of care reviewed with PETRA Vicente.
[2022-01-02 22:00] VITALS: BP 123/80
[2022-01-03] MEDS: albuterol 2.5 MG/3 ML nebule NEB SCH ×2 (02:00→08:00)
[2022-01-03] MEDS: ipratropium/albuterol 3ml nebule NEB SCH ×4 (03:03→19:15)
[2022-01-03] MEDS: ALPRAZolam 0.25mg tablet PO PRN ×2 (03:11→09:57)
--- NOTE | 2022-01-03 05:00 | NUR ---
Pt. A & O this shift with c/o pain x 2 medicated as ordered. Pt. denied SOB this shift with sats setting WNL 92-93% on 4 l via n/c; t. used own CPAP machine this shift facilitated by RT. Isolation precaution maintained this shift. Call light within reach and bed in low position. Addendum: 01/03/22 at 0713 by Cinthia Durbin RN Amended: Links added.
[2022-01-03 06:00] VITALS: BP 117/75
--- NOTE | 2022-01-03 06:30 | NUR ---
Problems reprioritized. Patient report given, questions answered & plan of care reviewed with Ronel. Addendum: 01/03/22 at 0813 by Cinthia Durbin RN Amended: Links added.
[2022-01-03 07:20] LABS: BASOPHILS % (AUTO) 0.1 % (0-1); EOSINOPHILS % (AUTO) 0 % (0-6); HEMATOCRIT 37.8 % (35.0-45.0); HEMOGLOBIN 12.1 g/dl (12.0-16.0); LYMPHOCYTES # (AUTO) 1.1 X10'3 (1.1-4.8); MEAN CORPUSCULAR HEMOGLOBIN 29.2 PG (27.0-31.0); MEAN CORPUSCULAR HGB CONC 32.1 g/dL (33.0-36.5); MEAN CORPUSCULAR VOLUME 90.9 FL (78-98); MEAN PLATELET VOLUME 8.2 FL (7.4-10.4); MONOCYTES # (AUTO) 0.4 X10'3 (0-0.9); MONOCYTES % (AUTO) 3.7 % (2-12); NEUTROPHILS # (AUTO) 9.5 X10'3 (1.8-7.7); NEUTROPHILS % (AUTO) 86.2 % (42-75); PLATELET COUNT 164 X10'3 (140-440); RED BLOOD COUNT 4.16 X10'6 (4.20-5.60)
[2022-01-03 07:27] LABS: ALBUMIN 3.1 G/DL (3.4-5.0); ANION GAP 6 (8-16); BLOOD UREA NITROGEN 33 MG/DL (7-18); CALCIUM 8.9 MG/DL (8.5-10.1); CHLORIDE 101 MMOL/L (99-107); CREATININE 0.55 MG/DL (0.40-0.90); GLUCOSE 196 MG/DL (70-104); POTASSIUM 4.2 MMOL/L (3.5-5.1); SODIUM 140 MMOL/L (135-145); TOTAL CARBON DIOXIDE 33.4 MMOL/L (24-32); eGFR > 90 ML/MIN
[2022-01-03] MEDS: potassium chloride 10mEq ER tablet PO SCH ×2 (08:00→11:46)
[2022-01-03] MEDS: lisinopril 2.5mg tablet PO SCH (08:00)
[2022-01-03] MEDS: furosemide 20 MG/2 ML vial IV SCH ×2 (08:00→09:57)
[2022-01-03] MEDS: aspirin 81mg tab.chew PO SCH (08:29)
[2022-01-03] MEDS: ferrous sulfate 325mg tablet PO SCH (08:29)
[2022-01-03] MEDS: docusate sod 100mg capsule PO SCH ×2 (08:30→19:53)
[2022-01-03] MEDS: apixaban 5mg tablet PO SCH ×2 (08:30→19:53)
[2022-01-03] MEDS: amox tr/potassium clavulanate 875/125mg TAB PO SCH ×2 (08:30→18:09)
[2022-01-03] MEDS: PANTOPRAZOLE 40 MG PO SCH (08:30)
[2022-01-03] MEDS: metoprolol tartrate 25mg tablet PO SCH ×2 (08:31→20:16)
[2022-01-03] MEDS: HYDROcodone/acetaminophen 10/325mg tab PO PRN ×2 (08:32→20:16)
[2022-01-03] MEDS: methylPREDNISolone sod succ 125mg/2ml vial IV SCH ×2 (08:32→19:54)
[2022-01-03] MEDS: budesonide 0.5mg/2ml UD nebule IH SCH ×2 (08:45→19:15)
[2022-01-03 09:55] VITALS: BP 138/81
[2022-01-03 10:00] VITALS: BP 138/81
[2022-01-03] MEDS: morphine 2 MG/ML inj. syringe IV PRN ×2 (11:46→23:44)
[2022-01-03 11:52] VITALS: BP 104/66
[2022-01-03 14:00] VITALS: BP 137/87
--- NOTE | 2022-01-03 15:18 | NUR ---
PAGER ID: [phone] MESSAGE: Cierra Fonseca [phone] So sorry but pt. is anxious to leave and states if you don't discharge her today she will leave AMA. Please let me know your plan. Joana [phone]
--- NOTE | 2022-01-03 15:37 | NUR ---
Hospitalist rounding on floor. Spoke to pt. in depth regarding risks of going home AMA. Pt. has family member who are unvaccinated visiting from out of town and is not willing to compromise. States she will get medications from her PCP. AMA paperwork signed by and pt.
--- NOTE | 2022-01-03 17:42 | NUR ---
PAGER ID: [phone] MESSAGE: Cierra Fonseca [phone] Just FYI, family member visited and convinced pt to stay. This pt. is not leaving AMA. Joana [phone]
--- NOTE | 2022-01-03 18:20 | NUR ---
Patient in room ORTHO 4024. I have received report from Joana LAMBERT and had the opportunity to ask questions and assume patient care. Addendum: 01/03/22 at 1834 by Cinthia Durbin RN Amended: Links added.
--- NOTE | 2022-01-03 18:36 | NUR ---
Report given to Cinthia LAMBERT.
[2022-01-03 22:00] VITALS: BP 140/86
[2022-01-04] MEDS: ipratropium/albuterol 3ml nebule NEB SCH ×3 (02:42→15:10)
[2022-01-04] MEDS: ALPRAZolam 0.25mg tablet PO PRN (03:03)
--- NOTE | 2022-01-04 05:00 | NUR ---
Pt. with c/o pain most of this shift medicated effective. No c/o SOB this shift sats WNL o2 at 4 L this shift. Isolation precaution maintained. Call light within reach. Addendum: 01/04/22 at 0708 by Cinthia Durbin RN Amended: Links added.
[2022-01-04 06:00] VITALS: BP 129/71
[2022-01-04 06:16] LABS: BASOPHILS % (AUTO) 0.1 % (0-1); EOSINOPHILS % (AUTO) 0 % (0-6); HEMATOCRIT 39.4 % (35.0-45.0); HEMOGLOBIN 12.5 g/dl (12.0-16.0); LYMPHOCYTES # (AUTO) 1.2 X10'3 (1.1-4.8); LYMPHOCYTES % (AUTO) 11.5 % (21-51); MEAN CORPUSCULAR HEMOGLOBIN 28.6 PG (27.0-31.0); MEAN CORPUSCULAR HGB CONC 31.6 g/dL (33.0-36.5); MEAN CORPUSCULAR VOLUME 90.4 FL (78-98); MEAN PLATELET VOLUME 7.9 FL (7.4-10.4); MONOCYTES # (AUTO) 0.4 X10'3 (0-0.9); MONOCYTES % (AUTO) 3.4 % (2-12); NEUTROPHILS # (AUTO) 9.2 X10'3 (1.8-7.7); PLATELET COUNT 196 X10'3 (140-440); RED BLOOD COUNT 4.36 X10'6 (4.20-5.60); WHITE BLOOD COUNT 10.8 X10'3 (4.5-11.0)
[2022-01-04 06:38] LABS: ALBUMIN 3.3 G/DL (3.4-5.0); ANION GAP 1 (8-16); BLOOD UREA NITROGEN 41 MG/DL (7-18); BUN/CREATININE RATIO 58.6 (6.6-38.0); CALCIUM 8.9 MG/DL (8.5-10.1); CHLORIDE 102 MMOL/L (99-107); GLUCOSE 141 MG/DL (70-104); POTASSIUM 4.4 MMOL/L (3.5-5.1); SODIUM 141 MMOL/L (135-145); TOTAL CARBON DIOXIDE 38.1 MMOL/L (24-32); eGFR 86 ML/MIN
--- NOTE | 2022-01-04 06:47 | NUR ---
Patient in room ORTHO 4006. I have received report from PETRA Vicente and had the opportunity to ask questions and assume patient care.
[2022-01-04] MEDS: morphine 2 MG/ML inj. syringe IV PRN ×2 (07:35→15:35)
[2022-01-04] MEDS: aspirin 81mg tab.chew PO SCH (07:35)
[2022-01-04] MEDS: PANTOPRAZOLE 40 MG PO SCH (07:35)
[2022-01-04] MEDS: potassium chloride 10mEq ER tablet PO SCH ×2 (07:35→07:53)
[2022-01-04] MEDS: metoprolol tartrate 25mg tablet PO SCH (07:36)
[2022-01-04] MEDS: ferrous sulfate 325mg tablet PO SCH (07:36)
[2022-01-04] MEDS: lisinopril 2.5mg tablet PO SCH (07:36)
[2022-01-04] MEDS: apixaban 5mg tablet PO SCH (07:37)
[2022-01-04] MEDS: docusate sod 100mg capsule PO SCH (07:53)
[2022-01-04] MEDS: amox tr/potassium clavulanate 875/125mg TAB PO SCH ×2 (07:56→17:43)
[2022-01-04] MEDS ORDERED: predniSONE 20 mg tablet PO SCH (08:00)
[2022-01-04] MEDS: budesonide 0.5mg/2ml UD nebule IH SCH (09:16)
[2022-01-04 10:00] VITALS: BP 125/78
[2022-01-04] MEDS ORDERED: PERFLUTREN PROTEIN-A MICROSPHR (Optison) 0.22 MG/ML 3ML VIAL IV ONE (10:05)
[2022-01-04] MEDS: HYDROcodone/acetaminophen 10/325mg tab PO PRN (13:04)
--- NOTE | 2022-01-04 15:24 | NUR ---
PAGER ID: [phone] MESSAGE: Shiloh [phone] Cierra Fonseca room 4006 wants to go home today. Would like to know if she can be discharged.
[2022-01-04 18:00] VITALS: BP 127/71
--- NOTE | 2022-01-04 18:14 | NUR ---
Patient left AMA at 1804.
--- NOTE | 2022-01-04 18:14 | NUR ---
PAGER ID: [phone] MESSAGE: Shiloh [phone] Cierra Fonseca room 4006 left AMA.
--- NOTE | 2022-01-04 18:52 | NUR ---
Patient left AMA at 1805 with all her belongings accompanied by family. IV was removed with canula intact.
== END 2022-01-04 18:00 | disposition left against medical advice (07) | DRG 190 ==
LOC: ER 04:27 → ED HOLD 08:52 → ORTHO 4S 18:55
PROVIDERS: ADMIT Internal Medicine; ATTEND Internal Medicine
PROC: 5A09357 Assistance with Respiratory Ventilation, Less than 24 Consecutive Hours, Continuous Positive Airway Pressure (ICD-10-PCS; principal; 2022-01-02)
PROC: 5A09357 Assistance with Respiratory Ventilation, Less than 24 Consecutive Hours, Continuous Positive Airway Pressure (ICD-10-PCS; 2022-01-04)
DX: J44.0 Chronic obstructive pulmonary disease with (acute) lower respiratory infection (principal); J18.9 Pneumonia, unspecified organism; J96.11 Chronic respiratory failure with hypoxia; J44.1 Chronic obstructive pulmonary disease with (acute) exacerbation; I50.9 Heart failure, unspecified; G35 Multiple sclerosis; E11.9 Type 2 diabetes mellitus without complications; F41.9 Anxiety disorder, unspecified; F15.90 Other stimulant use, unspecified, uncomplicated; Z53.29 Procedure and treatment not carried out because of patient's decision for other reasons; F32.A Depression, unspecified; G43.909 Migraine, unspecified, not intractable, without status migrainosus; M54.50 Low back pain, unspecified; Z20.822 Contact with and (suspected) exposure to COVID-19; I11.0 Hypertensive heart disease with heart failure; I48.91 Unspecified atrial fibrillation; Z79.01 Long term (current) use of anticoagulants; Z79.51 Long term (current) use of inhaled steroids; Z83.3 Family history of diabetes mellitus; Z87.891 Personal history of nicotine dependence; Z88.1 Allergy status to other antibiotic agents; Z91.19 Patient's noncompliance with other medical treatment and regimen; Z99.81 Dependence on supplemental oxygen; Z88.8 Allergy status to other drugs, medicaments and biological substances; Z90.49 Acquired absence of other specified parts of digestive tract; Z98.891 History of uterine scar from previous surgery; Z82.49 Family history of ischemic heart disease and other diseases of the circulatory system; Z79.899 Other long term (current) drug therapy
CPT/HCPCS: 36415; 71045; 80048; 80053; 83036; 83605; 83735; 83880; 84100; 84484; 85025; 85379; 87040; 87077; 87081; 87186; 87635; 93005; 93306; 94640; 94760; 97110; 97116; 97161; 97530; 99285; C9803; G0378; J0696; J1100; J1940; J2270; J2405; J2930; J3475; J7512

== ENCOUNTER 2022-01-05 09:51 | Inpatient (IN) | payer BC, MEDICAID ==
[~2022-01-05] VITALS: Ht 160 cm; Wt 52.0 kg
[~2022-01-05 09:51] MED LIST changes: +BUDE10.2 PO; -FLUT1BLS16 IH; +FURO20TA4 PO; -OXYB5TAB29 PO
[2022-01-05] MEDS ORDERED: albuterol 2.5 MG/3 ML nebule CONTNEB PRN (10:05)
[2022-01-05] MEDS ORDERED: methylPREDNISolone sod succ 125mg/2ml vial IV ONE (10:05)
[2022-01-05 10:31] LABS: BASOPHILS % (AUTO) 0.1 % (0-1); EOSINOPHILS # (AUTO) 0.1 X10'3 (0-0.9); EOSINOPHILS % (AUTO) 0.7 % (0-6); HEMATOCRIT 41.7 % (35.0-45.0); HEMOGLOBIN 13.5 g/dl (12.0-16.0); LYMPHOCYTES # (AUTO) 2.9 X10'3 (1.1-4.8); MEAN CORPUSCULAR HEMOGLOBIN 29.4 PG (27.0-31.0); MEAN CORPUSCULAR HGB CONC 32.4 g/dL (33.0-36.5); MEAN CORPUSCULAR VOLUME 90.9 FL (78-98); MEAN PLATELET VOLUME 7.4 FL (7.4-10.4); MONOCYTES # (AUTO) 0.7 X10'3 (0-0.9); MONOCYTES % (AUTO) 7.9 % (2-12); NEUTROPHILS # (AUTO) 5.6 X10'3 (1.8-7.7); NEUTROPHILS % (AUTO) 60.3 % (42-75); PLATELET COUNT 195 X10'3 (140-440); RED BLOOD COUNT 4.58 X10'6 (4.20-5.60); RED CELL DISTRIBUTION WIDTH 15.5 % (11.5-14.5); WHITE BLOOD COUNT 9.4 X10'3 (4.5-11.0)
[2022-01-05 10:38] LABS: ABG BASE EXCESS 12.3 mmol/L (-2.0-2.0); ABG OXYGEN SATURATION 97.7 % (94-97); ABG PCO2 (T) 82.4 mmHg (32.0-45.0); ABG PO2 (T) 109.4 mmHg (75.0-100.0); ALLEN'S TEST POSITIVE; FCOHb 0.9 % (0.0-3.9); FLOW 8 L/min; FMetHb 0.3 % (0.0-1.5); FO2Hb 96.5 % (94-97); TOTAL HEMOGLOBIN 13.4 G/dl (12.0-16.0)
[2022-01-05 10:46] LABS: APTT 25 SECONDS (22-32)
[2022-01-05 10:48] LABS: ALANINE AMINOTRANSFERASE 92 U/L (12-78); ALBUMIN 3.6 G/DL (3.4-5.0); ALBUMIN/GLOBULIN RATIO 1.1 (1.1-1.5); ANION GAP 2 (8-16); ASPARTATE AMINO TRANSFERASE 35 U/L (10-37); BILIRUBIN,TOTAL 0.3 MG/DL (0.1-1.0); BLOOD UREA NITROGEN 40 MG/DL (7-18); BUN/CREATININE RATIO 70.2 (6.6-38.0); CALCIUM 8.8 MG/DL (8.5-10.1); CHLORIDE 102 MMOL/L (99-107); CREATININE 0.57 MG/DL (0.40-0.90); GLUCOSE 97 MG/DL (70-104); POTASSIUM 3.3 MMOL/L (3.5-5.1); SODIUM 143 MMOL/L (135-145); TOTAL CARBON DIOXIDE 38.7 MMOL/L (24-32); eGFR > 90 ML/MIN
[2022-01-05 10:49] LABS: ALKALINE PHOSPHATASE 113 IU/L (46-116)
[2022-01-05] MEDS ORDERED: LORazepam 2 mg/ml vial IV STA (11:24)
--- NOTE | 2022-01-05 11:24 | NUR ---
Patient agreed to use bipap with ativan, Dr. Nicole aware.
--- NOTE | 2022-01-05 12:14 | NUR ---
PT BREATHING TX COMPLETED, RT AT BEDSIDE, ATIVAN GIVEN AND PT PLACED ON BIPAP. PT STATES THAT HER WILL BE BRINGING HER HOME BIPAP MACHINE IN AND RX WILL SWITCH IT OUT
[2022-01-05] MEDS ORDERED: magnesium hydroxide 30ml (MOM) UD suspension PO PRN (12:55)
[2022-01-05] MEDS ORDERED: magnesium Cl slow-release 64mg tablet PO PRN (12:55)
[2022-01-05] MEDS ORDERED: ondansetron/PF 4mg/2ml inj IV PRN (12:55)
[2022-01-05] MEDS ORDERED: magnesium 2GM in 50ml NS 50 ML IV PRN (12:55)
[2022-01-05] MEDS ORDERED: POTASSIUM BICARB 20meq eff tab 20 MEQ TABLET.EFF PO PRN ×2 (12:55)
[2022-01-05] MEDS ORDERED: acetaminophen 325mg tablet PO PRN ×2 (12:55)
[2022-01-05] MEDS ORDERED: magnesium 4gm in 100ml NS 100 ML IV PRN (12:55)
[2022-01-05] MEDS ORDERED: potassium CL 10mEq/100ml bag 100 ML IV PRN (12:55)
[2022-01-05] MEDS ORDERED: CefTRIAXone 2gm/NS 100ml IVPB 100 ML IV ONE (13:00)
--- NOTE | 2022-01-05 14:12 | NUR ---
pt asleep, tolerating bipap.
[2022-01-05] MEDS: albuterol 2.5 MG/3 ML nebule NEB SCH ×3 (15:17→23:24)
[2022-01-05] MEDS: K and/or MAG REPLACEMENT MC SCH (20:00)
[2022-01-05] MEDS: methylPREDNISolone sod succ 125mg/2ml vial IV SCH (20:50)
[2022-01-05] MEDS: heparin, porcine 5000 units/ml vial SQ SCH (20:50)
[2022-01-05] MEDS: HYDROcodone/acetaminophen 5mg/325mg tablet PO PRN (20:58)
[2022-01-05 22:00] VITALS: BP 133/61
[2022-01-06] MEDS: diltiazem 30mg tablet PO SCH ×2 (00:38→08:35)
--- NOTE | 2022-01-06 00:45 | NUR ---
Pt arrived from ED HR is in 120s to 130s sinus tach. Notified Dr. Ascencio, recieved order for cardizem 30 mg Q6H. Current BP 133/61 (75), HR 120, Resp 18, Spo2 96%. Will continue to monitor.
[2022-01-06 02:00] VITALS: BP 128/66
[2022-01-06] MEDS: albuterol 2.5 MG/3 ML nebule NEB SCH ×3 (02:54→11:00)
--- NOTE | 2022-01-06 04:06 | NUR ---
Respiratory therapist Christiano notice pt taking pills that was not ordered from the physician, when asked what it was pt stated it was xanax. With the pt's consent I and another RN searched her belongings and found one bottle of Motrin and a few white unidentified pills. Security was called to search the pt and they found a few more unidentified white pills, capsules and a small bag with white substance like powder. Pt admitted it was methamphetamine. Everything was confiscated from the Pt and a report was made by security. The pt was educated on the risk and harmful effects of taking substances that is not prescribed by the physician. She is stable at this time. Vitals HR 112 Bp 128/66 o2 94%, Resp 17. Will continue to monitor.
[2022-01-06 06:00] VITALS: BP 142/82
[2022-01-06 06:14] LABS: BASOPHILS % (AUTO) 0.1 % (0-1); EOSINOPHILS % (AUTO) 0 % (0-6); HEMATOCRIT 37.4 % (35.0-45.0); HEMOGLOBIN 12.3 g/dl (12.0-16.0); LYMPHOCYTES # (AUTO) 0.5 X10'3 (1.1-4.8); LYMPHOCYTES % (AUTO) 4.6 % (21-51); MEAN CORPUSCULAR HEMOGLOBIN 29.6 PG (27.0-31.0); MEAN CORPUSCULAR HGB CONC 32.9 g/dL (33.0-36.5); MEAN PLATELET VOLUME 7.7 FL (7.4-10.4); MONOCYTES # (AUTO) 0.3 X10'3 (0-0.9); MONOCYTES % (AUTO) 2.8 % (2-12); NEUTROPHILS # (AUTO) 9.2 X10'3 (1.8-7.7); NEUTROPHILS % (AUTO) 92.5 % (42-75); PLATELET COUNT 181 X10'3 (140-440); RED BLOOD COUNT 4.16 X10'6 (4.20-5.60); WHITE BLOOD COUNT 9.9 X10'3 (4.5-11.0)
[2022-01-06 06:44] LABS: ALANINE AMINOTRANSFERASE 73 U/L (12-78); ALBUMIN 3.3 G/DL (3.4-5.0); ALKALINE PHOSPHATASE 113 IU/L (46-116); ANION GAP 4 (8-16); ASPARTATE AMINO TRANSFERASE 19 U/L (10-37); BILIRUBIN,TOTAL 0.2 MG/DL (0.1-1.0); BLOOD UREA NITROGEN 23 MG/DL (7-18); BUN/CREATININE RATIO 41.8 (6.6-38.0); CHLORIDE 105 MMOL/L (99-107); CREATININE 0.55 MG/DL (0.40-0.90); GLUCOSE 176 MG/DL (70-104); SODIUM 146 MMOL/L (135-145); TOTAL CARBON DIOXIDE 37.2 MMOL/L (24-32); TOTAL PROTEIN 6.5 G/DL (6.4-8.2); eGFR > 90 ML/MIN
[2022-01-06] MEDS: K and/or MAG REPLACEMENT MC SCH (07:35)
[2022-01-06] MEDS: HYDROcodone/acetaminophen 5mg/325mg tablet PO PRN ×2 (08:35→12:32)
[2022-01-06] MEDS: methylPREDNISolone sod succ 125mg/2ml vial IV SCH (08:36)
[2022-01-06] MEDS: heparin, porcine 5000 units/ml vial SQ SCH ×2 (08:36→08:40)
[2022-01-06] MEDS ORDERED: OXYB-58 PO (08:54)
[2022-01-06] MEDS ORDERED: hydrOXYzine 25 MG tablet PO PRN (09:35)
[2022-01-06 11:00] VITALS: BP 85/58
--- NOTE | 2022-01-06 14:15 | NUR ---
Walked into pt room and found boyfriend in room and pt dressed. I asked what was happening and pt stated she was going home. Pt signed AMA form. I discontinued her PIV and she left in her own wheelchair with boyfriend. Notified Dr. Lu.
--- NOTE | 2022-01-06 14:19 | NUR ---
Sent to Dr. Lu: 0313 Raymundo: left AMA at 1420. boyfriend here taking her.
[2022-01-06] MEDS ORDERED: amox tr/potassium clavulanate 875/125mg TAB PO SCH (17:30)
== END 2022-01-06 14:20 | disposition left against medical advice (07) | DRG 193 ==
LOC: ER 09:52 → ED HOLD 12:56 → PCU 3S 19:15
PROVIDERS: ADMIT Internal Medicine; ATTEND Family Medicine
PROC: 5A09357 Assistance with Respiratory Ventilation, Less than 24 Consecutive Hours, Continuous Positive Airway Pressure (ICD-10-PCS; principal; 2022-01-05)
DX: J18.9 Pneumonia, unspecified organism (principal); J96.22 Acute and chronic respiratory failure with hypercapnia; J44.0 Chronic obstructive pulmonary disease with (acute) lower respiratory infection; J44.1 Chronic obstructive pulmonary disease with (acute) exacerbation; E11.9 Type 2 diabetes mellitus without complications; F15.10 Other stimulant abuse, uncomplicated; F41.9 Anxiety disorder, unspecified; I11.0 Hypertensive heart disease with heart failure; I48.91 Unspecified atrial fibrillation; G43.909 Migraine, unspecified, not intractable, without status migrainosus; I50.9 Heart failure, unspecified; Z53.29 Procedure and treatment not carried out because of patient's decision for other reasons; Z79.01 Long term (current) use of anticoagulants; Z79.51 Long term (current) use of inhaled steroids; Z91.19 Patient's noncompliance with other medical treatment and regimen; Z88.8 Allergy status to other drugs, medicaments and biological substances; Z90.49 Acquired absence of other specified parts of digestive tract; Z98.891 History of uterine scar from previous surgery; Z82.49 Family history of ischemic heart disease and other diseases of the circulatory system; Z83.3 Family history of diabetes mellitus; Z79.899 Other long term (current) drug therapy
CPT/HCPCS: 36415; 36600; 71045; 80053; 82803; 83880; 85018; 85025; 85610; 85730; 94640; 94660; 94760; 96374; 96375; 99285; A7015; G0378; J0696; J1644; J2060; J2930; Q0177

== ENCOUNTER 2022-01-25 04:14 | Emergency (ER) | payer BC, MEDICAID ==
[~2022-01-25] VITALS: Ht 160 cm; Wt 52.3 kg
[~2022-01-25 04:14] MED LIST changes: +OXYB-58 PO
[2022-01-25 04:34] LABS: BASOPHILS % (AUTO) 0.4 % (0-1); EOSINOPHILS % (AUTO) 0 % (0-6); HEMATOCRIT 36.6 % (35.0-45.0); LYMPHOCYTES # (AUTO) 0.3 X10'3 (1.1-4.8); LYMPHOCYTES % (AUTO) 5.2 % (21-51); MEAN CORPUSCULAR HEMOGLOBIN 29.5 PG (27.0-31.0); MEAN CORPUSCULAR HGB CONC 32.7 g/dL (33.0-36.5); MEAN CORPUSCULAR VOLUME 90.2 FL (78-98); MEAN PLATELET VOLUME 7.6 FL (7.4-10.4); MONOCYTES # (AUTO) 0.1 X10'3 (0-0.9); MONOCYTES % (AUTO) 1.6 % (2-12); NEUTROPHILS # (AUTO) 5.6 X10'3 (1.8-7.7); NEUTROPHILS % (AUTO) 92.8 % (42-75); PLATELET COUNT 177 X10'3 (140-440); RED BLOOD COUNT 4.05 X10'6 (4.20-5.60); RED CELL DISTRIBUTION WIDTH 15.3 % (11.5-14.5); WHITE BLOOD COUNT 6.1 X10'3 (4.5-11.0)
[2022-01-25 04:44] LABS: APTT 26 SECONDS (22-32); D-DIMER 0.59 MG/L FEU (0-0.50)
[2022-01-25] MEDS ORDERED: acetaminophen 325mg tablet PO ONE (04:45)
[2022-01-25] MEDS ORDERED: ondansetron/PF 4mg/2ml inj IV ONE (04:45)
[2022-01-25] MEDS ORDERED: methylPREDNISolone sod succ 125mg/2ml vial IV ONE (04:45)
[2022-01-25 04:46] LABS: ALANINE AMINOTRANSFERASE 22 U/L (12-78); ALBUMIN 3.2 G/DL (3.4-5.0); ALKALINE PHOSPHATASE 129 IU/L (46-116); ANION GAP 8 (8-16); ASPARTATE AMINO TRANSFERASE 13 U/L (10-37); BILIRUBIN,TOTAL 0.2 MG/DL (0.1-1.0); BLOOD UREA NITROGEN 20 MG/DL (7-18); BUN/CREATININE RATIO 21.7 (6.6-38.0); CALCIUM 8.5 MG/DL (8.5-10.1); CHLORIDE 102 MMOL/L (99-107); CREATININE 0.92 MG/DL (0.40-0.90); GLUCOSE 224 MG/DL (70-104); POTASSIUM 3.2 MMOL/L (3.5-5.1); SODIUM 146 MMOL/L (135-145); TOTAL CARBON DIOXIDE 35.7 MMOL/L (24-32); TOTAL PROTEIN 6.5 G/DL (6.4-8.2); eGFR 63 ML/MIN
[2022-01-25 05:15] VITALS: BP 118/61
[2022-01-25] MEDS ORDERED: PRED20TA PO (06:07)
[2022-01-25] MEDS ORDERED: AZIT-83 PO (06:07)
== END 2022-01-25 06:50 | disposition home or self-care (01) ==
LOC: ER 04:15
DX: J44.1 Chronic obstructive pulmonary disease with (acute) exacerbation (principal); R11.2 Nausea with vomiting, unspecified; G43.909 Migraine, unspecified, not intractable, without status migrainosus; I11.0 Hypertensive heart disease with heart failure; I50.9 Heart failure, unspecified; G35 Multiple sclerosis; E11.9 Type 2 diabetes mellitus without complications; F15.90 Other stimulant use, unspecified, uncomplicated; Z87.01 Personal history of pneumonia (recurrent); Z86.19 Personal history of other infectious and parasitic diseases; Z90.49 Acquired absence of other specified parts of digestive tract; Z98.891 History of uterine scar from previous surgery; Z88.1 Allergy status to other antibiotic agents; Z88.8 Allergy status to other drugs, medicaments and biological substances; Z91.048 Other nonmedicinal substance allergy status; Z79.82 Long term (current) use of aspirin; Z79.899 Other long term (current) drug therapy; Z79.2 Long term (current) use of antibiotics
CPT/HCPCS: 36415; 71045; 80053; 83880; 84145; 85025; 85379; 85730; 93005; 96374; 96375; 99285; J2405; J2930

== ENCOUNTER 2022-02-19 14:27 | Emergency (ER) | payer BC, MEDICAID ==
[~2022-02-19] VITALS: Ht 160 cm; Wt 60.0 kg
[2022-02-19] MEDS ORDERED: methylPREDNISolone sod succ 125mg/2ml vial IV ONE (14:40)
[2022-02-19] MEDS ORDERED: ipratropium/albuterol 3ml nebule NEB ONE (14:40)
[2022-02-19 15:23] LABS: BASOPHILS % (AUTO) 0.4 % (0-1); EOSINOPHILS # (AUTO) 0.2 X10'3 (0-0.9); EOSINOPHILS % (AUTO) 1.9 % (0-6); HEMATOCRIT 38.5 % (35.0-45.0); HEMOGLOBIN 12.5 g/dl (12.0-16.0); LYMPHOCYTES # (AUTO) 1.9 X10'3 (1.1-4.8); MEAN CORPUSCULAR HEMOGLOBIN 29.6 PG (27.0-31.0); MEAN CORPUSCULAR HGB CONC 32.4 g/dL (33.0-36.5); MEAN CORPUSCULAR VOLUME 91.4 FL (78-98); MEAN PLATELET VOLUME 8.1 FL (7.4-10.4); MONOCYTES # (AUTO) 0.7 X10'3 (0-0.9); MONOCYTES % (AUTO) 8.7 % (2-12); NEUTROPHILS # (AUTO) 5.4 X10'3 (1.8-7.7); PLATELET COUNT 168 X10'3 (140-440); RED BLOOD COUNT 4.21 X10'6 (4.20-5.60); RED CELL DISTRIBUTION WIDTH 14.4 % (11.5-14.5); WHITE BLOOD COUNT 8.1 X10'3 (4.5-11.0)
[2022-02-19 15:44] LABS: ALANINE AMINOTRANSFERASE 23 U/L (12-78); ALBUMIN 3.1 G/DL (3.4-5.0); ALBUMIN/GLOBULIN RATIO 0.9 (1.1-1.5); ANION GAP 2 (8-16); ASPARTATE AMINO TRANSFERASE 19 U/L (10-37); BILIRUBIN,TOTAL 0.2 MG/DL (0.1-1.0); BLOOD UREA NITROGEN 24 MG/DL (7-18); BUN/CREATININE RATIO 41.4 (6.6-38.0); CALCIUM 8.7 MG/DL (8.5-10.1); CHLORIDE 105 MMOL/L (99-107); CREATININE 0.58 MG/DL (0.40-0.90); GLUCOSE 156 MG/DL (70-104); MAGNESIUM 1.5 MG/DL (1.5-2.4); POTASSIUM 3.1 MMOL/L (3.5-5.1); SODIUM 148 MMOL/L (135-145); TOTAL PROTEIN 6.4 G/DL (6.4-8.2); eGFR > 90 ML/MIN
[2022-02-19 16:00] LABS: ALKALINE PHOSPHATASE 122 IU/L (46-116)
[2022-02-19 16:06] LABS: TOTAL CARBON DIOXIDE 40.7 MMOL/L (24-32)
[2022-02-19 18:00] VITALS: BP 131/88
[2022-02-19] MEDS ORDERED: LIDOcaine 1% W/epiNEPHrine 1:100,000 20ml vial SQ ONE (18:40)
[2022-02-19] MEDS ORDERED: sulfamethoxazole/trimethoprim DS (800/160mg) tablet PO ONE (19:20)
[2022-02-19] MEDS ORDERED: SULF1TAB49 PO (19:54)
[2022-02-19] MEDS ORDERED: PRED20TA PO (19:54)
== END 2022-02-20 07:48 | disposition home or self-care (01) ==
LOC: ER 14:27
DX: J43.9 Emphysema, unspecified (principal); N75.0 Cyst of Bartholin's gland; I11.0 Hypertensive heart disease with heart failure; G43.909 Migraine, unspecified, not intractable, without status migrainosus; K21.9 Gastro-esophageal reflux disease without esophagitis; E11.9 Type 2 diabetes mellitus without complications; F41.9 Anxiety disorder, unspecified; Z88.1 Allergy status to other antibiotic agents; Z88.0 Allergy status to penicillin; Z79.899 Other long term (current) drug therapy; Z79.82 Long term (current) use of aspirin
CPT/HCPCS: 36415; 71045; 80053; 83735; 83880; 84484; 85025; 93005; 94640; 96374; 99285; J2930; 94760; A6449

== ENCOUNTER 2022-03-29 07:28 | Emergency (ER) | payer BC, MEDICAID ==
[~2022-03-29] VITALS: Ht 160 cm; Wt 52.7 kg
[~2022-03-29 07:28] MED LIST changes: +ACET650T58 PO; -ASPI-1265 PO; +ASPI81TA47 PO; +BENZ-38 PO; -CHOL100046 PO; -IBUP-1985 PO; +MULT-1085 PO; +PRED10TA PO; +SERT25TA PO; +TIOT18CA3 INH
[2022-03-29] MEDS ORDERED: pantoprazole 40 MG vial IV ONE (08:10)
[2022-03-29] MEDS ORDERED: ipratropium/albuterol 3ml nebule NEB ONE (08:10)
[2022-03-29] MEDS ORDERED: ondansetron/PF 4mg/2ml inj IV ONE (08:10)
[2022-03-29] MEDS ORDERED: pantoprazole 40 MG/NS 100ML add-vantage BAG IV ONE (08:25)
[2022-03-29] MEDS ORDERED: normal saline 1000ML IV soln IVB ONE (08:35)
--- NOTE | 2022-03-29 09:24 | NUR ---
notified dr wilson that pt is c/o headache ,verbal order to give tylenol 650 mg po once.
[2022-03-29] MEDS ORDERED: acetaminophen 325mg tablet PO ONE (09:25)
--- NOTE | 2022-03-29 09:25 | NUR ---
rt at bedside.
[2022-03-29 09:40] LABS: URINE AMPHETAMINE SCREEN POSITIVE (Neg); URINE BARBITUATE SCREEN NEGATIVE (Neg); URINE BENZODIAZEPINES SCREEN POSITIVE (Neg); URINE CANNABINOID SCREEN NEGATIVE (Neg); URINE COCAINE SCREEN NEGATIVE (Neg); URINE METHADONE SCREEN NEGATIVE (Neg); URINE OPIATE SCREEN NEGATIVE (Neg); URINE PHENCYCLIDINE SCREEN NEGATIVE (Neg)
[2022-03-29 09:53] LABS: BASOPHILS % (AUTO) 0.3 % (0-1); EOSINOPHILS # (AUTO) 0.1 X10'3 (0-0.9); EOSINOPHILS % (AUTO) 0.7 % (0-6); HEMATOCRIT 37.8 % (35.0-45.0); HEMOGLOBIN 11.8 g/dl (12.0-16.0); LYMPHOCYTES # (AUTO) 2.1 X10'3 (1.1-4.8); MEAN CORPUSCULAR HEMOGLOBIN 30.2 PG (27.0-31.0); MEAN CORPUSCULAR HGB CONC 31.2 g/dL (33.0-36.5); MEAN CORPUSCULAR VOLUME 96.8 FL (78-98); MEAN PLATELET VOLUME 7.4 FL (7.4-10.4); MONOCYTES # (AUTO) 0.7 X10'3 (0-0.9); MONOCYTES % (AUTO) 8.5 % (2-12); NEUTROPHILS # (AUTO) 5.7 X10'3 (1.8-7.7); NEUTROPHILS % (AUTO) 66.5 % (42-75); PLATELET COUNT 179 X10'3 (140-440); RED BLOOD COUNT 3.91 X10'6 (4.20-5.60); RED CELL DISTRIBUTION WIDTH 16.7 % (11.5-14.5); WHITE BLOOD COUNT 8.6 X10'3 (4.5-11.0)
[2022-03-29 10:20] LABS: ALANINE AMINOTRANSFERASE 33 U/L (12-78); ALBUMIN 3.2 G/DL (3.4-5.0); ALBUMIN/GLOBULIN RATIO 1.1 (1.1-1.5); ALKALINE PHOSPHATASE 86 IU/L (46-116); ANION GAP 1 (8-16); ASPARTATE AMINO TRANSFERASE 16 U/L (10-37); BILIRUBIN,TOTAL 0.3 MG/DL (0.1-1.0); BLOOD UREA NITROGEN 29 MG/DL (7-18); CALCIUM 8.4 MG/DL (8.5-10.1); CHLORIDE 103 MMOL/L (99-107); CREATININE 0.63 MG/DL (0.40-0.90); GLUCOSE 96 MG/DL (70-104); POTASSIUM 3.4 MMOL/L (3.5-5.1); SODIUM 148 MMOL/L (135-145); TOTAL PROTEIN 6.1 G/DL (6.4-8.2); eGFR > 90 ML/MIN
[2022-03-29 10:22] LABS: TOTAL CARBON DIOXIDE 44.4 MMOL/L (24-32)
--- NOTE | 2022-03-29 10:48 | NUR ---
PT IS BEING DC, INSISTS THAT SHE CAN NOT GO OUT INTO THE LOBBY TO WAIT FOR HER BOYFRIEND TO PICK HER UP. PT ASKED THAT HE BE CALLED. PHONE # WAS PROVIDED AND HER BOYFRIEND WAS CALLED, NO ANSWER AND A MESSAGE WAS LEFT. PT WAS NOTIFIED AND STATED THAT HE IS ASLEEP AND WE HAD TO KEEP CALLING HIM. PT WAS ADVISED THAT SHE NEEDED TO CALL HIM, PT STATES THAT SHE DOES NOT HAVE A PHONE WHILE LOOKING IN HER PURSE... AND THEN FOUND HER PHONE. PT WAS TAKEN TO THE ER LOBBY IN A WHEELCHAIR AND O2 AND TOLD SHE NEEDED TO CALL HER BOYFRIEND FOR TRANSPORTATION HOME.
[2022-03-29 10:51] VITALS: BP 119/66
== END 2022-03-29 10:56 | disposition home or self-care (01) ==
LOC: ER 07:29
DX: R07.89 Other chest pain (principal); K27.9 Peptic ulcer, site unspecified, unspecified as acute or chronic, without hemorrhage or perforation; J44.1 Chronic obstructive pulmonary disease with (acute) exacerbation; G43.909 Migraine, unspecified, not intractable, without status migrainosus; I11.0 Hypertensive heart disease with heart failure; I50.9 Heart failure, unspecified; K21.9 Gastro-esophageal reflux disease without esophagitis; E11.9 Type 2 diabetes mellitus without complications; F15.20 Other stimulant dependence, uncomplicated; Z88.1 Allergy status to other antibiotic agents; Z90.49 Acquired absence of other specified parts of digestive tract; Z98.890 Other specified postprocedural states; Z87.891 Personal history of nicotine dependence
CPT/HCPCS: 36415; 71045; 80053; 80305; 83880; 84484; 85025; 93005; 94640; 96374; 96375; 99285; C9113; J2405; J7030; 94760

== ENCOUNTER 2022-04-03 10:13 | Emergency (ER) | payer BC, MEDICAID ==
[~2022-04-03] VITALS: Ht 157.5 cm; Wt 54.5 kg
[2022-04-03] MEDS ORDERED: methylPREDNISolone sod succ 125mg/2ml vial IV ONE (10:25)
[2022-04-03] MEDS ORDERED: magnesium 2GM in 50ml NS 50 ML IV ONE (10:25)
[2022-04-03] MEDS ORDERED: albuterol 2.5 MG/3 ML nebule CONTNEB PRN (10:25)
[2022-04-03 10:35] LABS: BASOPHILS % (AUTO) 0.4 % (0-1); EOSINOPHILS # (AUTO) 0.2 X10'3 (0-0.9); EOSINOPHILS % (AUTO) 1.7 % (0-6); HEMATOCRIT 36.9 % (35.0-45.0); HEMOGLOBIN 11.8 g/dl (12.0-16.0); LYMPHOCYTES # (AUTO) 2.4 X10'3 (1.1-4.8); LYMPHOCYTES % (AUTO) 22.9 % (21-51); MEAN CORPUSCULAR HEMOGLOBIN 30.2 PG (27.0-31.0); MEAN CORPUSCULAR VOLUME 94.5 FL (78-98); MEAN PLATELET VOLUME 7.6 FL (7.4-10.4); MONOCYTES # (AUTO) 0.8 X10'3 (0-0.9); MONOCYTES % (AUTO) 7.5 % (2-12); NEUTROPHILS % (AUTO) 67.5 % (42-75); PLATELET COUNT 147 X10'3 (140-440); RED BLOOD COUNT 3.91 X10'6 (4.20-5.60); RED CELL DISTRIBUTION WIDTH 16.4 % (11.5-14.5); WHITE BLOOD COUNT 10.3 X10'3 (4.5-11.0)
[2022-04-03 10:57] LABS: ALANINE AMINOTRANSFERASE 32 U/L (12-78); ALBUMIN 3.2 G/DL (3.4-5.0); ALBUMIN/GLOBULIN RATIO 1.1 (1.1-1.5); ALKALINE PHOSPHATASE 84 IU/L (46-116); ANION GAP 3 (8-16); ASPARTATE AMINO TRANSFERASE 19 U/L (10-37); BILIRUBIN,TOTAL 0.5 MG/DL (0.1-1.0); BLOOD UREA NITROGEN 26 MG/DL (7-18); BUN/CREATININE RATIO 43.3 (6.6-38.0); CALCIUM 8.6 MG/DL (8.5-10.1); CHLORIDE 105 MMOL/L (99-107); GLUCOSE 102 MG/DL (70-104); POTASSIUM 3.5 MMOL/L (3.5-5.1); SODIUM 148 MMOL/L (135-145); TOTAL CARBON DIOXIDE 39.8 MMOL/L (24-32); TOTAL PROTEIN 6.1 G/DL (6.4-8.2); eGFR > 90 ML/MIN
--- NOTE | 2022-04-03 11:24 | NUR ---
Asked by Dr. Murphy to set pt up w/ H/H. Home health orders given to dcp.Continue to monitor.
[2022-04-03 12:23] VITALS: BP 115/61
== END 2022-04-03 12:25 | disposition home or self-care (01) ==
LOC: ER 10:13
DX: J44.1 Chronic obstructive pulmonary disease with (acute) exacerbation (principal); Z20.822 Contact with and (suspected) exposure to COVID-19; E87.2 Acidosis; G43.909 Migraine, unspecified, not intractable, without status migrainosus; I11.0 Hypertensive heart disease with heart failure; I50.9 Heart failure, unspecified; K21.9 Gastro-esophageal reflux disease without esophagitis; E11.9 Type 2 diabetes mellitus without complications; F17.200 Nicotine dependence, unspecified, uncomplicated; F15.20 Other stimulant dependence, uncomplicated; Z88.1 Allergy status to other antibiotic agents; Z88.8 Allergy status to other drugs, medicaments and biological substances; Z91.09 Other allergy status, other than to drugs and biological substances; Z90.49 Acquired absence of other specified parts of digestive tract; Z98.890 Other specified postprocedural states
CPT/HCPCS: 36415; 71045; 80053; 82800; 83880; 84484; 85025; 87635; 94644; 96374; 96375; 99285; C9803; J2930; J3475; 94640; 94760

== ENCOUNTER 2022-04-05 12:58 | Inpatient (IN) | payer BC, MEDICAID ==
[~2022-04-05] VITALS: Ht 160 cm; Wt 54.5 kg
[2022-04-05] MEDS ORDERED: albuterol 2.5 MG/3 ML nebule CONTNEB PRN ×2 (13:35→15:15)
[2022-04-05] MEDS ORDERED: ipratropium 0.5 MG/2.5ML nebule IH ONE (13:35)
[2022-04-05] MEDS ORDERED: methylPREDNISolone sod succ 125mg/2ml vial IV ONE (13:35)
[2022-04-05] MEDS ORDERED: CefTRIAXone/D5W-Rocephin 1gm 50 ML IV ONE (13:40)
[2022-04-05 13:52] LABS: BASOPHILS % (AUTO) 0.2 % (0-1); EOSINOPHILS # (AUTO) 0.1 X10'3 (0-0.9); EOSINOPHILS % (AUTO) 0.8 % (0-6); HEMATOCRIT 37.5 % (35.0-45.0); HEMOGLOBIN 11.8 g/dl (12.0-16.0); LYMPHOCYTES # (AUTO) 1.6 X10'3 (1.1-4.8); LYMPHOCYTES % (AUTO) 14.7 % (21-51); MEAN CORPUSCULAR HEMOGLOBIN 30.3 PG (27.0-31.0); MEAN CORPUSCULAR HGB CONC 31.4 g/dL (33.0-36.5); MEAN CORPUSCULAR VOLUME 96.4 FL (78-98); MEAN PLATELET VOLUME 8.2 FL (7.4-10.4); MONOCYTES # (AUTO) 0.8 X10'3 (0-0.9); MONOCYTES % (AUTO) 7.3 % (2-12); NEUTROPHILS # (AUTO) 8.3 X10'3 (1.8-7.7); PLATELET COUNT 143 X10'3 (140-440); RED BLOOD COUNT 3.89 X10'6 (4.20-5.60); RED CELL DISTRIBUTION WIDTH 16.6 % (11.5-14.5); WHITE BLOOD COUNT 10.8 X10'3 (4.5-11.0)
[2022-04-05 14:09] LABS: ALANINE AMINOTRANSFERASE 50 U/L (12-78); ALBUMIN 3.2 G/DL (3.4-5.0); ALBUMIN/GLOBULIN RATIO 1.1 (1.1-1.5); ALKALINE PHOSPHATASE 105 IU/L (46-116); ANION GAP 1 (8-16); ASPARTATE AMINO TRANSFERASE 30 U/L (10-37); BILIRUBIN,TOTAL 0.2 MG/DL (0.1-1.0); BLOOD UREA NITROGEN 31 MG/DL (7-18); BUN/CREATININE RATIO 38.3 (6.6-38.0); CALCIUM 8.6 MG/DL (8.5-10.1); CHLORIDE 103 MMOL/L (99-107); CREATININE 0.81 MG/DL (0.40-0.90); GLUCOSE 110 MG/DL (70-104); POTASSIUM 3.7 MMOL/L (3.5-5.1); SODIUM 148 MMOL/L (135-145); eGFR 73 ML/MIN
[2022-04-05 14:36] LABS: TOTAL CARBON DIOXIDE 43.9 MMOL/L (24-32)
--- NOTE | 2022-04-05 14:36 | NUR ---
lab called: c02 43.[address] german.
[2022-04-05] MEDS ORDERED: magnesium 4gm in 100ml NS 100 ML IV PRN (15:25)
[2022-04-05] MEDS ORDERED: magnesium Cl slow-release 64mg tablet PO PRN (15:25)
[2022-04-05] MEDS ORDERED: HYDROcodone/acetaminophen 5mg/325mg tablet PO PRN (15:25)
[2022-04-05] MEDS ORDERED: ipratropium/albuterol 3ml nebule NEB PRN (15:25)
[2022-04-05] MEDS ORDERED: magnesium 2GM in 50ml NS 50 ML IV PRN (15:25)
[2022-04-05] MEDS ORDERED: HYDROcodone/acetaminophen 10/325mg tab PO PRN (15:25)
[2022-04-05] MEDS ORDERED: acetaminophen 325mg tablet PO PRN (15:25)
[2022-04-05] MEDS ORDERED: morphine 2 MG/ML inj. syringe IV PRN (15:25)
[2022-04-05] MEDS ORDERED: potassium CL 10mEq/100ml bag 100 ML IV PRN (15:25)
[2022-04-05] MEDS ORDERED: hydrALAZINE 20mg/ml inj. IV PRN (15:25)
[2022-04-05] MEDS ORDERED: mag hydrox/Alum hydrox/simeth 30ml oral suspension PO PRN (15:25)
[2022-04-05] MEDS ORDERED: magnesium hydroxide 30ml (MOM) UD suspension PO PRN (15:25)
[2022-04-05] MEDS ORDERED: ondansetron/PF 4mg/2ml inj IV PRN (15:25)
[2022-04-05] MEDS ORDERED: POTASSIUM BICARB 20meq eff tab 20 MEQ TABLET.EFF PO PRN ×2 (15:25)
[2022-04-05] MEDS: methylPREDNISolone sod succ 125mg/2ml vial IV SCH (16:00)
--- NOTE | 2022-04-05 16:09 | NUR ---
Margie hassan in [facility] - 04/05/22 at 1609 by NEGRITA VASCULAR STUDY DONE
[2022-04-05] MEDS: ipratropium/albuterol 3ml nebule NEB PRN (16:14)
[2022-04-05] MEDS: furosemide 40mg/4ml inj IV SCH (16:14)
[2022-04-05 17:02] LABS: MAGNESIUM 1.5 MG/DL (1.5-2.4); POTASSIUM 3.8 MMOL/L (3.5-5.1)
--- NOTE | 2022-04-05 17:35 | NUR ---
TROP [address] ROBINS
[2022-04-05 17:44] LABS: CLARITY,URINE CLEAR (Clear); GLUCOSE, URINE NEGATIVE (Neg); KETONES,URINE NEGATIVE (Neg); LEUKOCYTE ESTERASE ,URINE NEGATIVE (Neg); NITRITES, URINE NEGATIVE (Neg); OCCULT BLOOD,URINE NEGATIVE (Neg); PH,URINE 5.5 (4.8-8.0); PROTEIN,URINE NEGATIVE (Neg); UROBILINOGEN,URINE 0.2 E.U/dL (0.2-1.0)
[2022-04-05 17:59] LABS: COLOR,URINE STRAW (Yellow); UA COLLECTION TYPE CLN CATCH MIDSTREAM
--- NOTE | 2022-04-05 18:29 | NUR ---
600CC OF URINE CLEAR YELLOW
[2022-04-05] MEDS: K and/or MAG REPLACEMENT MC SCH (20:00)
[2022-04-05] MEDS: docusate sod 100mg capsule PO SCH (20:00)
--- NOTE | 2022-04-05 23:11 | NUR ---
Cierra Fonseca in ED 15 is diabetic and needs the diabetic protocol ordered. Blood glucose 223. Jamila [phone]
[2022-04-05] MEDS ORDERED: insulin Lispro (HumaLOG) vial - multi-dose SQ SCH (23:50)
[2022-04-05] MEDS ORDERED: dextrose 50%-water 50ml dispensing syringe IV PRN ×2 (23:50)
[2022-04-05] MEDS ORDERED: glucagon, human recombinant 1mg kit SUBCUT PRN (23:50)
[2022-04-05] MEDS ORDERED: DEXTROSE 15 GM of carb/4 tabs (each vial/BOTTLE has 4 tablets) PO PRN ×2 (23:50)
[2022-04-05] MEDS ORDERED: MESSAGE TO PHARMACY PO ONE (23:50)
[2022-04-06] VITALS: BP 105/60
[2022-04-06] MEDS: methylPREDNISolone sod succ 125mg/2ml vial IV SCH ×2 (00:13→07:08)
[2022-04-06 04:00] VITALS: BP 112/52
[2022-04-06 05:16] LABS: BASOPHILS % (AUTO) 0 % (0-1); EOSINOPHILS % (AUTO) 0 % (0-6); HEMATOCRIT 42.2 % (35.0-45.0); HEMOGLOBIN 13.3 g/dl (12.0-16.0); LYMPHOCYTES # (AUTO) 0.3 X10'3 (1.1-4.8); LYMPHOCYTES % (AUTO) 4.1 % (21-51); MEAN CORPUSCULAR HEMOGLOBIN 30.5 PG (27.0-31.0); MEAN CORPUSCULAR HGB CONC 31.6 g/dL (33.0-36.5); MEAN CORPUSCULAR VOLUME 96.8 FL (78-98); MEAN PLATELET VOLUME 8.2 FL (7.4-10.4); MONOCYTES % (AUTO) 0.5 % (2-12); NEUTROPHILS # (AUTO) 7.4 X10'3 (1.8-7.7); NEUTROPHILS % (AUTO) 95.4 % (42-75); PLATELET COUNT 142 X10'3 (140-440); RED BLOOD COUNT 4.36 X10'6 (4.20-5.60); RED CELL DISTRIBUTION WIDTH 15.8 % (11.5-14.5); WHITE BLOOD COUNT 7.7 X10'3 (4.5-11.0)
[2022-04-06 05:45] LABS: ALANINE AMINOTRANSFERASE 46 U/L (12-78); ALBUMIN 3.3 G/DL (3.4-5.0); ALKALINE PHOSPHATASE 116 IU/L (46-116); ANION GAP 5 (8-16); ASPARTATE AMINO TRANSFERASE 27 U/L (10-37); BILIRUBIN,TOTAL 0.4 MG/DL (0.1-1.0); BLOOD UREA NITROGEN 25 MG/DL (7-18); BUN/CREATININE RATIO 40.3 (6.6-38.0); CALCIUM 9.3 MG/DL (8.5-10.1); CHLORIDE 100 MMOL/L (99-107); CREATININE 0.62 MG/DL (0.40-0.90); GLUCOSE 157 MG/DL (70-104); MAGNESIUM 1.7 MG/DL (1.5-2.4); POTASSIUM 4.6 MMOL/L (3.5-5.1); SODIUM 149 MMOL/L (135-145); TOTAL PROTEIN 6.7 G/DL (6.4-8.2); eGFR > 90 ML/MIN
[2022-04-06 05:50] LABS: TOTAL CARBON DIOXIDE 43.9 MMOL/L (24-32)
--- NOTE | 2022-04-06 07:02 | NUR ---
PAGER ID: [phone] MESSAGE: anay canales [phone] re: Marshall Fonseca [id number]. pt c/o chest pain. EKG taken, pt requesting xanax. thank yo
--- NOTE | 2022-04-06 07:03 | NUR ---
pt c/o chest pain, ekg taken, md notified, will continue to monitor patient
[2022-04-06] MEDS: docusate sod 100mg capsule PO SCH (07:05)
[2022-04-06] MEDS: furosemide 40mg/4ml inj IV SCH (07:09)
[2022-04-06] MEDS: K and/or MAG REPLACEMENT MC SCH (08:00)
[2022-04-06] MEDS: ipratropium/albuterol 3ml nebule NEB PRN (08:59)
[2022-04-06] MEDS ORDERED: ALPRAZolam 0.25mg tablet PO PRN (10:35)
--- NOTE | 2022-04-06 10:58 | NUR ---
pt refused daily weight
--- NOTE | 2022-04-06 12:10 | NUR ---
Patient verbalizing she wants to go AMA. Ride is awaiting downstairs. Education given to patient regarding AMA. IV in right FA d/c, cannula tip intact. Patient transported downstairs in W/C with O2. Transferred to POV.
[2022-04-06] MEDS ORDERED: CefTRIAXone/D5W-Rocephin 1gm 50 ML IV SCH (13:00)
[2022-04-06] MEDS ORDERED: insulin glargine (Lantus) pen - multi-dose SQ SCH (21:00)
== END 2022-04-06 12:14 | disposition left against medical advice (07) | DRG 280 ==
LOC: ER 12:58 → ED HOLD 15:27 → EDBEDREQ 22:09 → ORTHO 4S 23:21
PROVIDERS: ADMIT Internal Medicine; ATTEND Internal Medicine
DX: I11.0 Hypertensive heart disease with heart failure (principal); I21.4 Non-ST elevation (NSTEMI) myocardial infarction; I50.23 Acute on chronic systolic (congestive) heart failure; J18.9 Pneumonia, unspecified organism; E11.9 Type 2 diabetes mellitus without complications; F15.90 Other stimulant use, unspecified, uncomplicated; F41.9 Anxiety disorder, unspecified; G43.909 Migraine, unspecified, not intractable, without status migrainosus; Z20.822 Contact with and (suspected) exposure to COVID-19; Z53.29 Procedure and treatment not carried out because of patient's decision for other reasons; J43.9 Emphysema, unspecified; K21.9 Gastro-esophageal reflux disease without esophagitis; R09.02 Hypoxemia; Z79.01 Long term (current) use of anticoagulants; Z86.711 Personal history of pulmonary embolism; Z87.891 Personal history of nicotine dependence; Z88.8 Allergy status to other drugs, medicaments and biological substances; Z90.49 Acquired absence of other specified parts of digestive tract; Z98.891 History of uterine scar from previous surgery; Z82.49 Family history of ischemic heart disease and other diseases of the circulatory system; Z83.3 Family history of diabetes mellitus; Z79.899 Other long term (current) drug therapy
CPT/HCPCS: 36415; 71045; 80053; 81003; 82948; 83036; 83735; 83880; 84132; 84484; 85025; 87081; 87502; 87503; 87635; 93005; 93306; 94640; 94760; 99285; A7015; G0378; J0696; J1815; J1940; J2930

== ENCOUNTER 2022-05-07 06:22 | Inpatient (IN) | payer BC, MEDICAID ==
[~2022-05-07] VITALS: Ht 152.4 cm; Wt 45.0 kg
[~2022-05-07 06:22] MED LIST changes: +ALBU17AE26 IH; -BENZ-38 PO; +CYCL5TAB PO; -FURO20TA4 PO; +LACT1CAP75 PO; +NICO-631 TOP; +NITR100C11 PO; -OMEP40CA21 PO; +ONDA-103 PO; -PRED10TA PO; -SERT25TA PO; -TIOT18CA3 INH
[2022-05-07 07:09] LABS: BASOPHILS % (AUTO) 0.4 % (0-1); EOSINOPHILS # (AUTO) 0.1 X10'3 (0-0.9); EOSINOPHILS % (AUTO) 1.4 % (0-6); HEMATOCRIT 41.3 % (35.0-45.0); LYMPHOCYTES # (AUTO) 1.6 X10'3 (1.1-4.8); LYMPHOCYTES % (AUTO) 16.4 % (21-51); MEAN CORPUSCULAR HEMOGLOBIN 30.1 PG (27.0-31.0); MEAN CORPUSCULAR HGB CONC 31.5 g/dL (33.0-36.5); MEAN CORPUSCULAR VOLUME 95.6 FL (78-98); MONOCYTES # (AUTO) 0.8 X10'3 (0-0.9); NEUTROPHILS # (AUTO) 7.1 X10'3 (1.8-7.7); NEUTROPHILS % (AUTO) 73.8 % (42-75); PLATELET COUNT 184 X10'3 (140-440); RED BLOOD COUNT 4.32 X10'6 (4.20-5.60); RED CELL DISTRIBUTION WIDTH 15.2 % (11.5-14.5); WHITE BLOOD COUNT 9.6 X10'3 (4.5-11.0)
[2022-05-07 07:25] LABS: ALANINE AMINOTRANSFERASE 27 U/L (12-78); ALBUMIN 3.3 G/DL (3.4-5.0); ALBUMIN/GLOBULIN RATIO 1.1 (1.1-1.5); ALKALINE PHOSPHATASE 113 IU/L (46-116); ANION GAP -1 (8-16); ASPARTATE AMINO TRANSFERASE 19 U/L (10-37); BILIRUBIN,TOTAL 0.4 MG/DL (0.1-1.0); BLOOD UREA NITROGEN 21 MG/DL (7-18); BUN/CREATININE RATIO 34.4 (6.6-38.0); CHLORIDE 106 MMOL/L (99-107); CREATININE 0.61 MG/DL (0.40-0.90); GLUCOSE 110 MG/DL (70-104); POTASSIUM 3.5 MMOL/L (3.5-5.1); SODIUM 148 MMOL/L (135-145); TOTAL PROTEIN 6.3 G/DL (6.4-8.2); eGFR > 90 ML/MIN
[2022-05-07] MEDS ORDERED: CefTRIAXone/D5W-Rocephin 1gm 50 ML IV ONE (07:25)
[2022-05-07] MEDS ORDERED: albuterol 2.5 MG/3 ML nebule CONTNEB PRN (07:25)
[2022-05-07] MEDS ORDERED: methylPREDNISolone sod succ 125mg/2ml vial IV ONE (07:25)
[2022-05-07 07:29] LABS: TOTAL CARBON DIOXIDE 43.4 MMOL/L (24-32)
[2022-05-07 07:35] LABS: CALCIUM 8.9 MG/DL (8.5-10.1)
--- NOTE | 2022-05-07 10:00 | NUR ---
Pt is somulent but awakens to speech.
[2022-05-07 11:31] LABS: CLARITY,URINE CLEAR (Clear); COLOR,URINE YELLOW (Yellow); GLUCOSE, URINE NEGATIVE (Neg); KETONES,URINE NEGATIVE (Neg); LEUKOCYTE ESTERASE ,URINE NEGATIVE (Neg); NITRITES, URINE NEGATIVE (Neg); OCCULT BLOOD,URINE NEGATIVE (Neg); PROTEIN,URINE NEGATIVE (Neg); UROBILINOGEN,URINE 0.2 E.U/dL (0.2-1.0)
[2022-05-07 11:36] LABS: UA COLLECTION TYPE VOIDED
--- NOTE | 2022-05-07 14:20 | NUR ---
Pt refused NTG and request morphine.
--- NOTE | 2022-05-07 14:25 | NUR ---
Dr. Trimble at the bedside to speak with pt. Pt initally refused ntg and admission. After the seriousness of her condition was explained, she agreed to take the ntg and be admitted.
[2022-05-07] MEDS: nitroGLYCERIN 0.4mg SUBLingual tab SL PRN ×3 (14:41→19:29)
--- NOTE | 2022-05-07 14:47 | NUR ---
Pt had relief with ntg. CP went from 10/10 down to 5/10.
--- NOTE | 2022-05-07 14:53 | NUR ---
Pt is now CP free.
--- NOTE | 2022-05-07 15:06 | NUR ---
Pt c/o sob. Speaks in 4 word sentences. Faint wheezes in all nagel. Dr. Trimble was notifed.
[2022-05-07] MEDS ORDERED: magnesium 2GM in 50ml NS 50 ML IV PRN (16:45)
[2022-05-07] MEDS ORDERED: potassium CL 10mEq/100ml bag 100 ML IV PRN (16:45)
[2022-05-07] MEDS ORDERED: POTASSIUM BICARB 20meq eff tab 20 MEQ TABLET.EFF PO PRN ×2 (16:45)
[2022-05-07] MEDS ORDERED: ondansetron/PF 4mg/2ml inj IV PRN (16:45)
[2022-05-07] MEDS ORDERED: magnesium Cl slow-release 64mg tablet PO PRN (16:45)
[2022-05-07] MEDS ORDERED: acetaminophen 325mg tablet PO PRN (16:45)
[2022-05-07] MEDS ORDERED: magnesium 4gm in 100ml NS 100 ML IV PRN (16:45)
[2022-05-07 17:18] LABS: MAGNESIUM 1.8 MG/DL (1.5-2.4); POTASSIUM 4.3 MMOL/L (3.5-5.1)
[2022-05-07 18:58] LABS: URINE AMPHETAMINE SCREEN POSITIVE (Neg); URINE BARBITUATE SCREEN NEGATIVE (Neg); URINE BENZODIAZEPINES SCREEN POSITIVE (Neg); URINE CANNABINOID SCREEN NEGATIVE (Neg); URINE COCAINE SCREEN NEGATIVE (Neg); URINE METHADONE SCREEN NEGATIVE (Neg); URINE OPIATE SCREEN NEGATIVE (Neg); URINE PHENCYCLIDINE SCREEN NEGATIVE (Neg)
[2022-05-07] MEDS ORDERED: ipratropium/albuterol 3ml nebule NEB SCH (19:00)
[2022-05-07 19:21] VITALS: BP 127/69
[2022-05-07] MEDS ORDERED: K and/or MAG REPLACEMENT MC SCH (20:00)
[2022-05-07] MEDS ORDERED: methylPREDNISolone sod succ 125mg/2ml vial IV SCH (20:00)
--- NOTE | 2022-05-07 20:40 | NUR ---
PT. WANTS TO AMA. NOTIFIED DR. ZARAGOZA. ASKED MILA IF HE WOULD LIKE TO SPEAK TO PT. PRIOR TO LEAVING AND SAID "NO".
== END 2022-05-07 21:18 | disposition left against medical advice (07) | DRG 193 ==
LOC: ER 06:22 → ED HOLD 16:54
PROVIDERS: ADMIT Internal Medicine; ATTEND Internal Medicine
DX: J18.9 Pneumonia, unspecified organism (principal); I50.33 Acute on chronic diastolic (congestive) heart failure; J44.1 Chronic obstructive pulmonary disease with (acute) exacerbation; J96.10 Chronic respiratory failure, unspecified whether with hypoxia or hypercapnia; N39.0 Urinary tract infection, site not specified; J44.0 Chronic obstructive pulmonary disease with (acute) lower respiratory infection; I11.0 Hypertensive heart disease with heart failure; E11.9 Type 2 diabetes mellitus without complications; F15.90 Other stimulant use, unspecified, uncomplicated; Z53.29 Procedure and treatment not carried out because of patient's decision for other reasons; Z20.822 Contact with and (suspected) exposure to COVID-19; F41.9 Anxiety disorder, unspecified; R32 Unspecified urinary incontinence; G43.909 Migraine, unspecified, not intractable, without status migrainosus; I27.81 Cor pulmonale (chronic); K21.9 Gastro-esophageal reflux disease without esophagitis; Z86.711 Personal history of pulmonary embolism; I25.2 Old myocardial infarction; Z87.01 Personal history of pneumonia (recurrent); Z88.8 Allergy status to other drugs, medicaments and biological substances; Z90.49 Acquired absence of other specified parts of digestive tract; Z82.49 Family history of ischemic heart disease and other diseases of the circulatory system; Z83.3 Family history of diabetes mellitus; Z82.5 Family history of asthma and other chronic lower respiratory diseases; Z79.899 Other long term (current) drug therapy; Z79.82 Long term (current) use of aspirin; Z72.0 Tobacco use; Z71.6 Tobacco abuse counseling
CPT/HCPCS: 36415; 71045; 80053; 80305; 81003; 83735; 83880; 84132; 84484; 85025; 87502; 87503; 87635; 93005; 94640; 94760; 96365; 96375; 99285; C9803; G0378; J0696; J2930; J3490

== ENCOUNTER 2022-06-11 22:26 | Emergency (ER) | payer BC, MEDICAID ==
[~2022-06-11] VITALS: Ht 160 cm; Wt 115.0 kg
[~2022-06-11 22:26] MED LIST changes: -NITR100C11 PO
[2022-06-11 22:51] LABS: BASOPHILS % (AUTO) 0.6 % (0-1); EOSINOPHILS # (AUTO) 0.2 X10'3 (0-0.9); EOSINOPHILS % (AUTO) 3.3 % (0-6); HEMATOCRIT 41.1 % (35.0-45.0); HEMOGLOBIN 13.4 g/dl (12.0-16.0); LYMPHOCYTES # (AUTO) 1.9 X10'3 (1.1-4.8); LYMPHOCYTES % (AUTO) 26.1 % (21-51); MEAN CORPUSCULAR HEMOGLOBIN 30.6 PG (27.0-31.0); MEAN CORPUSCULAR HGB CONC 32.5 g/dL (33.0-36.5); MEAN PLATELET VOLUME 7.6 FL (7.4-10.4); MONOCYTES # (AUTO) 0.6 X10'3 (0-0.9); MONOCYTES % (AUTO) 8.6 % (2-12); NEUTROPHILS # (AUTO) 4.4 X10'3 (1.8-7.7); NEUTROPHILS % (AUTO) 61.4 % (42-75); PLATELET COUNT 189 X10'3 (140-440); RED BLOOD COUNT 4.37 X10'6 (4.20-5.60); RED CELL DISTRIBUTION WIDTH 14.3 % (11.5-14.5); WHITE BLOOD COUNT 7.2 X10'3 (4.5-11.0)
[2022-06-11 23:03] LABS: ALANINE AMINOTRANSFERASE 28 U/L (12-78); ALBUMIN 3.5 G/DL (3.4-5.0); ALKALINE PHOSPHATASE 108 IU/L (46-116); ANION GAP 2 (8-16); ASPARTATE AMINO TRANSFERASE 22 U/L (10-37); BILIRUBIN,TOTAL 0.3 MG/DL (0.1-1.0); BLOOD UREA NITROGEN 18 MG/DL (7-18); CALCIUM 9.3 MG/DL (8.5-10.1); CHLORIDE 103 MMOL/L (99-107); CREATININE 0.58 MG/DL (0.40-0.90); GLUCOSE 128 MG/DL (70-104); POTASSIUM 3.9 MMOL/L (3.5-5.1); SODIUM 142 MMOL/L (135-145); TOTAL PROTEIN 7.1 G/DL (6.4-8.2); eGFR > 90 ML/MIN
[2022-06-11] MEDS ORDERED: iohexol 350MG/ML 100ml bottle IV ONE (23:16)
[2022-06-12] VITALS: BP 127/68
[2022-06-12] MEDS ORDERED: AZIT-83 PO (00:28)
[2022-06-12] MEDS ORDERED: furosemide 10 MG/1 ML 10ml inj IV ONE (00:30)
[2022-06-12] MEDS ORDERED: azithromycin 250mg tablet PO ONE (00:30)
--- NOTE | 2022-06-12 00:56 | NUR ---
iv dc'd pt being discharged dressing applied
== END 2022-06-12 00:57 | disposition home or self-care (01) ==
LOC: ER 22:27
DX: R07.9 Chest pain, unspecified (principal); R06.02 Shortness of breath; R30.9 Painful micturition, unspecified; I11.9 Hypertensive heart disease without heart failure; J44.9 Chronic obstructive pulmonary disease, unspecified; K21.9 Gastro-esophageal reflux disease without esophagitis; E11.9 Type 2 diabetes mellitus without complications; F41.9 Anxiety disorder, unspecified; F15.10 Other stimulant abuse, uncomplicated; G43.909 Migraine, unspecified, not intractable, without status migrainosus; Z88.1 Allergy status to other antibiotic agents; Z88.8 Allergy status to other drugs, medicaments and biological substances; Z79.899 Other long term (current) drug therapy; Z79.82 Long term (current) use of aspirin; Z79.84 Long term (current) use of oral hypoglycemic drugs
CPT/HCPCS: 36415; 71045; 71275; 80053; 83880; 84484; 85025; 93005; 96374; 99285; J1940; J3490; Q9967; A4620

== ENCOUNTER 2022-07-26 15:42 | Emergency (ER) | payer BC, MEDICAID ==
[~2022-07-26] VITALS: Ht 160 cm; Wt 52.0 kg
[~2022-07-26 15:42] MED LIST changes: +AMOX-419 PO; +CHOL100024 PO; -POTA10CA44 PO; +POTA10CA45 PO; +PRED10TA PO; +SILD20TA PO
[2022-07-26 16:18] LABS: BASOPHILS % (AUTO) 0.3 % (0-1); EOSINOPHILS # (AUTO) 0.2 X10'3 (0-0.9); EOSINOPHILS % (AUTO) 1.4 % (0-6); HEMATOCRIT 39.2 % (35.0-45.0); HEMOGLOBIN 12.3 g/dl (12.0-16.0); LYMPHOCYTES # (AUTO) 3.2 X10'3 (1.1-4.8); MEAN CORPUSCULAR HEMOGLOBIN 29.7 PG (27.0-31.0); MEAN CORPUSCULAR HGB CONC 31.3 g/dL (33.0-36.5); MEAN PLATELET VOLUME 7.5 FL (7.4-10.4); MONOCYTES # (AUTO) 0.9 X10'3 (0-0.9); MONOCYTES % (AUTO) 6.7 % (2-12); NEUTROPHILS # (AUTO) 8.6 X10'3 (1.8-7.7); NEUTROPHILS % (AUTO) 66.6 % (42-75); PLATELET COUNT 141 X10'3 (140-440); RED BLOOD COUNT 4.13 X10'6 (4.20-5.60); RED CELL DISTRIBUTION WIDTH 14.4 % (11.5-14.5); WHITE BLOOD COUNT 12.9 X10'3 (4.5-11.0)
[2022-07-26 16:39] LABS: ALANINE AMINOTRANSFERASE 36 U/L (12-78); ALBUMIN 3.3 G/DL (3.4-5.0); ALBUMIN/GLOBULIN RATIO 1.1 (1.1-1.5); ALKALINE PHOSPHATASE 89 IU/L (46-116); ASPARTATE AMINO TRANSFERASE 28 U/L (10-37); BILIRUBIN,TOTAL 0.4 MG/DL (0.1-1.0); CALCIUM 8.9 MG/DL (8.5-10.1); CHLORIDE 103 MMOL/L (99-107); GLUCOSE 128 MG/DL (70-104); SODIUM 147 MMOL/L (135-145); TOTAL PROTEIN 6.2 G/DL (6.4-8.2)
[2022-07-26 16:48] LABS: CLARITY,URINE SLIGHTLY CLOUDY (Clear); COLOR,URINE YELLOW (Yellow); GLUCOSE, URINE NEGATIVE (Neg); KETONES,URINE NEGATIVE (Neg); LEUKOCYTE ESTERASE ,URINE NEGATIVE (Neg); NITRITES, URINE NEGATIVE (Neg); OCCULT BLOOD,URINE TRACE-INTACT (Neg); PROTEIN,URINE 30 mg/dl (Neg); UROBILINOGEN,URINE 0.2 E.U/dL (0.2-1.0)
[2022-07-26 16:51] LABS: BLOOD UREA NITROGEN 36 MG/DL (7-18); BUN/CREATININE RATIO 52.9 (6.6-38.0); CREATININE 0.68 MG/DL (0.40-0.90); eGFR 89 ML/MIN
[2022-07-26 16:51] LABS: UA COLLECTION TYPE STRAIGHT CATH
[2022-07-26 16:55] LABS: MUCUS STRANDS MANY /LPF (Neg); SQUAMOUS EPITHELIAL CELL,UR FEW /LPF (FEW)
[2022-07-26 16:58] LABS: RBC,URINE 0-2 /HPF (0-2); RENAL CELLS, URINE FEW /HPF; WBC,URINE 0-4 /HPF (0-4)
[2022-07-26 17:00] LABS: ANION GAP 3 (8-16)
[2022-07-26 17:01] LABS: HYALINE CASTS 0-3 /LPF (NEGATIVE)
[2022-07-26 17:02] LABS: TOTAL CARBON DIOXIDE 41.1 MMOL/L (24-32)
[2022-07-26 17:03] LABS: BACTERIA,URINE FEW /HPF (Neg)
[2022-07-26] MEDS ORDERED: ondansetron/PF 4mg/2ml inj IV STA (17:11)
[2022-07-26] MEDS ORDERED: morphine 2 MG/ML inj. syringe IV ONE (17:25)
[2022-07-26] MEDS ORDERED: potassium Cl 20 mEq SR tablet PO ONE (17:50)
[2022-07-26] MEDS ORDERED: CefTRIAXone/D5W-Rocephin 1gm 50 ML IV ONE (18:20)
[2022-07-26] MEDS ORDERED: ipratropium/albuterol 3ml nebule NEB ONE (19:00)
[2022-07-26] MEDS ORDERED: methylPREDNISolone sod succ 125mg/2ml vial IV ONE (19:00)
[2022-07-26] MEDS ORDERED: azithromycin/NS 500mg/250ml 250 ML IV STA (19:19)
[2022-07-26] MEDS ORDERED: LEVO-65 PO (19:29)
[2022-07-26] MEDS ORDERED: PHEN-786 PO (19:29)
[2022-07-26] MEDS ORDERED: phenazopyridine 100mg tablet PO ONE (19:30)
[2022-07-26] MEDS ORDERED: azithromycin 250mg tablet PO ONE (19:30)
[2022-07-26] MEDS ORDERED: ibuprofen tablet 400 MG TABLET PO ONE (19:30)
--- NOTE | 2022-07-26 20:10 | NUR ---
Pt did not want to be admitted to the hospital because she wanted to be home for the holidays. She requested to be discharged. notified
[2022-07-26 20:11] VITALS: BP 123/78
== END 2022-07-26 20:14 | disposition home or self-care (01) ==
LOC: ER 15:42
DX: J44.9 Chronic obstructive pulmonary disease, unspecified (principal); Z20.822 Contact with and (suspected) exposure to COVID-19; J18.9 Pneumonia, unspecified organism; R06.02 Shortness of breath; R53.1 Weakness; R11.2 Nausea with vomiting, unspecified; G43.909 Migraine, unspecified, not intractable, without status migrainosus; I11.0 Hypertensive heart disease with heart failure; I50.9 Heart failure, unspecified; I25.2 Old myocardial infarction; K21.9 Gastro-esophageal reflux disease without esophagitis; E11.9 Type 2 diabetes mellitus without complications; F41.9 Anxiety disorder, unspecified; F17.200 Nicotine dependence, unspecified, uncomplicated; F15.90 Other stimulant use, unspecified, uncomplicated; Z86.711 Personal history of pulmonary embolism; Z87.01 Personal history of pneumonia (recurrent); Z90.49 Acquired absence of other specified parts of digestive tract; Z98.890 Other specified postprocedural states; Z88.1 Allergy status to other antibiotic agents; Z88.8 Allergy status to other drugs, medicaments and biological substances; Z79.2 Long term (current) use of antibiotics; Z79.82 Long term (current) use of aspirin; Z79.899 Other long term (current) drug therapy
CPT/HCPCS: 36415; 71045; 80053; 81001; 83605; 83880; 84145; 84484; 85025; 87040; 87502; 87503; 87811; 93005; 94640; 96365; 96375; 99285; J0696; J2270; J2405; J2930; 94760; A4353

== ENCOUNTER 2022-07-27 11:46 | Inpatient (IN) | payer BC, MEDICAID ==
[~2022-07-27] VITALS: Ht 160 cm; Wt 54.5 kg
[~2022-07-27 11:46] MED LIST changes: +LEVO-65 PO; +PHEN-786 PO
[2022-07-27 13:11] LABS: ALANINE AMINOTRANSFERASE 50 U/L (12-78); ALBUMIN 3.3 G/DL (3.4-5.0); ALBUMIN/GLOBULIN RATIO 1.2 (1.1-1.5); ALKALINE PHOSPHATASE 101 IU/L (46-116); ASPARTATE AMINO TRANSFERASE 34 U/L (10-37); BILIRUBIN,TOTAL 0.3 MG/DL (0.1-1.0); BLOOD UREA NITROGEN 31 MG/DL (7-18); BUN/CREATININE RATIO 55.4 (6.6-38.0); CALCIUM 8.9 MG/DL (8.5-10.1); CHLORIDE 105 MMOL/L (99-107); CREATININE 0.56 MG/DL (0.40-0.90); GLUCOSE 152 MG/DL (70-104); POTASSIUM 4.2 MMOL/L (3.5-5.1); SODIUM 147 MMOL/L (135-145); TOTAL PROTEIN 6.1 G/DL (6.4-8.2); eGFR > 90 ML/MIN
[2022-07-27 13:28] LABS: ANION GAP -6 (8-16)
[2022-07-27 13:28] LABS: BASOPHILS % (AUTO) 0.2 % (0-1); EOSINOPHILS % (AUTO) 0 % (0-6); HEMATOCRIT 36.5 % (35.0-45.0); HEMOGLOBIN 11.4 g/dl (12.0-16.0); LYMPHOCYTES # (AUTO) 0.9 X10'3 (1.1-4.8); LYMPHOCYTES % (AUTO) 10.7 % (21-51); MEAN CORPUSCULAR HEMOGLOBIN 30.1 PG (27.0-31.0); MEAN CORPUSCULAR HGB CONC 31.3 g/dL (33.0-36.5); MEAN CORPUSCULAR VOLUME 95.9 FL (78-98); MEAN PLATELET VOLUME 7.8 FL (7.4-10.4); MONOCYTES # (AUTO) 0.6 X10'3 (0-0.9); NEUTROPHILS # (AUTO) 7.1 X10'3 (1.8-7.7); NEUTROPHILS % (AUTO) 82.1 % (42-75); PLATELET COUNT 122 X10'3 (140-440); RED CELL DISTRIBUTION WIDTH 14.3 % (11.5-14.5); WHITE BLOOD COUNT 8.6 X10'3 (4.5-11.0)
[2022-07-27] MEDS ORDERED: ipratropium/albuterol 3ml nebule NEB ONE (14:10)
[2022-07-27] MEDS ORDERED: methylPREDNISolone sod succ 125mg/2ml vial IV ONE (14:10)
[2022-07-27 14:44] LABS: ABG BASE EXCESS 11.3 mmol/L (-2.0-2.0); ABG HCO3 41.8 mmol/L (22.0-26.0); ABG OXYGEN SATURATION 91.4 % (94-97); ABG PCO2 (T) 94.4 mmHg (32.0-45.0); ALLEN'S TEST POSITIVE; FCOHb 0.9 % (0.0-3.9); FLOW 3 L/min; FMetHb 0.3 % (0.0-1.5); FO2Hb 90.3 % (94-97); TOTAL HEMOGLOBIN 12.2 G/dl (12.0-16.0)
[2022-07-27] MEDS ORDERED: HYDROcodone/acetaminophen 5mg/325mg tablet PO ONE (15:05)
[2022-07-27] MEDS ORDERED: morphine 4 MG/ML inj SYRINge IV ONE (16:15)
[2022-07-27] MEDS ORDERED: ondansetron 4mg rapidly disintigrating tab PO ONE (16:15)
[2022-07-27] MEDS ORDERED: acetaminophen 325mg tablet PO PRN (16:45)
[2022-07-27] MEDS ORDERED: furosemide 10 MG/1 ML 10ml inj IV ONE (16:45)
[2022-07-27] MEDS ORDERED: magnesium hydroxide 30ml (MOM) UD suspension PO PRN (16:45)
[2022-07-27] MEDS ORDERED: mag hydrox/Alum hydrox/simeth 30ml oral suspension PO PRN (16:45)
[2022-07-27] MEDS ORDERED: ondansetron/PF 4mg/2ml inj IV PRN (16:45)
[2022-07-27] MEDS: azithromycin 250mg tablet PO SCH (17:15)
[2022-07-27] MEDS: LORazepam 2 mg/ml vial IV PRN (17:18)
[2022-07-27] MEDS: CefTRIAXone 2gm/D5W 50ml BAG 50 ML IV SCH (17:28)
[2022-07-27] MEDS: ipratropium/albuterol 3ml nebule NEB SCH ×2 (19:16→23:21)
--- NOTE | 2022-07-27 19:42 | NUR ---
Patient woke from sleep at this time, patient difficult to arouse, unable to take PO zithromax, provider made aware of this, concerned repeat ABG may be indicated.
[2022-07-27] MEDS ORDERED: azithromycin/NS 500mg/250ml 250 ML IV ONE (19:55)
[2022-07-27] MEDS: docusate sod 100mg capsule PO SCH (20:00)
[2022-07-27] MEDS: apixaban 5mg tablet PO SCH (20:00)
[2022-07-27] MEDS: methylPREDNISolone sod succ 125mg/2ml vial IV SCH (20:15)
[2022-07-27 20:17] LABS: ABG BASE EXCESS 14.4 mmol/L (-2.0-2.0); ABG HCO3 44.4 mmol/L (22.0-26.0); ABG OXYGEN SATURATION 90.6 % (94-97); ABG PCO2 (T) 91.4 mmHg (32.0-45.0); ABG PO2 (T) 65.4 mmHg (75.0-100.0); ALLEN'S TEST Modified; FMetHb 0.3 % (0.0-1.5); FO2Hb 89.4 % (94-97); PATIENT TEMPERATURE 37.4; RESPIRATORY RATE 10 b/min; TOTAL HEMOGLOBIN 12.4 G/dl (12.0-16.0)
--- NOTE | 2022-07-27 22:12 | NUR ---
Patient remains difficult to arouse, unsafe to take ordered PO medications with bipap
--- NOTE | 2022-07-27 23:06 | NUR ---
Report called, patient cleared for transport to receiving unit.
[2022-07-27 23:54] VITALS: BP 115/78
[2022-07-28] MEDS: methylPREDNISolone sod succ 125mg/2ml vial IV SCH ×4 (01:07→20:36)
[2022-07-28 02:39] VITALS: BP 135/84
[2022-07-28] MEDS: ipratropium/albuterol 3ml nebule NEB SCH ×6 (03:29→23:38)
--- NOTE | 2022-07-28 06:44 | NUR ---
Patient in room PCU 3018. I have received report from Tulio LAMBERT and had the opportunity to ask questions and assume patient care.
[2022-07-28 07:12] VITALS: BP 154/73
[2022-07-28] MEDS: docusate sod 100mg capsule PO SCH ×2 (07:50→20:37)
[2022-07-28] MEDS: apixaban 5mg tablet PO SCH ×2 (07:51→20:37)
[2022-07-28] MEDS: azithromycin 250mg tablet PO SCH (07:58)
[2022-07-28 08:08] LABS: BASOPHILS % (AUTO) 0 % (0-1); EOSINOPHILS % (AUTO) 0 % (0-6); HEMATOCRIT 36.1 % (35.0-45.0); HEMOGLOBIN 11.5 g/dl (12.0-16.0); LYMPHOCYTES # (AUTO) 0.5 X10'3 (1.1-4.8); LYMPHOCYTES % (AUTO) 5.1 % (21-51); MEAN CORPUSCULAR HEMOGLOBIN 30.3 PG (27.0-31.0); MEAN CORPUSCULAR HGB CONC 31.7 g/dL (33.0-36.5); MEAN CORPUSCULAR VOLUME 95.4 FL (78-98); MONOCYTES # (AUTO) 0.2 X10'3 (0-0.9); MONOCYTES % (AUTO) 2.2 % (2-12); NEUTROPHILS # (AUTO) 8.5 X10'3 (1.8-7.7); NEUTROPHILS % (AUTO) 92.7 % (42-75); PLATELET COUNT 104 X10'3 (140-440); RED BLOOD COUNT 3.79 X10'6 (4.20-5.60); RED CELL DISTRIBUTION WIDTH 14.1 % (11.5-14.5); WHITE BLOOD COUNT 9.2 X10'3 (4.5-11.0)
[2022-07-28 08:27] LABS: ALBUMIN 3.1 G/DL (3.4-5.0); BLOOD UREA NITROGEN 26 MG/DL (7-18); BUN/CREATININE RATIO 44.1 (6.6-38.0); CHLORIDE 99 MMOL/L (99-107); CREATININE 0.59 MG/DL (0.40-0.90); GLUCOSE 152 MG/DL (70-104); POTASSIUM 4.1 MMOL/L (3.5-5.1); SODIUM 144 MMOL/L (135-145); eGFR > 90 ML/MIN
[2022-07-28] MEDS: CefTRIAXone 2gm/D5W 50ml BAG 50 ML IV SCH (08:32)
--- NOTE | 2022-07-28 08:37 | NUR ---
Computer wouldn't scan medication or patient wrist band. Verified correct patient and medication
[2022-07-28] MEDS: LORazepam 2 mg/ml vial IV PRN ×2 (08:40→16:32)
[2022-07-28 08:49] LABS: ANION GAP -5 (8-16)
[2022-07-28 08:50] LABS: TOTAL CARBON DIOXIDE > 50 MMOL/L (24-32)
[2022-07-28] MEDS ORDERED: oxybutynin 5mg tablet PO PRN (09:10)
[2022-07-28] MEDS ORDERED: albuterol 2.5 MG/3 ML nebule NEB PRN (09:10)
[2022-07-28] MEDS ORDERED: ondansetron 4mg rapidly disintigrating tab PO PRN (09:10)
[2022-07-28] MEDS ORDERED: acetaminophen 325mg tablet PO PRN (09:10)
[2022-07-28] MEDS ORDERED: non-formulary drug (Albuterol 2 PUFFS) IH PRN (09:10)
--- NOTE | 2022-07-28 09:13 | NUR ---
PAGER ID: [phone] MESSAGE: [id number] Fonseca Critical Co2 >50. Thank you Jillian CAMPOS [phone]
--- NOTE | 2022-07-28 09:25 | NUR ---
PAGER ID: [phone] MESSAGE: [id number] Raymundo Do you want a repeat ABG for Co2? Thank you Jillian [phone].
[2022-07-28] MEDS ORDERED: cyclobenzaprine 10mg tablet PO PRN (09:49)
[2022-07-28 10:11] LABS: ABG BASE EXCESS 20.5 mmol/L (-2.0-2.0); ABG PCO2 (T) 86.5 mmHg (32.0-45.0); ABG PO2 (T) 66.9 mmHg (75.0-100.0); ALLEN'S TEST POSITIVE; FMetHb 0.4 % (0.0-1.5); FO2Hb 91.7 % (94-97); RESPIRATORY RATE 10 b/min; TOTAL HEMOGLOBIN 12.3 G/dl (12.0-16.0)
[2022-07-28 11:00] VITALS: BP 153/72
--- NOTE | 2022-07-28 14:40 | NUR ---
PAGER ID: [phone] MESSAGE: [id number] Patient called and said she is going home AMA. Pt removed bipap. Thank you Jillian CAMPOS [phone]
[2022-07-28 15:00] VITALS: BP 144/94
--- NOTE | 2022-07-28 15:23 | NUR ---
Daughter came in to visit and states she won't take her home before the MD is ready for her to leave.
--- NOTE | 2022-07-28 17:47 | NUR ---
JUNIOR PROJECT MANAGER PHYSICAL ASSESSMENT REVIEWED AND AGREED
[2022-07-28 18:00] VITALS: BP 122/81
--- NOTE | 2022-07-28 18:10 | NUR ---
Problems reprioritized. Patient report given, questions answered & plan of care reviewed with Marilee LAMBERT.
[2022-07-28] MEDS ORDERED: non-formulary drug (Budesonide/Formoterol Fumarate (Symbicort 160-4.5 Mcg Inhaler) 2 PUFF) PO SCH (20:00)
[2022-07-28] MEDS: budesonide 0.5mg/2ml UD nebule IH SCH (20:07)
[2022-07-28] MEDS: sildenafil citrate 20mg tablet PO SCH (20:11)
[2022-07-28] MEDS: metoprolol tartrate 25mg tablet PO SCH (20:41)
[2022-07-28 22:00] VITALS: BP 147/84
[2022-07-29] MEDS: LORazepam 2 mg/ml vial IV PRN (01:10)
[2022-07-29] MEDS: methylPREDNISolone sod succ 125mg/2ml vial IV SCH ×2 (01:21→07:55)
[2022-07-29 02:00] VITALS: BP 152/86
[2022-07-29] MEDS: ipratropium/albuterol 3ml nebule NEB SCH ×3 (03:37→11:05)
--- NOTE | 2022-07-29 07:00 | NUR ---
Patient in room PCU 3018. I have received report from Dahiana LAMBERT and had the opportunity to ask questions and assume patient care.
[2022-07-29] MEDS: budesonide 0.5mg/2ml UD nebule IH SCH (07:23)
[2022-07-29 07:38] VITALS: BP 151/94
[2022-07-29] MEDS: CefTRIAXone 2gm/D5W 50ml BAG 50 ML IV SCH (07:55)
[2022-07-29] MEDS ORDERED: potassium chloride 10mEq ER tablet PO SCH (08:00)
[2022-07-29] MEDS ORDERED: oxybutynin 5mg tablet PO SCH (08:00)
[2022-07-29] MEDS ORDERED: multivitamins, therapeutics tablet PO SCH (08:00)
[2022-07-29] MEDS ORDERED: nicotine 14mg patch - 24hr TD SCH (08:00)
[2022-07-29] MEDS ORDERED: lisinopril 2.5mg tablet PO SCH (08:00)
[2022-07-29] MEDS ORDERED: cholecalciferol (vitamin D3) 1,000 unit (25mcg) tablet PO SCH (08:00)
[2022-07-29] MEDS ORDERED: ferrous sulfate 325mg tablet PO SCH (08:00)
[2022-07-29] MEDS ORDERED: lactobacillus rhamnosus 10,000 MMU CELLS/CAPSULE PO SCH (08:00)
[2022-07-29] MEDS ORDERED: aspirin 81mg, enteric-coated 1 TAB TABLET.DR PO SCH (08:00)
[2022-07-29] MEDS: azithromycin 250mg tablet PO SCH (09:33)
[2022-07-29] MEDS: sildenafil citrate 20mg tablet PO SCH (09:33)
[2022-07-29] MEDS: apixaban 5mg tablet PO SCH (09:34)
[2022-07-29] MEDS: docusate sod 100mg capsule PO SCH (09:34)
[2022-07-29 09:35] VITALS: BP_SYST 151
[2022-07-29] MEDS: metoprolol tartrate 25mg tablet PO SCH (09:35)
[2022-07-29 09:49] LABS: BASOPHILS % (AUTO) 0 % (0-1); EOSINOPHILS % (AUTO) 0 % (0-6); HEMATOCRIT 39.8 % (35.0-45.0); HEMOGLOBIN 12.6 g/dl (12.0-16.0); LYMPHOCYTES # (AUTO) 0.7 X10'3 (1.1-4.8); LYMPHOCYTES % (AUTO) 4.2 % (21-51); MEAN CORPUSCULAR HEMOGLOBIN 30.1 PG (27.0-31.0); MEAN CORPUSCULAR HGB CONC 31.8 g/dL (33.0-36.5); MEAN CORPUSCULAR VOLUME 94.7 FL (78-98); MEAN PLATELET VOLUME 7.9 FL (7.4-10.4); MONOCYTES # (AUTO) 0.4 X10'3 (0-0.9); MONOCYTES % (AUTO) 2.4 % (2-12); NEUTROPHILS # (AUTO) 15.6 X10'3 (1.8-7.7); NEUTROPHILS % (AUTO) 93.4 % (42-75); PLATELET COUNT 125 X10'3 (140-440); RED CELL DISTRIBUTION WIDTH 13.7 % (11.5-14.5); WHITE BLOOD COUNT 16.7 X10'3 (4.5-11.0)
[2022-07-29 10:52] LABS: ALBUMIN 3.3 G/DL (3.4-5.0); ANION GAP 5 (8-16); BLOOD UREA NITROGEN 31 MG/DL (7-18); BUN/CREATININE RATIO 43.7 (6.6-38.0); CHLORIDE 98 MMOL/L (99-107); CREATININE 0.71 MG/DL (0.40-0.90); GLUCOSE 152 MG/DL (70-104); POTASSIUM 3.8 MMOL/L (3.5-5.1); SODIUM 144 MMOL/L (135-145); eGFR 85 ML/MIN
[2022-07-29 11:00] LABS: TOTAL CARBON DIOXIDE 41.1 MMOL/L (24-32)
--- NOTE | 2022-07-29 11:45 | NUR ---
PAGER ID: [phone] MESSAGE: [id number] Critical Co2 41.1. Thank you Jillian CAMPOS [phone]
--- NOTE | 2022-07-29 14:44 | NUR ---
PAGER ID: [phone] MESSAGE: [id number] Fonseca Pt states she is leaving AMA. I am not sure if it is a false alarm again. But COLEEN Thank you Jillian CAMPOS [phone]
--- NOTE | 2022-07-29 14:50 | NUR ---
Patient left AMA with family member via private wheelchair. Nurse explained that the MD is not ready to release her. Patient states "I don't care. I'm fine to go." AMA form signed. Addendum: 07/29/22 at 1538 by IVY MARRERO LVN IV removed and tele returned to [employer].
--- NOTE | 2022-07-29 14:56 | NUR ---
PAGER ID: [phone] MESSAGE: [id number] Raymundo Left AMA with boyfriend. Thank you Jillian CAMPOS. [phone]
[2022-07-29] MEDS ORDERED: methylPREDNISolone sod succ 125mg/2ml vial IV SCH (20:00)
== END 2022-07-29 14:50 | disposition left against medical advice (07) | DRG 193 ==
LOC: ER 11:47 → ED HOLD 16:48 → EDBEDREQ 22:41 → PCU 3S 23:40
PROVIDERS: ADMIT Family Medicine; ATTEND Family Medicine
PROC: 5A09357 Assistance with Respiratory Ventilation, Less than 24 Consecutive Hours, Continuous Positive Airway Pressure (ICD-10-PCS; principal; 2022-07-27)
PROC: 5A09357 Assistance with Respiratory Ventilation, Less than 24 Consecutive Hours, Continuous Positive Airway Pressure (ICD-10-PCS; 2022-07-29)
DX: J18.9 Pneumonia, unspecified organism (principal); J96.22 Acute and chronic respiratory failure with hypercapnia; I50.30 Unspecified diastolic (congestive) heart failure; E87.3 Alkalosis; J44.1 Chronic obstructive pulmonary disease with (acute) exacerbation; J44.0 Chronic obstructive pulmonary disease with (acute) lower respiratory infection; E87.29 Other acidosis; Z20.822 Contact with and (suspected) exposure to COVID-19; E11.9 Type 2 diabetes mellitus without complications; I11.0 Hypertensive heart disease with heart failure; Z53.29 Procedure and treatment not carried out because of patient's decision for other reasons; F15.90 Other stimulant use, unspecified, uncomplicated; F41.9 Anxiety disorder, unspecified; G43.909 Migraine, unspecified, not intractable, without status migrainosus; K21.9 Gastro-esophageal reflux disease without esophagitis; G47.30 Sleep apnea, unspecified; M25.519 Pain in unspecified shoulder; I25.2 Old myocardial infarction; Z82.5 Family history of asthma and other chronic lower respiratory diseases; Z82.49 Family history of ischemic heart disease and other diseases of the circulatory system; Z83.3 Family history of diabetes mellitus; Z86.711 Personal history of pulmonary embolism; Z87.891 Personal history of nicotine dependence; Z88.1 Allergy status to other antibiotic agents; Z88.8 Allergy status to other drugs, medicaments and biological substances; Z90.49 Acquired absence of other specified parts of digestive tract; Z99.81 Dependence on supplemental oxygen; Z79.899 Other long term (current) drug therapy; Z79.82 Long term (current) use of aspirin
CPT/HCPCS: 36415; 36600; 71045; 80048; 80053; 82803; 83880; 85018; 85025; 87811; 93005; 94640; 94660; 94760; 96374; 96375; 99285; G0378; J0456; J0696; J1940; J2060; J2270; J2930

== ENCOUNTER 2022-08-31 00:24 | Inpatient (IN) | payer BC, MEDICAID ==
[2022-08-31] VITALS (7 sets, daily range): BP systolic 101–116; BP diastolic 56–66
[~2022-08-31] VITALS: Ht 160 cm; Wt 52.5 kg
[~2022-08-31 00:24] MED LIST changes: -LEVO-65 PO
[2022-08-31 01:31] LABS: BASOPHILS % (AUTO) 0.6 % (0-1); EOSINOPHILS # (AUTO) 0.1 X10'3 (0-0.9); EOSINOPHILS % (AUTO) 1.1 % (0-6); HEMATOCRIT 40.8 % (35.0-45.0); HEMOGLOBIN 13.5 g/dl (12.0-16.0); LYMPHOCYTES # (AUTO) 1.2 X10'3 (1.1-4.8); LYMPHOCYTES % (AUTO) 19.1 % (21-51); MEAN CORPUSCULAR HEMOGLOBIN 30.7 PG (27.0-31.0); MEAN CORPUSCULAR VOLUME 93.1 FL (78-98); MEAN PLATELET VOLUME 7.3 FL (7.4-10.4); MONOCYTES # (AUTO) 0.4 X10'3 (0-0.9); MONOCYTES % (AUTO) 6.8 % (2-12); NEUTROPHILS # (AUTO) 4.7 X10'3 (1.8-7.7); NEUTROPHILS % (AUTO) 72.4 % (42-75); PLATELET COUNT 203 X10'3 (140-440); RED BLOOD COUNT 4.39 X10'6 (4.20-5.60); RED CELL DISTRIBUTION WIDTH 14.5 % (11.5-14.5); WHITE BLOOD COUNT 6.5 X10'3 (4.5-11.0)
[2022-08-31 02:27] LABS: CHLORIDE 102 MMOL/L (99-107); GLUCOSE 98 MG/DL (70-104); POTASSIUM 3.9 MMOL/L (3.5-5.1); SODIUM 142 MMOL/L (135-145)
[2022-08-31 02:28] LABS: ANION GAP 5 (8-16); BILIRUBIN,TOTAL 0.5 MG/DL (0.1-1.0); BLOOD UREA NITROGEN 17 MG/DL (7-18); BUN/CREATININE RATIO 35.4 (6.6-38.0); CALCIUM 9.3 MG/DL (8.5-10.1); CREATININE 0.48 MG/DL (0.40-0.90); MAGNESIUM 1.8 MG/DL (1.5-2.4); TOTAL CARBON DIOXIDE 35.1 MMOL/L (24-32); TOTAL PROTEIN 6.9 G/DL (6.4-8.2); eGFR > 90 ML/MIN
[2022-08-31 02:29] LABS: ALANINE AMINOTRANSFERASE 28 U/L (12-78); ALBUMIN 3.8 G/DL (3.4-5.0); ALBUMIN/GLOBULIN RATIO 1.2 (1.1-1.5); ALKALINE PHOSPHATASE 116 IU/L (46-116); ASPARTATE AMINO TRANSFERASE 24 U/L (10-37)
[2022-08-31] MEDS ORDERED: aspirin 325mg tablet PO ONE (05:30)
[2022-08-31] MEDS ORDERED: iohexol 350MG/ML 100ml bottle IV ONE (05:31)
[2022-08-31 05:42] LABS: ETHANOL < 0.010 GM/DL (0.0-0.010)
--- NOTE | 2022-08-31 05:42 | NUR ---
pt to CT scan
[2022-08-31] MEDS ORDERED: morphine 4 MG/ML inj SYRINge IV ONE ×2 (05:55→07:50)
--- NOTE | 2022-08-31 06:26 | NUR ---
Received report from Alison LAMBERT
[2022-08-31] MEDS ORDERED: ondansetron/PF 4mg/2ml inj IV ONE (08:00)
[2022-08-31] MEDS: sildenafil citrate 20mg tablet PO SCH ×2 (08:04→20:00)
--- NOTE | 2022-08-31 08:29 | NUR ---
Critical lab result received at 08 from Sailaja in lab Troponin 67 Dr Bundy notified
--- NOTE | 2022-08-31 08:50 | NUR ---
pt sitting up in bed c/o nausea and anxiety. This RN noted her heart rate sustaining in the high 120s to low 120s. Dr Bundy notified who ordered an EKG which showed sinus tach in the 120s. Received orders for 1mg ativan PO and NS at 100 mL/hr. Will continue to monitor.
[2022-08-31] MEDS ORDERED: LORazepam 1 MG tablet PO ONE (08:55)
[2022-08-31] MEDS: normal saline 1000ml 1,000 ML IV SCH ×3 (09:08→10:40)
[2022-08-31 09:57] LABS: ABG BASE EXCESS 4.9 mmol/L (-2.0-2.0); ABG HCO3 38.3 mmol/L (22.0-26.0); ABG PCO2 (T) 122.6 mmHg (32.0-45.0); ABG PO2 (T) 60.6 mmHg (75.0-100.0); ALLEN'S TEST POSITIVE; FCOHb 0.8 % (0.0-3.9); FLOW 4 L/min; FMetHb 0.2 % (0.0-1.5); FO2Hb 81.2 % (94-97); TOTAL HEMOGLOBIN 13.1 G/dl (12.0-16.0)
[2022-08-31] MEDS ORDERED: naloxone 0.4 mg/ml inj IV ONE ×6 (10:10→10:40)
--- NOTE | 2022-08-31 10:11 | NUR ---
PT WAS FOUND ALTERED AND BECAME UNRESPOSIVE. RN FOUND XANEX AND FLEXERIL AT BEDSIDE AND OTHER UNKNOWN MEDS. PT HAS PINPOINT PUPILS. PRIMARY RN PAGED DR. SHARMA AND HAS RT AT BEDSIDE. STUDENT LIAISON OFFICER AT BEDSIDE, PT IS APNEIC REQUESTED ER MD TO BEDSIDE AND MOVED PT TO BED 3. DR. ROJAS GAVE VERBAL ORDER FOR NARCAN 0.4MG IVP X 2. PT PLACED ON BIPAP. PT REMAINS NON RESPONSIVE.
--- NOTE | 2022-08-31 10:17 | NUR ---
PT HAS RECEIVED 3 DOSES IVP NARCAN PER MD ORDER. PT ON BIPAP. HR 116, SPO2 94% 28%FIO2, BP 132/66
[2022-08-31] MEDS ORDERED: methylPREDNISolone sod succ 125mg/2ml vial IV ONE ×2 (10:35→14:35)
[2022-08-31] MEDS ORDERED: mag hydrox/Alum hydrox/simeth 30ml oral suspension PO PRN (10:35)
[2022-08-31] MEDS ORDERED: acetaminophen 325mg tablet PO PRN (10:35)
[2022-08-31] MEDS ORDERED: magnesium Cl slow-release 64mg tablet PO PRN (10:35)
[2022-08-31] MEDS ORDERED: potassium Cl 40MEQ/1/2NS 520ml 520 ML IV PRN (10:35)
[2022-08-31] MEDS ORDERED: magnesium 4gm in 100ml NS 100 ML IV PRN (10:35)
[2022-08-31] MEDS ORDERED: potassium Cl 20 mEq SR tablet PO PRN ×2 (10:35)
[2022-08-31] MEDS ORDERED: magnesium hydroxide 30ml (MOM) UD suspension PO PRN (10:35)
[2022-08-31] MEDS ORDERED: naloxone 2mg/2ml inj IV STA (10:39)
[2022-08-31 10:50] LABS: ABG BASE EXCESS 3.4 mmol/L (-2.0-2.0); ABG HCO3 34.4 mmol/L (22.0-26.0); ABG OXYGEN SATURATION 85.6 % (94-97); ABG PCO2 (T) 92.3 mmHg (32.0-45.0); ABG PO2 (T) 61.2 mmHg (75.0-100.0); ALLEN'S TEST POSITIVE; FCOHb 1.1 % (0.0-3.9); FMetHb 0.3 % (0.0-1.5); FO2Hb 84.4 % (94-97); RESPIRATORY RATE 20 b/min; TOTAL HEMOGLOBIN 12.8 G/dl (12.0-16.0)
[2022-08-31] MEDS: ipratropium/albuterol 3ml nebule NEB SCH ×4 (11:00→22:57)
--- NOTE | 2022-08-31 13:16 | NUR ---
ED bed 3 Pt on Bipap and desatting into high 70s [phone]
--- NOTE | 2022-08-31 13:20 | NUR ---
T/C from Dr. Levin. He will speak with the warper creeler regarding whether or not to intubate
--- NOTE | 2022-08-31 13:21 | NUR ---
LAST TWO NOTES CHARTED IN ERROR BY THIS RN UNDER MARILYN RN.
[2022-08-31 14:12] LABS: ABG BASE EXCESS 9.9 mmol/L (-2.0-2.0); ABG HCO3 42.7 mmol/L (22.0-26.0); ABG OXYGEN SATURATION 84.9 % (94-97); ABG PCO2 (T) 115.8 mmHg (32.0-45.0); ABG PO2 (T) 56.9 mmHg (75.0-100.0); ALLEN'S TEST POSITIVE; FCOHb 0.9 % (0.0-3.9); FMetHb 0.2 % (0.0-1.5); RESPIRATORY RATE 22 b/min; TOTAL HEMOGLOBIN 13.4 G/dl (12.0-16.0)
--- NOTE | 2022-08-31 14:15 | NUR ---
PAGER ID: [phone] MESSAGE: ED BED 3--CO2 IS 115.8, RT THINKS PT MAY NEED INTUBATION
[2022-08-31] MEDS ORDERED: TIOT18CA3 INH (14:28)
[2022-08-31] MEDS ORDERED: PANT20TA18 PO (14:28)
[2022-08-31] MEDS ORDERED: METO25TA6 PO (14:28)
[2022-08-31] MEDS ORDERED: CELE-85 PO (14:28)
[2022-08-31] MEDS ORDERED: CYCL-1 PO (14:28)
[2022-08-31] MEDS ORDERED: magnesium 2GM in 50ml NS 50 ML IV ONE (14:35)
--- NOTE | 2022-08-31 14:36 | NUR ---
REQUESTING DR. SONI TO BEDSIDE FOR ASSESSMENT. PT REPEAT ABG SHOWS DECLINE. PT REMAINS OBTUNDED, SPO2 85%. AT BEDSIDE. PT ROUSING TO PAINFUL STIMULI. DR. STEVENS MADE DECISION TO HOLD OFF ON INTUBATION AT THIS TIME, WILL PLACE ORDERS FOR MONITORING IN THE ICU. SPOKE WITH DR. SHARMA WHO AGREES THE PT SHOULD BE AN ICU ADMIT.
[2022-08-31] MEDS ORDERED: albuterol 2.5 MG/3 ML nebule NEB SCH ×2 (15:00→17:20)
--- NOTE | 2022-08-31 16:04 | NUR ---
PT AWAKE AND RESPONDING PERIODICALLY. PT WAS ABLE TO ASSIST THIS RN IN REPOSITIONING HERSELF, STATES THAT SHE KNOWS WHERE SHE IS. FALLS ASLEEP EASILY. WILL CONTINUE TO MONITOR.
--- NOTE | 2022-08-31 16:06 | NUR ---
pt awake and asking for water
[2022-08-31 16:26] LABS: ABG BASE EXCESS 5.8 mmol/L (-2.0-2.0); ABG HCO3 37.4 mmol/L (22.0-26.0); ABG OXYGEN SATURATION 90.1 % (94-97); ABG PCO2 (T) 99.1 mmHg (32.0-45.0); ABG PO2 (T) 66.5 mmHg (75.0-100.0); ALLEN'S TEST POSITIVE; FCOHb 1.7 % (0.0-3.9); FMetHb 0.1 % (0.0-1.5); FO2Hb 88.5 % (94-97); RESPIRATORY RATE 24 b/min; TOTAL HEMOGLOBIN 13.3 G/dl (12.0-16.0)
[2022-08-31] MEDS ORDERED: LISI2.5T89 PO (16:40)
--- NOTE | 2022-08-31 16:45 | NUR ---
Patient arrived to CICU 2009 via gurney and moved herself onto [facility]. Pt placed on bedside monitor and remained on Bipap mask at 40% fio2. Alert and oriented; patient given call light.
--- NOTE | 2022-08-31 18:02 | NUR ---
Problems reprioritized. Patient report given, questions answered & plan of care reviewed with Teresa LAMBERT.
[2022-08-31] MEDS: budesonide 0.5mg/2ml UD nebule IH SCH (19:27)
[2022-08-31] MEDS: K and/or MAG REPLACEMENT MC SCH (20:00)
--- NOTE | 2022-08-31 20:30 | NUR ---
place on nasal cannula at 5l to give meds and something to eat in just 2 minutes the O2 sats drop down to 70 , put back to BIPAP and takes 15 minutes to keep up with O2 sats to 90s
[2022-08-31] MEDS: docusate sod 100mg capsule PO SCH (20:33)
[2022-08-31] MEDS: methylPREDNISolone sod succ 125mg/2ml vial IV SCH (20:33)
[2022-08-31] MEDS: enoxaparin 60mg/0.6ml syringe SQ SCH (20:35)
[2022-08-31] MEDS: morphine 2 MG/ML inj. syringe IV PRN (23:08)
[2022-09-01] VITALS (13 sets, daily range): BP systolic 121–147; BP diastolic 63–82
[2022-09-01] MEDS: ipratropium/albuterol 3ml nebule NEB SCH ×6 (03:00→19:28)
[2022-09-01] MEDS: morphine 2 MG/ML inj. syringe IV PRN ×3 (03:10→14:59)
[2022-09-01] MEDS: ondansetron/PF 4mg/2ml inj IV PRN ×2 (03:12→15:09)
[2022-09-01] MEDS: normal saline 1000ml 1,000 ML IV SCH (04:55)
[2022-09-01] MEDS: sildenafil citrate 20mg tablet PO SCH ×3 (05:32→21:36)
--- NOTE | 2022-09-01 05:56 | NUR ---
awaken at 2am , placed on 5l/nc , claimed she is hungry request to have her soda , took 2 cans then requested to have 2 cartoon of milk and moreno crackers and pudding after she ate about 12 pieces of moreno crackers , she complains of tummy ache and chest pain and nausea after .. sleeping at this time.
[2022-09-01 06:46] LABS: BASOPHILS % (AUTO) 0 % (0-1); EOSINOPHILS % (AUTO) 0 % (0-6); HEMATOCRIT 36.4 % (35.0-45.0); HEMOGLOBIN 11.7 g/dl (12.0-16.0); LYMPHOCYTES # (AUTO) 0.5 X10'3 (1.1-4.8); LYMPHOCYTES % (AUTO) 9.6 % (21-51); MEAN CORPUSCULAR HEMOGLOBIN 30.5 PG (27.0-31.0); MEAN CORPUSCULAR HGB CONC 32.2 g/dL (33.0-36.5); MEAN CORPUSCULAR VOLUME 94.8 FL (78-98); MEAN PLATELET VOLUME 7.5 FL (7.4-10.4); MONOCYTES # (AUTO) 0.3 X10'3 (0-0.9); MONOCYTES % (AUTO) 5.3 % (2-12); NEUTROPHILS # (AUTO) 4.4 X10'3 (1.8-7.7); NEUTROPHILS % (AUTO) 85.1 % (42-75); PLATELET COUNT 182 X10'3 (140-440); RED BLOOD COUNT 3.84 X10'6 (4.20-5.60); RED CELL DISTRIBUTION WIDTH 14.4 % (11.5-14.5); WHITE BLOOD COUNT 5.1 X10'3 (4.5-11.0)
[2022-09-01 06:53] LABS: ALBUMIN 3.3 G/DL (3.4-5.0); ANION GAP 0 (8-16); BLOOD UREA NITROGEN 24 MG/DL (7-18); BUN/CREATININE RATIO 43.6 (6.6-38.0); CALCIUM 8.8 MG/DL (8.5-10.1); CHLORIDE 102 MMOL/L (99-107); CREATININE 0.55 MG/DL (0.40-0.90); GLUCOSE 183 MG/DL (70-104); SODIUM 141 MMOL/L (135-145); TOTAL CARBON DIOXIDE 39.4 MMOL/L (24-32); eGFR > 90 ML/MIN
[2022-09-01] MEDS: methylPREDNISolone sod succ 125mg/2ml vial IV SCH ×2 (07:54→19:14)
[2022-09-01] MEDS: enoxaparin 60mg/0.6ml syringe SQ SCH ×2 (07:54→21:37)
[2022-09-01] MEDS: cholecalciferol (vitamin D3) 1,000 unit (25mcg) tablet PO SCH (07:55)
[2022-09-01] MEDS: docusate sod 100mg capsule PO SCH ×2 (07:56→19:18)
[2022-09-01] MEDS: lactobacillus rhamnosus 10,000 MMU CELLS/CAPSULE PO SCH (07:56)
[2022-09-01] MEDS: ferrous sulfate 325mg tablet PO SCH (07:56)
[2022-09-01] MEDS: multivitamins, therapeutics tablet PO SCH (07:56)
[2022-09-01] MEDS: aspirin 81mg, enteric-coated 1 TAB TABLET.DR PO SCH (07:56)
[2022-09-01] MEDS: potassium chloride 10mEq ER tablet PO SCH (07:58)
[2022-09-01] MEDS: OXYBUTYNIN CHLORIDE 5 MG PO SCH (08:00)
[2022-09-01] MEDS: K and/or MAG REPLACEMENT MC SCH ×2 (08:00→19:14)
[2022-09-01] MEDS: budesonide 0.5mg/2ml UD nebule IH SCH ×2 (09:00→19:28)
--- NOTE | 2022-09-01 15:45 | NUR ---
Report called to [facility]. Patient transported with all belongings, including wheelchair, home oxygen tank, and jewelry and dentures.
--- NOTE | 2022-09-01 15:48 | NUR ---
AGER ID: [phone] MESSAGE: AYLA ON TELE@[phone], THE RN FOR AIMEE RAMOSS IS PLACING AN ORDER FOR TELE MONITOR SHE ONLY HAD A 24 HOUR ORDER. PATIENT IS NOW IN 3011, THX.
--- NOTE | 2022-09-01 17:13 | NUR ---
PAGE SENT PAGER ID: [phone] MESSAGE: [email or web address], AIMEE TILLMAN, PT 'S HR 120-130. THANK YOU, CHARLEY [id number]
[2022-09-01] MEDS ORDERED: diltiazem 30mg tablet PO ONE (18:16)
[2022-09-01] MEDS: diltiazem 30mg tablet PO SCH ×3 (18:37→21:38)
--- NOTE | 2022-09-01 18:42 | NUR ---
Problems reprioritized. Patient report given, questions answered & plan of care reviewed with PETRA SÁNCHEZ.
[2022-09-02] MEDS: ipratropium/albuterol 3ml nebule NEB SCH ×7 (00:04→22:42)
[2022-09-02] MEDS: diltiazem 30mg tablet PO SCH ×4 (01:14→20:46)
[2022-09-02] MEDS: morphine 2 MG/ML inj. syringe IV PRN ×3 (01:15→21:09)
--- NOTE | 2022-09-02 06:32 | NUR ---
Patient in room PCU 3011. I have received report from PETRA SÁNCHEZ, and had the opportunity to ask questions and assume patient care.
[2022-09-02 07:02] LABS: BASOPHILS % (AUTO) 0.1 % (0-1); EOSINOPHILS % (AUTO) 0 % (0-6); HEMATOCRIT 34.9 % (35.0-45.0); HEMOGLOBIN 10.8 g/dl (12.0-16.0); LYMPHOCYTES # (AUTO) 0.3 X10'3 (1.1-4.8); LYMPHOCYTES % (AUTO) 3.6 % (21-51); MEAN CORPUSCULAR HEMOGLOBIN 29.9 PG (27.0-31.0); MEAN CORPUSCULAR VOLUME 96.4 FL (78-98); MEAN PLATELET VOLUME 7.8 FL (7.4-10.4); MONOCYTES # (AUTO) 0.2 X10'3 (0-0.9); MONOCYTES % (AUTO) 1.7 % (2-12); NEUTROPHILS # (AUTO) 8.6 X10'3 (1.8-7.7); NEUTROPHILS % (AUTO) 94.6 % (42-75); PLATELET COUNT 142 X10'3 (140-440); RED BLOOD COUNT 3.62 X10'6 (4.20-5.60); RED CELL DISTRIBUTION WIDTH 14.6 % (11.5-14.5); WHITE BLOOD COUNT 9.1 X10'3 (4.5-11.0)
--- NOTE | 2022-09-02 07:05 | NUR ---
PT REFUSED MORNING VITAL SIGNS.
[2022-09-02 07:18] LABS: ALBUMIN 3.2 G/DL (3.4-5.0); ANION GAP -1 (8-16); BLOOD UREA NITROGEN 23 MG/DL (7-18); BUN/CREATININE RATIO 45.1 (6.6-38.0); CALCIUM 8.8 MG/DL (8.5-10.1); CHLORIDE 100 MMOL/L (99-107); CREATININE 0.51 MG/DL (0.40-0.90); GLUCOSE 215 MG/DL (70-104); POTASSIUM 4.6 MMOL/L (3.5-5.1); SODIUM 141 MMOL/L (135-145); eGFR > 90 ML/MIN
[2022-09-02] MEDS: budesonide 0.5mg/2ml UD nebule IH SCH ×2 (07:41→19:47)
[2022-09-02 07:57] LABS: TOTAL CARBON DIOXIDE 41.9 MMOL/L (24-32)
--- NOTE | 2022-09-02 07:59 | NUR ---
PAGE SENT PAGER ID: [phone] MESSAGE: [id number], THOMAS TILLMAN, CRITICAL LAB - CO2 41.9. THANK YOU, CHARLEY [phone]
[2022-09-02] MEDS: sildenafil citrate 20mg tablet PO SCH ×2 (08:00→20:00)
[2022-09-02] MEDS: OXYBUTYNIN CHLORIDE 5 MG PO SCH (08:00)
[2022-09-02] MEDS: K and/or MAG REPLACEMENT MC SCH ×2 (08:00→20:00)
--- NOTE | 2022-09-02 08:05 | NUR ---
MD ORDERED PT TO BE PLACED ON BIPAP AND TOX SCREEN.
[2022-09-02] MEDS: methylPREDNISolone sod succ 125mg/2ml vial IV SCH ×2 (08:44→21:08)
[2022-09-02] MEDS: cholecalciferol (vitamin D3) 1,000 unit (25mcg) tablet PO SCH (08:45)
[2022-09-02] MEDS: ferrous sulfate 325mg tablet PO SCH (08:45)
[2022-09-02] MEDS: aspirin 81mg, enteric-coated 1 TAB TABLET.DR PO SCH (08:45)
[2022-09-02] MEDS: multivitamins, therapeutics tablet PO SCH (08:45)
[2022-09-02] MEDS: docusate sod 100mg capsule PO SCH ×2 (08:45→20:00)
[2022-09-02] MEDS: lactobacillus rhamnosus 10,000 MMU CELLS/CAPSULE PO SCH (08:45)
[2022-09-02] MEDS: potassium chloride 10mEq ER tablet PO SCH (08:46)
[2022-09-02] MEDS: enoxaparin 60mg/0.6ml syringe SQ SCH (08:47)
[2022-09-02 08:55] VITALS: BP 136/64
[2022-09-02] MEDS: LORazepam 0.5 MG tablet PO PRN ×2 (09:21→18:00)
--- NOTE | 2022-09-02 10:07 | NUR ---
PT IS NON COMPLANT WITH BIPAP. SHE TAKES IT OFF SHORTLY AFTER THIS NURSE PLACES IT. ATIVAN GIVEN TO HELP WITH ANXIETY, BUT PT REPORTS THAT SHE "CAN'T BREATH" WHEN MASKED PLACED ON HER.
[2022-09-02] MEDS: normal saline 1000ml 1,000 ML IV SCH (10:35)
[2022-09-02 11:00] VITALS: BP 137/82
[2022-09-02 11:08] LABS: URINE AMPHETAMINE SCREEN NEGATIVE (Neg); URINE BARBITUATE SCREEN NEGATIVE (Neg); URINE BENZODIAZEPINES SCREEN NEGATIVE (Neg); URINE CANNABINOID SCREEN NEGATIVE (Neg); URINE COCAINE SCREEN NEGATIVE (Neg); URINE METHADONE SCREEN NEGATIVE (Neg); URINE OPIATE SCREEN POSITIVE (Neg); URINE PHENCYCLIDINE SCREEN NEGATIVE (Neg)
--- NOTE | 2022-09-02 12:04 | NUR ---
Met with patient in regards to substance use and to see if patient was interested in resources for treatment options. Patient declined resources. She has a drug counselor named Diana that she sees already and feels that is enough.
--- NOTE | 2022-09-02 13:35 | NUR ---
[facility] MIJARES WAS ON BEDSIDE TABLE, PT REPORTED MORE MIJARES IN HER WALLET. $256 AND CHANGE IS WITH PT IN HER WALLET. PT WAS EDUCATED THAT HOSPITAL COULDN'T BE HELD RESPONSIBLE FOR VALUABLES AND WAS ENCOURAGED TO HAVE HER SO TAKE THE MIJARES AND ANY OTHER VALUABLES HOME. MIJARES LISTED IN BELONGINGS.
[2022-09-02 15:07] VITALS: BP 151/77
--- NOTE | 2022-09-02 16:26 | NUR ---
PT AGREED TO SEND HER $257 HOME WITH HER SOTONI. TRANSACTION WAS WITNESSED BY PETRA ÁLVAREZ.
--- NOTE | 2022-09-02 18:20 | NUR ---
Problems reprioritized. Patient report given, questions answered & plan of care reviewed with PETRA MONTANA.
--- NOTE | 2022-09-02 18:32 | NUR ---
PAGE SENT PAGER ID: [phone] MESSAGE: [id number], AIMEE TILLMAN, PT'S OWN MEDS HAVEN'T BEEN BROUGHT IN, SILDENAFIL AND OXYBUTYNIN. DISCONTINUE "OWN MEDICATION ORDER"? THANK YOU, CHARLEY
[2022-09-02 19:08] VITALS: BP 141/70
[2022-09-02] MEDS: apixaban 5mg tablet PO SCH (20:45)
[2022-09-02 22:00] VITALS: BP 125/62
--- NOTE | 2022-09-02 23:07 | NUR ---
Pt is refusing to use bipap, said she wants it around 03.00 am.she was educated on importance of bipap.that it can help push air into the lungs and make her sleep better at night,but she still refused.
[2022-09-03] VITALS (7 sets, daily range): BP systolic 125–162; BP diastolic 60–78
[2022-09-03] MEDS: diltiazem 30mg tablet PO SCH ×4 (01:38→19:46)
[2022-09-03] MEDS: ipratropium/albuterol 3ml nebule NEB SCH ×6 (02:34→23:31)
--- NOTE | 2022-09-03 06:30 | NUR ---
Problems reprioritized. Patient report given, questions answered & plan of care reviewed with Jillian LAMBERT.
--- NOTE | 2022-09-03 06:40 | NUR ---
Patient in room PCU 3011. I have received report from PETRA CAVAZOS, and had the opportunity to ask questions and assume patient care.
--- NOTE | 2022-09-03 06:57 | NUR ---
Problems reprioritized. Patient report given, questions answered & plan of care reviewed with MARLENE LAMBERT. Addendum: 09/03/22 at 0704 by Celestina Schaefer RN Problems reprioritized. Patient report given, questions answered & plan of care reviewed with CHARLEY LAMBERT. Not BRAIN as previously stated.
[2022-09-03] MEDS: budesonide 0.5mg/2ml UD nebule IH SCH ×2 (07:10→20:11)
[2022-09-03 07:54] LABS: BASOPHILS % (AUTO) 0.1 % (0-1); EOSINOPHILS % (AUTO) 0 % (0-6); HEMATOCRIT 33.5 % (35.0-45.0); HEMOGLOBIN 10.7 g/dl (12.0-16.0); LYMPHOCYTES # (AUTO) 0.5 X10'3 (1.1-4.8); LYMPHOCYTES % (AUTO) 4.6 % (21-51); MEAN CORPUSCULAR HEMOGLOBIN 30.4 PG (27.0-31.0); MEAN CORPUSCULAR HGB CONC 32.1 g/dL (33.0-36.5); MEAN CORPUSCULAR VOLUME 94.6 FL (78-98); MEAN PLATELET VOLUME 7.5 FL (7.4-10.4); MONOCYTES # (AUTO) 0.2 X10'3 (0-0.9); MONOCYTES % (AUTO) 2.1 % (2-12); NEUTROPHILS # (AUTO) 9.5 X10'3 (1.8-7.7); NEUTROPHILS % (AUTO) 93.2 % (42-75); PLATELET COUNT 140 X10'3 (140-440); RED BLOOD COUNT 3.54 X10'6 (4.20-5.60); RED CELL DISTRIBUTION WIDTH 14.4 % (11.5-14.5); WHITE BLOOD COUNT 10.2 X10'3 (4.5-11.0)
[2022-09-03] MEDS: OXYBUTYNIN CHLORIDE 5 MG PO SCH (08:00)
[2022-09-03] MEDS: sildenafil citrate 20mg tablet PO SCH ×2 (08:00→20:00)
[2022-09-03] MEDS: K and/or MAG REPLACEMENT MC SCH ×2 (08:00→20:00)
[2022-09-03 08:11] LABS: ANION GAP -4 (8-16); BLOOD UREA NITROGEN 18 MG/DL (7-18); BUN/CREATININE RATIO 36.7 (6.6-38.0); CALCIUM 8.7 MG/DL (8.5-10.1); CHLORIDE 101 MMOL/L (99-107); CREATININE 0.49 MG/DL (0.40-0.90); GLUCOSE 143 MG/DL (70-104); POTASSIUM 4.1 MMOL/L (3.5-5.1); SODIUM 141 MMOL/L (135-145); eGFR > 90 ML/MIN
[2022-09-03 08:13] LABS: TOTAL CARBON DIOXIDE 43.7 MMOL/L (24-32)
--- NOTE | 2022-09-03 08:30 | NUR ---
PAGE SENT PAGER ID: [phone] MESSAGE: [id number], AIMEE TILLMAN, CRITICAL LAB: CO2 43.7. PT CURRENTLY ON BIPAP, BUT WAS OFF FOR MOST OF THE NIGHT. THANK YOU, CHARLEY Grullon [phone]
[2022-09-03] MEDS: potassium chloride 10mEq ER tablet PO SCH (08:48)
[2022-09-03] MEDS: cholecalciferol (vitamin D3) 1,000 unit (25mcg) tablet PO SCH (08:49)
[2022-09-03] MEDS: apixaban 5mg tablet PO SCH ×2 (08:49→19:46)
[2022-09-03] MEDS: lactobacillus rhamnosus 10,000 MMU CELLS/CAPSULE PO SCH (08:49)
[2022-09-03] MEDS: aspirin 81mg, enteric-coated 1 TAB TABLET.DR PO SCH (08:49)
[2022-09-03] MEDS: ferrous sulfate 325mg tablet PO SCH (08:49)
[2022-09-03] MEDS: multivitamins, therapeutics tablet PO SCH (08:49)
[2022-09-03] MEDS: docusate sod 100mg capsule PO SCH ×2 (08:50→20:00)
[2022-09-03] MEDS: morphine 2 MG/ML inj. syringe IV PRN ×3 (09:27→19:57)
[2022-09-03] MEDS: methylPREDNISolone sod succ 125mg/2ml vial IV SCH ×2 (09:28→19:51)
[2022-09-03] MEDS: LORazepam 0.5 MG tablet PO PRN ×2 (11:18→23:31)
--- NOTE | 2022-09-03 11:54 | NUR ---
PIV PLACED L WRIST, PATENT AND WELL SECURED, PT HAD JUST PULLED OUT PIV IN THUMB. PT HAS BEEN REFUSING TO BE PLACED ON BIPAP. THIS NURSE HAS BEEN MAKING FREQUENT VISITS TO PT'S ROOM [employer] TRACY ALERTS NURSE TO LOW O2. PT WON'T USE CALL LIGHT, BUT YELLS OUT FOR NURSE. PT PULLED OUT WRIST PIV AND MADE A MESS, BLOOD EVERYWHERE. PT CLEANED UP AND PIV SITE DRESSED. PT GIVEN ATIVAN AND PLACED ON BIPAP. THIS NURSE WILL REQUEST THAT SOMEONE ELSE PLACE PIV.
--- NOTE | 2022-09-03 18:25 | NUR ---
Patient in room PCU 3011. I have received report from PETRA MONTANA, and had the opportunity to ask questions and assume patient care.
[2022-09-04] MEDS: diltiazem 30mg tablet PO SCH ×2 (01:46→08:18)
[2022-09-04 02:00] VITALS: BP 146/86
[2022-09-04] MEDS: ipratropium/albuterol 3ml nebule NEB SCH ×3 (03:29→11:19)
[2022-09-04] MEDS: morphine 2 MG/ML inj. syringe IV PRN ×3 (03:50→12:27)
[2022-09-04 05:52] LABS: BASOPHILS % (AUTO) 0.2 % (0-1); EOSINOPHILS % (AUTO) 0 % (0-6); HEMATOCRIT 35.6 % (35.0-45.0); HEMOGLOBIN 11.2 g/dl (12.0-16.0); LYMPHOCYTES # (AUTO) 0.4 X10'3 (1.1-4.8); LYMPHOCYTES % (AUTO) 3.1 % (21-51); MEAN CORPUSCULAR HEMOGLOBIN 29.9 PG (27.0-31.0); MEAN CORPUSCULAR HGB CONC 31.5 g/dL (33.0-36.5); MEAN CORPUSCULAR VOLUME 94.9 FL (78-98); MEAN PLATELET VOLUME 7.7 FL (7.4-10.4); MONOCYTES # (AUTO) 0.3 X10'3 (0-0.9); MONOCYTES % (AUTO) 2.2 % (2-12); NEUTROPHILS # (AUTO) 12.2 X10'3 (1.8-7.7); NEUTROPHILS % (AUTO) 94.5 % (42-75); PLATELET COUNT 158 X10'3 (140-440); RED BLOOD COUNT 3.75 X10'6 (4.20-5.60); RED CELL DISTRIBUTION WIDTH 14.6 % (11.5-14.5); WHITE BLOOD COUNT 12.9 X10'3 (4.5-11.0)
[2022-09-04 05:53] LABS: ANION GAP 2 (8-16); BLOOD UREA NITROGEN 25 MG/DL (7-18); BUN/CREATININE RATIO 39.1 (6.6-38.0); CALCIUM 8.8 MG/DL (8.5-10.1); CHLORIDE 99 MMOL/L (99-107); CREATININE 0.64 MG/DL (0.40-0.90); GLUCOSE 260 MG/DL (70-104); POTASSIUM 3.4 MMOL/L (3.5-5.1); SODIUM 139 MMOL/L (135-145); TOTAL CARBON DIOXIDE 38.5 MMOL/L (24-32); eGFR > 90 ML/MIN
--- NOTE | 2022-09-04 06:54 | NUR ---
Problems reprioritized. Patient report given, questions answered & plan of care reviewed with Ivelisse CAMPOS.
[2022-09-04] MEDS: budesonide 0.5mg/2ml UD nebule IH SCH (07:32)
[2022-09-04] MEDS: methylPREDNISolone sod succ 125mg/2ml vial IV SCH (07:44)
[2022-09-04] MEDS: OXYBUTYNIN CHLORIDE 5 MG PO SCH (08:00)
[2022-09-04] MEDS: docusate sod 100mg capsule PO SCH (08:00)
[2022-09-04] MEDS ORDERED: potassium Cl 20 mEq SR tablet PO PRN ×2 (08:10→08:30)
[2022-09-04] MEDS: apixaban 5mg tablet PO SCH (08:18)
[2022-09-04] MEDS: LORazepam 0.5 MG tablet PO PRN (08:18)
[2022-09-04] MEDS: aspirin 81mg, enteric-coated 1 TAB TABLET.DR PO SCH (08:18)
[2022-09-04] MEDS: ferrous sulfate 325mg tablet PO SCH (08:19)
[2022-09-04] MEDS: lactobacillus rhamnosus 10,000 MMU CELLS/CAPSULE PO SCH (08:19)
[2022-09-04] MEDS: multivitamins, therapeutics tablet PO SCH (08:19)
[2022-09-04] MEDS: cholecalciferol (vitamin D3) 1,000 unit (25mcg) tablet PO SCH (08:19)
[2022-09-04] MEDS: potassium chloride 10mEq ER tablet PO SCH (08:20)
[2022-09-04] MEDS: K and/or MAG REPLACEMENT MC SCH (08:39)
[2022-09-04] MEDS ORDERED: sildenafil citrate 20mg tablet PO SCH (09:19)
[2022-09-04] MEDS ORDERED: PRED10TA23 PO (10:20)
[2022-09-04] MEDS ORDERED: HYDR-3965 PO ×2 (10:20→10:21)
[2022-09-04] MEDS: normal saline 1000ml 1,000 ML IV SCH (10:35)
[2022-09-10] MEDS ORDERED: UNABLE TO OBTAIN (22:14)
[2022-09-11] MEDS ORDERED: SILD20TA2 PO (10:35)
[2022-09-12] MEDS ORDERED: PRED10TA23 PO (08:23)
[2022-09-12] MEDS ORDERED: SULF1TAB49 PO (08:23)
[2022-09-12] MEDS ORDERED: FURO-150 PO (08:23)
== END 2022-09-04 13:05 | disposition home or self-care (01) | DRG 917 ==
LOC: ER 00:24 → ED HOLD 10:39 → CICU 2S 16:39 → PCU 3S 09-01 15:35
PROVIDERS: ADMIT Family Medicine; ATTEND Family Medicine
PROC: 5A09357 Assistance with Respiratory Ventilation, Less than 24 Consecutive Hours, Continuous Positive Airway Pressure (ICD-10-PCS; principal; 2022-08-31)
PROC: B32T1ZZ Computerized Tomography (CT Scan) of Left Pulmonary Artery using Low Osmolar Contrast (ICD-10-PCS; 2022-08-31)
PROC: B3201ZZ Computerized Tomography (CT Scan) of Thoracic Aorta using Low Osmolar Contrast (ICD-10-PCS; 2022-08-31)
PROC: B32S1ZZ Computerized Tomography (CT Scan) of Right Pulmonary Artery using Low Osmolar Contrast (ICD-10-PCS; 2022-08-31)
PROC: 5A09357 Assistance with Respiratory Ventilation, Less than 24 Consecutive Hours, Continuous Positive Airway Pressure (ICD-10-PCS; 2022-09-01)
PROC: 5A09357 Assistance with Respiratory Ventilation, Less than 24 Consecutive Hours, Continuous Positive Airway Pressure (ICD-10-PCS; 2022-09-02)
PROC: 5A09357 Assistance with Respiratory Ventilation, Less than 24 Consecutive Hours, Continuous Positive Airway Pressure (ICD-10-PCS; 2022-09-03)
PROC: 5A09357 Assistance with Respiratory Ventilation, Less than 24 Consecutive Hours, Continuous Positive Airway Pressure (ICD-10-PCS; 2022-09-04)
DX: T43.651A Poisoning by methamphetamines accidental (unintentional), initial encounter (principal); G92.8 Other toxic encephalopathy; J96.21 Acute and chronic respiratory failure with hypoxia; G93.41 Metabolic encephalopathy; J96.22 Acute and chronic respiratory failure with hypercapnia; E87.29 Other acidosis; E11.9 Type 2 diabetes mellitus without complications; F15.10 Other stimulant abuse, uncomplicated; F17.200 Nicotine dependence, unspecified, uncomplicated; G43.909 Migraine, unspecified, not intractable, without status migrainosus; K21.9 Gastro-esophageal reflux disease without esophagitis; F41.9 Anxiety disorder, unspecified; I11.0 Hypertensive heart disease with heart failure; I50.9 Heart failure, unspecified; J43.9 Emphysema, unspecified; Z79.01 Long term (current) use of anticoagulants; I25.2 Old myocardial infarction; Z79.51 Long term (current) use of inhaled steroids; Z82.49 Family history of ischemic heart disease and other diseases of the circulatory system; Z82.5 Family history of asthma and other chronic lower respiratory diseases; Z83.3 Family history of diabetes mellitus; Z86.711 Personal history of pulmonary embolism; Z88.1 Allergy status to other antibiotic agents; Z99.81 Dependence on supplemental oxygen; Z88.8 Allergy status to other drugs, medicaments and biological substances; Z90.49 Acquired absence of other specified parts of digestive tract; Y92.89 Other specified places as the place of occurrence of the external cause; Z79.899 Other long term (current) drug therapy; Z71.51 Drug abuse counseling and surveillance of drug abuser; Z79.82 Long term (current) use of aspirin; Z91.199 Patient's noncompliance with other medical treatment and regimen due to unspecified reason; Y92.9 Unspecified place or not applicable; Z53.21 Procedure and treatment not carried out due to patient leaving prior to being seen by health care provider
CPT/HCPCS: 36415; 36600; 71045; 71275; 80048; 80053; 80305; 80320; 82803; 82948; 83735; 83880; 84443; 84484; 85018; 85025; 87081; 93005; 94640; 94660; 94760; 99291; A4615; C1725; G0378; J1650; J2270; J2310; J2405; J2930; J3475; J3490; J7030; Q9967

== ENCOUNTER 2022-09-05 18:22 | Emergency (ER) | payer BC, MEDICAID ==
[~2022-09-05] VITALS: Ht 160 cm; Wt 52.3 kg
[~2022-09-05 18:22] MED LIST changes: -ACET650T58 PO; -AMOX-419 PO; +CELE-85 PO; +CYCL-1 PO; -CYCL5TAB PO; +HYDR-3965 PO; -LISI2.5T14 PO; +LISI2.5T89 PO; -LOP25T PO; +METO25TA6 PO; -NICO-631 TOP; +PANT20TA18 PO; -PHEN-786 PO; -PRED10TA PO; +PRED10TA23 PO; +TIOT18CA3 INH
[2022-09-05] MEDS ORDERED: predniSONE 20 mg tablet PO ONE (20:30)
[2022-09-05 21:17] VITALS: BP 149/86
[2022-09-10] MEDS ORDERED: UNABLE TO OBTAIN (22:14)
[2022-09-11] MEDS ORDERED: SILD20TA2 PO (10:35)
[2022-09-12] MEDS ORDERED: FURO-150 PO (08:23)
[2022-09-12] MEDS ORDERED: PRED10TA23 PO (08:23)
[2022-09-12] MEDS ORDERED: SULF1TAB49 PO (08:23)
== END 2022-09-05 21:19 | disposition home or self-care (01) ==
LOC: ER 18:22
DX: F41.9 Anxiety disorder, unspecified (principal); J44.9 Chronic obstructive pulmonary disease, unspecified; G43.909 Migraine, unspecified, not intractable, without status migrainosus; I11.0 Hypertensive heart disease with heart failure; I50.9 Heart failure, unspecified; I25.2 Old myocardial infarction; K21.9 Gastro-esophageal reflux disease without esophagitis; E11.9 Type 2 diabetes mellitus without complications; F15.90 Other stimulant use, unspecified, uncomplicated; Z87.01 Personal history of pneumonia (recurrent); Z90.49 Acquired absence of other specified parts of digestive tract; Z98.890 Other specified postprocedural states; Z88.1 Allergy status to other antibiotic agents; Z88.8 Allergy status to other drugs, medicaments and biological substances; Z79.82 Long term (current) use of aspirin; Z79.899 Other long term (current) drug therapy
CPT/HCPCS: 71045; 93005; 99284; J7512

== ENCOUNTER 2022-09-22 10:04 | Emergency (ER) | payer BC, MEDICAID ==
[~2022-09-22] VITALS: Ht 160 cm; Wt 54.1 kg
[~2022-09-22 10:04] MED LIST changes: +FURO-150 PO; -HYDR-3965 PO; -LISI2.5T89 PO; -SILD20TA PO; +SILD20TA2 PO; +SULF1TAB49 PO
[2022-09-22 11:21] VITALS: BP 108/57
[2022-09-22] MEDS ORDERED: ringers solution, lactated 500ml IV solution IV ONE (11:35)
[2022-09-22] MEDS ORDERED: acetaminophen 325mg tablet PO ONE (11:35)
[2022-09-22] MEDS ORDERED: albuterol 2.5 MG/3 ML nebule NEB ONE (11:35)
[2022-09-22] MEDS ORDERED: metoclopramide 5 mg/ml inj IV ONE (11:35)
[2022-09-22 11:36] LABS: ALANINE AMINOTRANSFERASE 31 U/L (12-78); ALBUMIN 3.1 G/DL (3.4-5.0); ALBUMIN/GLOBULIN RATIO 1.1 (1.1-1.5); ALKALINE PHOSPHATASE 104 IU/L (46-116); ANION GAP 5 (8-16); ASPARTATE AMINO TRANSFERASE 22 U/L (10-37); BILIRUBIN,TOTAL 0.4 MG/DL (0.1-1.0); BLOOD UREA NITROGEN 26 MG/DL (7-18); CALCIUM 8.6 MG/DL (8.5-10.1); CHLORIDE 105 MMOL/L (99-107); CREATININE 0.65 MG/DL (0.40-0.90); GLUCOSE 88 MG/DL (70-104); POTASSIUM 3.7 MMOL/L (3.5-5.1); SODIUM 146 MMOL/L (135-145); TOTAL CARBON DIOXIDE 36.2 MMOL/L (24-32); TOTAL PROTEIN 5.9 G/DL (6.4-8.2); eGFR > 90 ML/MIN
[2022-09-22 11:42] LABS: BASOPHILS % (AUTO) 0.4 % (0-1); EOSINOPHILS # (AUTO) 0.2 X10'3 (0-0.9); EOSINOPHILS % (AUTO) 1.6 % (0-6); HEMATOCRIT 36.8 % (35.0-45.0); HEMOGLOBIN 11.6 g/dl (12.0-16.0); LYMPHOCYTES # (AUTO) 1.9 X10'3 (1.1-4.8); LYMPHOCYTES % (AUTO) 19.3 % (21-51); MEAN CORPUSCULAR HGB CONC 31.6 g/dL (33.0-36.5); MEAN CORPUSCULAR VOLUME 94.9 FL (78-98); MEAN PLATELET VOLUME 7.6 FL (7.4-10.4); MONOCYTES # (AUTO) 0.8 X10'3 (0-0.9); MONOCYTES % (AUTO) 8.3 % (2-12); NEUTROPHILS % (AUTO) 70.4 % (42-75); PLATELET COUNT 147 X10'3 (140-440); RED BLOOD COUNT 3.88 X10'6 (4.20-5.60); RED CELL DISTRIBUTION WIDTH 15.4 % (11.5-14.5)
[2022-09-22] MEDS ORDERED: ipratropium 0.5 MG/2.5ML nebule ONE (12:05)
--- NOTE | 2022-09-22 12:10 | NUR ---
after several minutes of SVN, pt decided to leave AMA. Documentation for SVN/cont neb incomplete
[2022-09-22] MEDS ORDERED: ipratropium/albuterol 3ml nebule NEB ONE (12:21)
[2022-09-22] MEDS ORDERED: diphenhydrAMINE 50 mg/ml inj IV ONE (12:22)
--- NOTE | 2022-09-22 19:12 | NUR ---
Pt came to ED c/o cp, SOB, but shortly before provider came to room, pt stated she was short of breath because she had a migraine headache. Pt also stated she had used meth and Xanax before coming to the ED. Uncertain how long before coming. made aware. ordered Benadryl, Metoclopramide and Tylenol 650mg. Pt refused these, stating that doesn't work for her and only morphine or stronger meds work for her. In spite of knowing that her troponin levels were elevated, she chose to leave AMA. She signed the AMA form. Instructed her that if she changed her mind and her c/p, SOB or migraine headache continued to worsen that she should return or go to another ER for tx. She verbalized understanding. IV dc'd with catheter intact, and pt was wheeled out of ED on 4L NC to her signicant other's vehicle by this RN. Pt has own O2 that she attached when she got into the vehicle.
== END 2022-09-22 12:30 | disposition home or self-care (01) ==
LOC: ER 10:05
DX: G43.909 Migraine, unspecified, not intractable, without status migrainosus (principal); J44.9 Chronic obstructive pulmonary disease, unspecified; I11.0 Hypertensive heart disease with heart failure; I50.9 Heart failure, unspecified; I25.2 Old myocardial infarction; K21.9 Gastro-esophageal reflux disease without esophagitis; E11.9 Type 2 diabetes mellitus without complications; F41.9 Anxiety disorder, unspecified; Z90.49 Acquired absence of other specified parts of digestive tract; Z98.890 Other specified postprocedural states; F15.90 Other stimulant use, unspecified, uncomplicated; Z88.1 Allergy status to other antibiotic agents; Z79.01 Long term (current) use of anticoagulants; Z79.82 Long term (current) use of aspirin; Z79.899 Other long term (current) drug therapy
CPT/HCPCS: 36415; 71045; 80053; 83880; 84484; 85025; 93005; 94640; 99285; J7120; 94760; A7015

== ENCOUNTER 2022-09-25 20:12 | Emergency (ER) | payer BC, MEDICAID ==
[~2022-09-25] VITALS: Ht 160 cm; Wt 54.1 kg
[2022-09-25 20:49] LABS: BASOPHILS # (AUTO) 0.1 X10'3 (0-0.2); BASOPHILS % (AUTO) 0.4 % (0-1); EOSINOPHILS # (AUTO) 0.1 X10'3 (0-0.9); EOSINOPHILS % (AUTO) 0.4 % (0-6); HEMATOCRIT 39.9 % (35.0-45.0); HEMOGLOBIN 12.6 g/dl (12.0-16.0); LYMPHOCYTES # (AUTO) 2.3 X10'3 (1.1-4.8); MEAN CORPUSCULAR HEMOGLOBIN 29.7 PG (27.0-31.0); MEAN CORPUSCULAR HGB CONC 31.6 g/dL (33.0-36.5); MEAN PLATELET VOLUME 7.2 FL (7.4-10.4); MONOCYTES % (AUTO) 6.5 % (2-12); NEUTROPHILS # (AUTO) 12.1 X10'3 (1.8-7.7); NEUTROPHILS % (AUTO) 77.7 % (42-75); PLATELET COUNT 202 X10'3 (140-440); RED BLOOD COUNT 4.25 X10'6 (4.20-5.60); RED CELL DISTRIBUTION WIDTH 15.6 % (11.5-14.5); WHITE BLOOD COUNT 15.5 X10'3 (4.5-11.0)
[2022-09-25 21:07] LABS: ALANINE AMINOTRANSFERASE 28 U/L (12-78); ALBUMIN 3.4 G/DL (3.4-5.0); ALBUMIN/GLOBULIN RATIO 1.1 (1.1-1.5); ALKALINE PHOSPHATASE 105 IU/L (46-116); ANION GAP 5 (8-16); ASPARTATE AMINO TRANSFERASE 20 U/L (10-37); BILIRUBIN,TOTAL 0.3 MG/DL (0.1-1.0); BLOOD UREA NITROGEN 23 MG/DL (7-18); BUN/CREATININE RATIO 16.8 (6.6-38.0); CALCIUM 9.2 MG/DL (8.5-10.1); CHLORIDE 102 MMOL/L (99-107); CREATININE 1.37 MG/DL (0.40-0.90); GLUCOSE 138 MG/DL (70-104); POTASSIUM 3.9 MMOL/L (3.5-5.1); SODIUM 143 MMOL/L (135-145); TOTAL CARBON DIOXIDE 36.5 MMOL/L (24-32); TOTAL PROTEIN 6.5 G/DL (6.4-8.2); eGFR 39 ML/MIN
--- NOTE | 2022-09-25 22:03 | NUR ---
MD VALE NOTIFIED OF PTS HR TRENDING IN THE 140S. NO ORDERS RECIEVED AT THIS TIME.
[2022-09-25] MEDS ORDERED: carvedilol 6.25mg tablet PO ONE (23:55)
[2022-09-25] MEDS ORDERED: normal saline 1000ML IV soln IVB ONE (23:55)
[2022-09-25] MEDS ORDERED: metoprolol tartrate 1mg/ml inj IV ONE (23:55)
[2022-09-25] MEDS ORDERED: LORazepam 1 MG tablet PO ONE (23:55)
[2022-09-25] MEDS ORDERED: normal saline 1000ml 1,000 ML IV ONE (23:55)
[2022-09-26 00:02] LABS: ETHANOL < 0.010 GM/DL (0.0-0.010)
[2022-09-26] MEDS ORDERED: metoprolol tartrate 1mg/ml inj IV ONE (02:25)
--- NOTE | 2022-09-26 02:33 | NUR ---
Dr Bundy aware of HR and bp and requests the metoprolol be administered
[2022-09-26 03:00] VITALS: BP 133/76
== END 2022-09-26 03:16 | disposition home or self-care (01) ==
LOC: ER 20:12
DX: N28.9 Disorder of kidney and ureter, unspecified (principal); R07.89 Other chest pain; F15.20 Other stimulant dependence, uncomplicated; R00.2 Palpitations; G43.909 Migraine, unspecified, not intractable, without status migrainosus; I11.0 Hypertensive heart disease with heart failure; I50.9 Heart failure, unspecified; J44.9 Chronic obstructive pulmonary disease, unspecified; K21.9 Gastro-esophageal reflux disease without esophagitis; E11.9 Type 2 diabetes mellitus without complications; Z90.49 Acquired absence of other specified parts of digestive tract; Z98.890 Other specified postprocedural states
CPT/HCPCS: 36415; 71045; 80053; 80320; 83880; 84443; 84484; 85025; 93005; 96361; 96374; 96376; 99285; J3490; J7030; J7040

== ENCOUNTER 2022-10-07 10:52 | Emergency (ER) | payer BC, MEDICAID ==
[~2022-10-07] VITALS: Ht 160 cm; Wt 54.1 kg
[2022-10-07] MEDS ORDERED: methylPREDNISolone sod succ 125mg/2ml vial IV ONE (12:40)
[2022-10-07] MEDS ORDERED: ipratropium/albuterol 3ml nebule NEB ONE (12:40)
[2022-10-07 12:46] VITALS: BP 144/81
[2022-10-07 13:03] LABS: BASOPHILS % (AUTO) 0.3 % (0-1); EOSINOPHILS % (AUTO) 0.4 % (0-6); HEMATOCRIT 38.4 % (35.0-45.0); HEMOGLOBIN 12.1 g/dl (12.0-16.0); LYMPHOCYTES # (AUTO) 0.6 X10'3 (1.1-4.8); LYMPHOCYTES % (AUTO) 5.2 % (21-51); MEAN CORPUSCULAR HEMOGLOBIN 29.6 PG (27.0-31.0); MEAN CORPUSCULAR HGB CONC 31.4 g/dL (33.0-36.5); MEAN CORPUSCULAR VOLUME 94.4 FL (78-98); MEAN PLATELET VOLUME 7.1 FL (7.4-10.4); MONOCYTES # (AUTO) 0.2 X10'3 (0-0.9); MONOCYTES % (AUTO) 2.3 % (2-12); NEUTROPHILS # (AUTO) 9.8 X10'3 (1.8-7.7); NEUTROPHILS % (AUTO) 91.8 % (42-75); PLATELET COUNT 169 X10'3 (140-440); RED BLOOD COUNT 4.07 X10'6 (4.20-5.60); RED CELL DISTRIBUTION WIDTH 15.7 % (11.5-14.5); WHITE BLOOD COUNT 10.6 X10'3 (4.5-11.0)
[2022-10-07 13:07] LABS: D-DIMER 0.27 MG/L FEU (0-0.50)
[2022-10-07 13:11] LABS: ALANINE AMINOTRANSFERASE 32 U/L (12-78); ALBUMIN 3.2 G/DL (3.4-5.0); ALBUMIN/GLOBULIN RATIO 1.1 (1.1-1.5); ALKALINE PHOSPHATASE 102 IU/L (46-116); ANION GAP 2 (8-16); ASPARTATE AMINO TRANSFERASE 23 U/L (10-37); BILIRUBIN,TOTAL 0.4 MG/DL (0.1-1.0); BLOOD UREA NITROGEN 19 MG/DL (7-18); BUN/CREATININE RATIO 30.6 (6.6-38.0); CALCIUM 8.9 MG/DL (8.5-10.1); CHLORIDE 104 MMOL/L (99-107); CREATININE 0.62 MG/DL (0.40-0.90); GLUCOSE 187 MG/DL (70-104); POTASSIUM 4.3 MMOL/L (3.5-5.1); SODIUM 145 MMOL/L (135-145); TOTAL CARBON DIOXIDE 39.3 MMOL/L (24-32); TOTAL PROTEIN 6.2 G/DL (6.4-8.2); eGFR > 90 ML/MIN
--- NOTE | 2022-10-07 13:24 | NUR ---
Critical lab received at 1322: Trop 89. Reported to SABRINA Walker at 1324.
[2022-10-07] MEDS ORDERED: furosemide 10 MG/1 ML 10ml inj IV ONE (13:25)
[2022-10-07] MEDS ORDERED: AZIT-103 PO (14:54)
[2022-10-07] MEDS ORDERED: PRED20TA PO (14:54)
== END 2022-10-07 15:17 | disposition home or self-care (01) ==
LOC: ER 10:52
DX: J44.1 Chronic obstructive pulmonary disease with (acute) exacerbation (principal); I50.9 Heart failure, unspecified; G43.909 Migraine, unspecified, not intractable, without status migrainosus; I11.0 Hypertensive heart disease with heart failure; K21.9 Gastro-esophageal reflux disease without esophagitis; E11.9 Type 2 diabetes mellitus without complications; F41.9 Anxiety disorder, unspecified; Z88.6 Allergy status to analgesic agent; Z88.1 Allergy status to other antibiotic agents; Z98.890 Other specified postprocedural states; Z79.899 Other long term (current) drug therapy; Z79.1 Long term (current) use of non-steroidal anti-inflammatories (NSAID)
CPT/HCPCS: 36415; 71045; 80053; 83880; 84484; 85025; 85379; 93005; 94640; 96374; 96375; 99285; J1940; J2930

== ENCOUNTER 2022-10-09 05:01 | Emergency (ER) | payer BC, MEDICAID ==
[~2022-10-09] VITALS: Ht 157.5 cm; Wt 72.0 kg
[~2022-10-09 05:01] MED LIST changes: +AZIT-103 PO; +PRED20TA PO
[2022-10-09 07:03] LABS: BASOPHILS # (AUTO) 0.1 X10'3 (0-0.2); BASOPHILS % (AUTO) 0.6 % (0-1); EOSINOPHILS # (AUTO) 0.1 X10'3 (0-0.9); EOSINOPHILS % (AUTO) 0.7 % (0-6); HEMATOCRIT 38.3 % (35.0-45.0); HEMOGLOBIN 12.2 g/dl (12.0-16.0); LYMPHOCYTES % (AUTO) 14.7 % (21-51); MEAN CORPUSCULAR HEMOGLOBIN 30.1 PG (27.0-31.0); MEAN CORPUSCULAR HGB CONC 31.9 g/dL (33.0-36.5); MEAN CORPUSCULAR VOLUME 94.3 FL (78-98); MEAN PLATELET VOLUME 7.2 FL (7.4-10.4); MONOCYTES # (AUTO) 0.9 X10'3 (0-0.9); MONOCYTES % (AUTO) 6.9 % (2-12); NEUTROPHILS # (AUTO) 10.5 X10'3 (1.8-7.7); NEUTROPHILS % (AUTO) 77.1 % (42-75); PLATELET COUNT 183 X10'3 (140-440); RED BLOOD COUNT 4.06 X10'6 (4.20-5.60); RED CELL DISTRIBUTION WIDTH 15.4 % (11.5-14.5); WHITE BLOOD COUNT 13.7 X10'3 (4.5-11.0)
[2022-10-09 07:14] LABS: ALANINE AMINOTRANSFERASE 29 U/L (12-78); ALBUMIN 3.2 G/DL (3.4-5.0); ALBUMIN/GLOBULIN RATIO 1.1 (1.1-1.5); ALKALINE PHOSPHATASE 98 IU/L (46-116); ANION GAP 2 (8-16); ASPARTATE AMINO TRANSFERASE 19 U/L (10-37); BILIRUBIN,TOTAL 0.4 MG/DL (0.1-1.0); BLOOD UREA NITROGEN 37 MG/DL (7-18); BUN/CREATININE RATIO 61.7 (6.6-38.0); CALCIUM 8.8 MG/DL (8.5-10.1); CHLORIDE 104 MMOL/L (99-107); GLUCOSE 107 MG/DL (70-104); POTASSIUM 3.6 MMOL/L (3.5-5.1); SODIUM 148 MMOL/L (135-145); eGFR > 90 ML/MIN
[2022-10-09] MEDS ORDERED: metoprolol tartrate 50mg tablet PO ONE (07:40)
[2022-10-09] MEDS ORDERED: nitroGLYCERIN 0.4mg/hour patch TD ONE (07:40)
[2022-10-09] MEDS ORDERED: metoprolol tartrate 1mg/ml inj IV ONE (07:40)
[2022-10-09] MEDS ORDERED: furosemide 10 MG/1 ML 10ml inj IV ONE (07:40)
[2022-10-09] MEDS ORDERED: PRED20TA PO (07:58)
[2022-10-09] MEDS ORDERED: AZIT-83 PO (07:58)
[2022-10-09] MEDS ORDERED: LISI2.5T14 PO (07:58)
[2022-10-09] MEDS ORDERED: metoprolol tartrate 25mg tablet PO ONE (10:30)
[2022-10-09 11:49] VITALS: BP 114/90
== END 2022-10-09 11:56 | disposition home or self-care (01) ==
LOC: ER 05:02
DX: J45.901 Unspecified asthma with (acute) exacerbation (principal); F15.10 Other stimulant abuse, uncomplicated; I11.0 Hypertensive heart disease with heart failure; I50.9 Heart failure, unspecified; G43.909 Migraine, unspecified, not intractable, without status migrainosus; K21.9 Gastro-esophageal reflux disease without esophagitis; E11.9 Type 2 diabetes mellitus without complications; F41.9 Anxiety disorder, unspecified; Z88.1 Allergy status to other antibiotic agents; Z90.49 Acquired absence of other specified parts of digestive tract; Z98.890 Other specified postprocedural states
CPT/HCPCS: 36415; 71045; 80053; 83880; 84484; 85025; 93005; 96374; 96375; 99285; J1940; J3490

== ENCOUNTER 2022-10-15 19:22 | Emergency (ER) | payer BC, MEDICAID ==
[~2022-10-15] VITALS: Ht 162.6 cm; Wt 60.0 kg
[~2022-10-15 19:22] MED LIST changes: -AZIT-103 PO; +AZIT-83 PO; -FURO-150 PO; +LISI2.5T14 PO; -PRED10TA23 PO; -SULF1TAB49 PO; -TIOT18CA3 INH
[2022-10-15 20:00] LABS: ALANINE AMINOTRANSFERASE 32 U/L (12-78); ALBUMIN 3.6 G/DL (3.4-5.0); ALBUMIN/GLOBULIN RATIO 1.2 (1.1-1.5); ALKALINE PHOSPHATASE 100 IU/L (46-116); ANION GAP 6 (8-16); ASPARTATE AMINO TRANSFERASE 20 U/L (10-37); BILIRUBIN,TOTAL 0.4 MG/DL (0.1-1.0); BLOOD UREA NITROGEN 30 MG/DL (7-18); BUN/CREATININE RATIO 41.7 (6.6-38.0); CALCIUM 9.1 MG/DL (8.5-10.1); CHLORIDE 105 MMOL/L (99-107); CREATININE 0.72 MG/DL (0.40-0.90); GLUCOSE 211 MG/DL (70-104); POTASSIUM 3.4 MMOL/L (3.5-5.1); SODIUM 149 MMOL/L (135-145); TOTAL CARBON DIOXIDE 37.7 MMOL/L (24-32); TOTAL PROTEIN 6.5 G/DL (6.4-8.2); eGFR 83 ML/MIN
[2022-10-15 20:08] LABS: BASOPHILS % (AUTO) 0.2 % (0-1); EOSINOPHILS % (AUTO) 0.2 % (0-6); HEMATOCRIT 40.2 % (35.0-45.0); HEMOGLOBIN 12.6 g/dl (12.0-16.0); LYMPHOCYTES # (AUTO) 2.7 X10'3 (1.1-4.8); LYMPHOCYTES % (AUTO) 18.8 % (21-51); MEAN CORPUSCULAR HEMOGLOBIN 29.5 PG (27.0-31.0); MEAN CORPUSCULAR HGB CONC 31.3 g/dL (33.0-36.5); MEAN CORPUSCULAR VOLUME 94.2 FL (78-98); MEAN PLATELET VOLUME 7.6 FL (7.4-10.4); NEUTROPHILS # (AUTO) 10.5 X10'3 (1.8-7.7); NEUTROPHILS % (AUTO) 73.8 % (42-75); PLATELET COUNT 212 X10'3 (140-440); RED BLOOD COUNT 4.27 X10'6 (4.20-5.60); RED CELL DISTRIBUTION WIDTH 15.9 % (11.5-14.5); WHITE BLOOD COUNT 14.2 X10'3 (4.5-11.0)
[2022-10-15] MEDS ORDERED: ipratropium/albuterol 3ml nebule NEB ONE (20:40)
[2022-10-15] MEDS ORDERED: methylPREDNISolone sod succ 125mg/2ml vial IV ONE (20:50)
--- NOTE | 2022-10-15 20:52 | NUR ---
RT AT BEDSIDE ASSESSING PATIENTS RR AND LUNG SOUNDS WILL BE ADMINISTERING BRX MD HUEY AWARE
[2022-10-15 22:43] VITALS: BP 166/82
[2022-10-15] MEDS ORDERED: naphazoline/pheniramine eye 1 DROP BOTTLE EACHEYE PRN (23:20)
== END 2022-10-15 23:43 | disposition home or self-care (01) ==
LOC: ER 19:23
DX: I42.7 Cardiomyopathy due to drug and external agent (principal); J44.1 Chronic obstructive pulmonary disease with (acute) exacerbation; G43.909 Migraine, unspecified, not intractable, without status migrainosus; J44.9 Chronic obstructive pulmonary disease, unspecified; K21.9 Gastro-esophageal reflux disease without esophagitis; E11.9 Type 2 diabetes mellitus without complications; F41.9 Anxiety disorder, unspecified; Z79.899 Other long term (current) drug therapy; Z79.1 Long term (current) use of non-steroidal anti-inflammatories (NSAID); Z79.2 Long term (current) use of antibiotics
CPT/HCPCS: 36415; 71045; 80053; 83880; 84484; 85025; 87040; 93005; 94640; 96374; 99285; J2930

== ENCOUNTER 2022-10-28 10:57 | Inpatient (IN) | payer BC, MEDICAID ==
[~2022-10-28] VITALS: Ht 160 cm; Wt 54.5 kg
[2022-10-28] MEDS ORDERED: ipratropium/albuterol 3ml nebule NEB ONE (11:15)
[2022-10-28] MEDS ORDERED: ondansetron/PF 4mg/2ml inj IV ONE (11:15)
[2022-10-28] MEDS ORDERED: normal saline 1000ml 1,000 ML IV ONE (11:15)
[2022-10-28] MEDS ORDERED: methylPREDNISolone sod succ 125mg/2ml vial IV ONE (11:15)
[2022-10-28] MEDS ORDERED: morphine 4 MG/ML inj SYRINge IV ONE (11:15)
[2022-10-28 11:59] LABS: BASOPHILS % (AUTO) 0.4 % (0-1); EOSINOPHILS # (AUTO) 0.2 X10'3 (0-0.9); EOSINOPHILS % (AUTO) 1.8 % (0-6); HEMATOCRIT 37.9 % (35.0-45.0); HEMOGLOBIN 11.8 g/dl (12.0-16.0); LYMPHOCYTES # (AUTO) 1.5 X10'3 (1.1-4.8); LYMPHOCYTES % (AUTO) 15.8 % (21-51); MEAN CORPUSCULAR HEMOGLOBIN 29.7 PG (27.0-31.0); MEAN CORPUSCULAR HGB CONC 31.1 g/dL (33.0-36.5); MEAN CORPUSCULAR VOLUME 95.7 FL (78-98); MEAN PLATELET VOLUME 7.5 FL (7.4-10.4); MONOCYTES # (AUTO) 0.7 X10'3 (0-0.9); MONOCYTES % (AUTO) 7.8 % (2-12); NEUTROPHILS % (AUTO) 74.2 % (42-75); PLATELET COUNT 161 X10'3 (140-440); RED BLOOD COUNT 3.96 X10'6 (4.20-5.60); RED CELL DISTRIBUTION WIDTH 15.7 % (11.5-14.5); WHITE BLOOD COUNT 9.4 X10'3 (4.5-11.0)
[2022-10-28 12:10] LABS: APTT 27 SECONDS (22-32)
[2022-10-28 12:17] LABS: ALANINE AMINOTRANSFERASE 32 U/L (12-78); ALBUMIN 3.2 G/DL (3.4-5.0); ALBUMIN/GLOBULIN RATIO 1.2 (1.1-1.5); ALKALINE PHOSPHATASE 93 IU/L (46-116); ANION GAP -1 (8-16); ASPARTATE AMINO TRANSFERASE 23 U/L (10-37); BILIRUBIN,TOTAL 0.3 MG/DL (0.1-1.0); BLOOD UREA NITROGEN 22 MG/DL (7-18); CALCIUM 9.3 MG/DL (8.5-10.1); CHLORIDE 104 MMOL/L (99-107); CREATININE 0.71 MG/DL (0.40-0.90); GLUCOSE 102 MG/DL (70-104); POTASSIUM 4.3 MMOL/L (3.5-5.1); SODIUM 146 MMOL/L (135-145); TOTAL PROTEIN 5.9 G/DL (6.4-8.2); eGFR 84 ML/MIN
[2022-10-28 12:24] LABS: TOTAL CARBON DIOXIDE 42.5 MMOL/L (24-32)
[2022-10-28 15:15] LABS: CLARITY,URINE SLIGHTLY CLOUDY (Clear); COLOR,URINE YELLOW (Yellow); GLUCOSE, URINE NEGATIVE (Neg); KETONES,URINE NEGATIVE (Neg); LEUKOCYTE ESTERASE ,URINE NEGATIVE (Neg); OCCULT BLOOD,URINE NEGATIVE (Neg); PROTEIN,URINE NEGATIVE (Neg); UROBILINOGEN,URINE 0.2 E.U/dL (0.2-1.0)
[2022-10-28 15:20] LABS: ABG BASE EXCESS 10.2 mmol/L (-2.0-2.0); ABG HCO3 42.6 mmol/L (22.0-26.0); ABG OXYGEN SATURATION 87.2 % (94-97); ABG PCO2 (T) 112.5 mmHg (32.0-45.0); ABG PO2 (T) 59.8 mmHg (75.0-100.0); ALLEN'S TEST POSITIVE; FCOHb 1.2 % (0.0-3.9); FLOW 6 L/min; FMetHb 0.3 % (0.0-1.5); FO2Hb 85.9 % (94-97); PATIENT TEMPERATURE 36.5; TOTAL HEMOGLOBIN 12.6 G/dl (12.0-16.0)
--- NOTE | 2022-10-28 15:26 | NUR ---
RT at bedside. Patient being hooked to BIPAP
[2022-10-28 15:38] LABS: UA COLLECTION TYPE CLN CATCH MIDSTREAM
[2022-10-28 15:39] LABS: NITRITES, URINE NEGATIVE (Neg)
[2022-10-28 15:39] LABS: URINE AMPHETAMINE SCREEN POSITIVE (Neg); URINE BARBITUATE SCREEN NEGATIVE (Neg); URINE BENZODIAZEPINES SCREEN POSITIVE (Neg); URINE CANNABINOID SCREEN NEGATIVE (Neg); URINE COCAINE SCREEN NEGATIVE (Neg); URINE METHADONE SCREEN NEGATIVE (Neg); URINE OPIATE SCREEN POSITIVE (Neg); URINE PHENCYCLIDINE SCREEN NEGATIVE (Neg)
[2022-10-28 15:44] LABS: BACTERIA,URINE 4+ /HPF (Neg); RBC,URINE 0-2 /HPF (0-2); SQUAMOUS EPITHELIAL CELL,UR MODERATE /LPF (FEW)
[2022-10-28] MEDS ORDERED: magnesium 4gm in 100ml NS 100 ML IV PRN (16:35)
[2022-10-28] MEDS ORDERED: PERFLUTREN PROTEIN-A MICROSPHR (Optison) 0.22 MG/ML 3ML VIAL IV ONE (16:35)
[2022-10-28] MEDS ORDERED: potassium Cl 20 mEq SR tablet PO PRN ×2 (16:35)
[2022-10-28] MEDS ORDERED: albuterol 2.5 MG/3 ML nebule NEB PRN (16:35)
[2022-10-28] MEDS ORDERED: mag hydrox/Alum hydrox/simeth 30ml oral suspension PO PRN (16:35)
[2022-10-28] MEDS ORDERED: potassium Cl 40MEQ/1/2NS 520ml 520 ML IV PRN (16:35)
[2022-10-28] MEDS ORDERED: ondansetron/PF 4mg/2ml inj IV PRN (16:35)
[2022-10-28] MEDS ORDERED: acetaminophen 325mg tablet PO PRN (16:35)
[2022-10-28] MEDS ORDERED: magnesium hydroxide 30ml (MOM) UD suspension PO PRN (16:35)
[2022-10-28] MEDS ORDERED: morphine 2 MG/ML inj. syringe IV PRN (16:35)
--- NOTE | 2022-10-28 17:57 | NUR ---
Echo done already
[2022-10-28 18:03] LABS: ABG BASE EXCESS 4.3 mmol/L (-2.0-2.0); ABG HCO3 35.5 mmol/L (22.0-26.0); ABG OXYGEN SATURATION 89.8 % (94-97); ABG PCO2 (T) 96.7 mmHg (32.0-45.0); ABG PO2 (T) 66.9 mmHg (75.0-100.0); ALLEN'S TEST Modified; FCOHb 1.2 % (0.0-3.9); FMetHb 0.3 % (0.0-1.5); FO2Hb 88.5 % (94-97); RESPIRATORY RATE 24 b/min; TOTAL HEMOGLOBIN 12.3 G/dl (12.0-16.0)
--- NOTE | 2022-10-28 18:30 | NUR ---
ABG result relayed to Dr. Leach on the phone. He said to continue BIPAP
--- NOTE | 2022-10-28 18:41 | NUR ---
Patient is on Bipap and sleeping comfortably on gurney, she awakes to voice. I will continue to monitor.
--- NOTE | 2022-10-28 19:47 | NUR ---
Patient awake and asking for water, RT in the room.
[2022-10-28] MEDS: K and/or MAG REPLACEMENT MC SCH (20:00)
[2022-10-28] MEDS ORDERED: ondansetron 4mg rapidly disintigrating tab PO PRN (20:00)
[2022-10-28] MEDS: sildenafil citrate 20mg tablet PO SCH (20:00)
[2022-10-28] MEDS: apixaban 5mg tablet PO SCH (20:10)
[2022-10-28] MEDS: metoprolol tartrate 25mg tablet PO SCH (20:11)
[2022-10-28] MEDS: cyclobenzaprine 10mg tablet PO SCH (20:11)
[2022-10-28] MEDS: celeCOXIB 100mg capsule PO SCH ×2 (20:16→22:30)
[2022-10-28] MEDS: methylPREDNISolone sod succ 125mg/2ml vial IV SCH (20:16)
[2022-10-28] MEDS: docusate sod 100mg capsule PO SCH (20:17)
[2022-10-28 21:00] VITALS: BP 109/65
[2022-10-28] MEDS: ALPRAZolam 0.25mg tablet PO SCH (22:30)
[2022-10-28 22:32] LABS: HEMOGLOBIN A1C 6.2 % (4.5-6.2)
[2022-10-29 02:14] VITALS: BP 100/69
[2022-10-29 06:00] VITALS: BP 117/72
--- NOTE | 2022-10-29 06:43 | NUR ---
Patient in room ORTHO 4007. I have received report from November and had the opportunity to ask questions and assume patient care.
[2022-10-29 07:13] LABS: BASOPHILS % (AUTO) 0 % (0-1); EOSINOPHILS % (AUTO) 0 % (0-6); HEMATOCRIT 34.7 % (35.0-45.0); HEMOGLOBIN 11.1 g/dl (12.0-16.0); LYMPHOCYTES # (AUTO) 0.4 X10'3 (1.1-4.8); LYMPHOCYTES % (AUTO) 6.8 % (21-51); MEAN CORPUSCULAR HEMOGLOBIN 30.3 PG (27.0-31.0); MEAN CORPUSCULAR VOLUME 94.9 FL (78-98); MEAN PLATELET VOLUME 7.9 FL (7.4-10.4); MONOCYTES # (AUTO) 0.2 X10'3 (0-0.9); MONOCYTES % (AUTO) 2.5 % (2-12); NEUTROPHILS # (AUTO) 5.7 X10'3 (1.8-7.7); NEUTROPHILS % (AUTO) 90.7 % (42-75); PLATELET COUNT 142 X10'3 (140-440); RED BLOOD COUNT 3.66 X10'6 (4.20-5.60); RED CELL DISTRIBUTION WIDTH 15.3 % (11.5-14.5); WHITE BLOOD COUNT 6.3 X10'3 (4.5-11.0)
[2022-10-29 07:28] LABS: ALANINE AMINOTRANSFERASE 61 U/L (12-78); ALBUMIN 2.9 G/DL (3.4-5.0); ALKALINE PHOSPHATASE 120 IU/L (46-116); ANION GAP -1 (8-16); ASPARTATE AMINO TRANSFERASE 41 U/L (10-37); BILIRUBIN,TOTAL 0.4 MG/DL (0.1-1.0); BLOOD UREA NITROGEN 24 MG/DL (7-18); BUN/CREATININE RATIO 35.8 (10.0-20.0); CALCIUM 9.1 MG/DL (8.5-10.1); CHLORIDE 101 MMOL/L (99-107); CREATININE 0.67 MG/DL (0.40-0.90); GLUCOSE 240 MG/DL (70-104); MAGNESIUM 1.8 MG/DL (1.5-2.4); POTASSIUM 4.7 MMOL/L (3.5-5.1); SODIUM 142 MMOL/L (135-145); TOTAL PROTEIN 5.8 G/DL (6.4-8.2); eGFR 90 ML/MIN
[2022-10-29] MEDS: K and/or MAG REPLACEMENT MC SCH ×2 (08:00→20:00)
[2022-10-29] MEDS: ALPRAZolam 0.25mg tablet PO SCH ×2 (08:00→20:29)
[2022-10-29] MEDS: multivitamins, therapeutics tablet PO SCH (08:00)
[2022-10-29] MEDS: celeCOXIB 100mg capsule PO SCH ×2 (08:00→20:27)
[2022-10-29] MEDS: ferrous sulfate 325mg tablet PO SCH (08:00)
[2022-10-29] MEDS: docusate sod 100mg capsule PO SCH ×2 (08:00→20:00)
[2022-10-29] MEDS: lactobacillus rhamnosus 10,000 MMU CELLS/CAPSULE PO SCH (08:00)
[2022-10-29] MEDS ORDERED: lisinopril 2.5mg tablet PO SCH (08:00)
[2022-10-29] MEDS: metoprolol tartrate 25mg tablet PO SCH (08:00)
[2022-10-29 08:21] LABS: TOTAL CARBON DIOXIDE 42.2 MMOL/L (24-32)
--- NOTE | 2022-10-29 08:27 | NUR ---
PAGER ID: [phone] MESSAGE: Cierra Raymundo in [phone] - CO2 is 42.2 -Mary Kay [phone]
[2022-10-29 08:39] LABS: ABG BASE EXCESS 15.2 mmol/L (-2.0-2.0); ABG HCO3 44.6 mmol/L (22.0-26.0); ABG OXYGEN SATURATION 90.3 % (94-97); ABG PCO2 (T) 84.4 mmHg (32.0-45.0); ALLEN'S TEST POSITIVE; FCOHb 0.8 % (0.0-3.9); FMetHb 0.2 % (0.0-1.5); FO2Hb 89.4 % (94-97); PATIENT TEMPERATURE 36.4; PEEP 5 cm H2O; RESPIRATORY RATE 10 b/min; TOTAL HEMOGLOBIN 11.7 G/dl (12.0-16.0)
[2022-10-29] MEDS: methylPREDNISolone sod succ 125mg/2ml vial IV SCH ×3 (08:56→20:25)
[2022-10-29] MEDS: morphine 2 MG/ML inj. syringe IV PRN ×4 (08:57→23:33)
--- NOTE | 2022-10-29 09:05 | NUR ---
ABG drawn on setting found of 18/5 fio2 40%, Crtitical results notified to DR. Leach, pt shahram villegas RN gave morphine, pt requesting off bipap desat to low 80's with increase wob off bipap MD aware. PT returned to bipap at this time, bipap settings changed per protocol, MD aware to 18/8 fio2 32% backup rate 10. Addendum: 10/29/22 at 0907 by Rowan Esquivel RT Amended: Links added.
[2022-10-29 10:00] VITALS: BP 130/77
[2022-10-29] MEDS: ipratropium/albuterol 3ml nebule NEB PRN ×3 (12:01→19:17)
--- NOTE | 2022-10-29 13:40 | NUR ---
SUSAN Leach this morning regarding holding PO medication due to pt requiring bipap for O2 saturation and air hunger. Morphine given to pt and pt currently resting with eyes closed. No s/s of distress observed.
--- NOTE | 2022-10-29 13:51 | NUR ---
Received order for consult. Went to meet with patient and she was unable to communicate. I will follow back up with her.
--- NOTE | 2022-10-29 14:03 | NUR ---
PAGER ID: [phone] MESSAGE: Cierra Fonseca in [phone] still has not voided. -Mary Kay 2001
[2022-10-29] MEDS: sildenafil citrate 20mg tablet PO SCH ×2 (14:51→20:28)
[2022-10-29] MEDS: oxybutynin 5mg tablet PO SCH (14:52)
[2022-10-29] MEDS: aspirin 81mg, enteric-coated 1 TAB TABLET.DR PO SCH (14:52)
[2022-10-29] MEDS: apixaban 5mg tablet PO SCH ×2 (14:52→20:28)
[2022-10-29 15:00] VITALS: BP 158/98
[2022-10-29 18:00] VITALS: BP 120/64
[2022-10-29] MEDS: furosemide 40mg/4ml inj IV SCH (19:23)
[2022-10-29] MEDS: cyclobenzaprine 10mg tablet PO SCH (20:29)
[2022-10-29 22:00] VITALS: BP 149/55
[2022-10-30 06:00] VITALS: BP 130/61
--- NOTE | 2022-10-30 06:43 | NUR ---
Patient in room ORTHO 4007. I have received report from Diana and had the opportunity to ask questions and assume patient care.
[2022-10-30 07:03] LABS: BASOPHILS % (AUTO) 0.2 % (0-1); EOSINOPHILS % (AUTO) 0 % (0-6); HEMATOCRIT 33.6 % (35.0-45.0); HEMOGLOBIN 10.7 g/dl (12.0-16.0); LYMPHOCYTES # (AUTO) 0.7 X10'3 (1.1-4.8); LYMPHOCYTES % (AUTO) 4.9 % (21-51); MEAN CORPUSCULAR HEMOGLOBIN 29.7 PG (27.0-31.0); MEAN CORPUSCULAR HGB CONC 31.9 g/dL (33.0-36.5); MEAN CORPUSCULAR VOLUME 93.1 FL (78-98); MEAN PLATELET VOLUME 7.7 FL (7.4-10.4); MONOCYTES # (AUTO) 0.7 X10'3 (0-0.9); MONOCYTES % (AUTO) 4.5 % (2-12); NEUTROPHILS # (AUTO) 13.2 X10'3 (1.8-7.7); NEUTROPHILS % (AUTO) 90.4 % (42-75); PLATELET COUNT 133 X10'3 (140-440); RED BLOOD COUNT 3.61 X10'6 (4.20-5.60); WHITE BLOOD COUNT 14.6 X10'3 (4.5-11.0)
[2022-10-30] MEDS: ipratropium/albuterol 3ml nebule NEB PRN ×3 (07:08→21:17)
[2022-10-30 07:20] LABS: ALANINE AMINOTRANSFERASE 45 U/L (12-78); ALBUMIN 2.8 G/DL (3.4-5.0); ALKALINE PHOSPHATASE 107 IU/L (46-116); ASPARTATE AMINO TRANSFERASE 21 U/L (10-37); BILIRUBIN,TOTAL 0.2 MG/DL (0.1-1.0); BLOOD UREA NITROGEN 32 MG/DL (7-18); BUN/CREATININE RATIO 53.3 (10.0-20.0); CALCIUM 8.8 MG/DL (8.5-10.1); CHLORIDE 101 MMOL/L (99-107); CHOL/HDL RATIO 2.6 (0.00-4.99); CHOLESTEROL 211 MG/DL (0-200); GLUCOSE 142 MG/DL (70-104); HDL CHOLESTEROL 80 MG/DL (35-60); LDL CHOLESTEROL 112 MG/DL (50-100); MAGNESIUM 1.9 MG/DL (1.5-2.4); POTASSIUM 3.9 MMOL/L (3.5-5.1); SODIUM 145 MMOL/L (135-145); TOTAL PROTEIN 5.6 G/DL (6.4-8.2); TRIGLYCERIDES 49 MG/DL (20-135); eGFR > 90 ML/MIN
[2022-10-30] MEDS: K and/or MAG REPLACEMENT MC SCH ×2 (08:00→20:00)
[2022-10-30 08:15] LABS: ANION GAP -2 (8-16)
[2022-10-30] MEDS: morphine 2 MG/ML inj. syringe IV PRN ×3 (08:20→17:59)
[2022-10-30] MEDS: methylPREDNISolone sod succ 125mg/2ml vial IV SCH ×3 (08:21→22:06)
[2022-10-30] MEDS: ferrous sulfate 325mg tablet PO SCH (08:21)
[2022-10-30] MEDS: furosemide 40mg/4ml inj IV SCH ×2 (08:21→22:03)
[2022-10-30] MEDS: sildenafil citrate 20mg tablet PO SCH ×2 (08:21→22:07)
[2022-10-30] MEDS: aspirin 81mg, enteric-coated 1 TAB TABLET.DR PO SCH (08:21)
[2022-10-30] MEDS: ALPRAZolam 0.25mg tablet PO SCH ×2 (08:21→22:07)
[2022-10-30] MEDS: apixaban 5mg tablet PO SCH ×2 (08:22→22:08)
[2022-10-30] MEDS: multivitamins, therapeutics tablet PO SCH (08:22)
[2022-10-30] MEDS: lactobacillus rhamnosus 10,000 MMU CELLS/CAPSULE PO SCH (08:22)
[2022-10-30] MEDS: docusate sod 100mg capsule PO SCH ×2 (08:22→22:08)
[2022-10-30] MEDS: oxybutynin 5mg tablet PO SCH (08:22)
[2022-10-30] MEDS: celeCOXIB 100mg capsule PO SCH ×2 (08:22→22:07)
[2022-10-30] MEDS: metoprolol succinate 25mg (24-HOUR) SR. Tablet PO SCH (08:23)
[2022-10-30 08:43] LABS: TOTAL CARBON DIOXIDE 45.5 MMOL/L (24-32)
[2022-10-30] MEDS ORDERED: pantoprazole 40mg Tablet.DR PO SCH ×2 (08:44)
--- NOTE | 2022-10-30 08:45 | NUR ---
PAGER ID: [phone] MESSAGE: Cierra Raymundo in 4007 - CO2 is 45.5 -Mary Kay [phone]
[2022-10-30] MEDS: atorvastatin 20mg tablet PO SCH (08:50)
--- NOTE | 2022-10-30 09:22 | NUR ---
DM Consult: Pt hx DM A1C 6.2% w/ no DM meds at home but does take Prednisone at home per EMR; unsure DM hx accuracy. Currently not on carb controlled diet which is appropriate given A1C. Addendum: 10/30/22 at [address] Amended: Links added.
[2022-10-30 09:28] LABS: ABG BASE EXCESS 21.8 mmol/L (-2.0-2.0); ABG OXYGEN SATURATION 90.3 % (94-97); ABG PCO2 (T) 71.9 mmHg (32.0-45.0); ABG PO2 (T) 54.2 mmHg (75.0-100.0); ALLEN'S TEST POSITIVE; FCOHb 0.4 % (0.0-3.9); FLOW 4 L/min; FMetHb 0.1 % (0.0-1.5); FO2Hb 89.8 % (94-97); PATIENT TEMPERATURE 36.3; TOTAL HEMOGLOBIN 12.3 G/dl (12.0-16.0)
[2022-10-30] MEDS ORDERED: morphine 10mg/0.5ml (conc. morphine) oral syringe PO PRN (09:40)
--- NOTE | 2022-10-30 09:45 | NUR ---
Critical ABG results reported to Dr. Leach, no new orders, pt on 2lpm NC awake alert "requesting to go home", bipap on standby at bedside. Addendum: 10/30/22 at 0956 by Rowan Esquivel RT Amended: Links added.
[2022-10-30 10:30] VITALS: BP 169/85
--- NOTE | 2022-10-30 13:20 | NUR ---
Pt refused physical therapy
[2022-10-30 14:00] VITALS: BP 139/69
[2022-10-30 20:00] VITALS: BP 167/81
[2022-10-30] MEDS: sacubitril/valsartan 24mg-26mg tablet PO SCH (22:07)
[2022-10-30] MEDS: cyclobenzaprine 10mg tablet PO SCH (22:08)
[2022-10-31 02:00] VITALS: BP 132/74
[2022-10-31 06:28] LABS: BASOPHILS % (AUTO) 0.1 % (0-1); EOSINOPHILS % (AUTO) 0 % (0-6); HEMOGLOBIN 12.5 g/dl (12.0-16.0); LYMPHOCYTES # (AUTO) 0.6 X10'3 (1.1-4.8); LYMPHOCYTES % (AUTO) 3.9 % (21-51); MEAN CORPUSCULAR HEMOGLOBIN 29.7 PG (27.0-31.0); MEAN CORPUSCULAR HGB CONC 32.1 g/dL (33.0-36.5); MEAN CORPUSCULAR VOLUME 92.3 FL (78-98); MEAN PLATELET VOLUME 7.5 FL (7.4-10.4); MONOCYTES # (AUTO) 0.5 X10'3 (0-0.9); MONOCYTES % (AUTO) 3.3 % (2-12); NEUTROPHILS # (AUTO) 14.4 X10'3 (1.8-7.7); NEUTROPHILS % (AUTO) 92.7 % (42-75); PLATELET COUNT 160 X10'3 (140-440); RED BLOOD COUNT 4.22 X10'6 (4.20-5.60); RED CELL DISTRIBUTION WIDTH 15.3 % (11.5-14.5); WHITE BLOOD COUNT 15.5 X10'3 (4.5-11.0)
[2022-10-31 06:46] LABS: ALANINE AMINOTRANSFERASE 44 U/L (12-78); ALBUMIN 3.1 G/DL (3.4-5.0); ALKALINE PHOSPHATASE 124 IU/L (46-116); ASPARTATE AMINO TRANSFERASE 20 U/L (10-37); BILIRUBIN,TOTAL 0.3 MG/DL (0.1-1.0); BLOOD UREA NITROGEN 25 MG/DL (7-18); CALCIUM 8.9 MG/DL (8.5-10.1); CHLORIDE 97 MMOL/L (99-107); CREATININE 0.61 MG/DL (0.40-0.90); GLUCOSE 172 MG/DL (70-104); POTASSIUM 3.1 MMOL/L (3.5-5.1); SODIUM 143 MMOL/L (135-145); TOTAL PROTEIN 6.3 G/DL (6.4-8.2); eGFR > 90 ML/MIN
[2022-10-31 07:10] VITALS: BP 144/67
[2022-10-31 07:24] LABS: ANION GAP 0 (8-16)
[2022-10-31 07:50] LABS: TOTAL CARBON DIOXIDE 46.4 MMOL/L (24-32)
[2022-10-31] MEDS: K and/or MAG REPLACEMENT MC SCH (08:00)
--- NOTE | 2022-10-31 08:20 | NUR ---
PAGER ID: [phone] MESSAGE: Eloy Tavares [phone] CRITICAL VALUE CO2 46.4. WANT ABGS? CXR? VAN [phone]
[2022-10-31] MEDS: lactobacillus rhamnosus 10,000 MMU CELLS/CAPSULE PO SCH (08:33)
[2022-10-31] MEDS: ALPRAZolam 0.25mg tablet PO SCH (08:34)
[2022-10-31] MEDS: aspirin 81mg, enteric-coated 1 TAB TABLET.DR PO SCH (08:34)
[2022-10-31] MEDS: docusate sod 100mg capsule PO SCH (08:34)
[2022-10-31] MEDS: celeCOXIB 100mg capsule PO SCH (08:34)
[2022-10-31] MEDS: atorvastatin 20mg tablet PO SCH (08:34)
[2022-10-31] MEDS: multivitamins, therapeutics tablet PO SCH (08:35)
[2022-10-31] MEDS: oxybutynin 5mg tablet PO SCH (08:35)
[2022-10-31] MEDS: apixaban 5mg tablet PO SCH (08:35)
[2022-10-31] MEDS: methylPREDNISolone sod succ 125mg/2ml vial IV SCH (08:35)
[2022-10-31] MEDS: ferrous sulfate 325mg tablet PO SCH (08:35)
[2022-10-31] MEDS: sildenafil citrate 20mg tablet PO SCH (08:36)
[2022-10-31] MEDS: metoprolol succinate 25mg (24-HOUR) SR. Tablet PO SCH (08:36)
[2022-10-31] MEDS ORDERED: atorvastatin 20mg tablet PO SCH (09:03)
[2022-10-31 09:40] LABS: ABG BASE EXCESS 16.9 mmol/L (-2.0-2.0); ABG HCO3 44.2 mmol/L (22.0-26.0); ABG OXYGEN SATURATION 95.7 % (94-97); ABG PCO2 (T) 64.2 mmHg (32.0-45.0); ABG PO2 (T) 78.7 mmHg (75.0-100.0); ALLEN'S TEST POSITIVE; FCOHb 0.6 % (0.0-3.9); FLOW 3 L/min; FMetHb 0.2 % (0.0-1.5); FO2Hb 94.9 % (94-97); TOTAL HEMOGLOBIN 13.7 G/dl (12.0-16.0)
[2022-10-31] MEDS: morphine 2 MG/ML inj. syringe IV PRN (10:03)
[2022-10-31 10:37] VITALS: BP 148/80
[2022-10-31] MEDS: sacubitril/valsartan 24mg-26mg tablet PO SCH (11:04)
[2022-10-31 11:08] VITALS: BP 132/72
[2022-10-31] MEDS ORDERED: ATOR40TA71 PO (11:23)
[2022-10-31] MEDS ORDERED: FURO40TA4 PO (11:23)
[2022-10-31] MEDS ORDERED: PRED20TA PO (11:23)
[2022-10-31] MEDS ORDERED: SACU1TAB PO (11:23)
[2022-10-31] MEDS ORDERED: NITR0.4T51 SL (11:23)
[2022-10-31] MEDS ORDERED: POTA-207 PO (11:23)
[2022-10-31] MEDS ORDERED: METO-395 PO (11:23)
--- NOTE | 2022-10-31 12:22 | NUR ---
PAGER ID: [phone] MESSAGE: Cierra Fonseca [phone] Discharge medication order for Z-pack is not clear. Please clarify. Will not provide diabetic or meth tablet info as well. Thank you Joana [phone]
[2022-10-31 12:41] VITALS: BP 136/79
[2022-10-31] MEDS: furosemide 40mg/4ml inj IV SCH (12:42)
--- NOTE | 2022-10-31 12:59 | NUR ---
DISCHARGE NOTE: Reviewed discharge paperwork with pt. Went over every medication however feedback very passive from pt. Pt. had no question about ASE of medication and refused teaching. Eager to leave. Tele removed by pt. and returned. PIV removed by pt, cannula intact, pt. did not put pressure on sight and some bleeding noted but stopped with pressure bandage. Pt. states her bf is coming to pick her up and that he is bringing her home 02. She has multiple w/c at home. Discussed smoking and meth abstinence, pt. did not give feedback besides a head nod. Gathered up pt. belongings for her. States she will f/u with her PCP at [facility] in two weeks. She is aware of her reduced cardiac function. She is waiting for a staff member to wheel her downstairs in a w/c to discharge home.
== END 2022-10-31 13:25 | disposition home health service (06) | DRG 291 ==
LOC: ER 10:57 → ORTHO 4S 16:39 → EDBEDREQ 17:29
PROVIDERS: ADMIT Family Medicine; ATTEND Family Medicine
PROC: 5A09357 Assistance with Respiratory Ventilation, Less than 24 Consecutive Hours, Continuous Positive Airway Pressure (ICD-10-PCS; principal; 2022-10-28)
PROC: 5A09357 Assistance with Respiratory Ventilation, Less than 24 Consecutive Hours, Continuous Positive Airway Pressure (ICD-10-PCS; 2022-10-29)
PROC: 5A09357 Assistance with Respiratory Ventilation, Less than 24 Consecutive Hours, Continuous Positive Airway Pressure (ICD-10-PCS; 2022-10-30)
DX: I11.0 Hypertensive heart disease with heart failure (principal); G93.41 Metabolic encephalopathy; J96.22 Acute and chronic respiratory failure with hypercapnia; I50.43 Acute on chronic combined systolic (congestive) and diastolic (congestive) heart failure; J96.21 Acute and chronic respiratory failure with hypoxia; J44.1 Chronic obstructive pulmonary disease with (acute) exacerbation; E87.0 Hyperosmolality and hypernatremia; I42.7 Cardiomyopathy due to drug and external agent; E11.9 Type 2 diabetes mellitus without complications; F15.10 Other stimulant abuse, uncomplicated; F17.210 Nicotine dependence, cigarettes, uncomplicated; G35 Multiple sclerosis; I27.81 Cor pulmonale (chronic); F41.9 Anxiety disorder, unspecified; G43.909 Migraine, unspecified, not intractable, without status migrainosus; I48.0 Paroxysmal atrial fibrillation; K21.9 Gastro-esophageal reflux disease without esophagitis; E78.00 Pure hypercholesterolemia, unspecified; R00.0 Tachycardia, unspecified; I27.20 Pulmonary hypertension, unspecified; I25.2 Old myocardial infarction; Z79.01 Long term (current) use of anticoagulants; Z79.51 Long term (current) use of inhaled steroids; Z79.899 Other long term (current) drug therapy; Z82.49 Family history of ischemic heart disease and other diseases of the circulatory system; Z82.5 Family history of asthma and other chronic lower respiratory diseases; Z83.3 Family history of diabetes mellitus; Z86.711 Personal history of pulmonary embolism; Z88.1 Allergy status to other antibiotic agents; Z99.81 Dependence on supplemental oxygen; Z88.8 Allergy status to other drugs, medicaments and biological substances; Z90.49 Acquired absence of other specified parts of digestive tract; Z79.82 Long term (current) use of aspirin
CPT/HCPCS: 36415; 36600; 71045; 80053; 80061; 80305; 81001; 82803; 82948; 83036; 83735; 83880; 85018; 85025; 85610; 85730; 87081; 93005; 93306; 94640; 94660; 94664; 94760; 96361; 96374; 96375; 97116; 97161; 97530; 99285; A4615; A6213; A7015; G0378; J1940; J2270; J2405; J2930; J7030

== ENCOUNTER 2022-11-01 19:51 | Emergency (ER) | payer BC, MEDICAID ==
[~2022-11-01] VITALS: Ht 160 cm; Wt 54.5 kg
[~2022-11-01 19:51] MED LIST changes: +ATOR40TA71 PO; +FURO40TA4 PO; -LISI2.5T14 PO; +METO-395 PO; -METO25TA6 PO; +NITR0.4T51 SL; +POTA-207 PO; -POTA10CA45 PO; +SACU1TAB PO
[2022-11-01] MEDS ORDERED: CefTRIAXone 2gm/D5W 50ml BAG 50 ML IV ONE (20:30)
[2022-11-01] MEDS ORDERED: azithromycin/NS 500mg/250ml 250 ML IV SCH (20:34)
[2022-11-01] MEDS ORDERED: albuterol 2.5 MG/3 ML nebule CONTNEB PRN (20:35)
[2022-11-01] MEDS ORDERED: ipratropium 0.5 MG/2.5ML nebule IH ONE (20:35)
[2022-11-01] MEDS ORDERED: normal saline 1000ml 1,000 ML IV ONE (20:35)
[2022-11-01 20:41] LABS: BASOPHILS % (AUTO) 0.2 % (0-1); EOSINOPHILS % (AUTO) 0 % (0-6); HEMATOCRIT 43.7 % (35.0-45.0); HEMOGLOBIN 13.9 g/dl (12.0-16.0); LYMPHOCYTES # (AUTO) 1.1 X10'3 (1.1-4.8); LYMPHOCYTES % (AUTO) 6.3 % (21-51); MEAN CORPUSCULAR HEMOGLOBIN 29.5 PG (27.0-31.0); MEAN CORPUSCULAR HGB CONC 31.9 g/dL (33.0-36.5); MEAN CORPUSCULAR VOLUME 92.6 FL (78-98); MEAN PLATELET VOLUME 7.7 FL (7.4-10.4); MONOCYTES # (AUTO) 1.2 X10'3 (0-0.9); MONOCYTES % (AUTO) 6.6 % (2-12); NEUTROPHILS # (AUTO) 15.2 X10'3 (1.8-7.7); NEUTROPHILS % (AUTO) 86.9 % (42-75); PLATELET COUNT 188 X10'3 (140-440); RED BLOOD COUNT 4.71 X10'6 (4.20-5.60); RED CELL DISTRIBUTION WIDTH 15.8 % (11.5-14.5); WHITE BLOOD COUNT 17.4 X10'3 (4.5-11.0)
[2022-11-01 21:00] LABS: ABG BASE EXCESS 17.9 mmol/L (-2.0-2.0); ABG OXYGEN SATURATION 90.2 % (94-97); ABG PCO2 (T) 68.2 mmHg (32.0-45.0); ABG PO2 (T) 58.3 mmHg (75.0-100.0); ALLEN'S TEST POSITIVE; FCOHb 1.1 % (0.0-3.9); FMetHb 0.2 % (0.0-1.5); TOTAL HEMOGLOBIN 14.6 G/dl (12.0-16.0)
[2022-11-01 21:11] LABS: ALANINE AMINOTRANSFERASE 57 U/L (12-78); ALBUMIN 3.3 G/DL (3.4-5.0); ALKALINE PHOSPHATASE 130 IU/L (46-116); ANION GAP 0 (8-16); ASPARTATE AMINO TRANSFERASE 27 U/L (10-37); BILIRUBIN,TOTAL 0.4 MG/DL (0.1-1.0); BLOOD UREA NITROGEN 45 MG/DL (7-18); CALCIUM 8.8 MG/DL (8.5-10.1); CHLORIDE 100 MMOL/L (99-107); CREATININE 0.79 MG/DL (0.40-0.90); GLUCOSE 133 MG/DL (70-104); POTASSIUM 3.3 MMOL/L (3.5-5.1); SODIUM 144 MMOL/L (135-145); TOTAL PROTEIN 6.6 G/DL (6.4-8.2); eGFR 74 ML/MIN
[2022-11-01 21:16] LABS: TOTAL CARBON DIOXIDE 43.7 MMOL/L (24-32)
[2022-11-01] MEDS ORDERED: ondansetron/PF 4mg/2ml inj IM ONE (23:00)
[2022-11-01] MEDS ORDERED: morphine 4 MG/ML inj SYRINge IV ONE (23:00)
[2022-11-01] MEDS ORDERED: ondansetron/PF 4mg/2ml inj IV ONE (23:10)
[2022-11-01 23:36] VITALS: BP 121/85
--- NOTE | 2022-11-02 00:10 | NUR ---
pt verbalizing her desire to go home. " I am not staying here any longer. I feel better I am only 3 min away if I need to come back" pt has taken all monitor leads off " I called my honey and he is coming to get me" charge nurse and MD aware
--- NOTE | 2022-11-02 00:27 | NUR ---
Dr Cueva at bedside discussing risks associated with leaving AMA with pt and her at present time
--- NOTE | 2022-11-02 00:42 | NUR ---
pt exited unit AMA risks reviewed again with pt and " I know I am okay. If I start to feel bad again I will call 911 again" pt pulled her piv out prior to this RN entering room. No active bleeding noted to site cath tip intact laying on bed. Pt refused dc vitals. " I am ready to go" pt sitting in her personal wc waiting to exit. escorted pt out of unit. Pt's resps even unlabored as she exited with her O2 via nc.
== END 2022-11-02 00:47 | disposition left against medical advice (07) ==
LOC: ER 19:52
DX: J45.901 Unspecified asthma with (acute) exacerbation (principal); R07.9 Chest pain, unspecified; I11.0 Hypertensive heart disease with heart failure; J44.9 Chronic obstructive pulmonary disease, unspecified; K21.9 Gastro-esophageal reflux disease without esophagitis; E11.9 Type 2 diabetes mellitus without complications; Z86.14 Personal history of Methicillin resistant Staphylococcus aureus infection
CPT/HCPCS: 36415; 36600; 71045; 80053; 82803; 83605; 83880; 84484; 85018; 85025; 87040; 93005; 94640; 94644; 96365; 96375; 99285; J0456; J0696; J2270; J2405; J7030; 94760

== ENCOUNTER 2022-11-04 06:48 | Emergency (ER) | payer MEDICARE, MEDICAID ==
[~2022-11-04] VITALS: Ht 160 cm; Wt 54.5 kg
[2022-11-04 08:22] LABS: ALANINE AMINOTRANSFERASE 45 U/L (12-78); ALKALINE PHOSPHATASE 125 IU/L (46-116); ANION GAP -3 (8-16); ASPARTATE AMINO TRANSFERASE 22 U/L (10-37); BASOPHILS % (AUTO) 0.2 % (0-1); BILIRUBIN,TOTAL 0.3 MG/DL (0.1-1.0); CALCIUM 8.3 MG/DL (8.5-10.1); CHLORIDE 102 MMOL/L (99-107); EOSINOPHILS # (AUTO) 0.1 X10'3 (0-0.9); EOSINOPHILS % (AUTO) 0.6 % (0-6); GLUCOSE 122 MG/DL (70-104); HEMATOCRIT 38.4 % (35.0-45.0); LYMPHOCYTES # (AUTO) 1.4 X10'3 (1.1-4.8); LYMPHOCYTES % (AUTO) 8.5 % (21-51); MEAN CORPUSCULAR HGB CONC 31.3 g/dL (33.0-36.5); MEAN CORPUSCULAR VOLUME 92.9 FL (78-98); MEAN PLATELET VOLUME 7.9 FL (7.4-10.4); MONOCYTES # (AUTO) 1.1 X10'3 (0-0.9); MONOCYTES % (AUTO) 6.7 % (2-12); PLATELET COUNT 181 X10'3 (140-440); RED BLOOD COUNT 4.13 X10'6 (4.20-5.60); RED CELL DISTRIBUTION WIDTH 15.7 % (11.5-14.5); SODIUM 144 MMOL/L (135-145); TOTAL PROTEIN 5.9 G/DL (6.4-8.2); WHITE BLOOD COUNT 16.7 X10'3 (4.5-11.0); eGFR 73 ML/MIN
[2022-11-04 08:23] LABS: BLOOD UREA NITROGEN 35 MG/DL (7-18); BUN/CREATININE RATIO 43.8 (10.0-20.0)
[2022-11-04 08:31] LABS: TOTAL CARBON DIOXIDE 44.6 MMOL/L (24-32)
[2022-11-04] MEDS ORDERED: potassium Cl 40MEQ/1/2NS 520ml 520 ML IV ONE (09:05)
[2022-11-04 09:44] VITALS: BP 126/65
--- NOTE | 2022-11-04 10:36 | NUR ---
Patient wanted her IV out due to pain. Patient currently receiving IV KCL. IV KCL slowed down temporarily. Patient strongly discouraged from pulling out her IV. I notified Dr. katie paulino this. Got a verbal order to give pt Ibuprofen 600 mg PO x 1
[2022-11-04] MEDS ORDERED: ibuprofen 200mg tablet PO ONE (10:40)
[2022-11-04] MEDS ORDERED: potassium Cl 20 mEq SR tablet PO ONE (11:15)
--- NOTE | 2022-11-04 11:19 | NUR ---
I notified Dr. Meraz about patient did not wanted me to continue infusing the KCL IV, patient requesting PO KCL instead. Received order for PO KCL
== END 2022-11-04 13:37 | disposition home or self-care (01) ==
LOC: ER 06:48
DX: R07.9 Chest pain, unspecified (principal); I11.0 Hypertensive heart disease with heart failure; J44.9 Chronic obstructive pulmonary disease, unspecified; K21.9 Gastro-esophageal reflux disease without esophagitis; E11.9 Type 2 diabetes mellitus without complications; F31.9 Bipolar disorder, unspecified; G43.909 Migraine, unspecified, not intractable, without status migrainosus; Z88.1 Allergy status to other antibiotic agents; Z88.8 Allergy status to other drugs, medicaments and biological substances; Z88.0 Allergy status to penicillin; Z79.899 Other long term (current) drug therapy; Z79.1 Long term (current) use of non-steroidal anti-inflammatories (NSAID); Z79.2 Long term (current) use of antibiotics; Z79.82 Long term (current) use of aspirin
CPT/HCPCS: 36415; 71045; 80053; 84484; 85025; 93005; 96365; 96366; 99285; J3480

== ENCOUNTER 2022-11-09 23:52 | Emergency (ER) | payer MEDICARE, MEDICAID | END 2022-11-10 00:08 | disposition left against medical advice (07) | LOC: ER 23:53 | DX: R06.00 Dyspnea, unspecified (principal); Z53.21 Procedure and treatment not carried out due to patient leaving prior to being seen by health care provider; G43.909 Migraine, unspecified, not intractable, without status migrainosus; I11.0 Hypertensive heart disease with heart failure; J44.9 Chronic obstructive pulmonary disease, unspecified; K21.9 Gastro-esophageal reflux disease without esophagitis; J45.909 Unspecified asthma, uncomplicated; F41.9 Anxiety disorder, unspecified; Z98.890 Other specified postprocedural states; Z90.49 Acquired absence of other specified parts of digestive tract; Z88.1 Allergy status to other antibiotic agents; Z88.8 Allergy status to other drugs, medicaments and biological substances | CPT/HCPCS: 99285 ==

== ENCOUNTER 2022-11-13 17:44 | Emergency (ER) | payer MEDICARE, MEDICAID ==
[~2022-11-13] VITALS: Ht 160 cm; Wt 55.0 kg
[2022-11-13 18:52] LABS: APTT 28 SECONDS (22-32)
[2022-11-13 18:53] LABS: ALANINE AMINOTRANSFERASE 29 U/L (12-78); ALBUMIN 2.8 G/DL (3.4-5.0); ALKALINE PHOSPHATASE 112 IU/L (46-116); ANION GAP 3 (8-16); ASPARTATE AMINO TRANSFERASE 15 U/L (10-37); BILIRUBIN,TOTAL 0.2 MG/DL (0.1-1.0); BLOOD UREA NITROGEN 42 MG/DL (7-18); BUN/CREATININE RATIO 36.2 (10.0-20.0); CALCIUM 7.7 MG/DL (8.5-10.1); CHLORIDE 103 MMOL/L (99-107); CREATININE 1.16 MG/DL (0.40-0.90); GLUCOSE 198 MG/DL (70-104); POTASSIUM 3.4 MMOL/L (3.5-5.1); SODIUM 144 MMOL/L (135-145); TOTAL CARBON DIOXIDE 38.4 MMOL/L (24-32); TOTAL PROTEIN 5.5 G/DL (6.4-8.2); eGFR 48 ML/MIN
[2022-11-13 19:13] LABS: D-DIMER 0.55 MG/L FEU (0-0.50)
[2022-11-13 19:16] LABS: CLARITY,URINE CLEAR (Clear); COLOR,URINE YELLOW (Yellow); GLUCOSE, URINE NEGATIVE (Neg); KETONES,URINE NEGATIVE (Neg); LEUKOCYTE ESTERASE ,URINE NEGATIVE (Neg); NITRITES, URINE NEGATIVE (Neg); OCCULT BLOOD,URINE NEGATIVE (Neg); PROTEIN,URINE NEGATIVE (Neg); UROBILINOGEN,URINE 0.2 E.U/dL (0.2-1.0)
[2022-11-13 19:17] VITALS: BP 99/45
[2022-11-13 19:18] LABS: UA COLLECTION TYPE CLN CATCH MIDSTREAM
[2022-11-13 19:19] LABS: BASOPHILS % (AUTO) 0.1 % (0-1); EOSINOPHILS % (AUTO) 0.2 % (0-6); HEMATOCRIT 34.9 % (35.0-45.0); HEMOGLOBIN 11.2 g/dl (12.0-16.0); LYMPHOCYTES # (AUTO) 0.5 X10'3 (1.1-4.8); LYMPHOCYTES % (AUTO) 4.8 % (21-51); MEAN CORPUSCULAR HEMOGLOBIN 29.5 PG (27.0-31.0); MEAN CORPUSCULAR HGB CONC 31.9 g/dL (33.0-36.5); MEAN CORPUSCULAR VOLUME 92.4 FL (78-98); MEAN PLATELET VOLUME 7.7 FL (7.4-10.4); MONOCYTES # (AUTO) 0.1 X10'3 (0-0.9); MONOCYTES % (AUTO) 1.3 % (2-12); NEUTROPHILS # (AUTO) 9.5 X10'3 (1.8-7.7); NEUTROPHILS % (AUTO) 93.6 % (42-75); PLATELET COUNT 168 X10'3 (140-440); RED BLOOD COUNT 3.78 X10'6 (4.20-5.60); RED CELL DISTRIBUTION WIDTH 15.5 % (11.5-14.5); WHITE BLOOD COUNT 10.2 X10'3 (4.5-11.0)
[2022-11-13] MEDS ORDERED: iohexol 350MG/ML 100ml bottle IV ONE (23:05)
--- NOTE | 2022-11-14 00:10 | NUR ---
Pt signed AMA and her ride is here with her w/c and oxygen.
== END 2022-11-14 00:11 | disposition left against medical advice (07) ==
LOC: ER 17:44
DX: I95.9 Hypotension, unspecified (principal); G43.909 Migraine, unspecified, not intractable, without status migrainosus; I11.0 Hypertensive heart disease with heart failure; I50.9 Heart failure, unspecified; J44.9 Chronic obstructive pulmonary disease, unspecified; K21.9 Gastro-esophageal reflux disease without esophagitis; E11.9 Type 2 diabetes mellitus without complications; F41.9 Anxiety disorder, unspecified; Z88.1 Allergy status to other antibiotic agents; Z88.8 Allergy status to other drugs, medicaments and biological substances; Z79.899 Other long term (current) drug therapy; Z79.1 Long term (current) use of non-steroidal anti-inflammatories (NSAID); Z79.2 Long term (current) use of antibiotics
CPT/HCPCS: 36415; 71045; 71275; 80053; 81003; 83880; 84484; 85025; 85379; 85610; 85730; 93005; 99285; J3490; Q9967

== ENCOUNTER 2022-11-29 12:39 | Inpatient (IN) | payer MEDICARE, MEDICAID ==
[~2022-11-29] VITALS: Ht 160 cm; Wt 56.8 kg
[~2022-11-29 12:39] MED LIST changes: +PRED50TA PO
[2022-11-29] MEDS ORDERED: morphine 2 MG/ML inj. syringe IV ONE (12:50)
[2022-11-29] MEDS ORDERED: ondansetron/PF 4mg/2ml inj IV ONE (12:50)
[2022-11-29] MEDS ORDERED: ipratropium/albuterol 3ml nebule NEB ONE (12:50)
[2022-11-29] MEDS ORDERED: normal saline 1000ML IV soln IVB ONE (12:50)
[2022-11-29 13:10] LABS: BASOPHILS # (AUTO) 0.1 X10'3 (0-0.2); BASOPHILS % (AUTO) 0.3 % (0-1); EOSINOPHILS % (AUTO) 0.2 % (0-6); HEMATOCRIT 38.6 % (35.0-45.0); HEMOGLOBIN 12.1 g/dl (12.0-16.0); LYMPHOCYTES # (AUTO) 1.8 X10'3 (1.1-4.8); LYMPHOCYTES % (AUTO) 10.9 % (21-51); MEAN CORPUSCULAR HEMOGLOBIN 28.8 PG (27.0-31.0); MEAN CORPUSCULAR HGB CONC 31.4 g/dL (33.0-36.5); MEAN CORPUSCULAR VOLUME 91.8 FL (78-98); MEAN PLATELET VOLUME 7.2 FL (7.4-10.4); MONOCYTES # (AUTO) 1.3 X10'3 (0-0.9); MONOCYTES % (AUTO) 8.1 % (2-12); NEUTROPHILS # (AUTO) 13.1 X10'3 (1.8-7.7); NEUTROPHILS % (AUTO) 80.5 % (42-75); PLATELET COUNT 238 X10'3 (140-440); RED CELL DISTRIBUTION WIDTH 15.7 % (11.5-14.5); WHITE BLOOD COUNT 16.2 X10'3 (4.5-11.0)
[2022-11-29 13:20] LABS: D-DIMER 0.32 MG/L FEU (0-0.50)
[2022-11-29 13:33] LABS: ALANINE AMINOTRANSFERASE 30 U/L (12-78); ALBUMIN 3.5 G/DL (3.4-5.0); ALBUMIN/GLOBULIN RATIO 1.1 (1.1-1.5); ALKALINE PHOSPHATASE 178 IU/L (46-116); ANION GAP 5 (8-16); ASPARTATE AMINO TRANSFERASE 22 U/L (10-37); BILIRUBIN,TOTAL 0.4 MG/DL (0.1-1.0); BLOOD UREA NITROGEN 29 MG/DL (7-18); BUN/CREATININE RATIO 13.5 (10.0-20.0); CALCIUM 8.8 MG/DL (8.5-10.1); CHLORIDE 95 MMOL/L (99-107); CREATININE 2.15 MG/DL (0.40-0.90); GLUCOSE 120 MG/DL (70-104); POTASSIUM 3.5 MMOL/L (3.5-5.1); SODIUM 142 MMOL/L (135-145); TOTAL PROTEIN 6.7 G/DL (6.4-8.2); eGFR 23 ML/MIN
[2022-11-29 13:38] LABS: TOTAL CARBON DIOXIDE 41.9 MMOL/L (24-32)
[2022-11-29] MEDS ORDERED: methylPREDNISolone sod succ 125mg/2ml vial IV ONE (13:45)
[2022-11-29] MEDS ORDERED: magnesium 2GM in 50ml NS 50 ML IV ONE (13:45)
[2022-11-29] MEDS ORDERED: PERFLUTREN PROTEIN-A MICROSPHR (Optison) 0.22 MG/ML 3ML VIAL IV ONE (15:15)
[2022-11-29] MEDS ORDERED: potassium Cl 40MEQ/1/2NS 520ml 520 ML IV PRN (15:15)
[2022-11-29] MEDS ORDERED: magnesium 2GM in 50ml NS 50 ML IV PRN (15:15)
[2022-11-29] MEDS ORDERED: magnesium hydroxide 30ml (MOM) UD suspension PO PRN (15:15)
[2022-11-29] MEDS ORDERED: metoprolol tartrate 50mg tablet PO ONE (15:15)
[2022-11-29] MEDS ORDERED: magnesium 4gm in 100ml NS 100 ML IV PRN (15:15)
[2022-11-29] MEDS ORDERED: mag hydrox/Alum hydrox/simeth 30ml oral suspension PO PRN (15:15)
[2022-11-29] MEDS ORDERED: magnesium Cl slow-release 64mg tablet PO PRN (15:15)
[2022-11-29] MEDS ORDERED: ondansetron/PF 4mg/2ml inj IV PRN (15:15)
[2022-11-29] MEDS ORDERED: potassium Cl 20 mEq SR tablet PO PRN ×2 (15:15)
[2022-11-29] MEDS ORDERED: acetaminophen 325mg tablet PO PRN (15:15)
--- NOTE | 2022-11-29 16:28 | NUR ---
information technology auditor at bedside.
[2022-11-29] MEDS ORDERED: POTA-208 PO (17:20)
[2022-11-29] MEDS ORDERED: METO-384 PO (17:28)
[2022-11-29] MEDS ORDERED: IBUP-1985 PO (17:28)
[2022-11-29] MEDS ORDERED: albuterol 2.5 MG/3 ML nebule NEB PRN (17:40)
[2022-11-29] MEDS ORDERED: ondansetron 4mg rapidly disintigrating tab PO PRN (17:40)
[2022-11-29 18:03] LABS: CLARITY,URINE CLOUDY (Clear); COLOR,URINE YELLOW (Yellow); GLUCOSE, URINE NEGATIVE (Neg); KETONES,URINE NEGATIVE (Neg); LEUKOCYTE ESTERASE ,URINE NEGATIVE (Neg); NITRITES, URINE POSITIVE (Neg); OCCULT BLOOD,URINE NEGATIVE (Neg); PROTEIN,URINE NEGATIVE (Neg); UROBILINOGEN,URINE 0.2 E.U/dL (0.2-1.0)
[2022-11-29 18:07] LABS: UA COLLECTION TYPE VOIDED
--- NOTE | 2022-11-29 18:09 | NUR ---
Page sent to Dr Levin per patient request for order for morphine PRN for pain.
[2022-11-29] MEDS ORDERED: HYDROcodone/acetaminophen 5mg/325mg tablet PO PRN (18:10)
[2022-11-29 18:12] LABS: SQUAMOUS EPITHELIAL CELL,UR MANY /LPF (FEW)
[2022-11-29 18:13] LABS: BACTERIA,URINE 4+ /HPF (Neg); HYALINE CASTS >30 /LPF (NEGATIVE); TRANSITIONAL EPI CELLS,URINE FEW /HPF
[2022-11-29 18:14] LABS: RBC,URINE 0-2 /HPF (0-2); WBC,URINE 0-4 /HPF (0-4)
[2022-11-29] MEDS: normal saline 1000ml 1,000 ML IV SCH (18:17)
[2022-11-29] MEDS: K and/or MAG REPLACEMENT MC SCH (20:00)
[2022-11-29] MEDS: docusate sod 100mg capsule PO SCH (20:00)
[2022-11-29] MEDS: budesonide 0.5mg/2ml UD nebule IH SCH (20:08)
[2022-11-29] MEDS: ipratropium/albuterol 3ml nebule NEB SCH ×2 (20:08→22:37)
[2022-11-29] MEDS: methylPREDNISolone sod succ 125mg/2ml vial IV SCH (20:43)
[2022-11-29] MEDS: ALPRAZolam 0.25mg tablet PO SCH (20:44)
[2022-11-29] MEDS: apixaban 5mg tablet PO SCH (20:45)
[2022-11-29] MEDS: furosemide 40mg tablet PO SCH (20:45)
[2022-11-29] MEDS: lansoprazole 15mg solutab PO SCH (20:46)
[2022-11-29] MEDS: sildenafil citrate 20mg tablet PO SCH (20:46)
--- NOTE | 2022-11-29 20:59 | NUR ---
Page sent to Dr Coleman at this time per patient request for cpap at night and morphine for pain.
[2022-11-29] MEDS ORDERED: albuterol 2.5 MG/3 ML nebule NEB SCH (21:00)
[2022-11-29] MEDS ORDERED: cyclobenzaprine 10mg tablet PO SCH (21:00)
[2022-11-29 21:45] VITALS: BP 101/50
--- NOTE | 2022-11-29 22:51 | NUR ---
Received report from Nanci RN in ER. Patient brought up to floor on [facility] with one. Transferred pt to hospital bed. Pt on 3L O2. O2 SAT 85%. Pt fluctuating between 80% - 91% on 4L O2 via NC. RT paged.
--- NOTE | 2022-11-29 23:40 | NUR ---
After immediately placing Pt. on our device the Pt. stated that she wanted to use her home device and it just arrived. Addendum: 11/30/22 at 0041 by Jas Johnson RT Amended: Links added.
--- NOTE | 2022-11-29 23:40 | NUR ---
After immediately placing Pt. on our device the Pt. stated that she wanted to use her home device and it just arrived. Addendum: 11/30/22 at 0044 by Jas Johnson RT Amended: Links added.
[2022-11-30] MEDS: normal saline 1000ml 1,000 ML IV SCH (00:34)
[2022-11-30 02:00] VITALS: BP 96/42
[2022-11-30 02:52] LABS: BASOPHILS % (AUTO) 0.1 % (0-1); EOSINOPHILS % (AUTO) 0 % (0-6); HEMATOCRIT 34.3 % (35.0-45.0); HEMOGLOBIN 10.9 g/dl (12.0-16.0); LYMPHOCYTES # (AUTO) 0.4 X10'3 (1.1-4.8); LYMPHOCYTES % (AUTO) 4.4 % (21-51); MEAN CORPUSCULAR HGB CONC 31.7 g/dL (33.0-36.5); MEAN CORPUSCULAR VOLUME 91.5 FL (78-98); MEAN PLATELET VOLUME 7.3 FL (7.4-10.4); MONOCYTES # (AUTO) 0.1 X10'3 (0-0.9); MONOCYTES % (AUTO) 0.9 % (2-12); NEUTROPHILS # (AUTO) 9.4 X10'3 (1.8-7.7); NEUTROPHILS % (AUTO) 94.6 % (42-75); PLATELET COUNT 185 X10'3 (140-440); RED BLOOD COUNT 3.75 X10'6 (4.20-5.60); RED CELL DISTRIBUTION WIDTH 15.5 % (11.5-14.5); WHITE BLOOD COUNT 9.9 X10'3 (4.5-11.0)
[2022-11-30 02:54] LABS: ABG BASE EXCESS 12.9 mmol/L (-2.0-2.0); ABG HCO3 42.3 mmol/L (22.0-26.0); ABG OXYGEN SATURATION 91.2 % (94-97); ABG PCO2 (T) 80.9 mmHg (32.0-45.0); ABG PO2 (T) 63.8 mmHg (75.0-100.0); ALLEN'S TEST POSITIVE; FCOHb 0.5 % (0.0-3.9); FLOW 4 L/min; FMetHb 0.5 % (0.0-1.5); FO2Hb 90.3 % (94-97); TOTAL HEMOGLOBIN 11.7 G/dl (12.0-16.0)
[2022-11-30] MEDS: ipratropium/albuterol 3ml nebule NEB SCH ×3 (03:00→11:51)
[2022-11-30 03:06] LABS: ALBUMIN 3.1 G/DL (3.4-5.0); ANION GAP 3 (8-16); BLOOD UREA NITROGEN 36 MG/DL (7-18); BUN/CREATININE RATIO 28.3 (10.0-20.0); CALCIUM 8.5 MG/DL (8.5-10.1); CHLORIDE 95 MMOL/L (99-107); CREATININE 1.27 MG/DL (0.40-0.90); GLUCOSE 288 MG/DL (70-104); MAGNESIUM 1.8 MG/DL (1.5-2.4); POTASSIUM 3.9 MMOL/L (3.5-5.1); SODIUM 137 MMOL/L (135-145); TOTAL CARBON DIOXIDE 39.3 MMOL/L (24-32); eGFR 43 ML/MIN
--- NOTE | 2022-11-30 03:39 | NUR ---
at 0205 pt with O2Sat fluctuating between 79%-86%. Resp paged. Pt initially difficult to arouse. Pt opened eyes to sternal rub. Dr. Coleman notified received orders for ABG, chest xray, troponin level, Charge Mickie LAMBERT called rapid.
[2022-11-30 06:00] VITALS: BP 109/57
--- NOTE | 2022-11-30 06:22 | NUR ---
Problems reprioritized. Patient report given, questions answered & plan of care reviewed with Susan LAMBERT.
--- NOTE | 2022-11-30 06:25 | NUR ---
Patient in room ORTHO 4015. I have received report from Alis and had the opportunity to ask questions and assume patient care.
[2022-11-30] MEDS ORDERED: multivitamins, therapeutics tablet PO SCH (08:00)
[2022-11-30] MEDS ORDERED: atorvastatin 20mg tablet PO SCH (08:00)
[2022-11-30] MEDS ORDERED: lactobacillus rhamnosus 10,000 MMU CELLS/CAPSULE PO SCH (08:00)
[2022-11-30] MEDS: K and/or MAG REPLACEMENT MC SCH (08:00)
[2022-11-30] MEDS ORDERED: metoprolol succinate 25mg (24-HOUR) SR. Tablet PO SCH (08:00)
[2022-11-30] MEDS ORDERED: ferrous sulfate 325mg tablet PO SCH (08:00)
[2022-11-30] MEDS ORDERED: potassium Cl 20 mEq SR tablet PO SCH (08:00)
[2022-11-30] MEDS ORDERED: aspirin 81mg, enteric-coated 1 TAB TABLET.DR PO SCH (08:00)
[2022-11-30] MEDS: budesonide 0.5mg/2ml UD nebule IH SCH (08:23)
[2022-11-30] MEDS ORDERED: levoFLOXACIN-Levaquin 500mg/D5 100 ML IV SCH (08:25)
[2022-11-30] MEDS: methylPREDNISolone sod succ 125mg/2ml vial IV SCH (08:40)
[2022-11-30] MEDS: docusate sod 100mg capsule PO SCH (08:40)
[2022-11-30] MEDS: apixaban 5mg tablet PO SCH (08:41)
[2022-11-30] MEDS: furosemide 40mg tablet PO SCH (08:42)
[2022-11-30] MEDS: ALPRAZolam 0.25mg tablet PO SCH (08:45)
--- NOTE | 2022-11-30 08:54 | NUR ---
DM consult: Per EMR pt with T2DM, well controlled with most recent A1c 6.2% 10/28/22, DM education not warranted at this time. Recommend continuing without CHO controlled diet restriction and utilizing hyperglycemic protocol as pt receiving Solumerol and DM has been well controlled A1c hx range 5.4-7.1% since 2017. Will continue to follow. Addendum: 11/30/22 at [address] Amended: Links added.
[2022-11-30] MEDS ORDERED: levoFLOXACIN 500mg tablet PO ONE (09:00)
--- NOTE | 2022-11-30 09:10 | NUR ---
RE: Raymundo in 2P, pharm called pt has severe rash allergy to levaquin, please advise Susan
[2022-11-30] MEDS: sildenafil citrate 20mg tablet PO SCH (09:20)
[2022-11-30] MEDS: lansoprazole 15mg solutab PO SCH (09:20)
[2022-11-30 10:00] VITALS: BP 127/61
[2022-11-30] MEDS ORDERED: LEVO-65 PO ×2 (10:22)
[2022-11-30] MEDS ORDERED: PRED10TA23 PO (10:22)
[2022-11-30] MEDS ORDERED: AMOX-117 PO ×2 (10:28)
--- NOTE | 2022-11-30 13:35 | NUR ---
The discharge has been printed and ready to be signed. Each time this lyric writer approaches patient with the paperwork/discharge, patient states she hasn't been able to get ahold of her boyfriend/ride. Patient wears home oxygen and he has the oxygen needed to transport patient to their home. Advised greenhouse or nursery transplanter.
[2022-11-30 14:00] VITALS: BP 130/65
--- NOTE | 2022-11-30 15:42 | NUR ---
Patient's boyfriend/ride returned to pick up attendant patient with her own oxygen supply and wheelchair. All of patient's belongings were gathered and taken by patient. Patient is alert, oriented and expressed a readiness to discharge home. Patient was wheeled downstairs in her own wheelchair by her boyfriend, to be driven home.
[2022-12-05] MEDS ORDERED: NICO-631 TOP (19:12)
[2022-12-05] MEDS ORDERED: PRED10TA PO (19:13)
[2022-12-05] MEDS ORDERED: AMOX-580 PO (19:15)
[2022-12-05] MEDS ORDERED: IBUP-1985 PO (19:16)
[2022-12-05] MEDS ORDERED: SACU1TAB PO (19:17)
== END 2022-11-30 15:40 | disposition home or self-care (01) | DRG 190 ==
LOC: ER 12:40 → ED HOLD 15:16 → EDBEDREQ 21:18 → ORTHO 4S 21:47
PROVIDERS: ADMIT Family Medicine; ATTEND Family Medicine
PROC: 5A09357 Assistance with Respiratory Ventilation, Less than 24 Consecutive Hours, Continuous Positive Airway Pressure (ICD-10-PCS; principal; 2022-11-30)
DX: J44.1 Chronic obstructive pulmonary disease with (acute) exacerbation (principal); N17.0 Acute kidney failure with tubular necrosis; E87.29 Other acidosis; J96.10 Chronic respiratory failure, unspecified whether with hypoxia or hypercapnia; I48.91 Unspecified atrial fibrillation; E11.9 Type 2 diabetes mellitus without complications; G35 Multiple sclerosis; I11.0 Hypertensive heart disease with heart failure; F15.90 Other stimulant use, unspecified, uncomplicated; F41.9 Anxiety disorder, unspecified; R00.0 Tachycardia, unspecified; G43.909 Migraine, unspecified, not intractable, without status migrainosus; K21.9 Gastro-esophageal reflux disease without esophagitis; I50.9 Heart failure, unspecified; I25.2 Old myocardial infarction; Z82.49 Family history of ischemic heart disease and other diseases of the circulatory system; Z82.5 Family history of asthma and other chronic lower respiratory diseases; Z83.3 Family history of diabetes mellitus; Z86.711 Personal history of pulmonary embolism; Z87.891 Personal history of nicotine dependence; Z88.1 Allergy status to other antibiotic agents; Z88.8 Allergy status to other drugs, medicaments and biological substances; Z90.49 Acquired absence of other specified parts of digestive tract; Z98.891 History of uterine scar from previous surgery; Z79.899 Other long term (current) drug therapy; Z79.82 Long term (current) use of aspirin
CPT/HCPCS: 36415; 36600; 71045; 80048; 80053; 81001; 82803; 83605; 83735; 83880; 84145; 84484; 85018; 85025; 85379; 87081; 93005; 93308; 94640; 94660; 94760; 96361; 96365; 96375; 99285; G0378; J2270; J2405; J2930; J3475; J7030